=== PATIENT | male | born 1950 | race Caucasian/White ===

== ENCOUNTER 2024-10-10 19:08 | Inpatient (IN) | payer MEDICARE, SELFPAY ==
[2024-10-10] VITALS (7 sets, daily range): BP systolic 134–157; BP diastolic 83–95; PULSE 58–74; RESP 13–21; TEMP 36.5–37.1; O2SAT 95–96; BMI 27.7; BMI 27.8
--- NOTE | 2024-10-10 19:36 | EKG12_ITS ---
Test Reason : CP Blood Pressure : */* mmHG Vent. Rate : 72 BPM Atrial Rate : 72 BPM P-R Int : 172 ms QRS Dur : 98 ms QT Int : 400 ms P-R-T Axes : 26 -9 -19 degrees QTcB Int : 438 ms Normal sinus rhythm Inferior infarct , age undetermined Anterolateral infarct , age undetermined Abnormal ECG Confirmed by KYMBERLY DAVENPORT, MASSIEL ([id number]), purchase request editor SIMEON KIRKLAND ([id number]) on 10/13/2024 6:42:55 AM Referred By: Andres Weiss Confirmed By: MASSIEL TRAYLOR MD
--- NOTE | 2024-10-10 19:42 | EDS_ITS ---
HPI History of Present Illness Chief Complaint: Chest Pain Narrative Narrative: Patient is a 74-year-old male with no known significant past medical history no daily medications who presents to the emergency department the chief complaint of chest pain. Patient states that for the last week now he has had chest pain with exertion and shortness of breath. He states that this evening he went on a walk and was very winded it is abnormal for him. He denies any recent travel history denies any history of blood clots. patient's notes that last week for a couple days he was very fatigued and this was very abnormal for him as well. Patient states that he had a stress test many years ago and cannot recall when this was. [facility] Medical History (Updated 10/10/24 @ 22:[address] Andres Weiss DO) CKD (chronic kidney disease), stage II Ruptured patellar tendon Medical History no medical history Home Medications ?Medication ?Instructions ?Recorded ?Last Taken ?Type NK 10/10/24 Unknown History Allergy/AdvReac Type Severity Reaction Status Date / Time No Known Allergies Allergy Verified 10/10/24 19:09 Social History Smoking Status: Never smoker ROS ROS ED ROS Narrative Constitutional: Denies fevers, chills Cardiovascular: Complaint chest pain as noted above denies palpitations Respiratory: Complains of shortness of breath as noted above denies coughing wheezing Abdomen: Denies abdominal pain nausea vomit diarrhea Neurological: Denies numbness, weakness, tingling Musculoskeletal: Denies back pain Skin: Has any rashes or lesions EXAM Physical Exam Narrative Exam Narrative: General: Patient was lying in bed rest comfortably did not appear to be acute distress Head: Atraumatic, normocephalic Eyes: PERRL bilaterally, EOMI by, no conjunctival injection noted Neck: Soft, supple, trachea midline Cardiovascular: Regular rate and rhythm no murmurs gallops rubs noted Respiratory: Clear to auscultation bilaterally no rales rhonchi or wheezes noted Abdomen: Soft, nondistended, nontender to palpatio Extremities: +5/5 strength noted in the bilateral upper and lower extremities, radial pulses +2/4 in the bilateral extremities, no pedal edema on exam Neurological: Patient is following commands knew that he was at [facility] 2024 Skin: Warm, dry, intact no rashes or lesions noted Const Vital Signs: 10/10/24 19:09 10/10/24 19:14 10/10/24 19:54 Temperature 98.7 F Temperature Source Oral Pulse Rate 74 Respiratory Rate 19 H Respiratory Effort Normal Blood Pressure 139/88 H Blood Pressure Mean 105 Pulse Ox 95 Oxygen Delivery Method Room Air Room Air 10/10/24 20:08 10/10/24 21:00 10/10/24 22:00 Temperature Temperature Source Pulse Rate 68 67 62 Respiratory Rate 20 H 21 H 16 Respiratory Effort Blood Pressure 156/93 H 139/92 H 134/83 H Blood Pressure Mean 114 107 100 Pulse Ox 95 96 95 Oxygen Delivery Method Room Air Room Air MDM MDM MDM Narrative Medical decision making narrative: Patient is a 74-year-old male who presented to the emergency department the chief complaint of chest pain. On the differential diagnosis includes but not limited to ACS, stable angina, unstable angina, CHF, PE although I have low suspicion for this based on revised Kay score, pericardial effusion. Once workup is obtained reviewed he will be reevaluated. Kay Score (Revised) for Pulmonary Embolism from [email or web address] on 10/10/2024 All calculations should be rechecked by clinician prior to use RESULT SUMMARY: 1 points Low risk group: 7-9% incidence of PE from several studies. INPUTS: Age >65 ?> 1 = Yes Previous DVT or PE ?> 0 = No Surgery (under general anesthesia) or lower limb fracture in past month ?> 0 = No Active malignant condition ?> 0 = No Unilateral lower limb pain ?> 0 = No Hemoptysis ?> 0 = No Heart rate ?> 0 = < 75 Pain on lower limb palpation and unilateral edema ?> 0 = No Patient CBC reviewed showed no evidence leukocytosis white blood count normal 7.5, he was 14.9, platelet count of 184. Patient sodium was 142, potassium normal 3.6, creatinine was normal at 1.01. Patient's troponin was 19 with a delta troponin of 28. Patient's proBNP normal at 296. Patient's EKG reviewed showed sinus rhythm with a rate of 72 beats per minutes there are Q waves noted in lead II, III and aVF. Patient chest x-ray reviewed showed no acute cardiopulmonary processes this reviewed by myself and by radiology. Discussed case with on-call system administrator Dr. Doherty who agrees and believes the patient needs admitted as well. Will discuss case with hospitalist for admission. Patient already was given 325 mg of aspirin. Discussed case with hospitalist Dr. Truong who accept the patient for admission. She states that we will hold off on heparin for now and she will continue to monitor the cardiac enzymes and if they continue to rise we will decide about anticoagulation with heparin at that point time. Updated the patient and at bedside they are agreeable this plan all question concerns answered Lab Data Labs: Laboratory Results - last 24 hr 10/10/24 10/10/24 19:30 21:35 WBC 7.5 RBC 5.09 Hgb 14.9 Hct 42.7 MCV 83.9 MCH 29.3 MCHC 34.9 RDW Std Deviation 40.6 RDW Coeff of Anila 13.2 Plt Count 184 MPV 10.6 Immature Gran % (Auto) 0.400 Neut % (Auto) 62.4 Lymph % (Auto) 22.7 Rolette % (Auto) 10.6 H Eos % (Auto) 3.5 Baso % (Auto) 0.4 Absolute Neuts (auto) 4.7 Absolute Lymphs (auto) 1.71 Nucleated RBC % 0 Sodium 142 Potassium 3.6 Chloride 108 Carbon Dioxide 21.3 Anion Gap 12 BUN 25 H Creatinine 1.01 Est GFR (MDRD) Non-Af 79 BUN/Creatinine Ratio 24.3 H Glucose 109 H Calcium 9.2 Troponin T High Sens 19 Troponin T Hi Sens 2 Hr 28 H NT pro BNP II 296 Radiography Diagnostic Testing: Clinical Impression(s) from Imaging Studies Chest X-Ray 10/10/24 20:00 IMPRESSION: NEGATIVE CHEST Reading Location: [facility] Discharge Plan Triage Chief Complaint: Chest Pain ED Provider: Andres Weiss Dx/Rx/DC Orders Clinical Impression: Chest pain, Dyspnea on exertion Prescriptions: No Action NK Primary Care Provider: Yamileth Sutton Referrals: Yamileth Sutton, [employer]PERATOR-[employer] [Primary Care Provider] - Print Language: Portuguese Disposition Disposition: [facility]
[2024-10-10 19:50] LABS: Hematocrit 42.7 % (40-54); Hemoglobin 14.9 g/dL (13.0-16.5); Immature Granulocytes Count 0.030 X10^3/uL (0.0-0.0); Mean Corp Hgb Conc 34.9 g/dL (32-36); Mean Corpuscular Volume 83.9 fL (80-94); Mean Platelet Vol. 10.6 fl (6.2-12.0); NRBC Flagged by Analyzer 0 % (0-5); Platelet Count 184 K/mm3 (150-450); RBC Distribution Width CV 13.2 % (11.6-14.6); RBC Distribution Width SD 40.6 fl (35.1-43.9); Red Blood Count 5.09 M/mm3 (4.6-6.2); White Blood Count 7.5 K/mm3 (4.4-11.0)
--- NOTE | 2024-10-10 20:00 | RAD_ITS ---
PROCEDURE: CHEST PA AND LATERAL 10/10/2024 REASON FOR EXAM: CHEST PAIN TECHNIQUE: CHEST PA AND LATERAL COMPARISON: None. FINDINGS: Hardware: None. Heart: The heart size is normal. Mediastinum: The mediastinal contour is unremarkable. Lungs: No focal consolidation, pleural effusion or pneumothorax. Bones: Degenerative changes are identified within the thoracic spine. RAD/Chest PA and Lateral IMPRESSION: NEGATIVE CHEST Reading Location: [id number]
[2024-10-10 20:28] LABS: Anion Gap 12 (5-15); BUN 25 mg/dL (4-19); BUN/Creat Ratio 24.3 RATIO (10-20); Calcium,Total 9.2 mg/dL (7.6-11.0); Carbon Dioxide 21.3 mmol/L (21.0-32.0); Chloride 108 mmol/L (98-108); Glucose 109 mg/dL (70-99); Potassium 3.6 mmol/L (3.3-5.1)
--- OUTSIDE RECORDS SUMMARY | 2024-10-10 20:28 | XMS RPT_ITS | CCD ---
Author Organization [facility] Care Team Providers Care Set Up And Charger Name Role Phone Unavailable Primary Care Provider Unavailabl e Bria CONCRETE PILE DRIVER OPERATOR.Anupam JSOE Primary Care Provider Bria CONCRETE PILE DRIVER OPERATOR.Anupam JOSE Primary Care Provider ANUPAM SUTTON Primary Care Unavailable ANUPAM SUTTON Attending Unavailable KNRANDAL, ANUPAM Primary Care Unavailable KNANUPAM TEE Referring Unavailable KNANUPAM TEE Primary Care Unavailable KNANUPAM TEE Attending Unavailable KNANUPAM TEE Primary Care Unavailable KNANUPAM TEE Referring Unavailable KNANUPAM TEE Primary Care Unavailable KNOBLE, ANUPAM Primary Care Unavailable KNRANDAL, ANUPAM Referring Unavailable ANUPAM SUTTON Primary Care Unavailable KNANUPAM TEE Attending Unavailable BRIA, ANUPAM Primary Care Unavailable KNANUPAM TEE Referring Unavailable Medications Current Medications Medication Drug Class(es) Dates Sig (Normalized) Sig (Original) amoxicillin 875 mg / clavulanate 125 mg oral tablet (1 source) Penicillin-class Antibacterial Start: 07-10-2023 End: 07-17-2023 take 1 tablet by mouth twice daily amoxicillin-clavul anate potassium (AUGMENTIN) 875-125 mg per tablet Take 1 tablet by mouth two times a day for 7 days. Patient should start on July 10, 2023. 14 tablet 0 07/10/2023 07/17/2023 Active Comment on above: Take 1 tablet by raffy th two times a day for 7 days. Patient should start on July 10, 2023. predniSONE 10 mg oral tablet (1 source) Start: 10-10-2022 End: 10-19-2022 predniSONE (DELTASONE) 10 mg tablet Take 4 tabs daily for 3 days, then 2 tabs daily for 3 days, then 1 tab daily for 3 days with food. 21 tablet 0 10/10/2022 10/19/2022 Active Comment on above: Take 4 tabs daily fo r 3 days, then 2 tabs daily for 3 days, then 1 tab daily for 3 days with food. tamsulosin hydrochloride 0.4 mg oral capsule (3 sources) alpha-Adrenergic Soco Start: 09-22-2024 take 1 capsule by mouth once daily tamsulosin (FLOMAX) 0.4 mg Indications: 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 Take 1 capsule by mouth once daily. 90 capsule 1 09/22/2024 Active triamcinolone acetonide 1 mg/ml topical cream (1 source) Corticosteroid Start: 10-10-2022 End: 10-17-2022 triamcinolone acetonide (KENALOG) 0.1 % cream Apply 1 application to affected area three times daily for 7 days. Apply sparingly to area for rash/itching. 80 g 0 10/10/2022 10/17/2022 Active Comment on above: Apply 1 application to affected area three times daily for 7 days. Apply sparingly to area for rash/itching. vit C/olive leaf ext/beta-gluc (IMMUNE ESSENTIALS ORAL) (20 sources) take 1 capsule by mouth once daily vit C/olive leaf ext/beta-gluc (IMMUNE ESSENTIALS ORAL) Take 1 capsule by mouth once daily. Active take 1 capsule by mouth once florentin ly vit C/olive leaf ext/beta-gluc (IMMUNE ESSENTIALS ORAL) Take 1 capsule by mouth once daily. 0 Active Comment on above: Take 1 capsule by [facility] once daily. Completed/Discontinued Medications Medication Drug Class(es) Dates Sig (Normalized) Sig (Original) [id number] 200 actuat albuterol 0.09 mg/actuat metered dose inhaler (5 sources) beta2-Adrenergic Agonist Start: 09-09-2023 End: 10-24-2023 take 2 puff(s) by inhalation every four hours as needed for wheezing albuterol HFA (PROVENTIL HFA, VENTOLIN HFA) 90 mcg/actuation inhaler Inhale 2 Puffs as instructed every 4 hours as needed for wheezing/shortness of breath. 1 Each 09/09/2023 10/24/2023 Discontinued benzonatate 100 mg oral capsule (9 sources) Non-narcotic Antitussive Start: 07-07-2023 End: 10-24-2023 take 1 capsule by mouth every eight hours as needed benzonatate (TESSALON PERLES) 100 mg capsule Take 1 capsule by mouth three times a day as needed for cough. 21 capsule 07/07/2023 10/24/2023 Discontinued Comment on above: Take 1 capsule by mo ut three times a day as needed for cough. doxycycline hyclate 100 mg oral tablet (4 sources) Tetracycline-class Drug Start: 09-09-2023 End: 09-16-2023 take 1 tablet by mouth twice daily doxycycline (VIBRA-TABS) 100 mg tablet Take 1 tablet by mouth two times a day for 7 days. 14 tablet 09/09/2023 09/16/2023 [place] 500 mg cap (13 sources) End: 10-24-2023 take 1 capsule by mouth once daily [place] 500 mg cap Take 1 capsule by mouth once daily. 10/24/2023 Discontinued End: 10-24-2023 take 1 capsule by mouth once daily [place] 500 mg cap Take 1 capsule by mouth once daily. 0 10/24/2023 Discontinued take 1 capsule by mo ut once daily [place] 500 mg cap Take 1 capsule by mouth once daily. 0 Active Comment on above: Take 1 capsule by mo ut once daily. gwfpelm-qlef-xlywg -oreg-capryl 100 mg-150 mg- 50 mg-150 mg cap (13 sources) End: 10-24-2023 take 2 capsules by mouth once daily qbfbowy-pgpu-zunme-ore g-capryl 100 mg-150 mg- 50 mg-150 mg cap Take 2 capsules by mouth once daily. 10/24/2023 Discontinued End: 10-24-2023 take 2 capsules by mouth once daily bgmjltv-lojg-lctjt-oreg-capryl 100 mg-15 0 mg- 50 mg-150 mg cap Take 2 capsules by mouth once daily. 0 10/24/2023 Discontinued take 2 capsules by mouth once daily jhaazjz-xsll-wwrak-oreg-capryl 100 mg-15 0 mg- 50 mg-150 mg cap Take 2 capsules by mouth once daily. 0 Active Comment on above: Take 2 capsules by [facility] once daily. Problems Active Problems Problem Classification Problem Date Documented Da te Episodic/Chronic Allergic reactions (1 source) Allergic contact dermatitis caused by plant material; Translations: [Allergic contact dermatitis due to plants, except food] Episodic Blindness and vision defects (1 source) Visual impairment; Translations: [Unspecified visual loss] 10-24-2023 Chronic Blindness and vision defects (3 sources) Bilateral hyperopia of eyes; Translations: [Hypermetropia, bilateral] Onset: 09-22-2024 10-24-2023 Episodic Chronic obstructive pulmonary disease and bronchiectasis (2 sources) Bronchitis; Translations: [Bronchitis, not specified as acute or chronic] 09-09-2023 Episodic Disorders of teeth and jaw (4 sources) Jaw pain; Translations: [Jaw pain] Onset: 09-22-2024 09-22-2024 Episodic Genitourinary symptoms and ill-defined conditions (1 source) Feeling of incomplete bladder emptying; Translations: [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] Onset: 09-22-2024 Episodic Hyperplasia of prostate (2 sources) Benign prostatic hypertrophy with outflow obstruction; Translations: [Benign prostatic hyperplasia with lower urinary tract symptoms] Onset: 09-22-2024 09-22-2024 Chronic Nutritional deficiencies (3 sources) Vitamin D deficiency; Translations: [Vitamin D deficiency, unspecified] Onset: 10-24-2023 10-24-2023 Chronic Other connective tissue disease (3 sources) Pain in left thumb; Translations: [Pain in left finger(s)] 09-22-2024 Episodic Other connective tissue disease (1 source) Pain in left finger(s); Translations: [Pain of left thumb] Onset: 09-22-2024 Episodic Other ear and sense organ disorders (1 source) Tinnitus; Translations: [Tinnitus, unspecified ear] 02-01-2023 Episodic Other ear and sense organ disorders (1 source) Bilateral tinnitus; Translations: [Tinnitus, bilateral] 09-22-2024 Episodic Other ear and sense organ disorders (1 source) Tinnitus, bilateral; Translations: [Tinnitus of both ears] Onset: 09-22-2024 Episodic Other lower respiratory disease (3 sources) Cough; Translations: [Acute cough] 07-07-2023 Episodic Other upper respiratory disease (1 source) Hoarse; Translations: [Dysphonia] 09-11-2023 Episodic Other upper respiratory infections (4 sources) Acute upper respiratory infection; Translations: [Acute upper respiratory infection, unspecified] 07-07-2023 Episodic Residual codes; unclassified (1 source) Generalized aches and pains; Translations: [Pain, unspecified] 09-07-2023 Episodic Past or Other Problems Problem Classification Problem Date Documented Da te Episodic/Chronic Immunizations and screening for infectious disease (16 sources) Patient encounter status; Translations: [Encounter for immunization] Onset: 11-07-2023 10-22-2022 Episodic Other screening for suspected conditions (not mental disorders or infectious disease) (5 sources) Encounter for screening for malignant neoplasm of colon; Translations: [Encounter for screening for diabetes mellitus] Onset: 10-24-2023 Episodic Results Test Name Value Interpretation Reference Range Facility CNOVon 09-22-2024 CNOV Office Visit ([facility] ) JIMBO JEFFERSON ([id number]) 1950 M Date Time Provider Department 09/22/24 8:20 AM ANUPAM SUTTON During your visit today, we recorded the following information about you: Pulse Blood pressure Weight 67/minute 130/76 85 kg Anupam Sutton APRN.CNP 09/22/2024 8:41 AM Signed Jimbo Masterson is a 74 year old male here for a Medicare wellness visit. Medicare Health Risk Assessment General Health Excellent Exercise: Minutes/Day 60 min Exercise: Days/Week 4 days Alcohol: Daily Use 2-4 times a month Alcohol: Drinks/Day 1 or 2 Alcohol: 6 or more drinks Never Feel off balance No Concerns: Teeth/Dentures No Concerns: Sexual function No Troubled by feelings None of the above Frequency: Eating healthy diet More than half the days ADLs requiring help None of the above Safety precautions in home/vehicle Yes Smoke, vape, chews tobacco No Difficulty hearing No Difficulty seeing No Current Providers Specialists: I have reviewed specialist-related care of the patient in the medical record. Current care team: Patient Care Team: Anupam Sutton APRN.CNP as PCP - General (Family Medicine) Medical/Family history review Reviewed and updated problem list, medical/surgical/family/soci al history, medications, and allergies. Opioid use review Opioid Medications (last 90 days) No data to display Anxiety/Depression screening ANGELA-7 Score: 0 . Recommendation: no further intervention at this time Cognitive screening Cognitive screening reviewed and No further action needed (score 3-5). Functional Observation Was the patient's Timed Up AND Go test unsteady or >= 12 seconds? No Advance Care Planning Patient did not wish or was not able to name a surrogate decision maker or provide an advance care plan Measurements BP 130/76 Pulse 67 Wt 85 kg (187 lb 6.3 oz) Vision Screening: Follows with optometry/ophthalmology Assessment/Plan Medicare annual wellness visit, subsequent (Z00.00) - Counseled on healthy diet and regular exercise - Fall avoidance information provided - Personalized prevention plan provided - Discussed need for and benefit of weight loss. There is no height on file. Chief Complaint Patient presents with: Medicare Wellness Exam HPI Jimbo Masterson is a 74 year old male who presents here today for Above Complaints. Patient presents for annual physical. Patient reports decreased strength of stream of urine. Also reports occasional pain to right jaw and ear when chewing. Pain lasts seconds and is gone. Also has multiple skin abnormalities he would like looked at to back and left thigh. Reports left thumb pain, starts at base of wrist and extends to bottom of thumb. Happens randomly and is not brought on by specific movement. Reports chronic tinnitus is getting worse. Tested years ago and was told nothing they can do. Past medical history, appointments, medications, allergies reviewed. Previous Medical History PAST MEDICAL HISTORY Diagnosis Date Tinnitus Previous Surgical History PAST SURGICAL HISTORY Procedure Laterality Date ARTHROSCOPY KNEE DIAGNOSTIC W/WO SYNOVIAL BX SPX TONSILLECTOMY AND ADENOIDECTOMY Family History FAMILY HISTORY Adopted: Yes Patient Allergies ALLERGIES No Known Allergies Current Medications Current Outpatient Medications on File Prior to Visit Medication Sig vit C/olive leaf ext/beta-gluc (IMMUNE ESSENTIALS ORAL) Take 1 capsule by mouth once daily. No current facility-administered medications on file prior to visit. Social History Social History Tobacco Use Smoking status: Never Smokeless tobacco: Never Vaping Use Vaping status: Never Used Substance Use Topics Drug use: Never Review of Symptoms REVIEW OF SYSTEMS SEE HPI EXAM: BP 130/76 Pulse 67 Wt 85 kg (187 lb 6.3 oz) General Appearance: Well appearing, alert, in no acute distress, well-hydrated, well nourished. Skin: Positives: Mole(s) - abnormal: upper legs. Lungs: Lungs clear to auscultation. No wheezing, rhonchi, rales.. Heart: RRR without murmur, gallop, or rubs. No ectopy. Abdomen: Normal abdominal exam, Abdomen soft, non-tender. Bowel sounds normal. No masses, organomegaly Musculoskeletal: No joint swelling, deformity, or tenderness. Peripheral Pulses: Normal. Neurologic: Gait normal. Reflexes normal and symmetric. Sensation grossly intact.. Health Maintenance List Colorectal Cancer Screening Never done Covid-19 Vaccine( season) due on 12/15/2023 Advance Directive Discussion due on 04/15/2024 Depression Screening due on 10/23/2024 Anxiety Screening due on 10/23/2024 Influenza Vaccine(Season Ended) due on 12/14/2024 Diabetes Screening due on 09/03/2027 Lipid Screening due on 09/02/2029 DTaP,Tdap,Td Vaccine(2 - Td or Tdap) due on 10/22/2032 RSV Vaccine Comp (more content not included)... Normal [facility] XR HAND 3V PA/LAT/OBL LTon 0 09-22-2024 XR HAND 3V PA/LAT/OBL LT * * *Final Report* * * DATE OF EXAM: Sep 22 2024 9:26AM WOX [id number] - XR HAND 3V PA/LAT/OBL LT / PROCEDURE REASON: Pain of left thumb * * * * Physician Interpretation * * * * EXAMINATION / TECHNIQUE: XR HAND 3V PA/LAT/OBL LT HISTORY: pain in thumb joint for awhile, no injury Pain of left thumb COMPARISON: None. RESULT: No acute fracture or dislocation. 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 No osseous erosion. IMPRESSION: Degenerative changes as described. Surface Grinder: PSCB Transcribe Date/Time: Sep 27 2024 6:54P Dictated by : JUSTIN MILLER MD This examination was interpreted and the report reviewed and electronically signed by: JUSTIN MILLER MD on Sep 27 2024 6:54PM EST [id number] Normal [facility] XR MANDIBLE 4V PA/BO/OBL X2on 09-22-2024 XR MANDIBLE 4V PA/BO/OBL X2 * * *Final Report* * * DATE OF EXAM: Sep 22 2024 9:26AM WOX [id number] - XR MANDIBLE 4V PA/BO/OBL X2 / PROCEDURE REASON: Jaw pain * * * * Physician Interpretation * * * * EXAMINATION / TECHNIQUE: XR MANDIBLE 4V PA/BO/OBL X2 HISTORY: jaw pain, right-sided Jaw pain COMPARISON: None. RESULT: See impression IMPRESSION: No focal mandibular abnormality is identified. The temporomandibular joints are normally aligned without significant osteoarthritis. No significant mandibular periapical lucency is identified. Surface Grinder: PSCB Transcribe Date/Time: Sep 27 2024 6:54P Dictated by : JUSTIN MILLER MD This examination was interpreted and the report reviewed and electronically signed by: JUSTIN MILLER MD on Sep 27 2024 6:55PM EST [id number] Normal [facility] 25(OH)D3 SerPl-mCncon 2024 25-hydroxyvitamin D3 [Mass/Vol] 35.5 ng/mL Normal 31.0-80.0 [facility] Comment on above: Order Comment: Adriana carlisle Type: BLOOD SPECIMENOrdering Facility: [facility] Address: [address] [place] [address] Result Comment: Clas sification of 25 OH Vitamin D status: Deficiency/Insufficiency: < or = 30 ng/ml. Sufficiency/Optimal Levels: 31-80 ng/mL Toxicity: > 100 ng/mL. Test performed by chemiluminescent immunoassay. Performed By: #### 1 989-3 ####[facility] LABCLIA [id number] [place] [address] [place] CBC W Auto Differential pane l (Bld)on 09-02-2024 Basophils (Bld) [#/Vol] 0.05 10*3/uL Normal <0.11 [facility] Comment on above: Order Comment: Speci men Type: BLOOD SPECIMENOrdering Facility: [facility] Address: [address] [place] [address] Performed By: #### 5 7021-8 ####[facility] LABCLIA [id number] [facility] [address], [place] [address] [place] Basophils/100 WBC (Bld) 0.7 % Normal [facility] Comment on above: Order Comment: Speci men Type: BLOOD SPECIMENOrdering Facility: [facility] Address: [address] [place] [address] Performed By: #### 5 7021-8 ####[facility] LABCLIA [id number] [address], [place] [address] [place] Differential cell count method Nom (Bld) Auto Normal [facility] Comment on above: Order Comment: Speci men Type: BLOOD SPECIMENOrdering Facility: [facility] Address: [address] [place] [address] Performed By: #### 5 7021-8 ####[facility] LABCLIA [id number] [address], [place] [address] [place] Eosinophils (Bld) [#/Vol] 0.23 10*3/uL Normal <0.46 [facility] Comment on above: Order Comment: Speci men Type: BLOOD SPECIMENOrdering Facility: [facility] Address: [address] [place] [address] Performed By: #### 5 7021-8 ####[facility] LABCLIA [id number] [place] [address] [place] Eosinophils/100 WBC (Bld) 3.3 % Normal [facility] Comment on above: Order Comment: Speci men Type: BLOOD SPECIMENOrdering Facility: [facility] Address: [address] [place] [address] Performed By: #### 5 7021-8 ####[facility] LABCLIA [id number] [address], [place] [address] [place] Erythrocyte distribution width (RBC) [Ratio] 13.4 % Normal 11.5-15.0 [facility] Comment on above: Order Comment: Speci men Type: BLOOD SPECIMENOrdering Facility: [facility] Address: [address] [place] [address] Performed By: #### 5 7021-8 ####[facility] LABCLIA [id number] [place] [address] [place] Hematocrit (Bld) [Volume fraction] 49.3 % Normal 39.0-51.0 [facility] Comment on above: Order Comment: Speci men Type: BLOOD SPECIMENOrdering Facility: [facility] Address: [address] [place] [address] Performed By: #### 5 7021-8 ####[facility] LABIA [id number] [place] [address] [place] Hemoglobin (Bld) [Mass/Vol] 16.3 g/dL Normal 13.0-17.0 [facility] Comment on above: Order Comment: Speci men Type: BLOOD SPECIMENOrdering Facility: [facility] Address: [address] [place] [address] Performed By: #### 5 7021-8 ####[facility] LABIA [id number] [place] [address] [place] Immature granulocytes (Bld) [#/Vol] 0.05 10*3/uL Normal <0.10 [facility] Comment on above: Order Comment: Speci men Type: BLOOD SPECIMENOrdering Facility: [facility] Address: [address] [place] [address] Performed By: #### 5 7021-8 ####[facility] LABIA [id number] [place] [address] [place] Immature granulocytes/100 WBC (Bld) 0.7 % Normal [facility] Comment on above: Order Comment: Speci men Type: BLOOD SPECIMENOrdering Facility: [facility] Address: [address] [place] [address] Performed By: #### 5 7021-8 ####[facility] LABCLIA [id number] [place] [address] [place] Lymphocytes (Bld) [#/Vol] 1.72 10*3/uL Normal 1.00-4.00 [facility] Comment on above: Order Comment: Speci men Type: BLOOD SPECIMENOrdering Facility: [facility] Address: [address] [place] [address] Performed By: #### 5 7021-8 ####[facility] LABIA [id number] [place] [address] [place] Lymphocytes/100 WBC (Bld) 25.0 % Normal [facility] Comment on above: Order Comment: Speci men Type: BLOOD SPECIMENOrdering Facility: [facility] Address: [address] [place] [address] Performed By: #### 5 7021-8 ####[facility] LABIA [id number] [place] [address] [place] MCH (RBC) [Entitic mass] 28.4 pg Normal 26.0-34.0 [facility] Comment on above: Order Comment: Speci men Type: BLOOD SPECIMENOrdering Facility: [facility] Address: [address] [place] [address] Performed By: #### 5 7021-8 ####[facility] LABIA [id number] [place] [address] [place] MCHC (RBC) [Mass/Vol] 33.1 g/dL Normal 30.5-36.0 [facility] Comment on above: Order Comment: Speci men Type: BLOOD SPECIMENOrdering Facility: [facility] Address: [address] [place] [address] Performed By: #### 5 7021-8 ####[facility] LABIA [id number] [place] [address] [place] MCV (RBC) [Entitic vol] 86.0 fL Normal 80.0-100.0 [facility] Comment on above: Order Comment: Speci men Type: BLOOD SPECIMENOrdering Facility: [facility] Address: [address] [place] [address] Performed By: #### 5 7021-8 ####[facility] LABCLIA [id number] [facility] [address], [facility] [place] Monocytes (Bld) [#/Vol] 0.54 10*3/uL Normal <0.87 [facility] Comment on above: Order Comment: Speci men Type: BLOOD SPECIMENOrdering Facility: [facility] Address: [address] [place] [address] Performed By: #### 5 7021-8 ####[facility] LABCLIA [id number] [facility] [address], [place] [address] [place] Monocytes/100 WBC (Bld) 7.8 % Normal [facility] Comment on above: Order Comment: Speci men Type: BLOOD SPECIMENOrdering Facility: [facility] Address: [address] [place] [address] Performed By: #### 5 7021-8 ####[facility] LABCLIA [id number] [address], [place] [address] [place] Neutrophils (Bld) [#/Vol] 4.29 10*3/uL Normal 1.45-7.50 [facility] Comment on above: Order Comment: Speci men Type: BLOOD SPECIMENOrdering Facility: [facility] Address: [address] [place] [address] Performed By: #### 5 7021-8 ####[facility] LABCLIA [id number] [address], [facility] [place] Neutrophils/100 WBC (Bld) 62.5 % Normal [facility] Comment on above: Order Comment: Speci men Type: BLOOD SPECIMENOrdering Facility: [facility] Address: [address] [place] [address] Performed By: #### 5 7021-8 ####[facility] LABCLIA [id number] [address] [place] [address] [place] Nucleated RBC (Bld) [#/Vol] 10*3/uL Normal <0.01 [facility] Comment on above: Order Comment: Speci men Type: BLOOD SPECIMENOrdering Facility: [facility] Address: [address] [place] [address] Performed By: #### 5 7021-8 ####[facility] LABCLIA [id number] [address], [place] [address] [place] Nucleated RBC/100 WBC (Bld) [Ratio] 0.0 /100 WBC Normal [facility] Comment on above: Order Comment: Speci men Type: BLOOD SPECIMENOrdering Facility: [facility] Address: [address] [place] [address] Performed By: #### 5 7021-8 ####[facility] LABIA [id number] [address], [place] [address] [place] Platelet mean volume (Bld) [Entitic vol] 11.1 fL Normal 9.0-12.7 [facility] Comment on above: Order Comment: Speci men Type: BLOOD SPECIMENOrdering Facility: [facility] Address: [address] [place] [address] Performed By: #### 5 7021-8 ####[facility] LABCLIA [id number] [address], [facility] [place] Platelets (Bld) [#/Vol] 199 10*3/uL Normal 150-400 [facility] Comment on above: Order Comment: Speci men Type: BLOOD SPECIMENOrdering Facility: [facility] Address: [address] [place] [address] Performed By: #### 5 7021-8 ####[facility] [facility] [id number] [address] [place] [address] [place] RBC (Bld) [#/Vol] 5.73 10*6/uL Normal 4.20-6.00 [facility] Comment on above: Order Comment: Speci men Type: BLOOD SPECIMENOrdering Facility: [facility] Address: [address] [place] [address] Performed By: #### 5 7021-8 ####[facility] LABCLIA [id number] [place] [address] [place] WBC (Bld) [#/Vol] 6.88 10*3/uL Normal 3.70-11.00 [facility] Comment on above: Order Comment: Speci men Type: BLOOD SPECIMENOrdering Facility: [facility] Address: [address] [place] [address] Performed By: #### 5 7021-8 ####[facility]CLIA [id number] [place] [address] [place] Comprehensive metabolic 2000 panelon 09-02-2024 Albumin [Mass/Vol] 4.5 g/dL Normal 3.9-4.9 [facility] Comment on above: Order Comment: Speci men Type: BLOOD SPECIMENOrdering Facility: [facility] Address: [address] [place] [address] Performed By: #### 2 4323-8, LIPNF ####[facility]CLIA [id number] [place] [address] [place] ALP [Catalytic activity/Vol] 59 U/L Normal 38-113 [facility] Comment on above: Order Comment: Speci men Type: BLOOD SPECIMENOrdering Facility: [facility] Address: [address] [place] [address] Performed By: #### 2 4323-8, LIPNF ####[facility]CLIA [id number] [address] [address] [place] ALT [Catalytic activity/Vol] 24 U/L Normal 10-54 [facility] Comment on above: Order Comment: Speci men Type: BLOOD SPECIMENOrdering Facility: [facility] Address: [address] [place], [place] [address] Performed By: #### 2 4323-8, LIPNF ####[facility]CLIA [id number] [address] [address] [place] Anion gap [Moles/Vol] 15 mmol/L Normal 8-15 [facility] Comment on above: Order Comment: Speci men Type: BLOOD SPECIMENOrdering Facility: [facility] Address: [address] [place], [place] [id number] Performed By: #### 2 4323-8, LIPNF ####[facility]CLIA [id number] [address], [place] [address] [place] AST [Catalytic activity/Vol] 21 U/L Normal 14-40 [facility] Comment on above: Order Comment: Speci men Type: BLOOD SPECIMENOrdering Facility: [facility] Address: [address] [place], [place] [address] Performed By: #### 2 4323-8, LIPNF ####[facility]CLIA [id number] [place] [address] [place] Bilirubin [Mass/Vol] 1.3 mg/dL Normal 0.2-1.3 [facility] Comment on above: Order Comment: Speci men Type: BLOOD SPECIMENOrdering Facility: [facility] Address: [address] [place], [place] [address] Performed By: #### 2 4323-8, LIPNF ####[facility]CLIA [id number] [place] [address] [place] Calcium [Mass/Vol] 9.3 mg/dL Normal 8.5-10.2 [facility] Comment on above: Order Comment: Speci men Type: BLOOD SPECIMENOrdering Facility: [facility] Address: [address] [place], [place] [id number] Performed By: #### 2 4323-8, LIPNF ####[facility]CLIA [id number] [facility] [address] [address] [place] Chloride [Moles/Vol] 104 mmol/L Normal 98-107 [facility] Comment on above: Order Comment: Speci men Type: BLOOD SPECIMENOrdering Facility: [facility] Address: [address] [place] [address] Performed By: #### 2 4323-8, LIPNF ####[facility]CLIA [id number] [place] [address] [place] CO2 [Moles/Vol] 23 mmol/L Normal 22-30 [facility] Comment on above: Order Comment: Speci men Type: BLOOD SPECIMENOrdering Facility: [facility] Address: [address] [place] [address] Performed By: #### 2 4323-8, LIPNF ####[facility]CLIA [id number] [place] [address] [place] Creatinine [Mass/Vol] 0.87 mg/dL Normal 0.73-1.22 [facility] Comment on above: Order Comment: Speci men Type: BLOOD SPECIMENOrdering Facility: [facility] Address: [address] [place] [address] Performed By: #### 2 4323-8, LIPNF ####[facility] LABIA [id number] [place] [address] [place] Creatinine and Glomerular filtration rate.predicted panel (S/P/Bld) 91 mL/min/1.73m??? Normal >=60 [facility] Comment on above: Order Comment: Speci men Type: BLOOD SPECIMENOrdering Facility: [facility] Address: [address] [place] [address] Result Comment: Sita mated Glomerular Filtration Rate (eGFR) is calculated using the 2020 CKD-EPI creatinine equation. This equation utilizes serum creatinine, sex, and age as parameters. The creatinine assay has traceable calibration to isotope dilution-mass spectrometry. Refer to KDIGO guidelines for clinical interpretation. In patients with unstable renal function, e.g. those with acute kidney injury, the eGFR may not accurately reflect actual GFR. Performed By: #### 2 4323-8, LIPNF ####[facility]CLIA [id number] [address] [address] [place] Glucose [Mass/Vol] 84 mg/dL Normal 74-99 [facility] Comment on above: Order Comment: Speci men Type: BLOOD SPECIMENOrdering Facility: [facility] Address: [address] [place], [place] [address] Result Comment: The [place] Diabetes Association (ADA) provides guidance for cutoff values for fasting glucose and random glucose. The ADA defines fasting as no caloric intake for at least 8 hours. Fasting plasma glucose results between 100 to 125 mg/dL indicate increased risk for diabetes (prediabetes). Fasting plasma glucose results greater than or equal to 126 mg/dL meet the criteria for diagnosis of diabetes. In the absence of unequivocal hyperglycemia, results should be confirmed by repeat testing. In a patient with classic symptoms of hyperglycemia or hyperglycemic crisis, random plasma glucose results greater than or equal to 200 mg/dL meet the criteria for diagnosis of diabetes. Reference: Standards of Medical Care in Diabetes 2016, [place] Diabetes Association. Diabetes Care. 2016.39(Suppl 1). Performed By: #### 2 4323-8, LIPNF ####[facility]CLIA [id number] [facility] [address] [address] [place] Potassium [Moles/Vol] 3.9 mmol/L Normal 3.7-5.1 [facility] Comment on above: Order Comment: Speci men Type: BLOOD SPECIMENOrdering Facility: [facility] Address: [address] [place] [id number] Performed By: #### 2 4323-8, LIPNF ####[facility]CLIA [id number] [facility] [id number] [address] [place] Protein [Mass/Vol] 7.0 g/dL Normal 6.3-8.0 [facility] Comment on above: Order Comment: Speci men Type: BLOOD SPECIMENOrdering Facility: [facility] Address: [address] [place] [address] Performed By: #### 2 4323-8, LIPNF ####[facility]CLIA [id number] [place] [id number] [place] Sodium [Moles/Vol] 142 mmol/L Normal 136-144 [facility] Comment on above: Order Comment: Speci men Type: BLOOD SPECIMENOrdering Facility: [facility] Address: [address] [place] [address] Performed By: #### 2 4323-8, LIPNF ####[facility]CLIA [id number] [place] [address] [place] Urea nitrogen [Mass/Vol] 15 mg/dL Normal 9-24 [facility] Comment on above: Order Comment: Speci men Type: BLOOD SPECIMENOrdering Facility: [facility] Address: [address] [place] [address] Performed By: #### 2 4323-8, LIPNF ####[facility]CLIA [id number] [place] [address] [place] HbA1c (Bld)on 09-02-2024 Average glucose Estimated from glycated hemoglobin (Bld) [Mass/Vol] 94 mg/dL Normal [facility] Comment on above: Order Comment: Speci men Type: BLOOD SPECIMENOrdering Facility: [facility] Address: [address] [place] [address] Result Comment: eAG: (Estimated average glucose) is a calculated value from HgbA1c and is sales representative uniforms of the average blood glucose level in the last 2-3 month period. Performed By: #### 5 5454-3 ####[facility]CLIA [id number] [place] [id number] [place] HbA1c (Bld) [Mass fraction] 4.9 % Normal 4.3-5.6 [facility] Comment on above: Order Comment: Speci men Type: BLOOD SPECIMENOrdering Facility: [facility] Address: [address] [place] [address] Result Comment: Amer [place] Diabetes Association guidelines indicate that patients with HgbA1c in the range 5.7-6.4% are at increased risk for development of diabetes, and intervention by lifestyle modification may be beneficial. HgbA1c greater or equal to 6.5% is considered diagnostic of diabetes. Performed By: #### 5 5454-3 ####[facility] LABCLIA [id number] [place] [address] [place] LIPID PANEL, NONFASTINGon Cholesterol [Mass/Vol] 222 mg/dL High <200 [facility] Comment on above: Order Comment: Adriana men Type: BLOOD SPECIMENOrdering Facility: [facility] Address: [address] [place] [address] Result Comment: <200 mg/dL, Desirable 200-239 mg/dL, Borderline high >239 mg/dL, High Performed By: #### 2 4323-8, LIPNF ####[facility]CLIA [id number] [address], [facility]95 [place] HDL CHOLESTEROL, NF 61 mg/dL Normal >39 [facility] Comment on above: Order Comment: Adriana men Type: BLOOD SPECIMENOrdering Facility: [facility] Address: [address] [place] [address] Result Comment: 40-5 9 mg/dL, Acceptable >59 mg/dL, High: Negative risk factor for coronary heart disease <40 mg/dL, Low: Positive risk factor for coronary heart disease Performed By: #### 2 4323-8, LIPNF ####[facility]CLIA [id number] [address], [facility]95 [place] LDL CHOLESTEROL CALCULATED, NF 141 mg/dL High <100 [facility] Comment on above: Order Comment: Alondrai maylin Type: BLOOD SPECIMENOrdering Facility: [facility] Address: [address] [place] [address] Result Comment: <100 mg/dL, Optimal 100-129 mg/dL, Near optimal/above optimal 130-159 mg/dL, Borderline high 160-189 mg/dL, High >189 mg/dL, Very high Secondary prevention optimal LDL Cholesterol levels are recommended to be <70 mg/dL LDL cholesterol is calculated using the Lee-NIH equation. Performed By: #### 2 4323-8, LIPNF ####[facility]CLIA [id number] [address] LDL/HDL RATIO, NF 2.31 mg/dL Normal <2.54 [facility] Comment on above: Order Comment: Alondrai men Type: BLOOD SPECIMENOrdering Facility: [facility] Address: [address] [place] [address] Result Comment: Sarah rowley: 1. National Cholesterol Education Program ATP III Guideline At-A-Glance Quick Desk Reference: National Heart, Lung, and Blood [place]. National Institutes of Health. 2001: NIH Publication No. 01-3305. 2. An International Atherosclerosis Society position paper: global recommendations for the management of dyslipidemia: executive summary, Atherosclerosis. 2014: 232(2):410-413. Performed By: #### 2 4323-8, LIPNF ####[facility] LABIA [id number] [address] NON HDL CHOL, NF 161 mg/dL High <130 [facility] Comment on above: Order Comment: Adriana carlisle Type: BLOOD SPECIMENOrdering Facility: [facility] Address: [address] [place] [address] Result Comment: <130 mg/dL, Optimal 130-159 mg/dL, Near optimal/above optimal 160-189 mg/dL, Borderline high 190-219 mg/dL, High >219 mg/dL, Very high Secondary prevention optimal non HDL Cholesterol levels are recommended to be <100 mg/dL Performed By: #### 2 4323-8, LIPNF ####[facility] LABCLIA [id number] [address] OF [facility] T CHOL/HDL RATIO NF 3.64 mg/dL Normal <5.10 [facility] Comment on above: Order Comment: Speci men Type: BLOOD SPECIMENOrdering Facility: [facility] Address: [address] [place] [address] Performed By: #### 2 4323-8, LIPNF ####[facility] LABCLIA [id number] [address] [place] [address] [place] TRIGLYCERIDES, NF 114 mg/dL Normal <150 [facility] Comment on above: Order Comment: Speci men Type: BLOOD SPECIMENOrdering Facility: [facility] Address: [address] [place] [address] Result Comment: <150 mg/dL, Normal 150-199 mg/dL, Borderline high 200-499 mg/dL, High >499 mg/dL, Very high Performed By: #### 2 4323-8, LIPNF ####[facility] LABCLIA [id number] [place] [address] [place] VLDL CHOLESTEROL, NF 21 mg/dL Normal <30 [facility] Comment on above: Order Comment: Speci men Type: BLOOD SPECIMENOrdering Facility: [facility] Address: [address] [place] [address] Performed By: #### 2 4323-8, LIPNF ####[facility] LABCLIA [id number] [place] [id number] [place] PSA/PROSTATE SPECIFIC ANTIGE N SCREENINGon 09-02-2024 Prostate specific Ag [Mass/Vol] 0.63 ng/mL Normal <2.60 [facility] Comment on above: Order Comment: Speci men Type: BLOOD SPECIMENOrdering Facility: [facility] Address: [address] [place] [address] Result Comment: Tota l PSA test methodology used is the Electrochemiluminescence Immunoassay by [employer]. Total PSA values by differing methodologies cannot be interchanged. Performed By: #### P SAS1 ####[facility] LABCLIA [id number] [place] [id number] [place] CNPNon 05-19-2025 CNPN Telephone (FAMPWS) JIMBO JEFFERSON ([id number]) 1950 M Date Time Provider Department 08/31/24 ANUPAM SUTTON [facility] During your visit today, we recorded the following information about you: Margie Huntley LPN 08/31/2024 3:00 PM Signed Pt has an annual appt in September. Pt is requesting lab orders. Pt would like a PSA included in lab orders. Call pt when labs have been ordered. DELANEY Delaney Danielle, APRN.[facility] 08/31/2024 3:04 PM Signed Please let patient know his labs have been ordered and can be completed at his convenience. Mary Alice Valadez MA 08/31/2024 3:21 PM Signed Pt notified and verbalized understanding Mary Alice Valadez MA Allergies As of Date: 08/31/2024 (No Known Allergies) Date Reviewed: 02/26/2024 Reviewed by: Krupa Lee MA - Fully Assessed Reason for Visit: Lab Orders [1688] Primary Visit Diagnosis:Vitamin D deficiency [E55.9] Other Visit Diagnoses:Encounter for lipid screening for cardiovascular disease [Z13.220, Z13.6] Screening for diabetes mellitus [Z13.1] Screening PSA (prostate specific antigen) [Z12.5] Wellness examination [Z00.00] Order(s):COMPLETE BLOOD COUNT AND DIFFERENTIAL [SQCBCDIF] Order #: [id number] FUTURE COMPREHENSIVE METABOLIC PANEL [SQCMP] Order #: [id number] FUTURE HEMOGLOBIN A1C [XNVEP4M] Order #: [id number] FUTURE LIPID PANEL, NONFASTING [SQLIPNF] Order #: [id number] FUTURE PSA/PROSTATE SPECIFIC ANTIGEN SCREENING [SQPSAS1] Order #: [id number] FUTURE VITAMIN D 25 HYDROXY [SQVITD] Order #: [id number] FUTURE Prescriptions as of 08/31/2024 - vit C/olive leaf ext/beta-gluc (IMMUNE ESSENTIALS ORAL) Take 1 capsule by mouth once daily. Problem List As Of Date: 08/31/2024 (None) Encounter Status:Closed by MARY ALICE VALADEZ CMA on 08/31/24 [facility]20[facility] AUDREY JIMBO Masterson ([id number]) 1950 M Date Time Provider Department 05/29/24 ANUPAM SUTTON [facility] During your visit today, we recorded the following information about you: Mariah Richards, RN 05/29/2024 12:01 PM Signed Pt called in and said he would like to have the provider give him a call back. I told him the providers are busy seeing Pts all day and she may not have time to call him back, so if her could give me some information to give to the provider she may be able to get a message back. Pt states, it's of a personal nature and if it wasn't important I wouldn't be calling.. I tried to get Pt to give me any information and he would not, he said if provider doesn't call her back then she doesn't call him. nAupam Sutton APRN.[employer] CONTR[employer] CLERK 05/29/2024 12:46 PM Signed Called and spoke with patient. Questioning wait time to cardiology for his . See wifes chart. Allergies As of Date: 05/29/2024 (No Known Allergies) Date Reviewed: 02/26/2024 Reviewed by: Krupa Lee MA - Fully Assessed Reason for Visit: Call Back from Provider [Other] Prescriptions as of 05/29/2024 - vit C/olive leaf ext/beta-gluc (IMMUNE ESSENTIALS ORAL) Take 1 capsule by mouth once daily. Problem List As Of Date: 05/29/2024 (None) Encounter Status:Closed by ANUPAM SUTTON on 05/29/24 Normal [facility] CNOVon 02-26-2024 CNOV Office Visit (UCWSTR ) JIMBO JEFFERSON ([id number]) 1950 M Date Time Provider Department 02/26/24 9:15 AM FLACO BARKER [facility] During your visit today, we recorded the following information about you: Temperature Pulse Respiration Blood pressure 97.4 degrees 82/minute 16/minute 126/80 Weight 85.5 kg Flaco Barker MD 02/26/2024 9:39 AM Addendum Patient presents with: Cough: headache and chills x 3 days HPI: Feeling sick for 3 days. Positive symptoms: Cough, Chills, Headache, mild Nasal Congestion/Rhinorrhea, Chills, Body Aches, Malaise, Fatigue, Negative symptoms: Shortness of breath, Chest tightness, Chest pain, fever OTC: Cough Medicine, Tylenol. Has not used tessalon but has some left over from a prior visit. Home COVID test negative. MEDICATIONS: Current Outpatient Medications Medication Sig vit C/olive leaf ext/beta-gluc (IMMUNE ESSENTIALS ORAL) Take 1 capsule by mouth once daily. No current facility-administered medications for this visit. ALLERGIES: ALLERGIES No Known Allergies VITALS: BP 126/80 Pulse 82 Temp 36.3 ?C (97.4 ?F) Resp 16 Wt 85.5 kg (188 lb 7.9 oz) SpO2 96% PHYSICAL EXAM: GEN: mildly ill appearing HEENT: PERRL, EOMI, conjunctiva mildly injected Ears: canals clear. TMs without erythema, bulge, or effusion Sinuses: non-tender frontal sinus, non-tender maxillary sinuses Throat: moist mucous membranes, mild erythema, no exudate Neck: supple, no thyromegaly, no lymphadenopathy HEART: regular rate and rhythm, no murmurs LUNGS: clear to auscultation, no wheezes or crackles, no increased WOB ASSESSMENT/PLAN: 1. URI with cough and congestion - ICD9: 465.9, ICD10: J06.9 - suspect viral URI - Discussed supportive care treatment with rest, cold medicine, and analgesia. Follow up with worsening cough, worsening shortness of breath, increasing chest pain, or late onset fever. Flaco Barker MD Allergies As of Date: 02/26/2024 (No Known Allergies) Date Reviewed: 02/26/2024 Reviewed by: Krupa Lee MA - Fully Assessed Reason for Visit: Cough [28] Cmt: headache and chills x 3 days Primary Visit Diagnosis:URI with cough and congestion [J06.9] Prescriptions as of 02/26/2024 - vit C/olive leaf ext/beta-gluc (IMMUNE ESSENTIALS ORAL) Take 1 capsule by mouth once daily. Problem List As Of Date: 02/26/2024 (None) Level of Service: OFFICE/OUTPATIENT ESTABLISHED LOW [facility] 20 MIN [88170] Encounter Status:Closed by FLACO BARKER on 02/26/24 [facility] 11-08-2023 VALERIE Telephone (VLADIMIR) JIMBO JEFFERSON ([id number]) 1950 M Date Time Provider Department 11/08/23 ANUPAM SUTTON During your visit today, we recorded the following information about you: Anupam Sutton APRN.[facility] 11/08/2023 8:35 AM Signed Please let patient know his hep c screening is negative. Liza Mon MA 11/08/2023 8:51 AM Signed Left message for patient to contact office. ISHMAEL Laureano Kathryn, MA 11/11/2023 10:41 AM Signed Pt notified. Renee Askew MA Allergies As of Date: 11/08/2023 (No Known Allergies) Date Reviewed: 11/07/2023 Reviewed by: Mary Alice Valadez MA - Fully Assessed Reason for Visit: Results [95] Prescriptions as of 11/11/2023 - vit C/olive leaf ext/beta-gluc (IMMUNE ESSENTIALS ORAL) Take 1 capsule by mouth once daily. Problem List As Of Date: 11/08/2023 (None) Encounter Status:Closed by RENEE ASKEW on 11/11/23 [facility] CNOVon 11-07-2023 CNOV Office Visit (VLADIMIR ) JIMBO JEFFERSON ([id number]) 1950 M Date Time Provider Department 11/07/23 11:20 AM ANUPAM SUTTON During your visit today, we recorded the following information about you: Pulse Respiration Blood pressure Weight 71/minute 16/minute 118/79 84.8 kg Anupam Sutton APRN.HEAD CONTROL CLERK 11/07/2023 11:23 AM Signed Chief Complaint Patient presents with: Follow Up HPI Jimbo Masterson is a 73 year old male who presents here today for Above Complaints.. Patient presents to discuss health maintenance items. Past medical history, appointments, medications, allergies reviewed. Previous Medical History PAST MEDICAL HISTORY Diagnosis Date Tinnitus Previous Surgical History PAST SURGICAL HISTORY Procedure Laterality Date ARTHROSCOPY KNEE DIAGNOSTIC W/WO SYNOVIAL BX SPX TONSILLECTOMY AND ADENOIDECTOMY Family History FAMILY HISTORY Adopted: Yes Patient Allergies ALLERGIES No Known Allergies Current Medications Current Outpatient Medications on File Prior to Visit Medication Sig vit C/olive leaf ext/beta-gluc (IMMUNE ESSENTIALS ORAL) Take 1 capsule by mouth once daily. No current facility-administered medications on file prior to visit. Social History Social History Tobacco Use Smoking status: Never Smokeless tobacco: Never Vaping Use Vaping Use: Never used Substance Use Topics Drug use: Never Review of Symptoms REVIEW OF SYSTEMS SEE HPI EXAM: BP 118/79 Pulse 71 Resp 16 Wt 84.8 kg (187 lb) General Appearance: Well appearing, alert, in no acute distress, well-hydrated, well nourished.. Health Maintenance List Hepatitis C Screening Never done Colorectal Cancer Screening Never done RSV Vaccine(1 - 1-dose 60+ series) Never done Covid-19 Vaccine(3 - season) due on 10/23/2024 Influenza Vaccine(1) due on 12/15/2023 Depression Screening due on 10/23/2024 Anxiety Screening due on 10/23/2024 Diabetes Screening due on 10/23/2026 Lipid Screening due on 10/23/2028 DTaP,Tdap,Td Vaccine(2 - Td or Tdap) due on 10/22/2032 Advance Directive Discussion Completed Pneumococcal Vaccine: 65+ Completed Shingrix Vaccine Discontinued ASSESSMENT/PLAN: 1. Screening for colon cancer - ICD9: V76.51, ICD10: Z12.11 (primary diagnosis) -Patient to sign release of records for Dr. Ez Hernandez in [place], [place]. 2. Special screening examination for viral disease - ICD9: V73.99, ICD10: Z11.59 - HEPATITIS C ANTIBODY IA WITH CONFIRMATION 3. Encounter for immunization - ICD9: V03.89, ICD10: Z23 -RSV recommended, will obtain at Clint Sutton APRN.HEAD CONTROL CLERK Allergies As of Date: 11/07/2023 (No Known Allergies) Date Reviewed: 11/07/2023 Reviewed by: Mary Alice Valadez MA - Fully Assessed Reason for Visit: Follow Up [171] Primary Visit Diagnosis:Screening for colon cancer [Z12.11] Other Visit Diagnoses:Special screening examination for viral disease [Z11.59] Encounter for immunization [Z23] Order(s):HEPATITIS C ANTIBODY IA WITH CONFIRMATION [[id number]] Order #: [id number] FUTURE Prescriptions as of 11/07/2023 - vit C/olive leaf ext/beta-gluc (IMMUNE ESSENTIALS ORAL) Take 1 capsule by mouth once daily. Problem List As Of Date: 11/07/2023 (None) Disposition: Return if symptoms worsen or fail to improve. Follow-up and Disposition History for Encounter Date Provider Department Center 11/07/2023 [id number], ANUPAM FAMPWS [facility], [facility] Encounter Status:Closed by ANUPAM SUTTON on 11/07/23 Normal [facility] HCV Ab Ser Qlon 11-07-2023 HCV Ab Ql (S) Negative Normal Negative [facility] Comment on above: Order Comment: Speci men Type: BLOOD SPECIMENOrdering Facility: [facility] Address: [address] [place] [address] Result Comment: The result suggests no evidence of active infection with Hepatitis C virus. Should recent infection be suspected, repeat testing may be considered 4-6 weeks after this draw. Performed By: #### 1 6128-1 ####[facility] LABCLIA [id number] [place] [address] [place] 25(OH)D3 [facility] 25-hydroxyvitamin D3 [Mass/Vol] 41.5 ng/mL Normal 31.0-80.0 [facility] Comment on above: Order Comment: Speci men Type: BLOOD SPECIMENOrdering Facility: [facility] Address: [address] [place] [address] Performed By: #### 1 989-3 ####[facility] LABCLIA [id number] [place] [address] [place] CBC W Auto Differential pane l (Bld)on 10-24-2023 Basophils (Bld) [#/Vol] 0.04 10*3/uL Normal <0.11 [facility] Comment on above: Order Comment: Speci men Type: BLOOD SPECIMENOrdering Facility: [facility] Address: [address] [place] [address] Performed By: #### 5 7021-8 ####[facility] LABCLIA [id number] [place] [address] [place] Basophils/100 WBC (Bld) 0.6 % Normal [facility] Comment on above: Order Comment: Speci men Type: BLOOD SPECIMENOrdering Facility: [facility] Address: [address] [place] [address] Performed By: #### 5 7021-8 ####[facility] LABCLIA [id number] [place] [address] [place] Differential cell count method Nom (Bld) Auto Normal [facility] Comment on above: Order Comment: Speci men Type: BLOOD SPECIMENOrdering Facility: [facility] Address: [address] [place] [address] Performed By: #### 5 7021-8 ####[facility] LABCLIA [id number] [place] [address] [place] Eosinophils (Bld) [#/Vol] 0.35 10*3/uL Normal <0.46 [facility] Comment on above: Order Comment: Speci men Type: BLOOD SPECIMENOrdering Facility: [facility] Address: [address] [place] [address] Performed By: #### 5 7021-8 ####[facility] LABCLIA [id number] [place] [address] [place] Eosinophils/100 WBC (Bld) 5.3 % Normal [facility] Comment on above: Order Comment: Speci men Type: BLOOD SPECIMENOrdering Facility: [facility] Address: [address] [place] [address] Performed By: #### 5 7021-8 ####[facility] LABCLIA [id number] [place] [address] [place] Erythrocyte distribution width (RBC) [Ratio] 13.6 % Normal 11.5-15.0 [facility] Comment on above: Order Comment: Speci men Type: BLOOD SPECIMENOrdering Facility: [facility] Address: [address] [place] [address] Performed By: #### 5 7021-8 ####[facility] LABCLIA [id number] [place] [address] [place] Hematocrit (Bld) [Volume fraction] 46.6 % Normal 39.0-51.0 [facility] Comment on above: Order Comment: Speci men Type: BLOOD SPECIMENOrdering Facility: [facility] Address: [address] [place] [address] Performed By: #### 5 7021-8 ####[facility] LABIA [id number] [place] [address] [place] Hemoglobin (Bld) [Mass/Vol] 15.8 g/dL Normal 13.0-17.0 [facility] Comment on above: Order Comment: Speci men Type: BLOOD SPECIMENOrdering Facility: [facility] Address: [address] [place] [address] Performed By: #### 5 7021-8 ####[facility] LABIA [id number] [place] [address] [place] Immature granulocytes (Bld) [#/Vol] 0.04 10*3/uL Normal <0.10 [facility] Comment on above: Order Comment: Speci men Type: BLOOD SPECIMENOrdering Facility: [facility] Address: [address] [place] [address] Performed By: #### 5 7021-8 ####[facility] LABIA [id number] [place] [address] [place] Immature granulocytes/100 WBC (Bld) 0.6 % Normal [facility] Comment on above: Order Comment: Speci men Type: BLOOD SPECIMENOrdering Facility: [facility] Address: [address] [place] [address] Performed By: #### 5 7021-8 ####[facility] LABCLIA [id number] [place] [address] [place] Lymphocytes (Bld) [#/Vol] 1.83 10*3/uL Normal 1.00-4.00 [facility] Comment on above: Order Comment: Speci men Type: BLOOD SPECIMENOrdering Facility: [facility] Address: [address] [place] [address] Performed By: #### 5 7021-8 ####[facility] LABIA [id number] [place] [address] [place] Lymphocytes/100 WBC (Bld) 27.9 % Normal [facility] Comment on above: Order Comment: Speci men Type: BLOOD SPECIMENOrdering Facility: [facility] Address: [address] [place] [address] Performed By: #### 5 7021-8 ####[facility] LABIA [id number] [place] [address] [place] MCH (RBC) [Entitic mass] 29.1 pg Normal 26.0-34.0 [facility] Comment on above: Order Comment: Speci men Type: BLOOD SPECIMENOrdering Facility: [facility] Address: [address] [place] [address] Performed By: #### 5 7021-8 ####[facility] LABIA [id number] [place] [address] [place] MCHC (RBC) [Mass/Vol] 33.9 g/dL Normal 30.5-36.0 [facility] Comment on above: Order Comment: Speci men Type: BLOOD SPECIMENOrdering Facility: [facility] Address: [address] [place] [address] Performed By: #### 5 7021-8 ####[facility] LABIA [id number] [place] [address] [place] MCV (RBC) [Entitic vol] 85.8 fL Normal 80.0-100.0 [facility] Comment on above: Order Comment: Speci men Type: BLOOD SPECIMENOrdering Facility: [facility] Address: [address] [place] [address] Performed By: #### 5 7021-8 ####[facility] LABCLIA [id number] [place] [address] [place] Monocytes (Bld) [#/Vol] 0.56 10*3/uL Normal <0.87 [facility] Comment on above: Order Comment: Speci men Type: BLOOD SPECIMENOrdering Facility: [facility] Address: [address] [place] [address] Performed By: #### 5 7021-8 ####[facility] LABCLIA [id number] [place] [address] [place] Monocytes/100 WBC (Bld) 8.5 % Normal [facility] Comment on above: Order Comment: Speci men Type: BLOOD SPECIMENOrdering Facility: [facility] Address: [address] [place] [address] Performed By: #### 5 7021-8 ####[facility] LABCLIA [id number] [place] [address] [place] Neutrophils (Bld) [#/Vol] 3.74 10*3/uL Normal 1.45-7.50 [facility] Comment on above: Order Comment: Speci men Type: BLOOD SPECIMENOrdering Facility: [facility] Address: [address] [place] [address] Performed By: #### 5 7021-8 ####[facility] LABCLIA [id number] [place] [address] [place] Neutrophils/100 WBC (Bld) 57.1 % Normal [facility] Comment on above: Order Comment: Speci men Type: BLOOD SPECIMENOrdering Facility: [facility] Address: [address] [place] [address] Performed By: #### 5 7021-8 ####[facility] LABCLIA [id number] [place] [address] [place] Nucleated RBC (Bld) [#/Vol] 10*3/uL Normal <0.01 [facility] Comment on above: Order Comment: Speci men Type: BLOOD SPECIMENOrdering Facility: [facility] Address: [address] [place] [address] Performed By: #### 5 7021-8 ####[facility] LABCLIA [id number] [place] [address] [place] Nucleated RBC/100 WBC (Bld) [Ratio] 0.0 /100 WBC Normal [facility] Comment on above: Order Comment: Speci men Type: BLOOD SPECIMENOrdering Facility: [facility] Address: [address] [place] [address] Performed By: #### 5 7021-8 ####[facility] LABCLIA [id number] [place] [address] [place] Platelet mean volume (Bld) [Entitic vol] 11.3 fL Normal 9.0-12.7 [facility] Comment on above: Order Comment: Speci men Type: BLOOD SPECIMENOrdering Facility: [facility] Address: [address] [place] [address] Performed By: #### 5 7021-8 ####[facility] LABIA [id number] [place] [address] [place] Platelets (Bld) [#/Vol] 194 10*3/uL Normal 150-400 [facility] Comment on above: Order Comment: Speci men Type: BLOOD SPECIMENOrdering Facility: [facility] Address: [address] [place] [address] Performed By: #### 5 7021-8 ####[facility] LABIA [id number] [place] [address] [place] RBC (Bld) [#/Vol] 5.43 10*6/uL Normal 4.20-6.00 [facility] Comment on above: Order Comment: Speci men Type: BLOOD SPECIMENOrdering Facility: [facility] Address: [address] [place] [address] Performed By: #### 5 7021-8 ####[facility] LABCLIA [id number] [place] [id number] [place] WBC (Bld) [#/Vol] 6.56 10*3/uL Normal 3.70-11.00 [facility] Comment on above: Order Comment: Speci men Type: BLOOD SPECIMENOrdering Facility: [facility] Address: [address] [place] [id number] Performed By: #### 5 7021-8 ####[facility] LABCLIA [id number] [place] [id number] [place] CNOVon 10-24-2023 CNOV Office Visit (REJIWS ) JIMBO JEFFERSON ([id number]) 1950 M Date Time Provider Department 10/24/23 8:20 AM ANUPAM SUTTON During your visit today, we recorded the following information about you: Pulse Respiration Blood pressure Weight 60/minute 16/minute 145/88 85.7 kg Anupam Sutton APRN.[facility] 10/24/2023 9:50 AM Signed Chief Complaint Patient presents with: Medicare Wellness Exam HPI Jimbo Masterson is a 73 year old male who presents here today for Above Complaints.. Patient presents for annual exam. Patient reports he has fluid in his right ear and gets a lot of build up. Past medical history, appointments, medications, allergies reviewed. Previous Medical History PAST MEDICAL HISTORY Diagnosis Date Tinnitus Previous Surgical History PAST SURGICAL HISTORY Procedure Laterality Date ARTHROSCOPY KNEE DIAGNOSTIC W/WO SYNOVIAL BX SPX TONSILLECTOMY AND ADENOIDECTOMY Family History FAMILY HISTORY Adopted: Yes Patient Allergies ALLERGIES No Known Allergies Current Medications Current Outpatient Medications on File Prior to Visit Medication Sig albuterol HFA (PROVENTIL HFA, VENTOLIN HFA) 90 mcg/actuation inhaler Inhale 2 Puffs as instructed every 4 hours as needed for wheezing/shortness of breath. benzonatate (TESSALON PERLES) 100 mg capsule Take 1 capsule by mouth three times a day as needed for cough. Saw [place] 500 mg cap Take 1 capsule by mouth once daily. (Patient not taking: Reported on 09/07/2023) edtonmm-isol-qwqfd-oreg-capr yl 100 mg-150 mg- 50 mg-150 mg cap Take 2 capsules by mouth once daily. (Patient not taking: Reported on 07/07/2023) vit C/olive leaf ext/beta-gluc (IMMUNE ESSENTIALS ORAL) Take 1 capsule by mouth once daily. No current facility-administered medications on file prior to visit. Social History Social History Tobacco Use Smoking status: Never Smokeless tobacco: Never Vaping Use Vaping Use: Never used Substance Use Topics Drug use: Never Review of Symptoms REVIEW OF SYSTEMS SEE HPI EXAM: BP 145/88 Pulse 60 Resp 16 Wt 85.7 kg (189 lb) General Appearance: Well appearing, alert, in no acute distress, well-hydrated, well nourished.. Skin: Skin color, texture, turgor normal, no suspicious rashes or lesions. Ears: Positive findings: right ear seborrheic dermatitis. Lungs: Lungs clear to auscultation. No wheezing, rhonchi, rales.. Heart: RRR without murmur, gallop, or rubs. No ectopy. Abdomen: Normal abdominal exam, Abdomen soft, non-tender. Bowel sounds normal. No masses, organomegaly. Extremities: No deformities, edema, skin discoloration, clubbing or cyanosis. Good capillary refill. . Peripheral Pulses: Normal. Neurologic: Gait normal. Reflexes normal and symmetric. Sensation grossly intact.. Health Maintenance List Hepatitis C Screening Never done Colorectal Cancer Screening Never done RSV Vaccine(1 - 1-dose 60+ series) Never done Covid-19 Vaccine( - 2022- season) Never done Advance Directive Discussion Never done Behavioral Health Screening Never done Influenza Vaccine(1) due on 12/15/2023 Diabetes Screening due on 10/22/2025 Lipid Screening due on 10/23/2027 DTaP,Tdap,Td Vaccine(2 - Td or Tdap) due on 10/22/2032 Pneumococcal Vaccine: 65+ Completed Shingrix Vaccine Discontinued ASSESSMENT/PLAN: 1. Wellness examination - ICD9: V70.0, ICD10: Z00.00 (primary diagnosis) - Counseled on healthy diet and regular exercise - Risks/benefits of prostate cancer screening discussed. screening PSA ordered - COMPLETE BLOOD COUNT AND DIFFERENTIAL - COMPREHENSIVE METABOLIC PANEL 2. Encounter for lipid screening for cardiovascular disease - ICD9: V77.91, V81.2, ICD10: Z13.220, Z13.6 - LIPID PANEL, NONFASTING 3. Screening for diabetes mellitus - ICD9: V77.1, ICD10: Z13.1 - HEMOGLOBIN A1C 4. Screening PSA (prostate specific antigen) - ICD9: V76.44, ICD10: Z12.5 - Risks/benefits of prostate cancer screening discussed. screening PSA ordered - PSA/PROSTATE SPECIFIC ANTIGEN SCREENING 5. Vitamin D deficiency - ICD9: 268.9, ICD10: E55.9 - VITAMIN D 25 HYDROXY Anupam Sutton APRN.[employer] Jimbo Masterson is a 73 year old male here for a Medicare wellness visit. Medicare Health Risk Assessment General Health Very good Exercise: Minutes/Day 20 min Exercise: Days/Week 4 days Alcohol: Daily Use 2-3 times a week Alcohol: Drinks/Day 1 or 2 Alcohol: 6 or more drinks Never Feel off balance No Concerns: Teeth/Dentures No Concerns: Sexual function No Troubled by feelings None of the above Frequency: Eating healthy diet Nearly every day ADLs requiring help None of the above Safety precautions in home/vehicle Yes Smoke, vape, chews tobacco No Difficulty hearing No Difficulty seeing Yes Current Providers Specialists: I have reviewed specialist-related care of the patient in the medica (more content not included)... Normal [facility] Aubrey 10-24-2023 REBECAN Telephone (FAMPWS) EUGENEJIMBO RAMIRES ([id number]) 1950 M Date Time Provider Department 10/24/23 ANUPAM SUTTON During your visit today, we recorded the following information about you: Anupam Sutton APRN.CNP 10/24/2023 7:15 PM Signed Please let patient know their labs are stable. Mariah Richards RN 10/25/2023 8:22 AM Signed Called and left a detailed voicemail notifying patient of providers message. Clinic phone number was left in case patient had any questions. Mariah Richards RN Allergies As of Date: 10/24/2023 (No Known Allergies) Date Reviewed: 10/24/2023 Reviewed by: Mary Alice Valadez MA - Fully Assessed Reason for Visit: Results [95] Prescriptions as of 10/25/2023 - vit C/olive leaf ext/beta-gluc (IMMUNE ESSENTIALS ORAL) Take 1 capsule by mouth once daily. Problem List As Of Date: 10/24/2023 (None) Encounter Status:Closed by MARIAH RICHARDS on 10/25/23 Normal [facility] Comprehensive metabolic 2000 panelon 10-24-2023 Albumin [Mass/Vol] 4.4 g/dL Normal 3.9-4.9 [facility] Comment on above: Order Comment: Speci men Type: BLOOD SPECIMENOrdering Facility: [facility] Address: [address] [place] [address] Performed By: #### 2 4323-8, LIPNF ####[facility] LABCLIA [id number] [place] [address] [place] ALP [Catalytic activity/Vol] 60 U/L Normal 38-113 [facility] Comment on above: Order Comment: Speci men Type: BLOOD SPECIMENOrdering Facility: [facility] Address: [address] [place] [address] Performed By: #### 2 4323-8, LIPNF ####[facility] LABCLIA [id number] [place] [address] [place] ALT [Catalytic activity/Vol] 21 U/L Normal 10-54 [facility] Comment on above: Order Comment: Speci men Type: BLOOD SPECIMENOrdering Facility: [facility] Address: [address] [id number] Performed By: #### 2 4323-8, LIPNF ####[facility] LABCLIA [id number] [place] [id number] [place] Anion gap [Moles/Vol] 11 mmol/L Normal 8-15 [facility] Comment on above: Order Comment: Speci men Type: BLOOD SPECIMENOrdering Facility: [facility] Address: [address] [place] [address] Performed By: #### 2 4323-8, LIPNF ####[facility] LABCLIA [id number] [place] [address] [place] AST [Catalytic activity/Vol] 22 U/L Normal 14-40 [facility] Comment on above: Order Comment: Speci men Type: BLOOD SPECIMENOrdering Facility: [facility] Address: [address] [place] [address] Performed By: #### 2 4323-8, LIPNF ####[facility] LABCLIA [id number] [place] [address] [place] Bilirubin [Mass/Vol] 1.0 mg/dL Normal 0.2-1.3 [facility] Comment on above: Order Comment: Speci men Type: BLOOD SPECIMENOrdering Facility: [facility] Address: [address] [place] [id number] Performed By: #### 2 4323-8, LIPNF ####[facility] LABCLIA [id number] [place] [address] [place] Calcium [Mass/Vol] 10.1 mg/dL Normal 8.5-10.2 [facility] Comment on above: Order Comment: Speci men Type: BLOOD SPECIMENOrdering Facility: [facility] Address: [address] [place], [place] [address] Performed By: #### 2 4323-8, LIPNF ####[facility] LABCLIA [id number] [place] [address] [place] Chloride [Moles/Vol] 105 mmol/L Normal 98-107 [facility] Comment on above: Order Comment: Speci men Type: BLOOD SPECIMENOrdering Facility: [facility] Address: [address] [place] [address] Performed By: #### 2 4323-8, LIPNF ####[facility] LABCLIA [id number] [place] [address] [place] CO2 [Moles/Vol] 24 mmol/L Normal 22-30 [facility] Comment on above: Order Comment: Speci men Type: BLOOD SPECIMENOrdering Facility: [facility] Address: [address] [place] [address] Performed By: #### 2 4323-8, LIPNF ####[facility] LABCLIA [id number] [place] [address] [place] Creatinine [Mass/Vol] 0.96 mg/dL Normal 0.73-1.22 [facility] Comment on above: Order Comment: Speci men Type: BLOOD SPECIMENOrdering Facility: [facility] Address: [address] [place] [address] Performed By: #### 2 4323-8, LIPNF ####[facility] LABCLIA [id number] [place] [address] [place] Creatinine and Glomerular filtration rate.predicted panel (S/P/Bld) 84 mL/min/1.73m??? Normal >=60 [facility] Comment on above: Order Comment: Speci men Type: BLOOD SPECIMENOrdering Facility: [facility] Address: [address] [place] [address] Result Comment: Sita mated Glomerular Filtration Rate (eGFR) is calculated using the 2020 CKD-EPI creatinine equation. This equation utilizes serum creatinine, sex, and age as parameters. The creatinine assay has traceable calibration to isotope dilution-mass spectrometry. Refer to KDIGO guidelines for clinical interpretation. In patients with unstable renal function, e.g. those with acute kidney injury, the eGFR may not accurately reflect actual GFR. Performed By: #### 2 4323-8, LIPNF ####[facility] LABCLIA [id number] [address] [address] [place] Glucose [Mass/Vol] 91 mg/dL Normal 74-99 [facility] Comment on above: Order Comment: Speci men Type: BLOOD SPECIMENOrdering Facility: [facility] Address: [address] [place] [address] Result Comment: The [place] Diabetes Association (ADA) provides guidance for cutoff values for fasting glucose and random glucose. The ADA defines fasting as no caloric intake for at least 8 hours. Fasting plasma glucose results between 100 to 125 mg/dL indicate increased risk for diabetes (prediabetes). Fasting plasma glucose results greater than or equal to 126 mg/dL meet the criteria for diagnosis of diabetes. In the absence of unequivocal hyperglycemia, results should be confirmed by repeat testing. In a patient with classic symptoms of hyperglycemia or hyperglycemic crisis, random plasma glucose results greater than or equal to 200 mg/dL meet the criteria for diagnosis of diabetes. Reference: Standards of Medical Care in Diabetes 2016, [place] [employer] Association. Diabetes Care. 2016.39(Suppl 1). Performed By: #### 2 4323-8, LIPNF ####[facility] LABCLIA [id number] [address] [address] [place] Potassium [Moles/Vol] 4.5 mmol/L Normal 3.7-5.1 [facility] Comment on above: Order Comment: Speci men Type: BLOOD SPECIMENOrdering Facility: [facility] Address: [address] [place] [address] Performed By: #### 2 4323-8, LIPNF ####[facility] LABCLIA [id number] [address] [address] [place] Protein [Mass/Vol] 7.0 g/dL Normal 6.3-8.0 [facility] Comment on above: Order Comment: Speci men Type: BLOOD SPECIMENOrdering Facility: [facility] Address: [address] [place] [address] Performed By: #### 2 4323-8, LIPNF ####[facility] LABCLIA [id number] [place] [address] [place] Sodium [Moles/Vol] 140 mmol/L Normal 136-144 [facility] Comment on above: Order Comment: Speci men Type: BLOOD SPECIMENOrdering Facility: [facility] Address: [address] [place] [address] Performed By: #### 2 4323-8, LIPNF ####[facility] LABCLIA [id number] [place] [address] [place] Urea nitrogen [Mass/Vol] 20 mg/dL Normal 9-24 [facility] Comment on above: Order Comment: Speci men Type: BLOOD SPECIMENOrdering Facility: [facility] Address: [address] [place] [address] Performed By: #### 2 4323-8, LIPNF ####[facility] LABCLIA [id number] [place] [address] [place] HbA1c (Bld)on 10-24-2023 Average glucose Estimated from glycated hemoglobin (Bld) [Mass/Vol] 100 mg/dL Normal [facility] Comment on above: Order Comment: Speci men Type: BLOOD SPECIMENOrdering Facility: [facility] Address: [address] [place] [address] Result Comment: eAG: (Estimated average glucose) is a calculated value from HgbA1c and is sales representative uniforms of the average blood glucose level in the last 2-3 month period. Performed By: #### 5 5454-3 ####[facility] LABCLIA [id number] [place] [address] [place] HbA1c (Bld) [Mass fraction] 5.1 % Normal 4.3-5.6 [facility] Comment on above: Order Comment: Speci men Type: BLOOD SPECIMENOrdering Facility: [facility] Address: [address] [place] [address] Result Comment: Amer [place] Diabetes Association guidelines indicate that patients with HgbA1c in the range 5.7-6.4% are at increased risk for development of diabetes, and intervention by lifestyle modification may be beneficial. HgbA1c greater or equal to 6.5% is considered diagnostic of diabetes. Performed By: #### 5 5454-3 ####[facility] LABCLIA [id number] [place] [address] [place] LIPID PANEL, NONFASTINGon Cholesterol [Mass/Vol] 216 mg/dL High <200 [facility] Comment on above: Order Comment: Adriana carlisle Type: BLOOD SPECIMENOrdering Facility: [facility] Address: [address] [place] [address] Result Comment: <200 mg/dL, Desirable 200-239 mg/dL, Borderline high >239 mg/dL, High Performed By: #### 2 4323-8, LIPNF ####[facility] LABCLIA [id number] [place] [address] [place] HDL CHOLESTEROL, NF 66 mg/dL Normal >39 [facility] Comment on above: Order Comment: Adriana carlisle Type: BLOOD SPECIMENOrdering Facility: [facility] Address: [address] [place] [address] Result Comment: 40-5 9 mg/dL, Acceptable >59 mg/dL, High: Negative risk factor for coronary heart disease <40 mg/dL, Low: Positive risk factor for coronary heart disease Performed By: #### 2 4323-8, LIPNF ####[facility] LABCLIA [id number] [place] [address] [place] LDL CHOLESTEROL, NF 138 mg/dL High <100 [facility] Comment on above: Order Comment: Adriana men Type: BLOOD SPECIMENOrdering Facility: [facility] Address: [address] [place] [address] Result Comment: <100 mg/dL, Optimal 100-129 mg/dL, Near optimal/above optimal 130-159 mg/dL, Borderline high 160-189 mg/dL, High >189 mg/dL, Very high Secondary prevention optimal LDL Cholesterol levels are recommended to be < 70 mg/dL Performed By: #### 2 4323-8, LIPNF ####[facility] LABCLIA [id number] [place] [address] [place] LDL/HDL RATIO, NF 2.09 mg/dL Normal <2.54 [facility] Comment on above: Order Comment: Speci men Type: BLOOD SPECIMENOrdering Facility: [facility] Address: [address] [place] [address] Result Comment: Sarah rowley: 1. National Cholesterol Education Program ATP III Guideline At-A-Glance Quick Desk Reference: National Heart, Lung, and Blood [place]. National Institutes of Health. 2001: NIH Publication No. 01-3305. 2. An International Atherosclerosis Society position paper: global recommendations for the management of dyslipidemia: executive summary, Atherosclerosis. 2014: 232(2):410-413. Performed By: #### 2 4323-8, LIPNF ####[facility] LABCLIA [id number] [address] [place] NON HDL CHOL, NF 150 mg/dL High <130 [facility] Comment on above: Order Comment: Alondrai men Type: BLOOD SPECIMENOrdering Facility: [facility] Address: [address] [place] [address] Result Comment: <130 mg/dL, Optimal 130-159 mg/dL, Near optimal/above optimal 160-189 mg/dL, Borderline high 190-219 mg/dL, High >219 mg/dL, Very high Secondary prevention optimal non HDL Cholesterol levels are recommended to be <100 mg/dL Performed By: #### 2 4323-8, LIPNF ####[facility] LABCLIA [id number] [address] [place] T CHOL/HDL RATIO NF 3.27 mg/dL Normal <5.10 [facility] Comment on above: Order Comment: Speci men Type: BLOOD SPECIMENOrdering Facility: [facility] Address: [address] [place] [address] Performed By: #### 2 4323-8, LIPNF ####[facility] LABCLIA [id number] [place] [address] [place] TRIGLYCERIDES, NF 59 mg/dL Normal <150 [facility] Comment on above: Order Comment: Speci men Type: BLOOD SPECIMENOrdering Facility: [facility] Address: [address] [place] [address] Result Comment: <150 mg/dL, Normal 150-199 mg/dL, Borderline high 200-499 mg/dL, High >499 mg/dL, Very high Performed By: #### 2 4323-8, LIPNF ####[facility] LABCLIA [id number] [place] [address] [place] VLDL CHOLESTEROL, NF 12 mg/dL Normal <30 [facility] Comment on above: Order Comment: Speci men Type: BLOOD SPECIMENOrdering Facility: [facility] Address: [address] [place] [address] Performed By: #### 2 4323-8, LIPNF ####[facility] LABCLIA [id number] [place] [address] [place] PSA/PROSTATE SPECIFIC ANTIGE N SCREENINGon 10-24-2023 Prostate specific Ag [Mass/Vol] 0.76 ng/mL Normal <2.60 [facility] Comment on above: Order Comment: Speci men Type: BLOOD SPECIMENOrdering Facility: [facility] Address: [address] [place] [address] Result Comment: Tota l PSA test methodology used is the Electrochemiluminescence Immunoassay by [employer]. Total PSA values by differing methodologies cannot be interchanged. Performed By: #### P SAS1 ####[facility] LABCLIA [id number] [place] [address] [place] XR Chest PA and Lateralon 05 -28-2024 IMPRESSION: No acute radiographic abnormality. Surface Grinder: ELBERT Transcribe Date/Time: Sep 10 2023 10:44A Dictated by : ROHIT ATKINSON MD This examination was interpreted and the report reviewed and electronically signed by: ROHIT ATKINSON MD on Sep 10 2023 10:45AM [facility] DIVISION OF RADIOLOGY * * *Final Report* * * DATE OF EXAM: Sep 10 2023 10:40AM WOX 5291 - XR CHEST 2V FRONTAL/LAT / PROCEDURE REASON: Bronchitis * * * * Physician Interpretation * * * * EXAMINATION: CHEST RADIOGRAPH (2 VIEW FRONTAL & LATERAL) CLINICAL HISTORY: Bronchitis MQ: XC2_6 EXAM DATE/TIME: 09/10/2023 10:40 AM COMPARISON: Chest x-ray on 07/08/2023 RESULT: Lines, tubes, and devices: None. Lungs and pleura: No consolidation. No lung mass. No pleural effusion. No pneumothorax. Cardiomediastinal silhouette: Normal cardiomediastinal silhouette. Bones and soft tissues: The spine shows degenerative changes. DIVISION OF RADIOLOGY Provider, [facility] - 09/10/2023 * * *Final Report* * * DATE OF EXAM: Sep 10 2023 10:40AM WOX 5291 - XR CHEST 2V FRONTAL/LAT / PROCEDURE REASON: Bronchitis * * * * Physician Interpretation * * * * EXAMINATION: CHEST RADIOGRAPH (2 VIEW FRONTAL & LATERAL) CLINICAL HISTORY: Bronchitis MQ: XC2_6 EXAM DATE/TIME: 09/10/2023 10:40 AM COMPARISON: Chest x-ray on 07/08/2023 RESULT: Lines, tubes, and devices: None. Lungs and pleura: No consolidation. No lung mass. No pleural effusion. No pneumothorax. Cardiomediastinal silhouette: Normal cardiomediastinal silhouette. Bones and soft tissues: The spine shows degenerative changes. IMPRESSION IMPRESSION: No acute radiographic abnormality. Surface Grinder: ELBERT Transcribe Date/Time: Sep 10 2023 10:44A Dictated by : ROHIT ATKINSON MD This examination was interpreted and the report reviewed and electronically signed by: ROHIT ATKINSON MD on Sep 10 2023 10:45AM [facility] Radiology Study observation (narrative) [facility] XR Chest PA and LateralOrder ed By: [facility] Provider on 09-10-2023 [facility] XR Chest PA and Lateralon IMPRESSION: No acute radiographic abnormality. Surface Grinder: ELBERT Transcribe Date/Time: Jul 08 2023 8:26A Dictated by : TAB THORNTON MD This examination was interpreted and the report reviewed and electronically signed by: TAB THORNTON MD on Jul 08 2023 8:26AM [facility] DIVISION OF RADIOLOGY * * *Final Report* * * DATE OF EXAM: Jul 08 2023 8:23AM WOX 5291 - XR CHEST 2V FRONTAL/LAT / PROCEDURE REASON: multiple diagnoses * * * * Physician Interpretation * * * * EXAMINATION: CHEST RADIOGRAPH (2 VIEW FRONTAL & LATERAL) CLINICAL HISTORY: Acute cough URI, acute MQ: XC2_6 EXAM DATE/TIME: 07/08/2023 8:23 AM COMPARISON: No relevant prior studies available. RESULT: Lines, tubes, and devices: None. Lungs and pleura: No consolidation. No lung mass. No pleural effusion. No pneumothorax. Cardiomediastinal silhouette: Normal cardiomediastinal silhouette. Bones and soft tissues: Degenerative changes are present within the thoracic spine. DIVISION OF RADIOLOGY Provider, [facility]08/[facility]23 * * *Final Report* * * DATE OF EXAM: Jul 08 2023 8:23AM WOX 5291 - XR CHEST 2V FRONTAL/LAT / PROCEDURE REASON: multiple diagnoses * * * * Physician Interpretation * * * * EXAMINATION: CHEST RADIOGRAPH (2 VIEW FRONTAL & LATERAL) CLINICAL HISTORY: Acute cough URI, acute MQ: XC2_6 EXAM DATE/TIME: 07/08/2023 8:23 AM COMPARISON: No relevant prior studies available. RESULT: Lines, tubes, and devices: None. Lungs and pleura: No consolidation. No lung mass. No pleural effusion. No pneumothorax. Cardiomediastinal silhouette: Normal cardiomediastinal silhouette. Bones and soft tissues: Degenerative changes are present within the thoracic spine. IMPRESSION IMPRESSION: No acute radiographic abnormality. Surface Grinder: ELBERT Transcribe Date/Time: Jul 08 2023 8:26A Dictated by : TAB THORNTON MD This examination was interpreted and the report reviewed and electronically signed by: TAB THORNTON MD on Jul 08 2023 8:26AM EST [facility] Radiology Study observation (narrative) [facility] XR Chest PA and LateralOrder ed By: [facility] Provider on 07-08-2023 [facility] INFLUENZA A&B MOLECULAR (POC )on 07-07-2023 Flu A (POCT) Negative Negative [facility] Flu B (POCT) Negative Negative [facility] Procedural Control Valid [facility] CBC W Auto Differential pane l (Bld)on 10-22-2022 Basophils (Bld) [#/Vol] 0.06 10*3/uL <0.11 k/uL [facility] Basophils/100 WBC (Bld) 0.8 % [facility] Differential cell count method Nom (Bld) Auto [facility] Eosinophils (Bld) [#/Vol] 0.43 10*3/uL <0.46 k/uL [facility] Eosinophils/100 WBC (Bld) 5.7 % [facility] Erythrocyte distribution width (RBC) [Ratio] 13.6 % 11.5 - 15.0 % [facility] Hematocrit (Bld) [Volume fraction] 47.2 % 39.0 - 51.0 % [facility] Hemoglobin (Bld) [Mass/Vol] 15.8 g/dL 13.0 - 17.0 g/dL [facility] Immature granulocytes (Bld) [#/Vol] 0.06 10*3/uL <0.10 k/uL [facility] Immature granulocytes/100 WBC (Bld) 0.8 % [facility] Lymphocytes (Bld) [#/Vol] 1.86 10*3/uL 1.00 - 4.00 k/uL [facility] Lymphocytes/100 WBC (Bld) 24.8 % [facility] MCH (RBC) [Entitic mass] 28.9 pg 26.0 - 34.0 pg [facility] MCHC (RBC) [Mass/Vol] 33.5 g/dL 30.5 - 36.0 g/dL [facility] MCV (RBC) [Entitic vol] 86.4 fL 80.0 - 100.0 fL [facility] Monocytes (Bld) [#/Vol] 0.71 10*3/uL <0.87 k/uL [facility] Monocytes/100 WBC (Bld) 9.5 % [facility] Neutrophils (Bld) [#/Vol] 4.39 10*3/uL 1.45 - 7.50 k/uL [facility] Neutrophils/100 WBC (Bld) 58.4 % [facility] Nucleated RBC (Bld) [#/Vol] <0.01 k/uL [facility] Nucleated RBC/100 WBC (Bld) [Ratio] 0.0 /100 WBC [facility] Platelet mean volume (Bld) [Entitic vol] 11.5 fL 9.0 - 12.7 fL [facility] Platelets (Bld) [#/Vol] 192 10*3/uL 150 - 400 k/uL [facility] RBC (Bld) [#/Vol] 5.46 10*6/uL 4.20 - 6.0 0 m/uL [facility] WBC (Bld) [#/Vol] 7.51 10*3/uL 3.70 - 11. 00 k/uL [facility] Vital Signs Date Time Vital Sign Value Performing Clinician Jorge vaughan 09-22-2024 08:07-0400 Body weight 85 kg Anupam Sutton APRN.HEAD CONTROL CLERK Work Phone: [facility] 09-22-2024 08:07-0400 Diastolic blood pressure 76 mm[Hg] Anupam Sutton APRN.HEAD CONTROL CLERK Work Phone: [facility] 09-22-2024 08:07-0400 Heart rate 67 /min Anupam Sutton APRN.HEAD CONTROL CLERK Work Phone: [facility] 09-22-2024 08:07-0400 Systolic blood pressure 130 mm[Hg] Anupam Sutton APRN.HEAD CONTROL CLERK Work Phone: [facility] 02-26-2024 09:17-0500 Body temperature 97.39 [degF] Flaco Barker MD Work Phone: [facility] 02-26-2024 09:17-0500 Body weight 85.5 kg Flaco Barker MD Work Phone: [facility] 02-26-2024 09:17-0500 Diastolic blood pressure 80 mm[Hg] Flaco Barker MD Work Phone: [facility] 02-26-2024 09:17-0500 Heart rate 82 /min Flaco Barker MD Work Phone: [facility] 02-26-2024 09:17-0500 Respiratory rate 16 /min Flaco Barker MD Work Phone: [facility] 02-26-2024 09:17-0500 SaO2% (BldA) [Mass fraction] 96 % Flaco Barker MD Work Phone: [facility] 02-26-2024 09:17-0500 Systolic blood pressure 126 mm[Hg] Flaco Barker MD Work Phone: [facility] 11-07-2023 11:10-0400 Body weight 84.82 kg Anupam Sutton CONCRETE PILE DRIVER OPERATOR.HEAD CONTROL CLERK Work Phone: [facility] 11-07-2023 11:10-0400 Diastolic blood pressure 79 mm[Hg] Anupam Sutton CONCRETE PILE DRIVER OPERATOR.HEAD CONTROL CLERK Work Phone: [facility] 11-07-2023 11:10-0400 Heart rate 71 /min Anupam Sutton CONCRETE PILE DRIVER OPERATOR.HEAD CONTROL CLERK Work Phone: [facility] 11-07-2023 11:10-0400 Respiratory rate 16 /min Anupam Sutton CONCRETE PILE DRIVER OPERATOR.HEAD CONTROL CLERK Work Phone: [facility] 11-07-2023 11:10-0400 Systolic blood pressure 118 mm[Hg] Anupam Sutton CONCRETE PILE DRIVER OPERATOR.HEAD CONTROL CLERK Work Phone: [facility] 10-24-2023 08:07-0400 Body weight 85.73 kg Anupam Sutton CONCRETE PILE DRIVER OPERATOR.HEAD CONTROL CLERK Work Phone: [facility] 10-24-2023 08:07-0400 Diastolic blood pressure 88 mm[Hg] Anupam Sutton CONCRETE PILE DRIVER OPERATOR.HEAD CONTROL CLERK Work Phone: [facility] 10-24-2023 08:07-0400 Heart rate 60 /min Anupam Sutton CONCRETE PILE DRIVER OPERATOR.HEAD CONTROL CLERK Work Phone: [facility] 10-24-2023 08:07-0400 Respiratory rate 16 /min Anupam Sutton APRN.HEAD CONTROL CLERK Work Phone: [facility] 10-24-2023 08:07-0400 Systolic blood pressure 145 mm[Hg] Anupam Sutton APRN.HEAD CONTROL CLERK Work Phone: [facility] 09-11-2023 11:16-0400 Body temperature 97.59 [degF] Krislyn Aberegg PA Work Phone: [facility] 09-11-2023 11:16-0400 Body weight 83.3 kg Krislyn Aberegg PA Work Phone: [facility] 09-11-2023 11:16-0400 Diastolic blood pressure 80 mm[Hg] Krislyn Aberegg PA Work Phone: [facility] 09-11-2023 11:16-0400 Heart rate 74 /min Krislyn Aberegg PA Work Phone: [facility] 09-11-2023 11:16-0400 Respiratory rate 16 /min Krislyn Aberegg PA Work Phone: [facility] 09-11-2023 11:16-0400 SaO2% (BldA) [Mass fraction] 96 % Krislyn Aberegg PA Work Phone: [facility] 09-11-2023 11:16-0400 Systolic blood pressure 122 mm[Hg] Krislyn Aberegg PA Work Phone: [facility] 09-09-2023 08:48-0400 Body temperature 98.91 [degF] Bhakti Athy PA-C Work Phone: [facility] 09-09-2023 08:48-0400 Body weight 84.9 kg Bhakti Athy PA-C Work Phone: [facility] 09-09-2023 08:48-0400 Diastolic blood pressure 68 mm[Hg] Bhakti Athy PA-C Work Phone: [facility] 09-09-2023 08:48-0400 Heart rate 86 /min Bhakti Athy PA-C Work Phone: [facility] 09-09-2023 08:48-0400 Respiratory rate 16 /min Bhaktiamairani Ruffiny PA-C Work Phone: [facility] 09-09-2023 08:48-0400 SaO2% (BldA) [Mass fraction] 96 % Bhakti Athy PA-C Work Phone: [facility] 09-09-2023 08:48-0400 Systolic blood pressure 124 mm[Hg] Bhakti Ruffiny PA-C Work Phone: [facility] 09-07-2023 08:08-0400 Body temperature 96.6 [degF] Denise Praisler-Wood CONCRETE PILE DRIVER OPERATOR.HEAD CONTROL CLERK Work Phone: [facility] 09-07-2023 08:08-0400 Body weight 85.4 kg Denise Praisler-Wood CONCRETE PILE DRIVER OPERATOR.HEAD CONTROL CLERK Work Phone: [facility] 09-07-2023 08:08-0400 Diastolic blood pressure 84 mm[Hg] Denise Praisler-Wood CONCRETE PILE DRIVER OPERATOR.HEAD CONTROL CLERK Work Phone: [facility] 09-07-2023 08:08-0400 Heart rate 75 /min Denise Praisler-Wood CONCRETE PILE DRIVER OPERATOR.HEAD CONTROL CLERK Work Phone: [facility] 09-07-2023 08:08-0400 Respiratory rate 21 /min Denise Praisler-Wood CONCRETE PILE DRIVER OPERATOR.HEAD CONTROL CLERK Work Phone: [facility] 09-07-2023 08:08-0400 SaO2% (BldA) [Mass fraction] 96 % Denise Praisler-Wood CONCRETE PILE DRIVER OPERATOR.HEAD CONTROL CLERK Work Phone: [facility] 09-07-2023 08:08-0400 Systolic blood pressure 132 mm[Hg] Denise Praisler-Wood CONCRETE PILE DRIVER OPERATOR.HEAD CONTROL CLERK Work Phone: [facility] 07-07-2023 08:32-0400 Body temperature 97.2 [degF] Erin Mathis CONCRETE PILE DRIVER OPERATOR.HEAD CONTROL CLERK Work Phone: [facility] 07-07-2023 08:32-0400 Body weight 88.1 kg Erin Mathis CONCRETE PILE DRIVER OPERATOR.HEAD CONTROL CLERK Work Phone: [facility] 07-07-2023 08:32-0400 Diastolic blood pressure 84 mm[Hg] Erin Mathis CONCRETE PILE DRIVER OPERATOR.HEAD CONTROL CLERK Work Phone: [facility] 07-07-2023 08:32-0400 Heart rate 78 /min Erin Mathis CONCRETE PILE DRIVER OPERATOR.HEAD CONTROL CLERK Work Phone: [facility] 07-07-2023 08:32-0400 Respiratory rate 20 /min Erin Mathis CONCRETE PILE DRIVER OPERATOR.HEAD CONTROL CLERK Work Phone: [facility] 07-07-2023 08:32-0400 SaO2% (BldA) [Mass fraction] 95 % Erin Mathis CONCRETE PILE DRIVER OPERATOR.HEAD CONTROL CLERK Work Phone: [facility] 07-07-2023 08:32-0400 Systolic blood pressure 132 mm[Hg] Erin Mathis CONCRETE PILE DRIVER OPERATOR.HEAD CONTROL CLERK Work Phone: [facility] 02-01-2023 11:24-0400 Body temperature 97.59 [degF] Anupam Bria CONCRETE PILE DRIVER OPERATOR.HEAD CONTROL CLERK Work Phone: [facility] 02-01-2023 11:24-0400 Body weight 83.46 kg Anupam Sutton CONCRETE PILE DRIVER OPERATOR.HEAD CONTROL CLERK Work Phone: [facility] 02-01-2023 11:24-0400 Diastolic blood pressure 72 mm[Hg] Anupam Lizethoble CONCRETE PILE DRIVER OPERATOR.HEAD CONTROL CLERK Work Phone: [facility] 02-01-2023 11:24-0400 Heart rate 70 /min Anupam Lizethoble CONCRETE PILE DRIVER OPERATOR.HEAD CONTROL CLERK Work Phone: [facility] 02-01-2023 11:24-0400 Respiratory rate 18 /min Anupam Lizethoble CONCRETE PILE DRIVER OPERATOR.HEAD CONTROL CLERK Work Phone: [facility] 02-01-2023 11:24-0400 Systolic blood pressure 120 mm[Hg] Anupam Lizethoble CONCRETE PILE DRIVER OPERATOR.HEAD CONTROL CLERK Work Phone: [facility] 10-22-2022 09:09-0400 Body weight 82.1 kg Anupam Sutton CONCRETE PILE DRIVER OPERATOR.HEAD CONTROL CLERK Work Phone: [facility] 10-22-2022 09:09-0400 Diastolic blood pressure 80 mm[Hg] Anupam Sutton CONCRETE PILE DRIVER OPERATOR.HEAD CONTROL CLERK Work Phone: [facility] 10-22-2022 09:09-0400 Heart rate 72 /min Anupam Sutton CONCRETE PILE DRIVER OPERATOR.HEAD CONTROL CLERK Work Phone: [facility] 10-22-2022 09:09-0400 Respiratory rate 14 /min Anupam Sutton CONCRETE PILE DRIVER OPERATOR.HEAD CONTROL CLERK Work Phone: [facility] 10-22-2022 09:09-0400 Systolic blood pressure 122 mm[Hg] Anupam Sutton CONCRETE PILE DRIVER OPERATOR.HEAD CONTROL CLERK Work Phone: [facility] 10-10-2022 14:21-0400 Body temperature 97.39 [degF] Bhakti Athy PA-C Work Phone: [facility] 10-10-2022 14:21-0400 Body weight 82.56 kg Bhakti Athy PA-C Work Phone: [facility] 10-10-2022 14:21-0400 Diastolic blood pressure 72 mm[Hg] Bhakti Athy PA-C Work Phone: [facility] 10-10-2022 14:21-0400 Heart rate 80 /min Bhakti Athy PA-C Work Phone: [facility] 10-10-2022 14:21-0400 Respiratory rate 16 /min Bhakti Athy PA-C Work Phone: [facility] 10-10-2022 14:21-0400 SaO2% (BldA) [Mass fraction] 97 % Bhakti Athy PA-C Work Phone: [facility] 10-10-2022 14:21-0400 Systolic blood pressure 122 mm[Hg] Bhakti Athy PA-C Work Phone: [facility] Encounters Encounter Date Encounter Type Care Provider Facility Start: 09-28-2024 End: 09-29-2024 Follow-up encounter Anupam Sutton APRN.CNP Work Phone: [facility] Start: 09-22-2024 End: 09-22-2024 Subsequent hospital visit by physician [facility] Work Phone: Radiology Comment on above: Pain of left thumb [ M79.645] Start: 09-22-2024 End: 09-22-2024 Patient encounter status Anupam Sutton APRN.HEAD CONTROL CLERK Work Phone: [facility] Start: 09-22-2024 End: 09-22-2024 ambulatory ANUPAM SUTTON Facility:[facility] Start: 09-22-2024 End: 09-22-2024 Patient encounter procedure Anupam Sutton APRN.CNP Work Phone: [facility] Comment on above: Medicare annual well ness visit, subsequent (Primary Dx); Wellness examination; Farsightedness, bilateral; 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; Pain of left thumb; Tinnitus of both ears; Jaw pain Start: 09-02-2024 End: 09-02-2024 ambulatory ANUPAM SUTTON Facility:[facility] Start: 08-31-2024 End: 08-31-2024 Patient encounter status Anupam Sutton APRN.CNP Work Phone: [facility] Start: 08-31-2024 End: 08-31-2024 Telephone encounter Anupam Sutton APRN.CNP Work Phone: [facility] Comment on above: Lab Orders Start: 05-29-2024 End: 05-29-2024 Telephone encounter Anupam Sutton APRN.HEAD CONTROL CLERK Work Phone: [facility] Comment on above: Call Back from [employer] Start: 02-26-2024 End: 02-26-2024 ambulatory ANUPAM SUTTON Facility:[facility] Start: 02-26-2024 End: 02-26-2024 Office outpatient visit 15 minutes Flaco Barker MD Work Phone: [facility] Comment on above: URI with cough and c ongestion (Primary Dx) Start: 11-07-2023 End: 11-07-2023 Patient encounter procedure Anupam Sutton APRN.CNP Work Phone: [facility] Comment on above: Screening for colon cancer (Primary Dx); Special screening examination for viral disease; Encounter for immunization Start: 11-07-2023 End: 11-07-2023 ambulatory ANUPAM SUTTON Facility:[facility] Start: 10-24-2023 Telephone encounter Anupam minaya APRN.HEAD CONTROL CLERK Work Phone: [facility] Comment on above: Results Start: 10-24-2023 Encounter for genera l adult medical examination without abnormal findings ANUPAM SUTTON [facility] Start: 10-24-2023 End: 10-24-2023 ambulatory ANUPAM SUTTON Facility:[facility] Start: 10-24-2023 End: 10-24-2023 Patient encounter procedure Anupam Sutton APRN.CNP Work Phone: [facility] Comment on above: Wellness examination (Primary Dx); Encounter for lipid screening for cardiovascular disease; Screening for diabetes mellitus; Screening PSA (prostate specific antigen); Vitamin D deficiency; Farsightedness, bilateral; Vision decreased Start: 10-24-2023 End: 10-24-2023 Patient encounter status Anupam Sutton APRN.HEAD CONTROL CLERK Work Phone: [facility] Work Phone: Start: 09-11-2023 End: 09-11-2023 Patient encounter procedure Karen ISRAEL Work Phone: [facility] Comment on above: Hoarseness of voice (Primary Dx) Start: 09-10-2023 Telephone encounter Bhakti shepherd PA-C Work Phone: [facility] Comment on above: Results Start: 09-10-2023 End: 09-10-2023 Subsequent hospital visit by physician Margarette [facility] Work Phone: Radiology Comment on above: Bronchitis [J40] Start: 09-09-2023 End: 09-09-2023 Patient encounter procedure Bhakti Guerrero PA-C Work Phone: [facility] Comment on above: Bronchitis (Primary Dx) Start: 09-07-2023 End: 09-07-2023 Patient encounter procedure Denise Evangelista CONCRETE PILE DRIVER OPERATOR.HEAD CONTROL CLERK Work Phone: [facility] Comment on above: Acute cough (Primary Dx); Sore throat; Body aches Start: 07-08-2023 Telephone encounter Erin swanson CONCRETE PILE DRIVER OPERATOR.HEAD CONTROL CLERK Work Phone: [facility] Comment on above: Results Start: 07-08-2023 End: 07-08-2023 Subsequent hospital visit by physician Xr [facility] Work Phone: Radiology Comment on above: Acute cough [R05.1] Start: 07-07-2023 End: 07-07-2023 Patient encounter procedure Erin Mathis CONCRETE PILE DRIVER OPERATOR.HEAD CONTROL CLERK Work Phone: [facility] Comment on above: Acute cough (Primary Dx); URI, acute Start: 02-01-2023 End: 02-01-2023 Patient encounter procedure Anupam Sutton CONCRETE PILE DRIVER OPERATOR.HEAD CONTROL CLERK Work Phone: [facility] Comment on above: Encounter for immuni zation (Primary Dx); Tinnitus, unspecified laterality Start: 01-28-2023 Telephone encounter Anupam minaya APRN.HEAD CONTROL CLERK Work Phone: [address] [place] [address] Comment on above: Patient Question Start: 10-23-2022 Telephone encounter Anupam minaya APRN.HEAD CONTROL CLERK Work Phone: [facility] Comment on above: Results Start: 10-22-2022 End: 10-22-2022 Patient encounter procedure Anupam Sutton CONCRETE PILE DRIVER OPERATOR.HEAD CONTROL CLERK Work Phone: [facility] Comment on above: Encounter for immuni zation (Primary Dx); Wellness examination; Screening for diabetes mellitus; Encounter for lipid screening for cardiovascular disease; Screening PSA (prostate specific antigen) Start: 10-22-2022 End: 10-22-2022 Patient encounter status Anupam Sutton APRN.HEAD CONTROL CLERK Work Phone: [facility] Work Phone: Start: 10-10-2022 End: 10-10-2022 Patient encounter procedure Bhakti Guerrero PA-C Work Phone: [facility] Comment on above: Allergic contact june matitis due to plants, except food (Primary Dx) Procedures Date Procedure Procedure Detail Performing Clinician Start: 09-02-2024 Lipid 1996 panel - S debby or Plasma Anupam Sutton APRN.HEAD CONTROL CLERK Work Phone: Start: 10-24-2023 Adult depression scr eening assessment Anupam Sutton CONCRETE PILE DRIVER OPERATOR.HEAD CONTROL CLERK Work Phone: Start: 10-24-2023 Lipid 1996 panel - S debby or Plasma Anupam Sutton CONCRETE PILE DRIVER OPERATOR.HEAD CONTROL CLERK Work Phone: Start: 09-10-2023 Radiologic exam ches t 2 views Bhakti Guerrero PA-C Work Phone: Start: 07-08-2023 Radiologic exam ches t 2 views Erin Mathis CONCRETE PILE DRIVER OPERATOR.HEAD CONTROL CLERK Work Phone: Start: 07-07-2023 INFLUENZA A&B MOLECU LAR (POC) [facility] Provider Start: 02-01-2023 INFLUENZA VACCINE, P RSV FREE, AGE 65+ YR, HIGH DOSE, QUADRIVALENT (FLUZONE HIGH-DOSE) Anupam Sutton APRN.HEAD CONTROL CLERK Work Phone: Start: 10-22-2022 Lipid 1996 panel - S debby or Plasma Anupam Sutton CONCRETE PILE DRIVER OPERATOR.HEAD CONTROL CLERK Work Phone: Plan of Treatment Date Care Activity Detail Author Start: 10-22-2032 Urine microalbumin profile [facility] Start: 09-02-2029 Lipid panel Lipid Screening [facility] Start: 10-23-2028 Lipid panel Lipid Screening [facility] Start: 10-23-2027 Lipid 1996 panel - Serum or Plasma Lipid Screening [facility] Start: 10-23-2027 Lipid panel Lipid Screening [facility] Start: 10-23-2027 LIPID SCREEN LIPID SCREEN [facility] Start: 09-23-2027 Screening for malign ant neoplasm of colon [facility] Start: 09-03-2027 Diabetes Screening Diabetes Screenin g [facility] Start: 10-23-2026 Diabetes Screening Diabetes Screenin g [facility] Start: 10-22-2025 DIABETES SCREEN DIABETES SCREEN [facility] Start: 10-22-2025 Diabetes Screening Diabetes Screenin g [facility] Start: 09-22-2025 Covid-19 Vaccine ( season) Covid-19 Vaccine () [facility] Comment on above: Postponed from 12/14 (Declined at this time) Start: 12-14-2024 Influenza vaccination Influenz a Vaccine (Season Ended) [facility] Start: 10-23-2024 Anxiety Screening Anxiety Screening [facility] Start: 10-23-2024 Covid-19 Vaccine () Covid-19 Vaccine () [facility] Comment on above: Postponed from 12/14 (Declined at this time) Start: 10-23-2024 Depression Screening Depression Scre ening [facility] Start: 10-14-2024 End: 10-14-2024 Patient encounter procedure 10/14/2024 7:00 AM EDT Office Visit Family [facility] [address] [place] [address] [phone] Luis Alfredo Pinto MD [address] [place] [address] [phone] Spot on left needs removed for biospy - (bria patient) [facility] Comment on above: Spot on left needs r emoved for biospy - (bria patient) Start: 09-22-2024 End: 09-22-2024 Patient encounter procedure 09/22/2024 8:20 AM EDT Office Visit [facility] [address] [place] [address] [phone] Anupam Sutton APRN.[facility] [address] [place], [place] [phone] annual [facility] Comment on above: annual Start: 08-31-2024 End: 11-30-2024 25-hydroxyvitamin D3 [Mass/volume] in Serum or Plasma VITAMIN D 25 HYDROXY Lab Routine Vitamin D deficiency Expected: 08/31/2024, Expires: 11/30/2024 [facility] Comment on above: Expected: 08/31/2024 , Expires: 11/30/2024 Start: 08-31-2024 End: 11-30-2024 CBC W Auto Differential panel - Blood COMPLETE BLOOD COUNT AND DIFFERENTIAL Lab Routine Wellness examination Expected: 08/31/2024, Expires: 11/30/2024 [facility] Work Phone: Comment on above: Expected: 08/31/2024 , Expires: 11/30/2024 Start: 08-31-2024 End: 11-30-2024 Comprehensive metabolic 2000 panel - Serum or Plasma COMPREHENSIVE METABOLIC PANEL Lab Routine Screening for diabetes mellitus Expected: 08/31/2024, Expires: 11/30/2024 [facility] Comment on above: Expected: 08/31/2024 , Expires: 11/30/2024 Start: 08-31-2024 End: 11-30-2024 Hemoglobin A1c in Blood HEMOGLOBIN A1C Lab Routine Screening for diabetes mellitus Expected: 08/31/2024, Expires: 11/30/2024 [facility] Comment on above: Expected: 08/31/2024 , Expires: 11/30/2024 Start: 08-31-2024 End: 11-30-2024 LIPID PANEL, NONFASTING LIPID PANEL, NONFASTING Lab Routine Encounter for lipid screening for cardiovascular disease Expected: 08/31/2024, Expires: 11/30/2024 [facility] Comment on above: Expected: 08/31/2024 , Expires: 11/30/2024 Start: 08-31-2024 End: 11-30-2024 PSA/PROSTATE SPECIFIC ANTIGEN SCREENING PSA/PROSTATE SPECIFIC ANTIGEN SCREENING Lab Routine Screening PSA (prostate specific antigen) Expected: 08/31/2024, Expires: 11/30/2024 [facility] Comment on above: Expected: 08/31/2024 , Expires: 11/30/2024 Start: 04-15-2024 Advance Directive Discussion Advance Directive Discussion [facility] Start: 12-15-2023 Covid-19 Vaccine () Covid-19 Vaccine () [facility] Start: 12-15-2023 Covid-19 Vaccine ( season) Covid-19 Vaccine () [facility] Start: 12-15-2023 Influenza vaccination Influenza Vacc ine (#1) [facility] Start: 11-07-2023 End: 02-06-2024 Hepatitis C virus Ab [Presence] in Serum [facility] Work Phone: Comment on above: Expected: 11/07/2023 , Expires: 02/06/2024 Start: 10-24-2023 End: 01-23-2024 25-hydroxyvitamin D3 [Mass/volume] in Serum or Plasma [facility] Comment on above: Expected: 10/24/2023 , Expires: 01/23/2024 Start: 10-24-2023 End: 01-23-2024 CBC W Auto Differential panel - Blood [facility] Work Phone: Comment on above: Expected: 10/24/2023 , Expires: 01/23/2024 Start: 10-24-2023 End: 01-23-2024 Comprehensive metabolic 2000 panel - Serum or Plasma [facility] Comment on above: Expected: 10/24/2023 , Expires: 01/23/2024 Start: 10-24-2023 End: 01-23-2024 Hemoglobin A1c in Blood [facility] Comment on above: Expected: 10/24/2023 , Expires: 01/23/2024 Start: 10-24-2023 End: 01-23-2024 LIPID PANEL, NONFASTING [facility] Comment on above: Expected: 10/24/2023 , Expires: 01/23/2024 Start: 10-24-2023 End: 01-23-2024 PSA/PROSTATE SPECIFIC ANTIGEN SCREENING [facility] Comment on above: Expected: 10/24/2023 , Expires: 01/23/2024 Start: 10-24-2023 End: 10-24-2023 Patient encounter procedure 10/24/2023 8:20 AM EDT Office Visit [facility] [address] [place] [address] Anupam Sutton APRN.[facility] [address] [place] [address] annual follow up [facility] Comment on above: annual follow up Start: 10-23-2023 COVID-19 VACCINE (#1) COVID-19 VACCI NE (#1) [facility] Comment on above: Postponed from 12/31 (Declined at this time) Start: 10-21-2023 COLORECTAL CANCER SCREENING COLORECTAL CANCER SCREENING [facility] Comment on above: Postponed from 06/30 (Postponed To Appropriate Date) Start: 10-21-2023 Screening for malign ant neoplasm of colon Colorectal Cancer Screening [facility] Comment on above: Postponed from 06/30 (Postponed To Appropriate Date) Start: 07-07-2023 End: 07-21-2023 COVID & INFLUENZA A/B & RSV NAAT, ROUTINE COVID & INFLUENZA A/B & RSV NAAT, ROUTINE Microbiology Routine Acute cough URI, acute Expected: 07/07/2023, Expires: 07/21/2023 [facility] Work Phone: Comment on above: Expected: 07/07/2023 , Expires: 07/21/2023 Start: 07-07-2023 End: 10-06-2023 INFLUENZA A&B MOLECULAR (POC) INFLUENZA A&B MOLECULAR (POC) Microbiology Routine Acute cough URI, acute Expected: 07/07/2023, Expires: 10/06/2023 [facility] Work Phone: Comment on above: Expected: 07/07/2023 , Expires: 10/06/2023 Start: 04-15-2023 Advance Directive Discussion Advance Directive Discussion [facility] Start: 04-15-2023 Behavioral Health Screening Behavioral Health Screening [facility] Start: 04-15-2023 Depression Assessment Depression Ass essment [facility] Start: 12-14-2022 Covid-19 Vaccine () Covid-19 Vaccine () [facility] Start: 12-14-2022 Influenza vaccination C [facility] Start: 10-22-2022 End: 12-22-2022 Comprehensive metabolic 2000 panel - Serum or Plasma [facility] Work Phone: Comment on above: Expected: 10/22/2022 , Expires: 12/22/2022 Start: 10-22-2022 End: 12-22-2022 Hemoglobin A1c in Blood [facility] Work Phone: Comment on above: Expected: 10/22/2022 , Expires: 12/22/2022 Start: 10-22-2022 End: 12-22-2022 LIPID PANEL, NONFASTING [facility] Work Phone: Comment on above: Expected: 10/22/2022 , Expires: 12/22/2022 Start: 10-22-2022 End: 12-22-2022 PSA/PROSTSPECAG SCRN [facility] Work Phone: Comment on above: Expected: 10/22/2022 , Expires: 12/22/2022 Start: 04-15-2022 ADVANCE DIRECTIVE DISCUSSION ADVANCE DIRECTIVE DISCUSSION [facility] Start: 04-15-2022 DEPRESSION ASSESSMENT DEPRESSION ASS ESSMENT [facility] Start: 06-30-2016 PNEUMOCOCCAL: 65+ (1 - PCV) PNEUMOCOCCAL: 65+ (1 - PCV) [facility] Start: 2011 RSV Vaccine (1 - 1-d ose 60+ series) RSV Vaccine (1 - 1-dose 60+ series) [facility] Start: 06-30-2001 SHINGRIX VACCINE (1 of 2) SHINGRIX VACCINE (1 of 2) [facility] Start: 06-30-1996 COLOGUARD (FIT-DNA) COLOGUARD (FIT-D NA) [facility] Start: 06-30-1996 Colonoscopy COLONOSCOPY [facility] Start: 06-30-1996 COLORECTAL CANCER SCREENING COLORECTAL CANCER SCREENING [facility] Start: 06-30-[address] COLONOGRAPHY [facility] Start: 06-30-1996 DIABETES SCREEN DIABETES SCREEN [facility] Start: 06-30-1996 FECAL OCCULT BLOOD FECAL OCCULT BLOO D [facility] Start: 06-30-1996 Screening for malign ant neoplasm of colon [facility] Start: 06-30-1996 SIGMOIDOSCOPY SIGMOIDOSCOPY [facility] Start: 06-30-1986 LIPID SCREEN LIPID SCREEN [facility] Start: 06-30-1970 Urine microalbumin profile DTAP,TDAP,TD (1 - Tdap) [facility] Start: 06-30-1969 HEPATITIS C SCREENING HEPATITIS C [facility] Start: 06-30-1969 Hepatitis C screening Hepatitis C [facility] Start: 01-01-1951 COVID-19 VACCINE (#1) COVID-19 VACCI NE (#1) [facility] End: 08-05-2024 XR Chest PA and Lateral XR CHEST 2V FRONTAL/LAT Radiology STAT Acute cough URI, acute 1 Occurrences starting 07/07/2023 until 08/05/2024 [facility] Work Phone: Comment on above: 1 Occurrences starti ng 07/07/2023 until 08/05/2024 End: 10-08-2024 XR Chest PA and Lateral XR CHEST 2V FRONTAL/LAT Radiology STAT Bronchitis 1 Occurrences starting 09/09/2023 until 10/08/2024 [facility] Work Phone: Comment on above: 1 Occurrences starti ng 09/09/2023 until 10/08/2024 End: 10-22-2025 XR Hand - left PA and Lateral and Oblique XR HAND GENERAL 3V PA/LAT/OBL LEFT Radiology Routine Pain of left thumb 1 Occurrences starting 09/22/2024 until 10/22/2025 [facility] Work Phone: Comment on above: 1 Occurrences starti ng 09/22/2024 until 10/22/2025 XR Hand - left PA an d Lateral and Oblique XR HAND GENERAL 3V PA/LAT/OBL LEFT Radiology Routine Pain of left thumb 09/22/2024 9:26 AM EDT [facility] End: 10-22-2025 XR Mandible 4 Views XR MANDIBLE 4V PA/BO/BOTH OBL Radiology STAT Jaw pain 1 Occurrences starting 09/22/2024 until 10/22/2025 [facility] Comment on above: 1 Occurrences starti ng 09/22/2024 until 10/22/2025 XR Mandible 4 Views XR MANDIBLE 4V PA/BO/BOTH OBL Radiology STAT Jaw pain 09/22/2024 9:26 AM EDT [facility] Immunizations Immunization Date Immunization Notes Care Provider Fa bunny 02-01-2023 influenza (HD-IIV4) vaccine, age 65+ yr, high dose, quadrivalent, PF (FLUZONE HIGH-DOSE) Anupam Sutton APRN.HEAD CONTROL CLERK Work Phone: [facility] 02-01-2023 influenza virus vaccine, unspecified formulation Anupam Sutton APRN.HEAD CONTROL CLERK Work Phone: [facility] 10-22-2022 pneumococcal (PCV20) vaccine, 20 valent (PREVNAR 20) Anupam Sutton APRN.HEAD CONTROL CLERK Work Phone: [facility] 10-22-2022 tetanus toxoid, redu raven diphtheria toxoid, and acellular pertussis vaccine, adsorbed Anupam Sutton APRN.HEAD CONTROL CLERK Work Phone: [facility] 10-22-2022 pneumococcal Conjuga te, unspecified formulation Anupam Sutton APRN.HEAD CONTROL CLERK Work Phone: [facility] Work Phone: 06-13-2020 COVID-19 original vaccine, full dose, monovalent (MODERNA) Anupam Sutton APRN.HEAD CONTROL CLERK Work Phone: [facility] 05-16-2020 COVID-19 original vaccine, full dose, monovalent (MODERNA) Anupam Sutton APRN.HEAD CONTROL CLERK Work Phone: [facility] Payers Date Payer Category Payer Medicare (Managed Care) [employer] [facility] [id number] 2022 Unknown [id number] 2022 Medicare [id number] Social History Date Type Detail Facility Tobacco smoking stat us NHIS Tobacco smoking consumption unknown [facility] Start: 1950 Sex Assigned At Male [facility] Start: 10-22-2022 Tobacco smoking status NHIS Never smoked tobacco [facility] Work Phone: Start: 10-22-2022 Tobacco use and exposure Smokeless tobacco non-user [facility] Work Phone: Start: 10-22-2022 End: 02-26-2024 Alcohol intake Not Asked [facility] Start: 10-15-2022 End: 10-23-2023 History of Social function [facility] Start: 10-15-2022 End: 10-23-2023 Social connection and isolation panel [facility] Do you belong to any clubs or organizations such as roman catholic groups, unions, fraternal or athletic groups, or school groups? Yes [facility] Are you now , , , , never or living with a partner? [facility] How often to you hav e a drink containing alcohol? 2-4 times a month [facility] How many standard dr inks containing alcohol do you have on a typical day? 1 or 2 [facility] How often do you hav e 6 or more drinks on 1 occasion? Never [facility] How hard is it for y ou to pay for the very basics like food, housing, medical care, and heating Not hard at all [facility] Do you feel stress - tense, restless, nervous, or anxious, or unable to sleep at night because your mind is troubled all the time - these days [OSQ] Not at all [facility] (I/We) worried wheth er (my/our) food would run out before (I/we) got money to buy more. Never true [facility] In the past 12 month s, was there a time when you were not able to pay the mortgage or rent on time? No [facility] Start: 10-22-2022 Alcohol Comment occasionally [facility] How often to you hav e a drink containing alcohol? 2-3 time sa week [facility] Clinical Notes 10-10-2022 to 09-29-2024 Telephone Encounter - Mariah Richards RN - 09/29/2024 10:22 AM EDTTelephone Encounter - Mariah Richards RN - 09/29/2024 10:22 AM EDKarly Branch RT(R) - 09/22/2024 9:00 AM EDT Note Date & Type Note Facility 09-29-2024 Telephone encounter Note Pt called and is notified of providers message and instructions. Pt voices understanding. Mariah Richards RN [facility] 09-29-2024 Miscellaneous Notes Pt called and is notified of providers message and instructions. Pt voices understanding. Mariah Richards RN Left message for patient to return call to office Mary Alice Valadez MA Would recommend seeing dentist to evaluate for container filler, may help decrease TMJ symptoms. Pt notified and verbalized understanding. Pt states he is still having jaw pain and would like to know if there is anything else you can do/ recommend for this? Mary Alice Valadez MA Please let patient know his mandible xray is normal. 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 Patient may take tylenol and ibuprofen as needed for pain/swelling. documented in this encounter [facility] 09-29-2024 Telephone encounter Note Left message for patient to return call to office Mary Alice Valadez MA [facility] 09-28-2024 Telephone encounter Note Would recommend seeing dentist to evaluate for container filler, may help decrease TMJ symptoms. [facility] 09-28-2024 Telephone encounter Note Pt notified and verbalized understanding. Pt states he is still having jaw pain and would like to know if there is anything else you can do/ recommend for this? Mary Alice Valadez MA [facility] 09-28-2024 Telephone encounter Note Please let patient know his mandible xray is normal. 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 Patient may take tylenol and ibuprofen as needed for pain/swelling. [facility] 09-22-2024 History of Presen t illness Narrative Radiology Service Progress Note PATIENT NAME: Jimbo Masterson DATE OF SERVICE: September 22, 2024 TIME: 8:56 AM PATIENT IDENTITY VERIFICATION COMPLETED USING TWO (2) IDENTIFIERS: Name and Date of confirmed by patient verbally. FALL SCREENING: Has the patient had 2 falls in the last year or 1 fall with injury or currently using an Ambulatory Assistive Device (Walker, Cane, Wheelchair, Crutches, etc.)? No PATIENT GENDER DATA: Assigned male at PATIENT RELEVANT IMPLANT DATA REVIEWED: Yes PATIENT PRESENTS WITH AN IMPLANTABLE OR ATTACHED CRANE RIGGER: No RADIOLOGY DEPARTMENT: General X-ray: Exam(s) Completed: Upper Extremity X-Ray(s): Hand, left Mandible PERIPHERAL IV DATA: Not applicable SIGNED BY: RT Yadi(R) September 22, 2024 8:56 AM documented in this encounter [facility] 09-22-2024 Note HNO ID: [id number] Author: KARLY SALAZAR RT(R) Service: ? Author Type: Technologist Type: Progress Notes Filed: 09/22/2024 09:22 Note Text: Radiology Service Progress Note PATIENT NAME: Jimbo Masterson DATE OF SERVICE: September 22, 2024 TIME: 8:56 AM PATIENT IDENTITY VERIFICATION COMPLETED USING TWO (2) IDENTIFIERS: Name and Date of confirmed by patient verbally. FALL SCREENING: Has the patient had 2 falls in the last year or 1 fall with injury or currently using an Ambulatory Assistive Device (Walker, Cane, Wheelchair, Crutches, etc.)? No PATIENT GENDER DATA: Assigned male at PATIENT RELEVANT IMPLANT DATA REVIEWED: Yes PATIENT PRESENTS WITH AN IMPLANTABLE OR ATTACHED CRANE RIGGER: No RADIOLOGY DEPARTMENT: General X-ray: Exam(s) Completed: Upper Extremity X-Ray(s): Hand, left Mandible PERIPHERAL IV DATA: Not applicable SIGNED BY: RT Yadi(Chris) September 22, 2024 8:56 AM [facility] 09-22-2024 Note HNO ID: [id number] Author: ANUPAM SUTTON APRN.CNP Service: ? Author Type: Nurse Practitioner Type: Progress Notes Filed: 09/22/2024 08:41 Note Text: Jimbo Masterson is a 74 year old male here for a Medicare wellness visit. Medicare Health Risk Assessment General Health Excellent Exercise: Minutes/Day 60 min Exercise: Days/Week 4 days Alcohol: Daily Use 2-4 times a month Alcohol: Drinks/Day 1 or 2 Alcohol: 6 or more drinks Never Feel off balance No Concerns: Teeth/Dentures No Concerns: Sexual function No Troubled by feelings None of the above Frequency: Eating healthy diet More than half the days ADLs requiring help None of the above Safety precautions in home/vehicle Yes Smoke, vape, chews tobacco No Difficulty hearing No Difficulty seeing No Current Providers Specialists: I have reviewed specialist-related care of the patient in the medical record. Current care team: Patient Care Team: Anupam Sutton APRN.HEAD CONTROL CLERK as PCP - General (Family Medicine) Medical/Family history review Reviewed and updated problem list, medical/surgical/family/social history, medications, and allergies. Opioid use review Opioid Medications (last 90 days) No data to display Anxiety/Depression screening ANGELA-7 Score: 0 . Recommendation: no further intervention at this time Cognitive screening Cognitive screening reviewed and No further action needed (score 3-5). Functional Observation Was the patient's Timed Up AND Go test unsteady or >= 12 seconds? No Advance Care Planning Patient did not wish or was not able to name a surrogate decision maker or provide an advance care plan Measurements BP 130/76 Pulse 67 Wt 85 kg (187 lb 6.3 oz) Vision Screening: Follows with optometry/ophthalmology Assessment/Plan Medicare annual wellness visit, subsequent (Z00.00) - Counseled on healthy diet and regular exercise - Fall avoidance information provided - Personalized prevention plan provided - Discussed need for and benefit of weight loss. There is no height on file. Chief Complaint Patient presents with: Medicare Wellness Exam HPI Jimbo Masterson is a 74 year old male who presents here today for Above Complaints. Patient presents for annual physical. Patient reports decreased strength of stream of urine. Also reports occasional pain to right jaw and ear when chewing. Pain lasts seconds and is gone. Also has multiple skin abnormalities he would like looked at to back and left thigh. Reports left thumb pain, starts at base of wrist and extends to bottom of thumb. Happens randomly and is not brought on by specific movement. Reports chronic tinnitus is getting worse. Tested years ago and was told nothing they can do. Past medical history, appointments, medications, allergies reviewed. Previous Medical History PAST MEDICAL HISTORY Diagnosis Date Tinnitus Previous Surgical History PAST SURGICAL HISTORY Procedure Laterality Date ARTHROSCOPY KNEE DIAGNOSTIC W/WO SYNOVIAL BX SPX TONSILLECTOMY AND ADENOIDECTOMY Family History FAMILY HISTORY Adopted: Yes Patient Allergies ALLERGIES No Known Allergies Current Medications Current Outpatient Medications on File Prior to Visit Medication Sig vit C/olive leaf ext/beta-gluc (IMMUNE ESSENTIALS ORAL) Take 1 capsule by mouth once daily. No current facility-administered medications on file prior to visit. Social History Social History Tobacco Use Smoking status: Never Smokeless tobacco: Never Vaping Use Vaping status: Never Used Substance Use Topics Drug use: Never Review of Symptoms REVIEW OF SYSTEMS SEE HPI EXAM: BP 130/76 Pulse 67 Wt 85 kg (187 lb 6.3 oz) General Appearance: Well appearing, alert, in no acute distress, well-hydrated, well nourished. Skin: Positives: Mole(s) - abnormal: upper legs. Lungs: Lungs clear to auscultation. No wheezing, rhonchi, rales.. Heart: RRR without murmur, gallop, or rubs. No ectopy. Abdomen: Normal abdominal exam, Abdomen soft, non-tender. Bowel sounds normal. No masses, organomegaly Musculoskeletal: No joint swelling, deformity, or tenderness. Peripheral Pulses: Normal. Neurologic: Gait normal. Reflexes normal and symmetric. Sensation grossly intact.. Health Maintenance List Colorectal Cancer Screening Never done Covid-19 Vaccine( season) due on 12/15/2023 Advance Directive Discussion due on 04/15/2024 Depression Screening due on 10/23/2024 Anxiety Screening due on 10/23/2024 Influenza Vaccine(Season Ended) due on 12/14/2024 Diabetes Screening due on 09/03/2027 Lipid Screening due on 09/02/2029 DTaP,Tdap,Td Vaccine(2 - Td or Tdap) due on 10/22/2032 RSV Vaccine Completed Hepatitis C Screening Completed Pneumococcal Vaccine: 50+ Completed Shingrix Vaccine Discontinued Data reviewed Latest Ref Rng 09/02/2024 WBC 3.70 - 11.00 k/uL 6.88 RBC 4.20 - 6.00 m/uL 5.73 Hemoglobin 13.0 - 17.0 g/dL 16 (more content not included)... [facility] 09-22-2024 History of Presen t illness Narrative Jimbo Masterson is a 74 year old male here for a Medicare wellness visit. Medicare Health Risk Assessment General Health Excellent Exercise: Minutes/Day 60 min Exercise: Days/Week 4 days Alcohol: Daily Use 2-4 times a month Alcohol: Drinks/Day 1 or 2 Alcohol: 6 or more drinks Never Feel off balance No Concerns: Teeth/Dentures No Concerns: Sexual function No Troubled by feelings None of the above Frequency: Eating healthy diet More than half the days ADLs requiring help None of the above Safety precautions in home/vehicle Yes Smoke, vape, chews tobacco No Difficulty hearing No Difficulty seeing No Current Providers Specialists: I have reviewed specialist-related care of the patient in the medical record. Current care team: Patient Care Team: Anupam Sutton APRN.HEAD CONTROL CLERK as PCP - General (Family Medicine) Medical/Family history review Reviewed and updated problem list, medical/surgical/family/social history, medications, and allergies. Opioid use review Opioid Medications (last 90 days) No data to display Anxiety/Depression screening ANGELA-7 Score: 0 . Recommendation: no further intervention at this time Cognitive screening Cognitive screening reviewed and No further action needed (score 3-5). Functional Observation Was the patient's Timed Up & Go test unsteady or >= 12 seconds? No Advance Care Planning Patient did not wish or was not able to name a surrogate decision maker or provide an advance care plan Measurements BP 130/76 Pulse 67 Wt 85 kg (187 lb 6.3 oz) Vision Screening: Follows with optometry/ophthalmology Assessment/Plan Medicare annual wellness visit, subsequent (Z00.00) - Counseled on healthy diet and regular exercise - Fall avoidance information provided - Personalized prevention plan provided - Discussed need for and benefit of weight loss. There is no height on file. Chief Complaint Patient presents with: Medicare Wellness Exam HPI Jimbo Masterson is a 74 year old male who presents here today for Above Complaints. Patient presents for annual physical. Patient reports decreased strength of stream of urine. Also reports occasional pain to right jaw and ear when chewing. Pain lasts seconds and is gone. Also has multiple skin abnormalities he would like looked at to back and left thigh. Reports left thumb pain, starts at base of wrist and extends to bottom of thumb. Happens randomly and is not brought on by specific movement. Reports chronic tinnitus is getting worse. Tested years ago and was told nothing they can do. Past medical history, appointments, medications, allergies reviewed. Previous Medical History PAST MEDICAL HISTORY Diagnosis Date Tinnitus Previous Surgical History PAST SURGICAL HISTORY Procedure Laterality Date ARTHROSCOPY KNEE DIAGNOSTIC W/WO SYNOVIAL BX SPX TONSILLECTOMY & ADENOIDECTOMY <AGE 13 Family History FAMILY HISTORY Adopted: Yes Patient Allergies ALLERGIES No Known Allergies Current Medications Current Outpatient Medications on File Prior to Visit Medication Sig vit C/olive leaf ext/beta-gluc (IMMUNE ESSENTIALS ORAL) Take 1 capsule by mouth once daily. No current facility-administered medications on file prior to visit. Social History Social History Tobacco Use Smoking status: Never Smokeless tobacco: Never Vaping Use Vaping status: Never Used Substance Use Topics Drug use: Never Review of Symptoms REVIEW OF SYSTEMS SEE HPI EXAM: BP 130/76 Pulse 67 Wt 85 kg (187 lb 6.3 oz) General Appearance: Well appearing, alert, in no acute distress, well-hydrated, well nourished. Skin: Positives: Mole(s) - abnormal: upper legs. Lungs: Lungs clear to auscultation. No wheezing, rhonchi, rales.. Heart: RRR without murmur, gallop, or rubs. No ectopy. Abdomen: Normal abdominal exam, Abdomen soft, non-tender. Bowel sounds normal. No masses, organomegaly Musculoskeletal: No joint swelling, deformity, or tenderness. Peripheral Pulses: Normal. Neurologic: Gait normal. Reflexes normal and symmetric. Sensation grossly intact.. Health Maintenance List Colorectal Cancer Screening Never done Covid-19 Vaccine( season) due on 12/15/2023 Advance Directive Discussion due on 04/15/2024 Depression Screening due on 10/23/2024 Anxiety Screening due on 10/23/2024 Influenza Vaccine(Season Ended) due on 12/14/2024 Diabetes Screening due on 09/03/2027 Lipid Screening due on 09/02/2029 DTaP,Tdap,Td Vaccine(2 - Td or Tdap) due on 10/22/2032 RSV Vaccine Completed Hepatitis C Screening Completed Pneumococcal Vaccine: 50+ Completed Shingrix Vaccine Discontinued Data reviewed Latest Ref Rng 09/02/2024 WBC 3.70 - 11.00 k/uL 6.88 RBC 4.20 - 6.00 m/uL 5.73 Hemoglobin 13.0 - 17.0 g/dL 16.3 Hematocrit 39.0 - 51.0 % 49.3 MCV 80.0 - 100.0 fL 86.0 MCH 26.0 - 34.0 pg 28.4 MCHC 30.5 - 36.0 g/dL 33.1 RDW-CV 11.5 - 15.0 % 13.4 Platelet Count 150 - 400 k/uL 199 MPV 9.0 - 12.7 fL 11.1 Neut% % 62.5 Abs Neut (ANC) 1.45 - 7.50 k/uL 4.29 Lymph% % 25.0 Abs Lymph 1.00 - 4.00 k/uL 1.72 Shannon% % 7.8 Abs Shannon <0.87 k/uL 0.54 Eosin% % 3.3 Abs Eosin <0.46 k/uL 0.23 Baso% % 0.7 Abs Baso <0.11 k/uL 0.05 Immature Gran % % 0.7 IMMATURE GRANS (ABS) <0.10 k/uL 0.05 NRBC /100 WBC 0.0 Absolute nRBC <0.01 k/uL <0.01 DTYPE Auto Protein, Total 6.3 - 8.0 g/dL 7.0 Albumin 3.9 - 4.9 g/dL 4.5 Calcium 8.5 - 10.2 mg/dL 9.3 Bilirubin, Total 0.2 - 1.3 mg/dL 1.3 Alkaline Phosphatase 38 - 113 U/L 59 AST 14 - 40 U/L 21 ALT 10 - 54 U/L 24 Glucose 74 - 99 mg/dL 84 BUN 9 - 24 mg/dL 15 Creatinine 0.73 - 1.22 mg/dL 0.87 Sodium 136 - 144 mmol/L 142 Potassium 3.7 - 5.1 mmol/L 3.9 Chloride 98 - 107 mmol/L 104 CO2 22 - 30 mmol/L 23 Anion Gap 8 - 15 mmol/L 15 eGFR >=60 mL/min/1.73m 91 Total Cholesterol, Nonfasting <200 mg/dL 222 (H) Triglycerides, Nonfasting <150 mg/dL 114 HDL Cholesterol, Nonfasting >39 mg/dL 61 LDL Cholesterol Calculated, Nonfasting <100 mg/dL 141 (H) Non HDL Cholesterol, Nonfasting <130 mg/dL 161 (H) VLDL Cholesterol, Nonfasting <30 mg/dL 21 Total Chol/HDL Ratio, Nonfasting <5.10 mg/dL 3.64 LDL/HDL Ratio, Nonfasting <2.54 mg/dL 2.31 Hemoglobin A1C 4.3 - 5.6 % 4.9 Estimated Average Glucose mg/dL 94 PSA Screening <2.60 ng/mL 0.63 Vitamin D 25 Hydroxy 31.0 - 80.0 ng/mL 35.5 ASSESSMENT/PLAN: 1. Medicare annual wellness visit, subsequent - ICD9: V70.0, ICD10: Z00.00 (primary diagnosis) - Counseled on healthy diet and regular exercise - Follow up for annual exam in one year 2. Wellness examination - ICD9: V70.0, ICD10: Z00.00 - Counseled on healthy diet and regular exercise - Follow up for annual exam in one year 3. 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 - ICD9: 600.01, 788.21, ICD10: N40.1, R39.14 - TAMSULOSIN 0.4 MG CAPSULE 5. Pain of left thumb - ICD9: 729.5, ICD10: M79.645 - XR HAND GENERAL 3V PA/LAT/OBL LEFT 6. Tinnitus of both ears - ICD9: 388.30, ICD10: H93.13 -Has had multiple evaluations with no cause identified. Does not want another eval at this time. 7. Jaw pain - ICD9: 784.92, ICD10: R68.84 - XR MANDIBLE Anupam Sutton APRN.HEAD CONTROL CLERK documented in this encounter [facility] 09-22-2024 Instructions Anupam Sutton APRN.HEAD CONTROL CLERK - 09/22/2024 8:12 AM EDT -Complete xrays of jaw and left thumb - Start tamsulosin Screening schedule The following prevention plan is recommended: Colorectal Cancer Screening Never done Covid-19 Vaccine( season) due on 12/15/2023 Advance Directive Discussion due on 04/15/2024 WHAT YOU CAN DO TO PREVENT FALLS Many falls can be prevented. By making some changes, you can lower your chances of falling. Four things YOU can do to prevent falls for you* and your caregiver 1. Begin a regular exercise program Exercise is one of the most important ways to lower your chances of falling. It makes you stronger and helps you feel better. Exercises that improve balance and coordination (like [place]) are the most helpful. Lack of exercise leads to weakness and increases your chances of falling. Ask your doctor or health care provider about the best type of exercise program for you. 2. Have your health care provider review your medicines Have your doctor or pharmacist review all the medicines you take, even [id number] medicines. As you get older, the way medicines work in your body can change. Some medicines, or combinations of medicines, can make you sleepy or dizzy and can cause you to fall. 3. Have your vision checked Have your eyes checked by an eye doctor at least once a year. You may be wearing the wrong glasses or have a condition like glaucoma or cataracts that limits your vision. Poor vision can increase your chances of falling. 4. Make your home safer About half of all falls happen at home. To make your home safer: Remove things you can trip over (like papers, books, clothes, and shoes) from stairs and places where you walk. Remove small throw rugs or use double-sided tape to keep the rugs from slipping. Keep items you use often in cabinets you can reach easily without using a step stool. Have grab bars put in next to your toilet and in the tub or shower. Use non-slip mats in the bathtub and on shower floors. Improve the lighting in your home. As you get older, you need brighter lights to see well. Hang light-weight curtains or shades to reduce glare. Have handrails and lights put in on all staircases. Wear shoes both inside and outside the house. Avoid going barefoot or wearing slippers. For more information, contact: Centers for Disease Control and Prevention www.cdc.gov/injury * This information may not apply if you have certain medical conditions. documented in this encounter [facility] 08-31-2024 Telephone encounter Note Pt notified and verbalized understanding Mary Alice Valadez MA [facility] 08-31-2024 Miscellaneous Notes Pt notified and verbalized understanding Mary Alice Valadez MA Please let patient know his labs have been ordered and can be completed at his convenience. Pt has an annual appt in September. Pt is requesting lab orders. Pt would like a PSA included in lab orders. Call pt when labs have been ordered. Margie Huntley LPN documented in this encounter [facility] 08-31-2024 Telephone encounter Note Please let patient know his labs have been ordered and can be completed at his convenience. [facility] 08-31-2024 Telephone encounter Note Pt has an annual appt in September. Pt is requesting lab orders. Pt would like a PSA included in lab orders. Call pt when labs have been ordered. Margie Huntley LPN [facility] 05-29-2024 Telephone encounter Note Called and spoke with patient. Questioning wait time to cardiology for his . See wifes chart. [facility] 05-29-2024 Miscellaneous Notes Called and spoke with patient. Questioning wait time to cardiology for his . See wifes chart. Pt called in and said he would like to have the provider give him a call back. I told him the providers are busy seeing Pts all day and she may not have time to call him back, so if her could give me some information to give to the provider she may be able to get a message back. Pt states, it's of a personal nature and if it wasn't important I wouldn't be calling.. I tried to get Pt to give me any information and he would not, he said if provider doesn't call her back then she doesn't call him. documented in this encounter [facility] 05-29-2024 Telephone encounter Note Pt called in and said he would like to have the provider give him a call back. I told him the providers are busy seeing Pts all day and she may not have time to call him back, so if her could give me some information to give to the provider she may be able to get a message back. Pt states, it's of a personal nature and if it wasn't important I wouldn't be calling.. I tried to get Pt to give me any information and he would not, he said if provider doesn't call her back then she doesn't call him. [facility] 02-26-2024 Note HNO ID: [id number] Author: FLACO BARKER MD Service: ? Author Type: Physician Type: Progress Notes Filed: 02/26/2024 09:39 Note Text: Patient presents with: Cough: headache and chills x 3 days HPI: Feeling sick for 3 days. Positive symptoms: Cough, Chills, Headache, mild Nasal Congestion/Rhinorrhea, Chills, Body Aches, Malaise, Fatigue, Negative symptoms: Shortness of breath, Chest tightness, Chest pain, fever OTC: Cough Medicine, Tylenol. Has not used tessalon but has some left over from a prior visit. Home COVID test negative. MEDICATIONS: Current Outpatient Medications Medication Sig vit C/olive leaf ext/beta-gluc (IMMUNE ESSENTIALS ORAL) Take 1 capsule by mouth once daily. No current facility-administered medications for this visit. ALLERGIES: ALLERGIES No Known Allergies VITALS: BP 126/80 Pulse 82 Temp 36.3 ?C (97.4 ?F) Resp 16 Wt 85.5 kg (188 lb 7.9 oz) SpO2 96% PHYSICAL EXAM: GEN: mildly ill appearing HEENT: PERRL, EOMI, conjunctiva mildly injected Ears: canals clear. TMs without erythema, bulge, or effusion Sinuses: non-tender frontal sinus, non-tender maxillary sinuses Throat: moist mucous membranes, mild erythema, no exudate Neck: supple, no thyromegaly, no lymphadenopathy HEART: regular rate and rhythm, no murmurs LUNGS: clear to auscultation, no wheezes or crackles, no increased WOB ASSESSMENT/PLAN: 1. URI with cough and congestion - ICD9: 465.9, ICD10: J06.9 - suspect viral URI - Discussed supportive care treatment with rest, cold medicine, and analgesia. Follow up with worsening cough, worsening shortness of breath, increasing chest pain, or late onset fever. Flaco Barker MD [facility] 02-26-2024 History of Presen t illness Narrative Patient presents with: Cough: headache and chills x 3 days HPI: Feeling sick for 3 days. Positive symptoms: Cough, Chills, Headache, mild Nasal Congestion/Rhinorrhea, Chills, Body Aches, Malaise, Fatigue, Negative symptoms: Shortness of breath, Chest tightness, Chest pain, fever OTC: Cough Medicine, Tylenol. Has not used tessalon but has some left over from a prior visit. Home COVID test negative. MEDICATIONS: Current Outpatient Medications Medication Sig vit C/olive leaf ext/beta-gluc (IMMUNE ESSENTIALS ORAL) Take 1 capsule by mouth once daily. No current facility-administered medications for this visit. ALLERGIES: ALLERGIES No Known Allergies VITALS: BP 126/80 Pulse 82 Temp 36.3 C (97.4 F) Resp 16 Wt 85.5 kg (188 lb 7.9 oz) SpO2 96% PHYSICAL EXAM: GEN: mildly ill appearing HEENT: PERRL, EOMI, conjunctiva mildly injected Ears: canals clear. TMs without erythema, bulge, or effusion Sinuses: non-tender frontal sinus, non-tender maxillary sinuses Throat: moist mucous membranes, mild erythema, no exudate Neck: supple, no thyromegaly, no lymphadenopathy HEART: regular rate and rhythm, no murmurs LUNGS: clear to auscultation, no wheezes or crackles, no increased WOB ASSESSMENT/PLAN: 1. URI with cough and congestion - ICD9: 465.9, ICD10: J06.9 - suspect viral URI - Discussed supportive care treatment with rest, cold medicine, and analgesia. Follow up with worsening cough, worsening shortness of breath, increasing chest pain, or late onset fever. Flaco Barker MD documented in this encounter [facility] 11-07-2023 Note HNO ID: [id number] Author: ANUPAM SUTTON APRN.HEAD CONTROL CLERK Service: ? Author Type: Nurse Practitioner Type: Progress Notes Filed: 11/07/2023 11:23 Note Text: Chief Complaint Patient presents with: Follow Up HPI Jimbo Masterson is a 73 year old male who presents here today for Above Complaints.. Patient presents to discuss health maintenance items. Past medical history, appointments, medications, allergies reviewed. Previous Medical History PAST MEDICAL HISTORY Diagnosis Date Tinnitus Previous Surgical History PAST SURGICAL HISTORY Procedure Laterality Date ARTHROSCOPY KNEE DIAGNOSTIC W/WO SYNOVIAL BX SPX TONSILLECTOMY AND ADENOIDECTOMY Family History FAMILY HISTORY Adopted: Yes Patient Allergies ALLERGIES No Known Allergies Current Medications Current Outpatient Medications on File Prior to Visit Medication Sig vit C/olive leaf ext/beta-gluc (IMMUNE ESSENTIALS ORAL) Take 1 capsule by mouth once daily. No current facility-administered medications on file prior to visit. Social History Social History Tobacco Use Smoking status: Never Smokeless tobacco: Never Vaping Use Vaping Use: Never used Substance Use Topics Drug use: Never Review of Symptoms REVIEW OF SYSTEMS SEE HPI EXAM: BP 118/79 Pulse 71 Resp 16 Wt 84.8 kg (187 lb) General Appearance: Well appearing, alert, in no acute distress, well-hydrated, well nourished.. Health Maintenance List Hepatitis C Screening Never done Colorectal Cancer Screening Never done RSV Vaccine(1 - 1-dose 60+ series) Never done Covid-19 Vaccine( - season) due on 10/23/2024 Influenza Vaccine(1) due on 12/15/2023 Depression Screening due on 10/23/2024 Anxiety Screening due on 10/23/2024 Diabetes Screening due on 10/23/2026 Lipid Screening due on 10/23/2028 DTaP,Tdap,Td Vaccine(2 - Td or Tdap) due on 10/22/2032 Advance Directive Discussion Completed Pneumococcal Vaccine: 65+ Completed Shingrix Vaccine Discontinued ASSESSMENT/PLAN: 1. Screening for colon cancer - ICD9: V76.51, ICD10: Z12.11 (primary diagnosis) -Patient to sign release of records for Dr. Ez Hernandez in [place], [place]. 2. Special screening examination for viral disease - ICD9: V73.99, ICD10: Z11.59 - HEPATITIS C ANTIBODY IA WITH CONFIRMATION 3. Encounter for immunization - ICD9: V03.89, ICD10: Z23 -RSV recommended, will obtain at Clint Sutton APRN.[facility] 11-07-2023 History of Presen t illness Narrative Chief Complaint Patient presents with: Follow Up HPI Jimbo Masterson is a 73 year old male who presents here today for Above Complaints.. Patient presents to discuss health maintenance items. Past medical history, appointments, medications, allergies reviewed. Previous Medical History PAST MEDICAL HISTORY Diagnosis Date Tinnitus Previous Surgical History PAST SURGICAL HISTORY Procedure Laterality Date ARTHROSCOPY KNEE DIAGNOSTIC W/WO SYNOVIAL BX SPX TONSILLECTOMY & ADENOIDECTOMY <AGE 12 Family History FAMILY HISTORY Adopted: Yes Patient Allergies ALLERGIES No Known Allergies Current Medications Current Outpatient Medications on File Prior to Visit Medication Sig vit C/olive leaf ext/beta-gluc (IMMUNE ESSENTIALS ORAL) Take 1 capsule by mouth once daily. No current facility-administered medications on file prior to visit. Social History Social History Tobacco Use Smoking status: Never Smokeless tobacco: Never Vaping Use Vaping Use: Never used Substance Use Topics Drug use: Never Review of Symptoms REVIEW OF SYSTEMS SEE HPI EXAM: BP 118/79 Pulse 71 Resp 16 Wt 84.8 kg (187 lb) General Appearance: Well appearing, alert, in no acute distress, well-hydrated, well nourished.. Health Maintenance List Hepatitis C Screening Never done Colorectal Cancer Screening Never done RSV Vaccine(1 - 1-dose 60+ series) Never done Covid-19 Vaccine(3 - season) due on 10/23/2024 Influenza Vaccine(1) due on 12/15/2023 Depression Screening due on 10/23/2024 Anxiety Screening due on 10/23/2024 Diabetes Screening due on 10/23/2026 Lipid Screening due on 10/23/2028 DTaP,Tdap,Td Vaccine(2 - Td or Tdap) due on 10/22/2032 Advance Directive Discussion Completed Pneumococcal Vaccine: 65+ Completed Shingrix Vaccine Discontinued ASSESSMENT/PLAN: 1. Screening for colon cancer - ICD9: V76.51, ICD10: Z12.11 (primary diagnosis) -Patient to sign release of records for Dr. Ez Hernandez in [place], [place]. 2. Special screening examination for viral disease - ICD9: V73.99, ICD10: Z11.59 - HEPATITIS C ANTIBODY IA WITH CONFIRMATION 3. Encounter for immunization - ICD9: V03.89, ICD10: Z23 -RSV recommended, will obtain at [facility] Anupam Sutton APRN.HEAD CONTROL CLERK documented in this encounter [facility] 10-25-2023 Telephone encounter Note Called and left a detailed voicemail notifying patient of providers message. Clinic phone number was left in case patient had any questions. Mariah Richards RN [facility] 10-25-2023 Miscellaneous Notes Called and left a detailed voicemail notifying patient of providers message. Clinic phone number was left in case patient had any questions. Mariah Richards RN Please let patient know their labs are stable. documented in this encounter [facility] 10-24-2023 Telephone encounter Note Please let patient know their labs are stable. [facility] 10-24-2023 Instructions Anupam Sutton APRN.REBECA - 10/24/2023 8:48 AM EDT Screening schedule The following prevention plan is recommended: Hepatitis C Screening Never done Colorectal Cancer Screening Never done RSV Vaccine(1 - 1-dose 60+ series) Never done Advance Directive Discussion Never done Behavioral Health Screening Never done WHAT YOU CAN DO TO PREVENT FALLS Many falls can be prevented. By making some changes, you can lower your chances of falling. Four things YOU can do to prevent falls for you* and your caregiver 1. Begin a regular exercise program Exercise is one of the most important ways to lower your chances of falling. It makes you stronger and helps you feel better. Exercises that improve balance and coordination (like [place]) are the most helpful. Lack of exercise leads to weakness and increases your chances of falling. Ask your doctor or health care provider about the best type of exercise program for you. 2. Have your health care provider review your medicines Have your doctor or pharmacist review all the medicines you take, even dyky-ive-hvklcfx medicines. As you get older, the way medicines work in your body can change. Some medicines, or combinations of medicines, can make you sleepy or dizzy and can cause you to fall. 3. Have your vision checked Have your eyes checked by an eye doctor at least once a year. You may be wearing the wrong glasses or have a condition like glaucoma or cataracts that limits your vision. Poor vision can increase your chances of falling. 4. Make your home safer About half of all falls happen at home. To make your home safer: Remove things you can trip over (like papers, books, clothes, and shoes) from stairs and places where you walk. Remove small throw rugs or use double-sided tape to keep the rugs from slipping. Keep items you use often in cabinets you can reach easily without using a step stool. Have grab bars put in next to your toilet and in the tub or shower. Use non-slip mats in the bathtub and on shower floors. Improve the lighting in your home. As you get older, you need brighter lights to see well. Hang light-weight curtains or shades to reduce glare. Have handrails and lights put in on all staircases. Wear shoes both inside and outside the house. Avoid going barefoot or wearing slippers. For more information, contact: Centers for Disease Control and Prevention www.cdc.gov/injury * This information may not apply if you have certain medical conditions. documented in this encounter [facility] 10-24-2023 Note HNO ID: [id number] Author: ANUPAM SUTTON APRN.REBECA Service: ? Author Type: Nurse Practitioner Type: Progress Notes Filed: 10/24/2023 09:50 Note Text: Chief Complaint Patient presents with: Medicare Wellness Exam HPI Jimbo Masterson is a 73 year old male who presents here today for Above Complaints.. Patient presents for annual exam. Patient reports he has fluid in his right ear and gets a lot of build up. Past medical history, appointments, medications, allergies reviewed. Previous Medical History PAST MEDICAL HISTORY Diagnosis Date Tinnitus Previous Surgical History PAST SURGICAL HISTORY Procedure Laterality Date ARTHROSCOPY KNEE DIAGNOSTIC W/WO SYNOVIAL BX SPX TONSILLECTOMY AND ADENOIDECTOMY Family History FAMILY HISTORY Adopted: Yes Patient Allergies ALLERGIES No Known Allergies Current Medications Current Outpatient Medications on File Prior to Visit Medication Sig albuterol HFA (PROVENTIL HFA, VENTOLIN HFA) 90 mcg/actuation inhaler Inhale 2 Puffs as instructed every 4 hours as needed for wheezing/shortness of breath. benzonatate (TESSALON PERLES) 100 mg capsule Take 1 capsule by mouth three times a day as needed for cough. Saw [place] 500 mg cap Take 1 capsule by mouth once daily. (Patient not taking: Reported on 09/07/2023) aphiakg-qzwz-hkbor-oreg-capryl 100 mg-150 mg- 50 mg-150 mg cap Take 2 capsules by mouth once daily. (Patient not taking: Reported on 07/07/2023) vit C/olive leaf ext/beta-gluc (IMMUNE ESSENTIALS ORAL) Take 1 capsule by mouth once daily. No current facility-administered medications on file prior to visit. Social History Social History Tobacco Use Smoking status: Never Smokeless tobacco: Never Vaping Use Vaping Use: Never used Substance Use Topics Drug use: Never Review of Symptoms REVIEW OF SYSTEMS SEE HPI EXAM: BP 145/88 Pulse 60 Resp 16 Wt 85.7 kg (189 lb) General Appearance: Well appearing, alert, in no acute distress, well-hydrated, well nourished.. Skin: Skin color, texture, turgor normal, no suspicious rashes or lesions. Ears: Positive findings: right ear seborrheic dermatitis. Lungs: Lungs clear to auscultation. No wheezing, rhonchi, rales.. Heart: RRR without murmur, gallop, or rubs. No ectopy. Abdomen: Normal abdominal exam, Abdomen soft, non-tender. Bowel sounds normal. No masses, organomegaly. Extremities: No deformities, edema, skin discoloration, clubbing or cyanosis. Good capillary refill. . Peripheral Pulses: Normal. Neurologic: Gait normal. Reflexes normal and symmetric. Sensation grossly intact.. Health Maintenance List Hepatitis C Screening Never done Colorectal Cancer Screening Never done RSV Vaccine(1 - 1-dose 60+ series) Never done Covid-19 Vaccine(2022- season) Never done Advance Directive Discussion Never done Behavioral Health Screening Never done Influenza Vaccine(1) due on 12/15/2023 Diabetes Screening due on 10/22/2025 Lipid Screening due on 10/23/2027 DTaP,Tdap,Td Vaccine(2 - Td or Tdap) due on 10/22/2032 Pneumococcal Vaccine: 65+ Completed Shingrix Vaccine Discontinued ASSESSMENT/PLAN: 1. Wellness examination - ICD9: V70.0, ICD10: Z00.00 (primary diagnosis) - Counseled on healthy diet and regular exercise - Risks/benefits of prostate cancer screening discussed. screening PSA ordered - COMPLETE BLOOD COUNT AND DIFFERENTIAL - COMPREHENSIVE METABOLIC PANEL 2. Encounter for lipid screening for cardiovascular disease - ICD9: V77.91, V81.2, ICD10: Z13.220, Z13.6 - LIPID PANEL, NONFASTING 3. Screening for diabetes mellitus - ICD9: V77.1, ICD10: Z13.1 - HEMOGLOBIN A1C 4. Screening PSA (prostate specific antigen) - ICD9: V76.44, ICD10: Z12.5 - Risks/benefits of prostate cancer screening discussed. screening PSA ordered - PSA/PROSTATE SPECIFIC ANTIGEN SCREENING 5. Vitamin D deficiency - ICD9: 268.9, ICD10: E55.9 - VITAMIN D 25 HYDROXY Anupam Sutton APRN.REBECA Jimbo Masterson is a 73 year old male here for a Medicare wellness visit. Medicare Health Risk Assessment General Health Very good Exercise: Minutes/Day 20 min Exercise: Days/Week 4 days Alcohol: Daily Use 2-3 times a week Alcohol: Drinks/Day 1 or 2 Alcohol: 6 or more drinks Never Feel off balance No Concerns: Teeth/Dentures No Concerns: Sexual function No Troubled by feelings None of the above Frequency: Eating healthy diet Nearly every day ADLs requiring help None of the above Safety precautions in home/vehicle Yes Smoke, vape, chews tobacco No Difficulty hearing No Difficulty seeing Yes Current Providers Specialists: I have reviewed specialist-related care of the patient in the medical record. Current care team: Patient Care Team: Anupam Sutton APRN.HEAD CONTROL CLERK as PCP - General (Family Medicine) Medical/Family history review Reviewed and updated problem list, medical/surgical/family/social history, medications, and allergies. Opioid use (more content not included)... [facility] 10-24-2023 History of Presen t illness Narrative Images from the original note were not included. Chief Complaint Patient presents with: Medicare Wellness Exam HPI Jimbo Masterson is a 73 year old male who presents here today for Above Complaints.. Patient presents for annual exam. Patient reports he has fluid in his right ear and gets a lot of build up. Past medical history, appointments, medications, allergies reviewed. Previous Medical History PAST MEDICAL HISTORY Diagnosis Date Tinnitus Previous Surgical History PAST SURGICAL HISTORY Procedure Laterality Date ARTHROSCOPY KNEE DIAGNOSTIC W/WO SYNOVIAL BX SPX TONSILLECTOMY & ADENOIDECTOMY <AGE 12 Family History FAMILY HISTORY Adopted: Yes Patient Allergies ALLERGIES No Known Allergies Current Medications Current Outpatient Medications on File Prior to Visit Medication Sig albuterol HFA (PROVENTIL HFA, VENTOLIN HFA) 90 mcg/actuation inhaler Inhale 2 Puffs as instructed every 4 hours as needed for wheezing/shortness of breath. benzonatate (TESSALON PERLES) 100 mg capsule Take 1 capsule by mouth three times a day as needed for cough. [place] 500 mg cap Take 1 capsule by mouth once daily. (Patient not taking: Reported on 09/07/2023) dzwkeug-yjry-dygnp-oreg-capryl 100 mg-150 mg- 50 mg-150 mg cap Take 2 capsules by mouth once daily. (Patient not taking: Reported on 07/07/2023) vit C/olive leaf ext/beta-gluc (IMMUNE ESSENTIALS ORAL) Take 1 capsule by mouth once daily. No current facility-administered medications on file prior to visit. Social History Social History Tobacco Use Smoking status: Never Smokeless tobacco: Never Vaping Use Vaping Use: Never used Substance Use Topics Drug use: Never Review of Symptoms REVIEW OF SYSTEMS SEE HPI EXAM: BP 145/88 Pulse 60 Resp 16 Wt 85.7 kg (189 lb) General Appearance: Well appearing, alert, in no acute distress, well-hydrated, well nourished.. Skin: Skin color, texture, turgor normal, no suspicious rashes or lesions. Ears: Positive findings: right ear seborrheic dermatitis. Lungs: Lungs clear to auscultation. No wheezing, rhonchi, rales.. Heart: RRR without murmur, gallop, or rubs. No ectopy. Abdomen: Normal abdominal exam, Abdomen soft, non-tender. Bowel sounds normal. No masses, organomegaly. Extremities: No deformities, edema, skin discoloration, clubbing or cyanosis. Good capillary refill. . Peripheral Pulses: Normal. Neurologic: Gait normal. Reflexes normal and symmetric. Sensation grossly intact.. Health Maintenance List Hepatitis C Screening Never done Colorectal Cancer Screening Never done RSV Vaccine(1 - 1-dose 60+ series) Never done Covid-19 Vaccine(2022- season) Never done Advance Directive Discussion Never done Behavioral Health Screening Never done Influenza Vaccine(1) due on 12/15/2023 Diabetes Screening due on 10/22/2025 Lipid Screening due on 10/23/2027 DTaP,Tdap,Td Vaccine(2 - Td or Tdap) due on 10/22/2032 Pneumococcal Vaccine: 65+ Completed Shingrix Vaccine Discontinued ASSESSMENT/PLAN: 1. Wellness examination - ICD9: V70.0, ICD10: Z00.00 (primary diagnosis) - Counseled on healthy diet and regular exercise - Risks/benefits of prostate cancer screening discussed. screening PSA ordered - COMPLETE BLOOD COUNT AND DIFFERENTIAL - COMPREHENSIVE METABOLIC PANEL 2. Encounter for lipid screening for cardiovascular disease - ICD9: V77.91, V81.2, ICD10: Z13.220, Z13.6 - LIPID PANEL, NONFASTING 3. Screening for diabetes mellitus - ICD9: V77.1, ICD10: Z13.1 - HEMOGLOBIN A1C 4. Screening PSA (prostate specific antigen) - ICD9: V76.44, ICD10: Z12.5 - Risks/benefits of prostate cancer screening discussed. screening PSA ordered - PSA/PROSTATE SPECIFIC ANTIGEN SCREENING 5. Vitamin D deficiency - ICD9: 268.9, ICD10: E55.9 - VITAMIN D 25 HYDROXY Anupam Sutton APRN.HEAD CONTROL CLERK Jimbo Masterson is a 73 year old male here for a Medicare wellness visit. Medicare Health Risk Assessment General Health Very good Exercise: Minutes/Day 20 min Exercise: Days/Week 4 days Alcohol: Daily Use 2-3 times a week Alcohol: Drinks/Day 1 or 2 Alcohol: 6 or more drinks Never Feel off balance No Concerns: Teeth/Dentures No Concerns: Sexual function No Troubled by feelings None of the above Frequency: Eating healthy diet Nearly every day ADLs requiring help None of the above Safety precautions in home/vehicle Yes Smoke, vape, chews tobacco No Difficulty hearing No Difficulty seeing Yes Current Providers Specialists: I have reviewed specialist-related care of the patient in the medical record. Current care team: Patient Care Team: Anupam Sutton APRN.HEAD CONTROL CLERK as PCP - General (Family Medicine) Medical/Family history review Reviewed and updated problem list, medical/surgical/family/social history, medications, and allergies. Opioid use review Opioid Medications (last 90 days) No data to display Anxiety/Depression screening PHQ-2 Score: 0 (Lower risk for depression) ANGELA-2 Score: 0 (Lower risk for anxiety) Recommendation: no further intervention at this time Cognitive screening Mini Cog Score: 5 Cognitive screening reviewed and No further action needed (score 3-5). Functional Observation Was the patient's Timed Up & Go test unsteady or ? 12 seconds? No Advance Care Planning Surrogate decision maker documented and/or advance directives scanned in chart Measurements BP 145/88 Pulse 60 Resp 16 Wt 189 lb (85.7kg) Vision Screening: Follows with optometry/ophthalmology Assessment/Plan Medicare annual wellness visit, subsequent (Z00.00) - Counseled on healthy diet and regular exercise - Fall avoidance information provided - Personalized prevention plan provided - Discussed need for and benefit of weight loss. There is no height on file. documented in this encounter [facility] 09-11-2023 History of Presen t illness Narrative This note was created using [employer]. Subjective Jimbo Masterson is a 73 year old male. HPI 73-year-old male presents for hoarse voice. This is patient's third visit for URI symptoms. He was seen here 09/06 and diagnosed with acute cough. He was seen on 09/08, diagnosed with bronchitis. He had a chest x-ray at that time which was negative. Patient was given doxycycline and an albuterol inhaler. He states he is feeling better. He states that yesterday he drank sour milk and immediately spit it out and coughed. He states that he has had a hoarse voice for the past several days, but it got worse after coughing/vomiting yesterday. He denies sore throat. States his cough is improved. No chest pain or shortness of breath. 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 He denies any abdominal pain, chest pain, shortness of breath. No hematemesis or hemoptysis. No other complaint. PAST MEDICAL HISTORY Diagnosis Date Tinnitus PAST SURGICAL HISTORY Procedure Laterality Date ARTHROSCOPY KNEE DIAGNOSTIC W/WO SYNOVIAL BX SPX TONSILLECTOMY & ADENOIDECTOMY <AGE 12 ALLERGIES Patient has no known allergies. MEDICATIONS doxycycline (VIBRA-TABS) 100 mg tablet Take 1 tablet by mouth two times a day for 7 days. albuterol HFA (PROVENTIL HFA, VENTOLIN HFA) 90 mcg/actuation inhaler Inhale 2 Puffs as instructed every 4 hours as needed for wheezing/shortness of breath. benzonatate (TESSALON PERLES) 100 mg capsule Take 1 capsule by mouth three times a day as needed for cough. vit C/olive leaf ext/beta-gluc (IMMUNE ESSENTIALS ORAL) Take 1 capsule by mouth once daily. Saw [place] 500 mg cap Take 1 capsule by mouth once daily. (Patient not taking: Reported on 09/07/2023) kuomkfd-aciw-ttciv-oreg-capryl 100 mg-150 mg- 50 mg-150 mg cap Take 2 capsules by mouth once daily. (Patient not taking: Reported on 07/07/2023) FAMILY HISTORY Adopted: Yes Social History Tobacco Use Smoking status: Never Smokeless tobacco: Never Vaping Use Vaping Use: Never used Substance Use Topics Drug use: Never Review of Systems Constitutional: Negative for chills and fever. HENT: Positive for voice change. Negative for congestion and sore throat. Respiratory: Positive for cough. Negative for shortness of breath. Gastrointestinal: Negative for diarrhea and vomiting. Objective BP 122/80 Pulse 74 Temp 36.4 C (97.6 F) (Tympanic) Resp 16 Wt 83.3 kg (183 lb 10.3 oz) SpO2 96% Physical Exam Vitals and nursing note reviewed. Constitutional: General: He is not in acute distress. Appearance: Normal appearance. He is not toxic-appearing. HENT: Right Ear: Tympanic membrane and ear canal normal. Left Ear: Tympanic membrane and ear canal normal. Nose: Nose normal. Mouth/Throat: Mouth: Mucous membranes are moist. Pharynx: Uvula midline. Posterior oropharyngeal erythema (Mild) present. Comments: + Hoarse voice, but able to speak. No hot potato voice. Throat clear. Uvula midline. No trismus. No tongue or floor mouth swelling. Eyes: Conjunctiva/sclera: Conjunctivae normal. Cardiovascular: Rate and Rhythm: Normal rate and regular rhythm. Pulmonary: Effort: Pulmonary effort is normal. Breath sounds: Normal breath sounds. No wheezing, rhonchi or rales. Skin: General: Skin is warm and dry. Neurological: Mental Status: He is alert. Assessment and Plan ASSESSMENT/PLAN: 1. Hoarseness of voice - ICD9: 784.42, ICD10: R49.0 -Suspect this is due to coughing/bronchitis and also recent coughing/vomiting episode. -No hemoptysis or hematemesis. -Had CXR 2 days ago which was normal. Had strep test several days ago which was negative. -Already on doxycycline, inhaler, Tessalon Perles for cough. -Recommend resting the voice, honey, throat lozenges, warm liquids. -Follow-up with PCP if no improvement. Diagnosis and treatment plan were discussed and questions were answered to the patient's satisfaction. Pt acknowledged understanding of concepts and follow up plan. Specific signs and symptoms that would indicate the need for higher level of care were discussed in detail warranting prompt ER evaluation. LINDY Castellanos documented in this encounter [facility] 09-10-2023 Telephone encounter Note Left detailed message on a secured voicemail. Krupa Lee MA [facility] 09-10-2023 Miscellaneous Notes Left detailed message on a secured voicemail. Krupa Lee MA Let patient know his chest xray shows no pneumonia. Continue plan of care with medications prescribed yesterday. documented in this encounter [facility] 09-10-2023 Telephone encounter Note Let patient know his chest xray shows no pneumonia. Continue plan of care with medications prescribed yesterday. [facility] 09-10-2023 History of Presen t illness Narrative Radiology Service Progress Note PATIENT NAME: Jimbo Masterson DATE OF SERVICE: September 10, 2023 TIME: 10:36 AM PATIENT IDENTITY VERIFICATION COMPLETED USING TWO (2) IDENTIFIERS: Name and Date of confirmed by patient verbally. FALL SCREENING: Has the patient had 2 falls in the last year or 1 fall with injury or currently using an Ambulatory Assistive Device (Walker, Cane, Wheelchair, Crutches, etc.)? No PATIENT GENDER DATA: Male PATIENT RELEVANT IMPLANT DATA REVIEWED: Not Applicable PATIENT PRESENTS WITH AN IMPLANTABLE OR ATTACHED CRANE RIGGER: No RADIOLOGY DEPARTMENT: General X-ray: Exam(s) Completed: Chest X-Ray PERIPHERAL IV DATA: Not applicable SIGNED BY: RT Keith(R) September 10, 2023 10:36 AM documented in this encounter [facility] 09-09-2023 History of Presen t illness Narrative This note was created using [employer]. Subjective Jimbo Masterson is a 73 year old male. HPI Presents with a chief complaint of worsening cough. He has had a cough for the past 4 to 5 days. He was seen 2 days ago and given Tessalon, told he likely had a viral illness. He states the past 2 days he has had bodyaches and cough has worsened. Denies chest pain or shortness of breath. No history of asthma. He did smoke for 20 years ago but quit 30 years ago. Denies history of COPD. Cough is nonproductive. Has had some nasal congestion. No diarrhea or vomiting. No COVID test done. Review of Systems Constitutional: Positive for fatigue. Negative for fever. HENT: Positive for congestion. Negative for ear pain. Respiratory: Positive for cough. Negative for shortness of breath and wheezing. Cardiovascular: Negative. Gastrointestinal: Negative. Genitourinary: Negative. Musculoskeletal: Positive for myalgias. All other systems reviewed and are negative. PAST MEDICAL HISTORY Diagnosis Date Tinnitus Current Outpatient Medications Medication Sig Dispense Refill benzonatate (TESSALON PERLES) 100 mg capsule Take 1 capsule by mouth three times a day as needed for cough. 21 capsule 0 vit C/olive leaf ext/beta-gluc (IMMUNE ESSENTIALS ORAL) Take 1 capsule by mouth once daily. doxycycline (VIBRA-TABS) 100 mg tablet Take 1 tablet by mouth two times a day for 7 days. 14 tablet 0 albuterol HFA (PROVENTIL HFA, VENTOLIN HFA) 90 mcg/actuation inhaler Inhale 2 Puffs as instructed every 4 hours as needed for wheezing/shortness of breath. 1 Each 0 Saw [place] 500 mg cap Take 1 capsule by mouth once daily. (Patient not taking: Reported on 09/07/2023) iqwymcc-ptbi-voguo-oreg-capryl 100 mg-150 mg- 50 mg-150 mg cap Take 2 capsules by mouth once daily. (Patient not taking: Reported on 07/07/2023) No current facility-administered medications for this visit. PAST SURGICAL HISTORY Procedure Laterality Date ARTHROSCOPY KNEE DIAGNOSTIC W/WO SYNOVIAL BX SPX TONSILLECTOMY & ADENOIDECTOMY <AGE 13 FAMILY HISTORY Adopted: Yes Social History Tobacco Use Smoking status: Never Smokeless tobacco: Never Vaping Use Vaping Use: Never used Substance Use Topics Drug use: Never Objective BP 124/68 Pulse 86 Temp 37.2 C (98.9 F) Resp 16 Wt 84.9 kg (187 lb 2.7 oz) SpO2 96% Physical Exam Vitals reviewed. Constitutional: Appearance: Normal appearance. HENT: Head: Normocephalic and atraumatic. Right Ear: Tympanic membrane, ear canal and external ear normal. Left Ear: Tympanic membrane, ear canal and external ear normal. Nose: Congestion present. Mouth/Throat: Mouth: Mucous membranes are moist. Pharynx: Oropharynx is clear. Cardiovascular: Rate and Rhythm: Normal rate and regular rhythm. Heart sounds: Normal heart sounds. Pulmonary: Effort: Pulmonary effort is normal. No respiratory distress. Breath sounds: Rhonchi present. No wheezing or rales. Musculoskeletal: Cervical back: Neck supple. Lymphadenopathy: Cervical: No cervical adenopathy. Skin: General: Skin is warm and dry. Neurological: General: No focal deficit present. Mental Status: He is alert. Assessment and Plan ASSESSMENT/PLAN: 1. Bronchitis - ICD9: 490, ICD10: J40 Patient does have some rhonchi on auscultation of his lungs. He is oxygenating well. In no distress. X-ray not available due to the holiday. I will cover him with doxycycline and given albuterol inhaler prescription. He will return tomorrow for x-ray. If there is a pneumonia would add Augmentin. Discussed red flags for ER care. Patient agreeable with plan. - XR CHEST 2V FRONTAL/LAT Bhakti Guerrero PA-C documented in this encounter [facility] 09-07-2023 Instructions Denise Evangelista APRN.REBECA - 09/07/2023 8:23 AM EDT ASSESSMENT/PLAN: 1. Acute cough - ICD9: 786.2, ICD10: R05.1 (primary diagnosis) - offered COVID, flu, RSV testing, patient declined. - continue taking mucinex. 2. Sore throat - ICD9: 462, ICD10: J02.9 - offered strep testing, patient declined. 3. Body aches - ICD9: 780.96, ICD10: R52 -See #1. - continue taking advil. - Follow-up with your PCP in 3-5 days if symptoms have not improved or sooner if symptoms worsen - Discussed red flags and need for immediate medical evaluation if any occur. - Discussed supportive care treatment with fluids, rest and analgesia. - Discussed expected course of illness Denise Evangelista APRN.HEAD CONTROL CLERK Treatment for Viral Upper Respiratory Tract Infections Your body will kill off the virus by itself. Additionally, you can prime your body's immune system. This may help you get better more quickly. Drink lots of fluids Make sure you are eating well Get plenty of rest We do not have any medications that kill off these viruses. Antibiotics are used to treat bacterial infections; however, they are not active against viral infections. There are some things that might help you feel better, though. Vaporizers, humidifiers, hot showers, and hot fluids help open respiratory and sinus passages [place] Nasal [place] may offer relief of nasal and head congestion Cirilo's Vapor Rub may relieve congestion Tylenol and Advil help control fevers and headaches Salt water gargles help relieve sore throats Chloraceptic spray or throat lozenges may also help relieve sore throat symptoms Occasionally, viral infections turn into something more serious. You should see your doctor or return to the Urgent Care if: You have fevers for longer than five days You have fevers above 102 degrees You are still sick after 10 days You have shortness of breath or wheezing After several days you are getting worse rather than better documented in this encounter [facility] 09-07-2023 History of Presen t illness Narrative Subjective Cough Associated symptoms include sore throat and myalgias. Pertinent negatives include no chills, no ear pain and no shortness of breath. Jimbo Masterson is a 73 year old male who presents with a cough for the past 2 days. He has had some body aches and a slight sore throat. He has not had a fever. He took Mucinex which helped, Advil which helped, and a throat lozenge which helped. He states his wanted him to get checked out prior to a family get together they are having tomorrow. Review of Systems Constitutional: Negative for chills and fever. HENT: Positive for sore throat. Negative for congestion and ear pain. Respiratory: Positive for cough. Negative for shortness of breath. Cardiovascular: Negative. Gastrointestinal: Negative for abdominal pain, diarrhea, nausea and vomiting. Musculoskeletal: Positive for myalgias. BP 132/84 Pulse 75 Temp (!) 35.9 C (96.6 F) Resp 21 Wt 85.4 kg (188 lb 4.4 oz) SpO2 96% PAST MEDICAL HISTORY Diagnosis Date Tinnitus PAST SURGICAL HISTORY Procedure Laterality Date ARTHROSCOPY KNEE DIAGNOSTIC W/WO SYNOVIAL BX SPX TONSILLECTOMY & ADENOIDECTOMY <AGE 13 ALLERGIES Patient has no known allergies. MEDICATIONS vit C/olive leaf ext/beta-gluc (IMMUNE ESSENTIALS ORAL) Take 1 capsule by mouth once daily. benzonatate (TESSALON PERLES) 100 mg capsule Take 1 capsule by mouth three times a day as needed for cough. (Patient not taking: Reported on 09/07/2023) Saw [place] 500 mg cap Take 1 capsule by mouth once daily. (Patient not taking: Reported on 09/07/2023) nftmzxl-kgok-dlxsd-oreg-capryl 100 mg-150 mg- 50 mg-150 mg cap Take 2 capsules by mouth once daily. (Patient not taking: Reported on 07/07/2023) FAMILY HISTORY Adopted: Yes Social History Tobacco Use Smoking status: Never Smokeless tobacco: Never Vaping Use Vaping Use: Never used Substance Use Topics Drug use: Never Objective Physical Exam Vitals and nursing note reviewed. Constitutional: General: He is not in acute distress. Appearance: Normal appearance. He is not ill-appearing. HENT: Right Ear: Tympanic membrane, ear canal and external ear normal. Left Ear: Tympanic membrane, ear canal and external ear normal. Nose: Nose normal. Mouth/Throat: Pharynx: Uvula midline. No oropharyngeal exudate or posterior oropharyngeal erythema. Cardiovascular: Rate and Rhythm: Normal rate and regular rhythm. Heart sounds: Normal heart sounds. Pulmonary: Effort: Pulmonary effort is normal. No respiratory distress. Breath sounds: Normal breath sounds. No wheezing or rales. Musculoskeletal: Cervical back: Neck supple. Lymphadenopathy: Cervical: No cervical adenopathy. Skin: General: Skin is warm and dry. Findings: No erythema or rash. Neurological: Mental Status: He is alert. ASSESSMENT/PLAN: 1. Acute cough - ICD9: 786.2, ICD10: R05.1 (primary diagnosis) - offered COVID, flu, RSV testing, patient declined. - continue taking mucinex. 2. Sore throat - ICD9: 462, ICD10: J02.9 - offered strep testing, patient declined. 3. Body aches - ICD9: 780.96, ICD10: R52 -See #1. - continue taking advil. - Follow-up with your PCP in 3-5 days if symptoms have not improved or sooner if symptoms worsen - Discussed red flags and need for immediate medical evaluation if any occur. - Discussed supportive care treatment with fluids, rest and analgesia. - Discussed expected course of illness Denise Evangelista APRN.HEAD CONTROL CLERK documented in this encounter [facility] 07-08-2023 Miscellaneous Notes CXR negative No pneumonia or masses. Reach out and patient endorses that he feels 50 percent better. Nasal congestion and sinus pressure remain. Will provide safety net ATB, post dated if sx persist past 10 days. Does not need to fill if sx improve. Amicable to plan. documented in this encounter [facility] 07-08-2023 History of Presen t illness Narrative Radiology Service Progress Note PATIENT NAME: Jimbo Masterson DATE OF SERVICE: July 08, 2023 TIME: 8:19 AM PATIENT IDENTITY VERIFICATION COMPLETED USING TWO (2) IDENTIFIERS: Name and Date of confirmed by patient verbally. FALL SCREENING: Has the patient had 2 falls in the last year or 1 fall with injury or currently using an Ambulatory Assistive Device (Walker, Cane, Wheelchair, Crutches, etc.)? No PATIENT GENDER DATA: Male PATIENT RELEVANT IMPLANT DATA REVIEWED: Not Applicable PATIENT PRESENTS WITH AN IMPLANTABLE OR ATTACHED CRANE RIGGER: No RADIOLOGY DEPARTMENT: General X-ray: Exam(s) Completed: Chest X-Ray PERIPHERAL IV DATA: Not applicable SIGNED BY: RT Blas(R) July 08, 2023 8:19 AM documented in this encounter [facility] 07-07-2023 Instructions Erin Mathis APRN.HEAD CONTROL CLERK - 07/07/2023 9:03 AM EDT RESPIRATORY INFECTION GENERAL INFORMATION: An upper respiratory tract infection, or cold, is a viral infection of the airway passages. It can be caused by any one of almost 200 different viruses. Common symptoms include a runny or stuffy nose, sneezing, watery eyes, sore throat, cough, and slight fever. Colds are contagious, especially during the first 3 or 4 days and cannot be cured by antibiotics. They are spread by coughs, sneezes, and direct contact, especially [id number]. A respiratory tract infection usually clears up in a few days, but some people may be sick for a week or two. INSTRUCTIONS: 1. Be careful not to blow your nose too hard because this may cause a nosebleed. 2. Use a cool-mist humidifier (vaporizer) to increase air moisture. This will make it easier for you to breathe. Do not use hot steam. 3. Rest as much as possible and get plenty of sleep. 4. Wash your hands often, especially after you blow your nose. Cover your mouth and nose with a tissue when you sneeze or cough. 5. Drink plenty of clear fluids (8 glasses a day) such as water, fruit juice, tea, clear soups, and carbonated beverages. CONTACT YOUR DOCTOR IF : 1. Your fever lasts more than 3 days. 2. You have a sore throat that gets worse or you see white or yellow spots in your throat. 3. Your cough gets worse or lasts more than 10 days. 4. You develop a rash anywhere on your skin. 5. You have an earache or a headache. 6. You have thick greenish or yellowish discharge from your nose. RETURN IMMEDIATELY IF: 1. You cough up thick yellow, green, alan, or bloody sputum. 2. You have difficulty breathing, pain in your chest, or your skin or nails look alan or blue. 3. You have shaking chills or a temperature over 102 F (39 C). documented in this encounter [facility] 07-07-2023 History of Presen t illness Narrative This note was created using [employer]. Subjective Jimbo Masterson is a 73 year old male. 73 year old male with no PMH presents today with acute onset URI symptoms for 4 days. Pertinent positives include dry cough, rhinorrhea with white nasal drainage, headache, sore throat, sneezing and body aches. Pertinent negatives include fever, chills, nausea, vomiting, diarrhea, decreased appetite, sinus pain, eye irritation, eye drainage, ear pain, chest pain, shortness of breath, chest tightness, wheezing, and rash. The history is provided by the patient. Cough This is a new problem. The current episode started more than 2 days ago. The problem occurs constantly. The problem has not changed since onset.The cough is Non-productive. There has been no fever. Associated symptoms include headaches, rhinorrhea, sore throat and myalgias. Pertinent negatives include no chest pain, no chills, no ear congestion, no ear pain, no shortness of breath, no wheezing and no eye redness. Treatments tried: tessalon pearls and ibuprofen. The treatment provided moderate relief. Smoker: former smoker- quit 40 years ago. His past medical history does not include pneumonia, COPD or asthma. PAST MEDICAL HISTORY Diagnosis Date Tinnitus PAST SURGICAL HISTORY Procedure Laterality Date ARTHROSCOPY KNEE DIAGNOSTIC W/WO SYNOVIAL BX SPX TONSILLECTOMY & ADENOIDECTOMY <AGE 13 ALLERGIES Patient has no known allergies. MEDICATIONS vit C/olive leaf ext/beta-gluc (IMMUNE ESSENTIALS ORAL) Take 1 capsule by mouth once daily. benzonatate (TESSALON PERLES) 100 mg capsule Take 1 capsule by mouth three times a day as needed for cough. Saw [place] 500 mg cap Take 1 capsule by mouth once daily. (Patient not taking: Reported on 02/01/2023) gdluned-rami-qwafk-oreg-capryl 100 mg-150 mg- 50 mg-150 mg cap Take 2 capsules by mouth once daily. (Patient not taking: Reported on 07/07/2023) FAMILY HISTORY Adopted: Yes Social History Tobacco Use Smoking status: Never Smokeless tobacco: Never Vaping Use Vaping Use: Never used Substance Use Topics Drug use: Never Review of Systems Constitutional: Negative for activity change, appetite change, chills and fever. HENT: Positive for congestion, rhinorrhea, sneezing and sore throat. Negative for dental problem, ear discharge, ear pain, sinus pressure and sinus pain. Eyes: Negative for pain, discharge, redness and itching. Respiratory: Positive for cough. Negative for chest tightness, shortness of breath and wheezing. Cardiovascular: Negative for chest pain. Gastrointestinal: Negative for diarrhea, nausea and vomiting. Musculoskeletal: Positive for myalgias. Skin: Negative for color change and rash. Neurological: Positive for headaches. Negative for dizziness and light-headedness. Objective BP 132/84 Pulse 78 Temp 36.2 C (97.2 F) Resp 20 Wt 88.1 kg (194 lb 3.6 oz) SpO2 95% Physical Exam Vitals reviewed. Constitutional: General: He is awake. He is not in acute distress. Appearance: Normal appearance. He is well-developed and normal weight. He is not ill-appearing, toxic-appearing or diaphoretic. HENT: Head: Normocephalic and atraumatic. Right Ear: Hearing, tympanic membrane, ear canal and external ear normal. No decreased hearing noted. No laceration, drainage, swelling or tenderness. No middle ear effusion. There is no impacted cerumen. No foreign body. No mastoid tenderness. No PE tube. No hemotympanum. Tympanic membrane is not injected, scarred, perforated, erythematous, retracted or bulging. Tympanic membrane has normal mobility. Left Ear: Hearing, tympanic membrane, ear canal and external ear normal. No decreased hearing noted. No laceration, drainage, swelling or tenderness. No middle ear effusion. There is no impacted cerumen. No foreign body. No mastoid tenderness. No PE tube. No hemotympanum. Tympanic membrane is not injected, scarred, perforated, erythematous, retracted or bulging. Tympanic membrane has normal mobility. Nose: Congestion and rhinorrhea present. No nasal deformity, septal deviation, signs of injury, laceration, nasal tenderness or mucosal edema. Rhinorrhea is clear. Right Nostril: No foreign body, epistaxis, septal hematoma or occlusion. Left Nostril: No foreign body, epistaxis, septal hematoma or occlusion. Right Turbinates: Swollen. Not enlarged or pale. Left Turbinates: Swollen. Not enlarged or pale. Right Sinus: No maxillary sinus tenderness or frontal sinus tenderness. Left Sinus: No maxillary sinus tenderness or frontal sinus tenderness. Mouth/Throat: Lips: [place]. No lesions. Mouth: Mucous membranes are moist. No injury, lacerations, oral lesions or angioedema. Tongue: No lesions. Palate: No mass and lesions. Pharynx: Oropharynx is clear. Uvula midline. Posterior oropharyngeal erythema present. No pharyngeal swelling, oropharyngeal exudate or uvula swelling. Tonsils: No tonsillar exudate or tonsillar abscesses. 1+ on the right. 1+ on the left. Eyes: General: Lids are normal. No allergic shiner, visual field deficit or scleral icterus. Right eye: No foreign body, discharge or hordeolum. Left eye: No foreign body, discharge or hordeolum. Conjunctiva/sclera: Conjunctivae normal. Right eye: Right conjunctiva is not injected. No chemosis, exudate or hemorrhage. Left eye: Left conjunctiva is not injected. No chemosis, exudate or hemorrhage. Cardiovascular: Rate and Rhythm: Normal rate and regular rhythm. Heart sounds: Normal heart sounds, S1 normal and S2 normal. Heart sounds not distant. No murmur heard. No friction rub. No gallop. No S3 or S4 sounds. Pulmonary: Effort: Pulmonary effort is normal. No tachypnea, bradypnea, accessory muscle usage, prolonged expiration, respiratory distress or retractions. Breath sounds: Normal breath sounds. No stridor or decreased air movement. No decreased breath sounds, wheezing, rhonchi or rales. Chest: Chest wall: No tenderness. Musculoskeletal: General: No swelling, tenderness, deformity or signs of injury. Normal range of motion. Cervical back: Normal range of motion and neck supple. No edema, erythema, signs of trauma, rigidity, torticollis, tenderness or crepitus. No pain with movement, spinous process tenderness or muscular tenderness. Normal range of motion. Right lower leg: No edema. Left lower leg: No edema. Lymphadenopathy: Head: Right side of head: No submental, submandibular, preauricular, posterior auricular or occipital adenopathy. Left side of head: No submental, submandibular, preauricular, posterior auricular or occipital adenopathy. Cervical: No cervical adenopathy. Right cervical: No superficial, deep or posterior cervical adenopathy. Left cervical: No superficial, deep or posterior cervical adenopathy. Skin: General: Skin is warm and dry. Capillary Refill: Capillary refill takes less than 2 seconds. Coloration: Skin is not jaundiced or pale. Findings: No bruising, erythema, lesion or rash. Neurological: General: No focal deficit present. Mental Status: He is alert and oriented to person, place, and time. GCS: GCS eye subscore is 4. GCS verbal subscore is 5. GCS motor subscore is 6. Cranial Nerves: No dysarthria or facial asymmetry. Motor: No weakness or tremor. Coordination: Coordination normal. Gait: Gait normal. Psychiatric: Mood and Affect: Mood normal. Behavior: Behavior normal. Behavior is cooperative. Thought Content: Thought content normal. Judgment: Judgment normal. Assessment and Plan ASSESSMENT/PLAN: 1. Acute cough - ICD9: 786.2, ICD10: R05.1 (primary diagnosis) - Acute onset URI symptoms for 4 days including dry cough, rhinorrhea, and body aches. - LCTA, TM WDL bilat, tonsils 1+ no exudate, pharynx erythematous, vitals stable - Suspect viral URI, rule-out pneumonia - XR CHEST 2V FRONTAL/LAT-not available at time of exam. Will return on 07/08/23 - INFLUENZA A&B MOLECULAR (POC)- negative - COVID & INFLUENZA A/B & RSV NAAT, ROUTINE-pending 2. URI, acute - ICD9: 465.9, ICD10: J06.9 - Acute onset URI symptoms for 4 days. - LCTA. TM WDL bilat, tonsils 1+ no exudate, pharynx erythematous, vitals stable - Discussed viral etiology and rationale for treatment. - Symptomatic treatment with prn analgesia - Supportive care with fluids and rest RX Tessalon Perles - The patient may also use OTC cough and cold meds as needed. - XR CHEST 2V FRONTAL/LAT - INFLUENZA A&B MOLECULAR (POC)- negative - COVID & INFLUENZA A/B & RSV NAAT, ROUTINE Sandrita Argueta TEACHING PROVIDER (Physician/PA/CONCRETE PILE DRIVER OPERATOR) NOTE OF PERSONAL INVOLVEMENT IN CARE: I have personally seen and examined the patient and performed the medical decision-making components. I have reviewed the Advanced Practice Registered Nurse (CONCRETE PILE DRIVER OPERATOR) Student's documentation and verified the findings in the note as written. Any additions or changes are noted in bold/italics. Signature: Erin Mathis Date: 07/07/2023 Time: 9:35 AM documented in this encounter [facility] 02-01-2023 History of Presen t illness Narrative Chief Complaint Patient presents with: Ear Problem: Ringing in ears ART Masterson is a 72 year old male who presents here today for Above Complaints.. Patient presents for ringing in his ears. Patient has been diagnosed with tinnitus years ago but it is getting more aggravating. Past medical history, appointments, medications, allergies reviewed. Previous Medical History PAST MEDICAL HISTORY Diagnosis Date Tinnitus Previous Surgical History PAST SURGICAL HISTORY Procedure Laterality Date ARTHROSCOPY KNEE DIAGNOSTIC W/WO SYNOVIAL BX SPX TONSILLECTOMY & ADENOIDECTOMY <AGE 12 Family History FAMILY HISTORY Adopted: Yes Patient Allergies ALLERGIES No Known Allergies Current Medications Current Outpatient Medications on File Prior to Visit Medication Sig gxumtgc-cmzp-cwqwz-oreg-capryl 100 mg-150 mg- 50 mg-150 mg cap Take 2 capsules by mouth once daily. vit C/olive leaf ext/beta-gluc (IMMUNE ESSENTIALS ORAL) Take 1 capsule by mouth once daily. Saw [place] 500 mg cap Take 1 capsule by mouth once daily. (Patient not taking: Reported on 02/01/2023) No current facility-administered medications on file prior to visit. Social History Social History Tobacco Use Smoking status: Never Smokeless tobacco: Never Vaping Use Vaping Use: Never used Substance Use Topics Drug use: Never Review of Symptoms REVIEW OF SYSTEMS SEE HPI EXAM: BP 120/72 (BP Site: Right Arm, BP Position: Sitting, BP Cuff Size: Large Adult) Pulse 70 Temp 36.4 C (97.6 F) Resp 18 Wt 83.5 kg (184 lb) General Appearance: Well appearing, alert, in no acute distress, well-hydrated, well nourished.. Health Maintenance List Hepatitis C Screening Never done RSV Vaccine(1 - 1-dose 60+ series) Never done Advance Directive Discussion Never done Influenza Vaccine(1) Never done Colorectal Cancer Screening due on 10/21/2023 Covid-19 Vaccine(1) due on 10/23/2023 Diabetes Screening due on 10/22/2025 Lipid Screening due on 10/23/2027 DTaP,Tdap,Td Vaccine(2 - Td or Tdap) due on 10/22/2032 Depression Assessment Completed Pneumococcal Vaccine: 65+ Completed Shingrix Vaccine Discontinued ASSESSMENT/PLAN: 1. Encounter for immunization - ICD9: V03.89, ICD10: Z23 (primary diagnosis) - INFLUENZA VACCINE, PRSV FREE, AGE 65+ YR, HIGH DOSE, QUADRIVALENT (FLUZONE HIGH-DOSE) 2. Tinnitus, unspecified laterality - ICD9: 388.30, ICD10: H93.19 - CONSULT TO ENT Anupam Sutton APRN.CNP documented in this encounter [facility] 01-28-2023 Miscellaneous Notes Scheduled patient for an appointment to discuss ringing in ears and flu shot Mary Alice Valadez Cma Patient is asking if he should get a flu shot, Patient is also asking about the ringing of the ears an issue he has had for 20 yrs and what could he do for this. Please advise the patient. documented in this encounter [facility] 10-25-2022 Miscellaneous Notes Pt returns call gave information provided. He voices understanding. Left message for patient to return call to office Mary Alice Valadez Cma Please let patient know his cholesterol is mildly elevated but his labs are otherwise normal. documented in this encounter [facility] 10-22-2022 Instructions Anupam Sutton APRN.REBECA - 10/22/2022 9:48 AM EDT Continue current supplementation Complete labs Follow up in 1 year documented in this encounter [facility] 10-22-2022 History of Presen t illness Narrative Chief Complaint Patient presents with: [facility] HPI Jimbo Masterson is a 72 year old male who presents here today for Above Complaints.. Patient presents to [facility]. Patient reports he does not currently have any medical problems and is not on any medications. Patient recently moved from [place]. Past medical history, appointments, medications, allergies reviewed. Previous Medical History No past medical history on file. Previous Surgical History PAST SURGICAL HISTORY Procedure Laterality Date ARTHROSCOPY KNEE DIAGNOSTIC W/WO SYNOVIAL BX SPX TONSILLECTOMY & ADENOIDECTOMY <AGE 12 Family History FAMILY HISTORY Adopted: Yes Patient Allergies ALLERGIES No Known Allergies Current Medications No current outpatient medications on file prior to visit. No current facility-administered medications on file prior to visit. Social History Review of Symptoms REVIEW OF SYSTEMS GENERAL: No weight loss, malaise or fevers HEENT: Negative for frequent or significant headaches, Eyes Positive for recent change in vision , Ears Positive for tinnitus chronic NECK: Negative for lumps, goiter, pain and significant neck swelling RESPIRATORY: Negative for cough, hemoptysis, wheezing, COPD, dyspnea or shortness of breath CARDIOVASCULAR: Negative for chest pain, leg swelling, hypertension, CHF or palpitations GI: No nausea, vomiting, or diarrhea : No history of dysuria, frequency or incontinence MUSCULOSKELETAL: Negative for joint pain or swelling, back pain or muscle pain SKIN: Positive for flaking in right ear PSYCH: Negative for sleep disturbance, mood disorder and recent psychosocial stressors HEMATOLOGY/LYMPHOLOGY: Positive for bruises easily ENDOCRINE: Negative for cold or heat intolerance, polyuria, polydipsia and goiter NEURO: No history of headaches, syncope, paralysis, seizures or tremors EXAM: BP 122/80 Pulse 72 Resp 14 Wt 82.1 kg (181 lb) General Appearance: Well appearing, alert, in no acute distress, well-hydrated, well nourished.. Skin: Skin color, texture, turgor normal, no suspicious rashes or lesions. Neck: Supple, no adenopathy; thyroid symmetric, normal size, no bruits. Lungs: Lungs clear to auscultation. No wheezing, rhonchi, rales.. Heart: RRR without murmur, gallop, or rubs. No ectopy. Abdomen: Normal abdominal exam, Abdomen soft, non-tender. Bowel sounds normal. No masses, organomegaly Extremities: No deformities, edema, skin discoloration, clubbing or cyanosis. Good capillary refill. . Peripheral Pulses: Normal. Neurologic: Gait normal. Reflexes normal and symmetric. Sensation grossly intact.. Health Maintenance List COVID-19 VACCINE(1) Never done HEPATITIS C SCREENING Never done DTAP,TDAP,TD(1 - Tdap) Never done LIPID SCREEN Never done DIABETES SCREEN Never done COLORECTAL CANCER SCREENING Never done SHINGRIX VACCINE(1 of 2) Never done PNEUMOCOCCAL: 65+(1 - PCV) Never done ADVANCE DIRECTIVE DISCUSSION Never done DEPRESSION ASSESSMENT Never done INFLUENZA(1) due on 12/14/2022 ASSESSMENT/PLAN: 1. Encounter for immunization - ICD9: V03.89, ICD10: Z23 (primary diagnosis) - PNEUMOCOCCAL VACCINE (PREVNAR 20) - TDAP VACCINE, AGE 7+ YR (ADACEL, BOOSTRIX) 2. Wellness examination - ICD9: V70.0, ICD10: Z00.00 - Counseled on healthy diet and regular exercise - Risks/benefits of prostate cancer screening discussed. screening PSA ordered - Counseled on limiting alcohol intake to 2 drinks per day - Depression screening tool completed and reviewed with patient. Based on score and interview, patient is not at risk for depression and recommended no further intervention at this time. - Patient was counseled [id number] by myself (the billing provider) for the following immunizations and vaccine components, including side effects: Pneumococcal and TdaP. Patient consents for immunization and understands risks and benefits. A VIS sheet on each immunization was given to the patient. - Follow up for annual exam in one year - CBC + DIFF - COMP METABOLIC PANEL 3. Screening for diabetes mellitus - ICD9: V77.1, ICD10: Z13.1 - HGB A1C 4. Encounter for lipid screening for cardiovascular disease - ICD9: V77.91, V81.2, ICD10: Z13.220, Z13.6 - LIPID PANEL, NONFASTING 5. Screening PSA (prostate specific antigen) - ICD9: V76.44, ICD10: Z12.5 - Counseled on healthy diet and regular exercise - Discussed need for and benefit of weight loss. There is no height on file. - Risks/benefits of prostate cancer screening discussed. screening PSA ordered - Counseled on limiting alcohol intake to 2 drinks per day - Depression screening tool completed and reviewed with patient. Based on score and interview, patient is not at risk for depression and recommended no further intervention at this time. - Follow up for annual exam in one year - PSA/PROSTSPECAG SCRN Anupam Sutton APRN.HEAD CONTROL CLERK documented in this encounter [facility] 10-10-2022 History of Presen t illness Narrative This note was created using [employer]. Masha Masterson is a 72 year old male. HPI Patient presents with a rash on his bilateral arms and legs over the past 4 days. He was cleaning out some brush around his new house and thinks he may have gotten into some poison karyn. It is very itchy. He has tried an [id number] spray for itch without relief. No fevers or chills. No URI symptoms. No new soaps or detergents or medications. Review of Systems Constitutional: Negative. HENT: Negative. Respiratory: Negative. Cardiovascular: Negative. Gastrointestinal: Negative. Skin: Positive for rash. All other systems reviewed and are negative. No past medical history on file. Current Outpatient Medications Medication Sig Dispense Refill predniSONE (DELTASONE) 10 mg tablet Take 4 tabs daily for 3 days, then 2 tabs daily for 3 days, then 1 tab daily for 3 days with food. 21 tablet 0 triamcinolone acetonide (KENALOG) 0.1 % cream Apply 1 application to affected area three times daily for 7 days. Apply sparingly to area for rash/itching. 80 g 0 No current facility-administered medications for this visit. No past surgical history on file. No family history on file. Objective BP 122/72 Pulse 80 Temp 36.3 C (97.4 F) Resp 16 Wt 82.6 kg (182 lb) SpO2 97% Physical Exam Vitals reviewed. Constitutional: Appearance: Normal appearance. HENT: Head: Normocephalic and atraumatic. Skin: General: Skin is warm and dry. Findings: Rash present. Comments: Patient has erythematous vesicular rash in patches on his bilateral legs and forearms. No signs of secondary cellulitis. No petechia or purpura. Neurological: General: No focal deficit present. Mental Status: He is alert. Assessment and Plan ASSESSMENT/PLAN: 1. Allergic contact dermatitis due to plants, except food - ICD9: 692.6, ICD10: L23.7 - Oral Steriod tx -Prednisone taper - Topical steriod tx with Rx for steriod cream/ointment- see orders - Anti itch therapy of Oral Benydryl recommended prn - discussed skin care of rash - follow up if symptoms persist or worsen. Bhakti Guerrero PA-C documented in this encounter [facility] Evaluation note Diagnosis Allergic contact dermatitis due to plants, except food- Primary Contact dermatitis and other eczema due to plants (except food) [facility] Encounter for immunization- Primary Need for other specified prophylactic vaccination against single bacterial disease Wellness examination Screening for diabetes mellitus Encounter for lipid screening for cardiovascular disease Screening for lipoid disorders Screening PSA (prostate specific antigen) Special screening for malignant neoplasm of prostate [facility] Diagnosis Encounter for immunization- Primary Need for other specified prophylactic vaccination against single bacterial disease Tinnitus, unspecified laterality [facility]* Diagnosis Acute cough- Primary URI, acute Acute upper respiratory infections of unspecified site [facility]* Diagnosis Acute cough- Primary Sore throat Acute pharyngitis Body aches Generalized pain [facility] Diagnosis Bronchitis- Primary Bronchitis, not specified as acute or chronic [facility]* Diagnosis Hoarseness of voice- Primary Dysphonia [facility]* Diagnosis Wellness examination- Primary Encounter for lipid screening for cardiovascular disease Screening for lipoid disorders Screening for diabetes mellitus Screening PSA (prostate specific antigen) Special screening for malignant neoplasm of prostate Vitamin D deficiency Unspecified vitamin D deficiency Farsightedness, bilateral Vision decreased Unspecified visual loss [facility]* Diagnosis Screening for colon cancer- Primary Special screening for malignant neoplasms, colon Special screening examination for viral disease Special screening examination for unspecified viral disease Encounter for immunization Need for other specified prophylactic vaccination against single bacterial disease [facility]* Diagnosis Bronchitis Bronchitis, not specified as acute or chronic [facility] Diagnosis Acute cough URI, acute Acute upper respiratory infections of unspecified site [facility]* Diagnosis URI with cough and congestion- Primary [facility] Diagnosis Vitamin D deficiency- Primary Unspecified vitamin D deficiency Encounter for lipid screening for cardiovascular disease Screening for lipoid disorders Screening for diabetes mellitus Screening PSA (prostate specific antigen) Special screening for malignant neoplasm of prostate Wellness examination [facility]* Diagnosis Medicare annual wellness visit, subsequent- Primary Routine general medical examination at a health care facility Wellness examination Farsightedness, bilateral 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 Pain of left thumb Pain in limb Tinnitus of both ears Unspecified tinnitus Jaw pain documented in this encounter [facility] note* Diagnosis Pain of left thumb Pain in limb Jaw pain [facility] Diagnostic Procedure Only (Urgent) - Closed Specialty Diagnoses / Procedures Referred By Contac t Referred To Contact XR IMAGING Diagnoses Jaw pain Procedures XR MANDIBLE 4V PA/BO/BOTH OBL RADIOLOG EXAM MANDIBLE COMPL MINIMUM 4 VIEWS Anupam Sutton APRN.HEAD CONTROL CLERK [address] [place] [address] Phone: tel: fax: [place] [phone] Referral ID Status Reason Start Date Expiration Date V isits Requested Visits Authorized [id number] Closed Auto-Generate d Referral 09/22/2024 10/22/2025 1 1 [facility] Reason for Referral Specialty Diagnoses / Procedures Referred By Contac t Referred To Contact Ent - Otolaryngology Diagnoses Tinnitus, unspecified laterality Procedures CONSULT TO ENT Anupam Sutton APRN.HEAD CONTROL CLERK [address] [place] [address] Flaco Lee [address] [place] [address] Referral ID Status Reason Start Date Expiration Date Visits Requested Visits Authorized [id number] Ref Not Required PCP Requested Referral 3 02/01/2024 1 1 Specialty Diagnoses / Procedures Referred By Nelda t Referred To Contact Ophthalmology Diagnoses Vision decreased Procedures CONSULT TO OPHTHALMOLOGY OFFICE/OUTPATIENT NEW HIGH MDM 60 MINUTES Anupam Sutton APRN.HEAD CONTROL CLERK [address] [place] [address] Referral ID Status Reason Start Date Expiration Date Visits Requested Visits Authorized [id number] Authorized PCP Requested Referral 10/24/2023 10/23/2024 1 1 Health Concerns Infection Onset Date Last Indicated Resolved Time COVID-19 Rule-Out 07/07/2023 07/07/2023 Summary Purpose Family History No Family History Records Found Advance Directives No Advanced Directives Records Found Additional Source Comments Source Comments (unrecognize d section and content) In the event this informatio n is protected by the Federal Confidentiality of Alcohol and Drug Abuse Patient Records regulations: The Federal rules restrict any use of the information to criminally investigate or prosecute any alcohol or drug abuse patient.[facility] the event this information is protected by the Federal Confidentiality of Alcohol and Drug Abuse Patient Records regulations: The Federal rules restrict any use of the information to criminally investigate or prosecute any alcohol or drug abuse patient.[facility] the event this information is protected by the Federal Confidentiality of Alcohol and Drug Abuse Patient Records regulations: The Federal rules restrict any use of the information to criminally investigate or prosecute any alcohol or drug abuse patient.[facility] the event this information is protected by the Federal Confidentiality of Alcohol and Drug Abuse Patient Records regulations: The Federal rules restrict any use of the information to criminally investigate or prosecute any alcohol or drug abuse patient.[facility] the event this information is protected by the Federal Confidentiality of Alcohol and Drug Abuse Patient Records regulations: The Federal rules restrict any use of the information to criminally investigate or prosecute any alcohol or drug abuse patient.[facility] the event this information is protected by the Federal Confidentiality of Alcohol and Drug Abuse Patient Records regulations: The Federal rules restrict any use of the information to criminally investigate or prosecute any alcohol or drug abuse patient.[facility] the event this information is protected by the Federal Confidentiality of Alcohol and Drug Abuse Patient Records regulations: The Federal rules restrict any use of the information to criminally investigate or prosecute any alcohol or drug abuse patient.[facility] the event this information is protected by the Federal Confidentiality of Alcohol and Drug Abuse Patient Records regulations: The Federal rules restrict any use of the information to criminally investigate or prosecute any alcohol or drug abuse patient.[facility] the event this information is protected by the Federal Confidentiality of Alcohol and Drug Abuse Patient Records regulations: The Federal rules restrict any use of the information to criminally investigate or prosecute any alcohol or drug abuse patient.[facility] the event this information is protected by the Federal Confidentiality of Alcohol and Drug Abuse Patient Records regulations: The Federal rules restrict any use of the information to criminally investigate or prosecute any alcohol or drug abuse patient.[facility] the event this information is protected by the Federal Confidentiality of Alcohol and Drug Abuse Patient Records regulations: The Federal rules restrict any use of the information to criminally investigate or prosecute any alcohol or drug abuse patient.[facility] the event this information is protected by the Federal Confidentiality of Alcohol and Drug Abuse Patient Records regulations: The Federal rules restrict any use of the information to criminally investigate or prosecute any alcohol or drug abuse patient.[facility] the event this information is protected by the Federal Confidentiality of Alcohol and Drug Abuse Patient Records regulations: The Federal rules restrict any use of the information to criminally investigate or prosecute any alcohol or drug abuse patient.[facility] the event this information is protected by the Federal Confidentiality of Alcohol and Drug Abuse Patient Records regulations: The Federal rules restrict any use of the information to criminally investigate or prosecute any alcohol or drug abuse patient.[facility] the event this information is protected by the Federal Confidentiality of Alcohol and Drug Abuse Patient Records regulations: The Federal rules restrict any use of the information to criminally investigate or prosecute any alcohol or drug abuse patient.[facility] the event this information is protected by the Federal Confidentiality of Alcohol and Drug Abuse Patient Records regulations: The Federal rules restrict any use of the information to criminally investigate or prosecute any alcohol or drug abuse patient.[facility] the event this information is protected by the Federal Confidentiality of Alcohol and Drug Abuse Patient Records regulations: The Federal rules restrict any use of the information to criminally investigate or prosecute any alcohol or drug abuse patient.[facility] the event this information is protected by the Federal Confidentiality of Alcohol and Drug Abuse Patient Records regulations: The Federal rules restrict any use of the information to criminally investigate or prosecute any alcohol or drug abuse patient.[facility] the event this information is protected by the Federal Confidentiality of Alcohol and Drug Abuse Patient Records regulations: The Federal rules restrict any use of the information to criminally investigate or prosecute any alcohol or drug abuse patient.[facility] the event this information is protected by the Federal Confidentiality of Alcohol and Drug Abuse Patient Records regulations: The Federal rules restrict any use of the information to criminally investigate or prosecute any alcohol or drug abuse patient.[facility] the event this information is protected by the Federal Confidentiality of Alcohol and Drug Abuse Patient Records regulations: The Federal rules restrict any use of the information to criminally investigate or prosecute any alcohol or drug abuse patient.[facility] the event this information is protected by the Federal Confidentiality of Alcohol and Drug Abuse Patient Records regulations: The Federal rules restrict any use of the information to criminally investigate or prosecute any alcohol or drug abuse patient.[facility] Reason for Visit (unrecogniz ed section and content) Reason Comments Rash itching, all over x 4-5 days Reason Comments Establish Care Reason Comments Results Reason Comments Patient Question Reason Comments Ear Problem Ringing in ears Reason Comments Sinus Problem Cough, runny nose, H A, sore throat, body aches x 3 days Reason Comments Cough Body aches x 2 days Reason Comments Cough bodyaches x Saturday, seen in [facility] Reason Comments loss of voice X 5 days Reason Comments Medicare Wellness Exam Reason Comments Follow Up Reason Comments Cough headache and chills x 3 days Reason Comments Call Back from Provider Reason Comments Lab Orders Reason Comments Medicare Wellness Exam Care Teams (unrecognized sec tion and content) Set Up And Charger Relationship Specialty Start Date End Date Anupam Sutton APRN.HEAD CONTROL CLERK [address] [place], [place] [id number] PCP - General Family Medicine 10/22/22 Set Up And Charger Relationship Specialty Start Date End Date Anupam Sutton APRN.HEAD CONTROL CLERK [address] [place] [id number] PCP - General Family Medicine 10/22/22 Set Up And Charger Relationship Specialty Start Date End Date Anupam Sutton APRN.HEAD CONTROL CLERK [address] [place] [id number] PCP - General Family Medicine 10/22/22 Set Up And Charger Relationship Specialty Start Date End Date Anupam Sutton APRN.HEAD CONTROL CLERK [address] [place] [id number] PCP - General Family Medicine 10/22/22 Set Up And Charger Relationship Specialty Start Date End Date Anupam Sutton CONCRETE PILE DRIVER OPERATOR.HEAD CONTROL CLERK [address] [place] [id number] PCP - General Family Medicine 10/22/22 Set Up And Charger Relationship Specialty Start Date End Date Anupam Sutton APRN.HEAD CONTROL CLERK [address] [place] [id number] PCP - General Family Medicine 10/22/22 Set Up And Charger Relationship Specialty Start Date End Date Anupam Sutton CONCRETE PILE DRIVER OPERATOR.HEAD CONTROL CLERK [address] [place] [phone] PCP - General Family Medicine 10/22/22 Set Up And Charger Relationship Specialty Start Date End Date Anupam Sutton APRN.HEAD CONTROL CLERK [address] [place] [id number] PCP - General Family Medicine 10/22/22 Set Up And Charger Relationship Specialty Start Date End Date Anupam Sutton, CONCRETE PILE DRIVER OPERATOR.HEAD CONTROL CLERK [address] [place] [phone] PCP - General Family Medicine 10/22/22 Set Up And Charger Relationship Specialty Start Date End Date Anupam Sutton, CONCRETE PILE DRIVER OPERATOR.HEAD CONTROL CLERK [address] [place] [address] [phone] PCP - General Family Medicine 10/22/22 Set Up And Charger Relationship Specialty Start Date End Date Anupam Sutton CONCRETE PILE DRIVER OPERATOR.HEAD CONTROL CLERK [address] [place] [address] [phone] PCP - General [facility] Medicine 10/22/22 Set Up And Charger Relationship Specialty Start Date End Date Anupam Sutton APRN.HEAD CONTROL CLERK [address] [place] [phone] PCP - [facility] Medicine 10/22/22 Set Up And Charger Relationship Specialty Start Date End Date Anupam Sutton CONCRETE PILE DRIVER OPERATOR.HEAD CONTROL CLERK [address] [place] [id number] PCP - General [facility] Medicine 10/22/22 Set Up And Charger Relationship Specialty Start Date End Date Anupam Sutton, CONCRETE PILE DRIVER OPERATOR.HEAD CONTROL CLERK [address] [place] [address] [id number] PCP - General Family Medicine 10/22/22 (unrecognized sect ion and content) No Status Records Found INFORMATION SOURCE (unrecogn ized section and content) DATE CREATED AUTHOR 09/29/2024 [facility] FOR RECORDS PERTAINING TO PATIENTS WHO ARE OR HAVE BEEN ENROLLED IN A CHEMICAL DEPENDENCY/SUBSTANCEABUSE PROGRAM, SOME INFORMATION MAY BE OMITTED. This clinical summary was aggregated from multiple sources. Caution should be exercised in using it in the provision of clinical care. This summary normalizes information from multiple sources, and as a consequence, information in this document may materially change the coding, format and clinical context of patient data. In addition, data may be omitted in some cases. CLINICAL DECISIONS SHOULD BE BASED ON THE PRIMARY CLINICAL RECORDS. [employer] [facility]. provides no warranty or guarantee of the accuracy or completeness of information in this document.
[2024-10-10 20:43] LABS: Pro- Brain NATRIURETIC PEPTIDE 296 pg/mL (<=900); Troponin T High Sensitivity 19 ng/L (<=22)
[2024-10-10 22:22] LABS: Troponin T High Sens 2 HR 28 ng/L (<=22)
--- NOTE | 2024-10-10 22:40 | HP.PCM.HOS_ITS ---
HPI - General General Date of Admission: 10/10/24 Date of Service: 10/10/24 Chief Complaint: Chest pain HPI Narrative The patient is a 74 y/o M w/ PMHx: Former tobacco cigar usage, Possible CKD stage II per GFR trending but no comparison labs who presents to the [facility] ED on 10/10/24 with history of chest discomfort ongoing for the last week primarily with exertion with associated dyspnea noted and he normally had been previously active without issue but recently can even walk without becoming winded with increased fatigue and malaise especially for the last couple days per spouse with remote stress testing that at that time had been likely normal but he cannot recall the timeline prompting eventual ED evaluation to be cautious. He noted the chest discomfort in the sternal region and described it primarily as a burning sensation rating it 7 out of 10 in severity. Patient is denied any history of concurrent diaphoresis, nausea or emesis. He does report that his symptoms were only with exertion. Workup in the ED included T98.7, heart 74, BP 139/88, respiratory rate 19, 95% on room air with most recent repeat vitals heart rate 62, BP 1 3483, respiratory rate 16, 95% on room air, CBC with WC 7.5, he 114.9, platelet 184 without marked shift, BMP with BUN/Cryan 25/1.01, GFR 79, glucose 109, troponin initial 19 with repeat delta 28, NT proBNP 296, chest x- ray with no acute cardiopulmonary findings, EKG sinus rhythm with a rate of 72 beats per minutes there are Q waves noted in lead II, III and aVF. In the ED patient ministered full-strength aspirin therapy. [facility] Medical History Former tobacco use CKD (chronic kidney disease), stage II Ruptured patellar tendon Medical History no medical history Home Medications ?Medication ?Instructions ?Recorded ?Last Taken ?Type NK 10/10/24 Unknown History Allergy/AdvReac Type Severity Reaction Status Date / Time No Known Allergies Allergy Verified 10/10/24 19:09 adopted (Patient does not know his biological maternal/maternal family history.) Surgical History No history of previous surgery Social History (Updated 10/10/24 @ 23:[address] Joelle Truong MD) household members: spouse Smoking Status: Former smoker how long ago did patient quit smoking: Quit approximately 34 years prior, smoked cigars 19 y/o until quit. alcohol intake: current alcohol intake frequency: holidays/special occasions only substance use type: does not use ROS ROS Narrative Admission Review of Systems: CONSTITUTIONAL: No weight loss, fever, chills, + weakness or fatigue. HEENT: Eyes: No visual loss, blurred vision, double vision or yellow sclerae. Ears, Nose, Throat: No hearing loss, sneezing, congestion, runny nose or sore throat. SKIN: No rash or itching, lesions, wounds. CARDIOVASCULAR: + Chest pain/burning sensation. No palpitations, edema, orthopnea, syncopal events. RESPIRATORY: + Dyspnea with exertion. No cough or sputum, wheezing, hemoptysis. GASTROINTESTINAL: No anorexia, nausea, vomiting or diarrhea, abdominal pain, melena, BRBPR. GENITOURINARY: No dysuria, frequency, urgency or retention. NEUROLOGICAL: No headache, dizziness, syncope, paralysis, ataxia, numbness or tingling in the extremities, focal weakness, change in bowel or bladder control, seizure. MUSCULOSKELETAL: + muscle, back pain, joint pain or stiffness. HEMATOLOGIC: No anemia, bleeding or bruising. LYMPHATICS: No enlarged nodes. No history of splenectomy. PSYCHIATRIC: No history of depression or anxiety. ENDOCRINOLOGIC: No reports of sweating, cold or heat intolerance. No polyuria or polydipsia. ALLERGIES: No history of asthma, hives, eczema or rhinitis. Vital Signs Vital Signs Vital Signs: 10/10/24 19:09 10/10/24 19:14 10/10/24 19:54 Temperature 98.7 F Temperature Source Oral Pulse Rate 74 Respiratory Rate 19 H Respiratory Effort Normal Blood Pressure 139/88 H Blood Pressure Mean 105 Pulse Ox 95 Oxygen Delivery Method Room Air Room Air 10/10/24 20:08 10/10/24 21:00 10/10/24 22:00 Temperature Temperature Source Pulse Rate 68 67 62 Respiratory Rate 20 H 21 H 16 Respiratory Effort Blood Pressure 156/93 H 139/92 H 134/83 H Blood Pressure Mean 114 107 100 Pulse Ox 95 96 95 Oxygen Delivery Method Room Air Room Air Physical Exam Narrative Physical Examination: General: Awake, alert, oriented x 3 and cooperative, seated upright in the ED bed, denies any chest discomfort or dyspnea sensation at this time but is at rest. Skin: Normal color, normal turgor, no icterus, no cyanosis. HEENT: AT/NC, EOMI, PERRLA, MMM, no carotid bruits or JVD noted. Lungs: CTA bilaterally, moderate effort, mild decrease BL bases, no rales, ronchi or wheezing. Heart: Regular rate and rhythm; no gallop, rub audible. Abdomen: Soft, NTTP, ND, mildly hyperactive BS, no appreciated HSM. Extremities: No cyanosis, clubbing, or edema. Neurological: Patient awake, alert, oriented as noted cognitive function intact; pupils equally reactive to light and accommodation, cranial nerves grossly normal, moving all 4 extremities, no focal deficits, strength mildly globally decreased secondary to acute presentation complaints. Psychiatric: Affect appears fatigued otherwise normal, no acute evidence of depressive or anxiety feelings. Results Lab / Micro Data 10/10/24 19:30 10/10/24 19:30 Labs: Laboratory Results - last 24 hr 10/10/24 19:30: WBC 7.5, RBC 5.09, Hgb 14.9, Hct 42.7, MCV 83.9, MCH 29.3, MCHC 34.9, RDW Std Deviation 40.6, RDW Coeff of Anila 13.2, Plt Count 184, MPV 10.6, Immature Gran % (Auto) 0.400, Neut % (Auto) 62.4, Lymph % (Auto) 22.7, [place] % (Auto) 10.6 H, Eos % (Auto) 3.5, Baso % (Auto) 0.4, Absolute Neuts (auto) 4.7, Absolute Lymphs (auto) 1.71, Nucleated RBC % 0, Sodium 142, Potassium 3.6, Chloride 108, Carbon Dioxide 21.3, Anion Gap 12, BUN 25 H, Creatinine 1.01, Est GFR (MDRD) Non-Af 79, BUN/Creatinine Ratio 24.3 H, Glucose 109 H, Calcium 9.2, Troponin T High Sens 19, NT pro BNP II 296 10/10/24 21:35: Troponin T Hi Sens 2 Hr 28 H Imaging Radiology Impression Chest X-Ray 10/10/24 20:00 IMPRESSION: NEGATIVE CHEST Reading Location: [facility] Assessment & Plan Assessment/Plan (1) Chest pain: PLAN: Plan The patient is a 74 y/o M w/ PMHx: Former tobacco cigar usage, Possible CKD stage II per GFR trending but no comparison labs who presents to the [facility] ED on 10/10/24 with history of chest discomfort ongoing for the last week primarily with exertion with associated dyspnea noted and he normally had been previously active without issue but recently can even walk without becoming winded with increased fatigue and malaise especially for the last couple days per spouse with remote stress testing that at that time had been likely normal but he cannot recall the timeline. #1. Chest Pain, exertional dyspnea concerning for possible anginal equivalent with indeterminate cardiac enzyme of unclear significance: EKG in ED with sinus rhythm with no acute evidence of ischemia, CXR w/ no acute cardiopulmonary findings, initial trop 19 with repeat delta mildly elevated at 28. Will admit to PCU, place on a monitored bed to assure no acute myocardial infarction with serial cardiac enzymes and EKGs. If repeat continue serial cardiac enzymes and EKGs remain unremarkable with plan to pursue a.m. cardiac stress testing on Saturday. If worsening symptoms, changes in EKG or notable rise in enzymes then would opt to consult cardiology instead for consideration cardiac catheterization. FLP in AM. Magnesium level requested. ASA, NG. #2. Elevated BP without hypertensive diagnosis: Patient in the ED with elevated BP above goal, possibly related with acute presentation #1, will continue to closely monitor and add oral regimen if clinically appropriate, as needed IV hydralazine in the interim. #3. Possible Chronic Kidney Disease Stage II per GFR trending: Admission BUN/Cr 25/1.01, GFR 79, baseline renal function unknown thus unknown if stage II, repeat BMP in AM to further elucidate chronicity. #4. Former tobacco cigar usage: Encourage continued tobacco cessation. #5. DVT prophylaxis: Lovenox. Charges/Coding Visit Charges Inpatient E&M: 16109 Init Hosp L2
[2024-10-10 23:05] LABS: Magnesium 1.9 mg/dL (1.5-2.2)
--- OUTSIDE RECORDS SUMMARY | 2024-10-10 23:08 | XMS RPT_ITS | CCD ---
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 tamsulosin hydrochloride 0.4 mg oral capsule (4 sources) alpha-Adrenergic [place] Start: 09-22-2024 take 1 [...] Comment on above: Take 1 capsule by [facility] once daily. Completed/Discontinued Medications Medication Drug Class(es) Dates Sig (Normalized) Sig (Original) [id number] 200 actuat albuterol 0.09 mg/actuat metered dose [...] 7 days. 14 tablet 09/09/2023 09/16/2023 [place] 500 mg cap (13 sources) End: 10-24-2023 take 1 capsule by mouth once daily [place] 500 mg cap Take 1 capsule by mouth once daily. 10/24/2023 Discontinued End: 10-24-2023 take 1 capsule by mouth once daily [place] 500 mg cap Take 1 capsule by mouth once daily. 0 10/24/2023 Discontinued take 1 capsule by mo ut once daily [place] 500 mg cap Take 1 capsule by mouth once daily. 0 Active Comment on above: Take 1 capsule by mo ut once daily. scfjvss-wlfj-rcpib -oreg-capryl 100 mg-150 mg- 50 mg-150 mg cap (13 sources) End: 10-24-2023 take 2 capsules by mouth once daily rcshqwk-yfbx-pzvry-ore g-capryl 100 mg-150 mg- 50 mg-150 mg cap Take 2 capsules by mouth once daily. 10/24/2023 Discontinued End: 10-24-2023 take 2 capsules by mouth once daily ymctevj-hghf-tnndw-oreg-capryl 100 mg-15 0 mg- 50 mg-150 mg cap Take 2 capsules by mouth once daily. 0 10/24/2023 Discontinued take 2 capsules by mouth once daily hscatwa-ziru-jprxm-oreg-capryl 100 mg-15 0 mg- 50 mg-150 mg cap Take 2 capsules by mouth once daily. 0 Active Comment on above: Take 2 capsules by [facility] once daily. Problems Active Problems Problem Classification [...] CNOV Office Visit (FAMCHALINO ) JIMBO JEFFERSON ([id number]) 1950 M Date Time Provider Department 09/22/24 [...] Vaccine Comp (more content not included)... Normal [facility] XR HAND 3V PA/LAT/OBL LTon 0 09-22-2024 [...] osseous erosion. IMPRESSION: Degenerative changes as described. Measurement And Sensing Technician: PSCB Transcribe Date/Time: Sep 27 2024 6:54P Dictated by : JUSTIN MILLER MD This examination was interpreted and the report reviewed and electronically signed by: JUSTIN MILLER MD on Sep 27 2024 6:54PM EST [id number] Normal [facility] XR MANDIBLE 4V PA/BO/OBL X2on 09-22-2024 XR [...] No significant mandibular periapical lucency is identified. Measurement And Sensing Technician: PSCB Transcribe Date/Time: Sep 27 2024 6:54P Dictated by : JUSTIN MILLER MD This examination was interpreted and the report reviewed and electronically signed by: JUSTIN MILLER MD on Sep 27 2024 6:55PM EST [id number] Normal [facility] 25(OH)D3 SerPl-mCncon 2024 25-hydroxyvitamin D3 [Mass/Vol] 35.5 ng/mL Normal 31.0-80.0 [facility] Comment on above: Order Comment: Adriana carlisle Type: BLOOD SPECIMENOrdering Facility: [facility] Address: [address] [place] [address] Result Comment: Clas sification of 25 [place] Vitamin D status: Deficiency/Insufficiency: < or = 30 ng/ml. Sufficiency/Optimal Levels: 31-80 ng/mL Toxicity: > 100 ng/mL. Test performed by chemiluminescent immunoassay. Performed By: #### 1 989-3 ####[facility] LABCLIA [id number] [place] [address] [place] CBC W Auto Differential pane l (Bld)on 09-02-2024 Basophils (Bld) [#/Vol] 0.05 10*3/uL Normal <0.11 [facility] Comment on above: Order Comment: Speci men Type: BLOOD SPECIMENOrdering Facility: [facility] Address: [address] [place] [address] Performed By: #### 5 7021-8 ####[facility] LABCLIA [id number] [facility] [address], [place] [address] [place] Basophils/100 WBC (Bld) 0.7 % Normal [facility] Comment on above: Order Comment: Speci men Type: BLOOD SPECIMENOrdering Facility: [facility] Address: [address] [place] [address] Performed By: #### 5 7021-8 ####[facility] LABCLIA [id number] [address], [place] [address] [place] Differential cell count method Nom (Bld) Auto Normal [facility] Comment on above: Order Comment: Speci men Type: BLOOD SPECIMENOrdering Facility: [facility] Address: [address] [place] [address] Performed By: #### 5 7021-8 ####[facility] LABCLIA [id number] [address], [place] [address] [place] Eosinophils (Bld) [#/Vol] 0.23 10*3/uL Normal <0.46 [facility] Comment on above: Order Comment: Speci men Type: BLOOD SPECIMENOrdering Facility: [facility] Address: [address] [place] [address] Performed By: #### 5 7021-8 ####[facility] LABCLIA [id number] [place] [address] [place] Eosinophils/100 WBC (Bld) 3.3 % Normal [facility] Comment on above: Order Comment: Speci men Type: BLOOD SPECIMENOrdering Facility: [facility] Address: [address] [place] [address] Performed By: #### 5 7021-8 ####[facility] LABCLIA [id number] [address], [place] [address] [place] Erythrocyte distribution width (RBC) [Ratio] 13.4 % Normal 11.5-15.0 [facility] Comment on above: Order Comment: Speci men Type: BLOOD SPECIMENOrdering Facility: [facility] Address: [address] [place] [address] Performed By: #### 5 7021-8 ####[facility] LABCLIA [id number] [place] [address] [place] Hematocrit (Bld) [Volume fraction] 49.3 % Normal 39.0-51.0 [facility] Comment on above: Order Comment: Speci men Type: BLOOD SPECIMENOrdering Facility: [facility] Address: [address] [place] [address] Performed By: #### 5 7021-8 ####[facility] LABIA [id number] [place] [address] [place] Hemoglobin (Bld) [Mass/Vol] 16.3 g/dL Normal 13.0-17.0 [facility] Comment on above: Order Comment: Speci men Type: BLOOD SPECIMENOrdering Facility: [facility] Address: [address] [place] [address] Performed By: #### 5 7021-8 ####[facility] LABIA [id number] [place] [address] [place] Immature granulocytes (Bld) [#/Vol] 0.05 10*3/uL Normal <0.10 [facility] Comment on above: Order Comment: Speci men Type: BLOOD SPECIMENOrdering Facility: [facility] Address: [address] [place] [address] Performed By: #### 5 7021-8 ####[facility] LABIA [id number] [place] [address] [place] Immature granulocytes/100 WBC (Bld) 0.7 % Normal [facility] Comment on above: Order Comment: Speci men Type: BLOOD SPECIMENOrdering Facility: [facility] Address: [address] [place] [address] Performed By: #### 5 7021-8 ####[facility] LABCLIA [id number] [place] [address] [place] Lymphocytes (Bld) [#/Vol] 1.72 10*3/uL Normal 1.00-4.00 [facility] Comment on above: Order Comment: Speci men Type: BLOOD SPECIMENOrdering Facility: [facility] Address: [address] [place] [address] Performed By: #### 5 7021-8 ####[facility] LABIA [id number] [place] [address] [place] Lymphocytes/100 WBC (Bld) 25.0 % Normal [facility] Comment on above: Order Comment: Speci men Type: BLOOD SPECIMENOrdering Facility: [facility] Address: [address] [place] [address] Performed By: #### 5 7021-8 ####[facility] LABIA [id number] [place] [address] [place] MCH (RBC) [Entitic mass] 28.4 pg Normal 26.0-34.0 [facility] Comment on above: Order Comment: Speci men Type: BLOOD SPECIMENOrdering Facility: [facility] Address: [address] [place] [address] Performed By: #### 5 7021-8 ####[facility] LABIA [id number] [place] [address] [place] MCHC (RBC) [Mass/Vol] 33.1 g/dL Normal 30.5-36.0 [facility] Comment on above: Order Comment: Speci men Type: BLOOD SPECIMENOrdering Facility: [facility] Address: [address] [place] [address] Performed By: #### 5 7021-8 ####[facility] LABIA [id number] [place] [address] [place] MCV (RBC) [Entitic vol] 86.0 fL Normal 80.0-100.0 [facility] Comment on above: Order Comment: Speci men Type: BLOOD SPECIMENOrdering Facility: [facility] Address: [address] [place] [address] Performed By: #### 5 7021-8 ####[facility] LABCLIA [id number] [facility] [address], [facility] [place] Monocytes (Bld) [#/Vol] 0.54 10*3/uL Normal <0.87 [facility] Comment on above: Order Comment: Speci men Type: BLOOD SPECIMENOrdering Facility: [facility] Address: [address] [place] [address] Performed By: #### 5 7021-8 ####[facility] LABCLIA [id number] [facility] [address], [place] [address] [place] Monocytes/100 WBC (Bld) 7.8 % Normal [facility] Comment on above: Order Comment: Speci men Type: BLOOD SPECIMENOrdering Facility: [facility] Address: [address] [place] [address] Performed By: #### 5 7021-8 ####[facility] LABCLIA [id number] [address], [place] [address] [place] Neutrophils (Bld) [#/Vol] 4.29 10*3/uL Normal 1.45-7.50 [facility] Comment on above: Order Comment: Speci men Type: BLOOD SPECIMENOrdering Facility: [facility] Address: [address] [place] [address] Performed By: #### 5 7021-8 ####[facility] LABCLIA [id number] [address], [facility]95 [place] Neutrophils/100 WBC (Bld) 62.5 % Normal [facility] Comment on above: Order Comment: Speci men Type: BLOOD SPECIMENOrdering Facility: [facility] Address: [address] [place] [address] Performed By: #### 5 7021-8 ####[facility] LABCLIA [id number] [address] [place] [address] [place] Nucleated RBC (Bld) [#/Vol] 10*3/uL Normal <0.01 [facility] Comment on above: Order Comment: Speci men Type: BLOOD SPECIMENOrdering Facility: [facility] Address: [address] [place] [address] Performed By: #### 5 7021-8 ####[facility] LABCLIA [id number] [address], [place] [address] [place] Nucleated RBC/100 WBC (Bld) [Ratio] 0.0 /100 WBC Normal [facility] Comment on above: Order Comment: Speci men Type: BLOOD SPECIMENOrdering Facility: [facility] Address: [address] [place] [address] Performed By: #### 5 7021-8 ####[facility] LABIA [id number] [address], [place] [address] [place] Platelet mean volume (Bld) [Entitic vol] 11.1 fL Normal 9.0-12.7 [facility] Comment on above: Order Comment: Speci men Type: BLOOD SPECIMENOrdering Facility: [facility] Address: [address] [place] [address] Performed By: #### 5 7021-8 ####[facility] LABCLIA [id number] [address], [facility]95 [place] Platelets (Bld) [#/Vol] 199 10*3/uL Normal 150-400 [facility] Comment on above: Order Comment: Speci men Type: BLOOD SPECIMENOrdering Facility: [facility] Address: [address] [place] [address] Performed By: #### 5 7021-8 ####[facility] LABCLIA [id number] [address] [place] [address] [place] RBC (Bld) [#/Vol] 5.73 10*6/uL Normal 4.20-6.00 [facility] Comment on above: Order Comment: Speci men Type: BLOOD SPECIMENOrdering Facility: [facility] Address: [address] [place] [address] Performed By: #### 5 7021-8 ####[facility] LABCLIA [id number] [place] [address] [place] WBC (Bld) [#/Vol] 6.88 10*3/uL Normal 3.70-11.00 [facility] Comment on above: Order Comment: Speci men Type: BLOOD SPECIMENOrdering Facility: [facility] Address: [address] [place] [address] Performed By: #### 5 7021-8 ####[facility] LABCLIA [id number] [place] [address] [place] Comprehensive metabolic 2000 panelon 09-02-2024 Albumin [Mass/Vol] 4.5 g/dL Normal 3.9-4.9 [facility] Comment on above: Order Comment: Speci men Type: BLOOD SPECIMENOrdering Facility: [facility] Address: [address] [place] [address] Performed By: #### 2 4323-8, LIPNF ####[facility] LABCLIA [id number] [place] [address] [place] ALP [Catalytic activity/Vol] 59 U/L Normal 38-113 [facility] Comment on above: Order Comment: Speci men Type: BLOOD SPECIMENOrdering Facility: [facility] Address: [address] [place] [address] Performed By: #### 2 4323-8, LIPNF ####[facility] LABCLIA [id number] [address] [address] [place] ALT [Catalytic activity/Vol] 24 U/L Normal 10-54 [facility] Comment on above: Order Comment: Speci men Type: BLOOD SPECIMENOrdering Facility: [facility] Address: [address] [place], [place] [address] Performed By: #### 2 4323-8, LIPNF ####[facility] LABCLIA [id number] [address] [address] [place] Anion gap [Moles/Vol] 15 mmol/L Normal 8-15 [facility] Comment on above: Order Comment: Speci men Type: BLOOD SPECIMENOrdering Facility: [facility] Address: [address] [place], [place] [address] Performed By: #### 2 4323-8, LIPNF ####[facility] LABCLIA [id number] [address], [place] [address] [place] AST [Catalytic activity/Vol] 21 U/L Normal 14-40 [facility] Comment on above: Order Comment: Speci men Type: BLOOD SPECIMENOrdering Facility: [facility] Address: [address] [place], [place] [address] Performed By: #### 2 4323-8, LIPNF ####[facility] LABCLIA [id number] [place] [id number] [place] Bilirubin [Mass/Vol] 1.3 mg/dL Normal 0.2-1.3 [facility] Comment on above: Order Comment: Speci men Type: BLOOD SPECIMENOrdering Facility: [facility] Address: [address] [place], [place] [address] Performed By: #### 2 4323-8, LIPNF ####[facility] LABCLIA [id number] [place] [address] [place] Calcium [Mass/Vol] 9.3 mg/dL Normal 8.5-10.2 [facility] Comment on above: Order Comment: Speci men Type: BLOOD SPECIMENOrdering Facility: [facility] Address: [address] [place], [place] [address] Performed By: #### 2 4323-8, LIPNF ####[facility] LABCLIA [id number] [facility] [address] [address] [place] Chloride [Moles/Vol] 104 mmol/L Normal 98-107 [facility] Comment on above: Order Comment: Speci men Type: BLOOD SPECIMENOrdering Facility: [facility] Address: [address] [place] [address] Performed By: #### 2 4323-8, LIPNF ####[facility] LABCLIA [id number] [place] [address] [place] CO2 [Moles/Vol] 23 mmol/L Normal 22-30 [facility] Comment on above: Order Comment: Speci men Type: BLOOD SPECIMENOrdering Facility: [facility] Address: [address] [place] [address] Performed By: #### 2 4323-8, LIPNF ####[facility] LABCLIA [id number] [place] [address] [place] Creatinine [Mass/Vol] 0.87 mg/dL Normal 0.73-1.22 [facility] Comment on above: Order Comment: Speci men Type: BLOOD SPECIMENOrdering Facility: [facility] Address: [address] [place] [address] Performed By: #### 2 4323-8, LIPNF ####[facility] LABIA [id number] [place] [address] [place] Creatinine and Glomerular filtration rate.predicted panel (S/P/Bld) 91 mL/min/1.73m??? Normal >=60 [facility] Comment on above: Order Comment: Speci men Type: BLOOD SPECIMENOrdering Facility: [facility] Address: [address] [place] [address] Result Comment: Sita mated Glomerular Filtration Rate [...] GFR. Performed By: #### 2 4323-8, LIPNF ####[facility] LABCLIA [id number] [address] [address] [place] Glucose [Mass/Vol] 84 mg/dL Normal 74-99 [facility] Comment on above: Order Comment: Speci men Type: BLOOD SPECIMENOrdering Facility: [facility] Address: [address] [place], [place] [address] Result Comment: The [place] Diabetes Association (ADA) provides guidance for cutoff [...] Standards of Medical Care in Diabetes 2016, [place] [employer] Association. Diabetes Care. 2016.39(Suppl 1). Performed By: #### 2 4323-8, LIPNF ####[facility] LABCLIA [id number] [facility] [address] [address] [place] Potassium [Moles/Vol] 3.9 mmol/L Normal 3.7-5.1 [facility] Comment on above: Order Comment: Speci men Type: BLOOD SPECIMENOrdering Facility: [facility] Address: [address] [place] [id number] Performed By: #### 2 4323-8, LIPNF ####[facility] LABCLIA [id number] [facility] [id number] [address] [place] Protein [Mass/Vol] 7.0 g/dL Normal 6.3-8.0 [facility] Comment on above: Order Comment: Speci men Type: BLOOD SPECIMENOrdering Facility: [facility] Address: [address] [place] [address] Performed By: #### 2 4323-8, LIPNF ####[facility] LABCLIA [id number] [place] [address] [place] Sodium [Moles/Vol] 142 mmol/L Normal 136-144 [facility] Comment on above: Order Comment: Speci men Type: BLOOD SPECIMENOrdering Facility: [facility] Address: [address] [place] [address] Performed By: #### 2 4323-8, LIPNF ####[facility] LABCLIA [id number] [place] [address] [place] Urea nitrogen [Mass/Vol] 15 mg/dL Normal 9-24 [facility] Comment on above: Order Comment: Speci men Type: BLOOD SPECIMENOrdering Facility: [facility] Address: [address] [place] [address] Performed By: #### 2 4323-8, LIPNF ####[facility] LABCLIA [id number] [place] [address] [place] HbA1c (Bld)on 09-02-2024 Average glucose Estimated from glycated hemoglobin (Bld) [Mass/Vol] 94 mg/dL Normal [facility] Comment on above: Order Comment: Speci men Type: BLOOD SPECIMENOrdering Facility: [facility] Address: [address] [place] [address] Result Comment: eAG: (Estimated average glucose) is a calculated value from HgbA1c and is customer solutions representative of the average blood glucose level in the last 2-3 month period. Performed By: #### 5 5454-3 ####[facility] LABCLIA [id number] [place] [address] [place] HbA1c (Bld) [Mass fraction] 4.9 % Normal 4.3-5.6 [facility] Comment on above: Order Comment: Speci men Type: BLOOD SPECIMENOrdering Facility: [facility] Address: [address] [place] [address] Result Comment: [place] Diabetes Association guidelines indicate that patients with HgbA1c in the range 5.7-6.4% are at increased risk for development of diabetes, and intervention by lifestyle modification may be beneficial. HgbA1c greater or equal to 6.5% is considered diagnostic of diabetes. Performed By: #### 5 5454-3 ####[facility] LABCLIA [id number] [place] [address] [place] LIPID PANEL, NONFASTINGon Cholesterol [Mass/Vol] 222 mg/dL High <200 [facility] Comment on above: Order Comment: Adriana men Type: BLOOD SPECIMENOrdering Facility: [facility] Address: [address] [place] [address] Result Comment: <200 mg/dL, Desirable 200-239 mg/dL, Borderline high >239 mg/dL, High Performed By: #### 2 4323-8, LIPNF ####[facility] LABCLIA [id number] [address], [facility]95 [place] HDL CHOLESTEROL, NF 61 mg/dL Normal >39 [facility] Comment on above: Order Comment: Adriana men Type: BLOOD SPECIMENOrdering Facility: [facility] Address: [address] [place] [address] Result Comment: 40-5 9 mg/dL, Acceptable >59 mg/dL, High: Negative risk factor for coronary heart disease <40 mg/dL, Low: Positive risk factor for coronary heart disease Performed By: #### 2 4323-8, LIPNF ####[facility] LABCLIA [id number] [address], [facility]95 [place] LDL CHOLESTEROL CALCULATED, NF 141 mg/dL High <100 [facility] Comment on above: Order Comment: Alondrai maylin Type: BLOOD SPECIMENOrdering Facility: [facility] Address: [address] [place] [address] Result Comment: <100 mg/dL, Optimal 100-129 mg/dL, Near optimal/above optimal 130-159 mg/dL, Borderline high 160-189 mg/dL, High >189 mg/dL, Very high Secondary prevention optimal LDL Cholesterol levels are recommended to be <70 mg/dL LDL cholesterol is calculated using the Lee-NIH equation. Performed By: #### 2 4323-8, LIPNF ####[facility] LABCLIA [id number] [address] LDL/HDL RATIO, NF 2.31 mg/dL Normal <2.54 [facility] Comment on above: Order Comment: Alondrai men Type: BLOOD SPECIMENOrdering Facility: [facility] Address: [address] [place] [address] Result Comment: Sarah rowley: 1. National Cholesterol Education Program ATP III Guideline At-A-Glance Quick Desk Reference: National Heart, Lung, and Blood Kiel. National Institutes of Health. 2001: NIH Publication No. 01-3305. 2. An International Atherosclerosis Society position paper: global recommendations for the management of dyslipidemia: executive summary, Atherosclerosis. 2014: 232(2):410-413. Performed By: #### 2 4323-8, LIPNF ####[facility] LABIA [id number] [address] NON HDL CHOL, NF 161 mg/dL High <130 [facility] Comment on above: Order Comment: Adriana carlisle Type: BLOOD SPECIMENOrdering Facility: [facility] Address: [address] [place] [address] Result Comment: <130 mg/dL, Optimal 130-159 mg/dL, Near optimal/above optimal 160-189 mg/dL, Borderline high 190-219 mg/dL, High >219 mg/dL, Very high Secondary prevention optimal non HDL Cholesterol levels are recommended to be <100 mg/dL Performed By: #### 2 4323-8, LIPNF ####[facility] [facility] [id number] [address] [facility] T CHOL/HDL RATIO NF 3.64 mg/dL Normal <5.10 [facility] Comment on above: Order Comment: Speci men Type: BLOOD SPECIMENOrdering Facility: [facility] Address: [address] [place] [address] Performed By: #### 2 4323-8, LIPNF ####[facility] [id number] [address] [place] [address] [place] TRIGLYCERIDES, NF 114 mg/dL Normal <150 [facility] Comment on above: Order Comment: Speci men Type: BLOOD SPECIMENOrdering Facility: [facility] Address: [address] [place] [address] Result Comment: <150 mg/dL, Normal 150-199 mg/dL, Borderline high 200-499 mg/dL, High >499 mg/dL, Very high Performed By: #### 2 4323-8, LIPNF ####[facility] [id number] [place] [address] [place] VLDL CHOLESTEROL, NF 21 mg/dL Normal <30 [facility] Comment on above: Order Comment: Speci men Type: BLOOD SPECIMENOrdering Facility: [facility] Address: [address] [place] [address] Performed By: #### 2 4323-8, LIPNF ####[facility] [id number] [place] [id number] [place] PSA/PROSTATE SPECIFIC ANTIGE N SCREENINGon 09-02-2024 Prostate specific Ag [Mass/Vol] 0.63 ng/mL Normal <2.60 [facility] Comment on above: Order Comment: Speci men Type: BLOOD SPECIMENOrdering Facility: [facility] Address: [address] [place] [address] Result Comment: Tota l PSA test methodology used is the Electrochemiluminescence Immunoassay by [employer]. Total PSA values by differing methodologies cannot be interchanged. Performed By: #### P SAS1 ####[facility] [id number] [place] [address] [place] CNPNon 05-19-2025 CNPN Telephone (FAMPWS) JIMBO JEFFERSON ([id number]) 1950 M Date Time Provider Department 08/31/24 ANUPAM SUTTON [facility] During your visit today, we recorded the following information about you: Margie Huntley LPN 08/31/2024 3:00 PM Signed Pt has an annual appt in September. Pt is requesting lab orders. Pt would like a PSA included in lab orders. Call pt when labs have been ordered. DELANEY Delaney Danielle, APRN.[facility] 08/31/2024 3:04 PM Signed Please let patient [...] BLOOD COUNT AND DIFFERENTIAL [SQCBCDIF] Order #: [id number] FUTURE COMPREHENSIVE METABOLIC PANEL [SQCMP] Order #: [id number] FUTURE HEMOGLOBIN A1C [VCYHS8S] Order #: [id number] FUTURE LIPID PANEL, NONFASTING [SQLIPNF] Order #: [id number] FUTURE PSA/PROSTATE SPECIFIC ANTIGEN SCREENING [SQPSAS1] Order #: [id number] FUTURE VITAMIN D 25 HYDROXY [SQVITD] Order #: [id number] FUTURE Prescriptions as of 08/31/2024 - vit C/olive leaf ext/beta-gluc (IMMUNE ESSENTIALS ORAL) Take 1 capsule by mouth once daily. Problem List As Of Date: 08/31/2024 (None) Encounter Status:Closed by MARY ALICE VALADEZ CMA on 08/31/24 [facility]2024 [facility] AUDREY JIMBO Masterson ([id number]) 1950 M Date Time Provider Department 05/29/24 NAUPAM SUTTON [facility] During your visit today, we recorded [...] her back then she doesn't call him. Anupam Sutton APRN.MANAGER MAINTENANCE 05/29/2024 12:46 PM Signed Called and spoke [...] Status:Closed by ANUPAM SUTTON on 05/29/24 Normal [facility] CNOVon 02-26-2024 CNOV Office Visit (UCWSTR ) JIMBO JEFFERSON ([id number]) 1950 M Date Time Provider Department 02/26/24 9:15 AM FLACO BARKER [facility] During your visit today, we recorded the [...] (None) Level of Service: OFFICE/OUTPATIENT ESTABLISHED LOW [facility] 20 MIN [50898] Encounter Status:Closed by FLACO BARKER on 02/26/24 [facility] 11-08-2023 VALERIE Telephone (VLADIMIR) JIMBO JEFFERSON ([id number]) 1950 M Date Time Provider Department 11/08/23 ANUPAM SUTTON During your visit today, we recorded the following information about you: Anupam Sutton APRN.[facility] 11/08/2023 8:35 AM Signed Please let patient [...] Encounter Status:Closed by RENEE ASKEW on 11/11/23 [facility] CNOVon 11-07-2023 CNOV Office Visit (VLADIMIR ) JIMBO JEFFERSON ([id number]) 1950 M Date Time Provider Department 11/07/23 11:20 AM ANUPAM SUTTON During your visit today, we recorded the following information about you: Pulse Respiration Blood pressure Weight 71/minute 16/minute 118/79 84.8 kg Anupam Sutton APRN.MANAGER MAINTENANCE 11/07/2023 11:23 AM Signed Chief Complaint Patient [...] of records for Dr. Ez Hernandez in [place], [place]. 2. Special screening examination for viral disease - ICD9: V73.99, ICD10: Z11.59 - HEPATITIS C ANTIBODY IA WITH CONFIRMATION 3. Encounter for immunization - ICD9: V03.89, ICD10: Z23 -RSV recommended, will obtain at Clint Sutton APRN.MANAGER MAINTENANCE Allergies As of Date: 11/07/2023 (No Known Allergies) Date Reviewed: 11/07/2023 Reviewed by: Mary Alice Valadez MA - Fully Assessed Reason for Visit: Follow Up [171] Primary Visit Diagnosis:Screening for colon cancer [Z12.11] Other Visit Diagnoses:Special screening examination for viral disease [Z11.59] Encounter for immunization [Z23] Order(s):HEPATITIS C ANTIBODY IA WITH CONFIRMATION [VNDKMZ8Y] Order #: [id number] FUTURE Prescriptions as of 11/07/2023 - vit C/olive leaf ext/beta-gluc (IMMUNE ESSENTIALS ORAL) Take 1 capsule by mouth once daily. Problem List As Of Date: 11/07/2023 (None) Disposition: Return if symptoms worsen or fail to improve. Follow-up and Disposition History for Encounter Date Provider Department Center 11/07/2023 [id number], ANUPAM FAMPWS [facility] Encounter Status:Closed by ANUPAM SUTTON on 11/07/23 Normal [facility] HCV Ab Ser Qlon 11-07-2023 HCV Ab Ql (S) Negative Normal Negative [facility] Comment on above: Order Comment: Speci men Type: BLOOD SPECIMENOrdering Facility: [facility] Address: [address] [place] [address] Result Comment: The result suggests no evidence of active infection with Hepatitis C virus. Should recent infection be suspected, repeat testing may be considered 4-6 weeks after this draw. Performed By: #### 1 6128-1 ####[facility] [id number] [place] [address] [place] 25([facility]3 [facility] 25-hydroxyvitamin D3 [Mass/Vol] 41.5 ng/mL Normal 31.0-80.0 [facility] Comment on above: Order Comment: Speci men Type: BLOOD SPECIMENOrdering Facility: [facility] Address: [address] [place] [address] Performed By: #### 1 989-3 ####[facility] [id number] [place] [address] [place] CBC W Auto Differential pane l (Bld)on 10-24-2023 Basophils (Bld) [#/Vol] 0.04 10*3/uL Normal <0.11 [facility] Comment on above: Order Comment: Speci men Type: BLOOD SPECIMENOrdering Facility: [facility] Address: [address] [place] [address] Performed By: #### 5 7021-8 ####[facility] [id number] [place] [address] [place] Basophils/100 WBC (Bld) 0.6 % Normal [facility] Comment on above: Order Comment: Speci men Type: BLOOD SPECIMENOrdering Facility: [facility] Address: [address] [place] [address] Performed By: #### 5 7021-8 ####[facility] [id number] [place] [address] [place] Differential cell count method Nom (Bld) Auto Normal [facility] Comment on above: Order Comment: Speci men Type: BLOOD SPECIMENOrdering Facility: [facility] Address: [address] [place] [address] Performed By: #### 5 7021-8 ####[facility] [id number] [place] [address] [place] Eosinophils (Bld) [#/Vol] 0.35 10*3/uL Normal <0.46 [facility] Comment on above: Order Comment: Speci men Type: BLOOD SPECIMENOrdering Facility: [facility] Address: [address] [place] [address] Performed By: #### 5 7021-8 ####[facility] [id number] [place] [address] [place] Eosinophils/100 WBC (Bld) 5.3 % Normal [facility] Comment on above: Order Comment: Speci men Type: BLOOD SPECIMENOrdering Facility: [facility] Address: [address] [place] [address] Performed By: #### 5 7021-8 ####[facility] [id number] [place] [address] [place] Erythrocyte distribution width (RBC) [Ratio] 13.6 % Normal 11.5-15.0 [facility] Comment on above: Order Comment: Speci men Type: BLOOD SPECIMENOrdering Facility: [facility] Address: [address] [place] [address] Performed By: #### 5 7021-8 ####[facility] [id number] [place] [address] [place] Hematocrit (Bld) [Volume fraction] 46.6 % Normal 39.0-51.0 [facility] Comment on above: Order Comment: Speci men Type: BLOOD SPECIMENOrdering Facility: [facility] Address: [address] [place] [address] Performed By: #### 5 7021-8 ####[facility] [id number] [place] [address] [place] Hemoglobin (Bld) [Mass/Vol] 15.8 g/dL Normal 13.0-17.0 [facility] Comment on above: Order Comment: Speci men Type: BLOOD SPECIMENOrdering Facility: [facility] Address: [address] [place] [address] Performed By: #### 5 7021-8 ####[facility]IA [id number] [place] [address] [place] Immature granulocytes (Bld) [#/Vol] 0.04 10*3/uL Normal <0.10 [facility] Comment on above: Order Comment: Speci men Type: BLOOD SPECIMENOrdering Facility: [facility] Address: [address] [place] [address] Performed By: #### 5 7021-8 ####[facility]IA [id number] [place] [address] [place] Immature granulocytes/100 WBC (Bld) 0.6 % Normal [facility] Comment on above: Order Comment: Speci men Type: BLOOD SPECIMENOrdering Facility: [facility] Address: [address] [place] [address] Performed By: #### 5 7021-8 ####[facility] [id number] [place] [address] [place] Lymphocytes (Bld) [#/Vol] 1.83 10*3/uL Normal 1.00-4.00 [facility] Comment on above: Order Comment: Speci men Type: BLOOD SPECIMENOrdering Facility: [facility] Address: [address] [place] [address] Performed By: #### 5 7021-8 ####[facility]IA [id number] [place] [address] [place] Lymphocytes/100 WBC (Bld) 27.9 % Normal [facility] Comment on above: Order Comment: Speci men Type: BLOOD SPECIMENOrdering Facility: [facility] Address: [address] [place] [address] Performed By: #### 5 7021-8 ####[facility]IA [id number] [place] [address] [place] MCH (RBC) [Entitic mass] 29.1 pg Normal 26.0-34.0 [facility] Comment on above: Order Comment: Speci men Type: BLOOD SPECIMENOrdering Facility: [facility] Address: [address] [place] [address] Performed By: #### 5 7021-8 ####[facility]IA [id number] [place] [address] [place] MCHC (RBC) [Mass/Vol] 33.9 g/dL Normal 30.5-36.0 [facility] Comment on above: Order Comment: Speci men Type: BLOOD SPECIMENOrdering Facility: [facility] Address: [address] [place] [address] Performed By: #### 5 7021-8 ####[facility] [id number] [place] [address] [place] MCV (RBC) [Entitic vol] 85.8 fL Normal 80.0-100.0 [facility] Comment on above: Order Comment: Speci men Type: BLOOD SPECIMENOrdering Facility: [facility] Address: [address] [place] [address] Performed By: #### 5 7021-8 ####[facility] [id number] [place] [address] [place] Monocytes (Bld) [#/Vol] 0.56 10*3/uL Normal <0.87 [facility] Comment on above: Order Comment: Speci men Type: BLOOD SPECIMENOrdering Facility: [facility] Address: [address] [place] [address] Performed By: #### 5 7021-8 ####[facility] [id number] [place] [address] [place] Monocytes/100 WBC (Bld) 8.5 % Normal [facility] Comment on above: Order Comment: Speci men Type: BLOOD SPECIMENOrdering Facility: [facility] Address: [address] [place] [address] Performed By: #### 5 7021-8 ####[facility] [id number] [place] [address] [place] Neutrophils (Bld) [#/Vol] 3.74 10*3/uL Normal 1.45-7.50 [facility] Comment on above: Order Comment: Speci men Type: BLOOD SPECIMENOrdering Facility: [facility] Address: [address] [place] [address] Performed By: #### 5 7021-8 ####[facility] [id number] [place] [address] [place] Neutrophils/100 WBC (Bld) 57.1 % Normal [facility] Comment on above: Order Comment: Speci men Type: BLOOD SPECIMENOrdering Facility: [facility] Address: [address] [place] [address] Performed By: #### 5 7021-8 ####[facility] [id number] [place] [address] [place] Nucleated RBC (Bld) [#/Vol] 10*3/uL Normal <0.01 [facility] Comment on above: Order Comment: Speci men Type: BLOOD SPECIMENOrdering Facility: [facility] Address: [address] [place] [address] Performed By: #### 5 7021-8 ####[facility] [id number] [place] [address] [place] Nucleated RBC/100 WBC (Bld) [Ratio] 0.0 /100 WBC Normal [facility] Comment on above: Order Comment: Speci men Type: BLOOD SPECIMENOrdering Facility: [facility] Address: [address] [place] [address] Performed By: #### 5 7021-8 ####[facility] [id number] [place] [address] [place] Platelet mean volume (Bld) [Entitic vol] 11.3 fL Normal 9.0-12.7 [facility] Comment on above: Order Comment: Speci men Type: BLOOD SPECIMENOrdering Facility: [facility] Address: [address] [place] [address] Performed By: #### 5 7021-8 ####[facility]IA [id number] [place] [address] [place] Platelets (Bld) [#/Vol] 194 10*3/uL Normal 150-400 [facility] Comment on above: Order Comment: Speci men Type: BLOOD SPECIMENOrdering Facility: [facility] Address: [address] [place] [address] Performed By: #### 5 7021-8 ####[facility]IA [id number] [place] [address] [place] RBC (Bld) [#/Vol] 5.43 10*6/uL Normal 4.20-6.00 [facility] Comment on above: Order Comment: Speci men Type: BLOOD SPECIMENOrdering Facility: [facility] Address: [address] [place] [address] Performed By: #### 5 7021-8 ####[facility]IA [id number] [place] [id number] [place] WBC (Bld) [#/Vol] 6.56 10*3/uL Normal 3.70-11.00 [facility] Comment on above: Order Comment: Speci men Type: BLOOD SPECIMENOrdering Facility: [facility] Address: [address] [place] [id number] Performed By: #### 5 7021-8 ####[facility]IA [id number] [place] [id number] [place] CNOVon 10-24-2023 CNOV Office Visit (REJIWS ) JIMBO JEFFERSON ([id number]) 1950 M Date Time Provider Department 10/24/23 8:20 AM ANUPAM SUTTON During your visit today, we recorded the following information about you: Pulse Respiration Blood pressure Weight 60/minute 16/minute 145/88 85.7 kg Anupam Sutton APRN.[facility] 10/24/2023 9:50 AM Signed Chief Complaint Patient [...] a day as needed for cough. Saw [place] 500 mg cap Take 1 capsule by mouth once daily. (Patient not taking: Reported on 09/07/2023) nusgotr-xmjj-lwaid-oreg-capr yl 100 mg-150 mg- 50 mg-150 mg [...] - VITAMIN D 25 HYDROXY Anupam Sutton APRN.MANAGER MAINTENANCE Jimbo Masterson is a 73 year old [...] the medica (more content not included)... Normal [facility] Aubrey 10-24-2023 REBECAN Telephone (FAMPWS) EUGENEJIMBO RAMIRES ([id number]) 1950 M Date Time Provider Department 10/24/23 [...] Status:Closed by MARIAH RICHARDS on 10/25/23 Normal [facility] Comprehensive metabolic 2000 panelon 10-24-2023 Albumin [Mass/Vol] 4.4 g/dL Normal 3.9-4.9 [facility] Comment on above: Order Comment: Speci men Type: BLOOD SPECIMENOrdering Facility: [facility] Address: [address] [place] [address] Performed By: #### 2 4323-8, LIPNF ####[facility]CLIA [id number] [place] [address] [place] ALP [Catalytic activity/Vol] 60 U/L Normal 38-113 [facility] Comment on above: Order Comment: Speci men Type: BLOOD SPECIMENOrdering Facility: [facility] Address: [address] [place] [address] Performed By: #### 2 4323-8, LIPNF ####[facility]IA [id number] [place] [address] [place] ALT [Catalytic activity/Vol] 21 U/L Normal 10-54 [facility] Comment on above: Order Comment: Speci men Type: BLOOD SPECIMENOrdering Facility: [facility] Address: [address] [place] [id number] Performed By: #### 2 4323-8, LIPNF ####[facility]CLIA [id number] [place] [id number] [place] Anion gap [Moles/Vol] 11 mmol/L Normal 8-15 [facility] Comment on above: Order Comment: Speci men Type: BLOOD SPECIMENOrdering Facility: [facility] Address: [address] [place] [address] Performed By: #### 2 4323-8, LIPNF ####[facility]CLIA [id number] [place] [address] [place] AST [Catalytic activity/Vol] 22 U/L Normal 14-40 [facility] Comment on above: Order Comment: Speci men Type: BLOOD SPECIMENOrdering Facility: [facility] Address: [address] [place] [address] Performed By: #### 2 4323-8, LIPNF ####[facility]CLIA [id number] [place] [address] [place] Bilirubin [Mass/Vol] 1.0 mg/dL Normal 0.2-1.3 [facility] Comment on above: Order Comment: Speci men Type: BLOOD SPECIMENOrdering Facility: [facility] Address: [address] [place] [id number] Performed By: #### 2 4323-8, LIPNF ####[facility]CLIA [id number] [place] [address] [place] Calcium [Mass/Vol] 10.1 mg/dL Normal 8.5-10.2 [facility] Comment on above: Order Comment: Speci men Type: BLOOD SPECIMENOrdering Facility: [facility] Address: [address] [place], [place] [id number] Performed By: #### 2 4323-8, LIPNF ####[facility]CLIA [id number] [place] [address] [place] Chloride [Moles/Vol] 105 mmol/L Normal 98-107 [facility] Comment on above: Order Comment: Speci men Type: BLOOD SPECIMENOrdering Facility: [facility] Address: [address] [place] [address] Performed By: #### 2 4323-8, LIPNF ####[facility]CLIA [id number] [place] [address] [place] CO2 [Moles/Vol] 24 mmol/L Normal 22-30 [facility] Comment on above: Order Comment: Speci men Type: BLOOD SPECIMENOrdering Facility: [facility] Address: [address] [place] [address] Performed By: #### 2 4323-8, LIPNF ####[facility]CLIA [id number] [place] [address] [place] Creatinine [Mass/Vol] 0.96 mg/dL Normal 0.73-1.22 [facility] Comment on above: Order Comment: Speci men Type: BLOOD SPECIMENOrdering Facility: [facility] Address: [address] [place] [address] Performed By: #### 2 4323-8, LIPNF ####[facility]CLIA [id number] [place] [address] [place] Creatinine and Glomerular filtration rate.predicted panel (S/P/Bld) 84 mL/min/1.73m??? Normal >=60 [facility] Comment on above: Order Comment: Speci men Type: BLOOD SPECIMENOrdering Facility: [facility] Address: [address] [place] [address] Result Comment: Sita mated Glomerular Filtration Rate [...] GFR. Performed By: #### 2 4323-8, LIPNF ####[facility]CLIA [id number] [address] [address] [place] Glucose [Mass/Vol] 91 mg/dL Normal 74-99 [facility] Comment on above: Order Comment: Speci men Type: BLOOD SPECIMENOrdering Facility: [facility] Address: [address] [place] [address] Result Comment: The [place] [employer] (ADA) provides guidance for cutoff [...] Standards of Medical Care in Diabetes 2016, [place] [employer]. Diabetes Care. 2016.39(Suppl 1). Performed By: #### 2 4323-8, LIPNF ####[facility] LABCLIA [id number] [address] [address] [place] Potassium [Moles/Vol] 4.5 mmol/L Normal 3.7-5.1 [facility] Comment on above: Order Comment: Speci men Type: BLOOD SPECIMENOrdering Facility: [facility] Address: [address] [place] [address] Performed By: #### 2 4323-8, LIPNF ####[facility]CLIA [id number] [address] [address] [place] Protein [Mass/Vol] 7.0 g/dL Normal 6.3-8.0 [facility] Comment on above: Order Comment: Speci men Type: BLOOD SPECIMENOrdering Facility: [facility] Address: [address] [place] [address] Performed By: #### 2 4323-8, LIPNF ####[facility]CLIA [id number] [place] [address] [place] Sodium [Moles/Vol] 140 mmol/L Normal 136-144 [facility] Comment on above: Order Comment: Speci men Type: BLOOD SPECIMENOrdering Facility: [facility] Address: [address] [place] [address] Performed By: #### 2 4323-8, LIPNF ####[facility]CLIA [id number] [place] [address] [place] Urea nitrogen [Mass/Vol] 20 mg/dL Normal 9-24 [facility] Comment on above: Order Comment: Speci men Type: BLOOD SPECIMENOrdering Facility: [facility] Address: [address] [place] [address] Performed By: #### 2 4323-8, LIPNF ####[facility]CLIA [id number] [place] [address] [place] HbA1c (Bld)on 10-24-2023 Average glucose Estimated from glycated hemoglobin (Bld) [Mass/Vol] 100 mg/dL Normal [facility] Comment on above: Order Comment: Speci men Type: BLOOD SPECIMENOrdering Facility: [facility] Address: [address] [place] [address] Result Comment: eAG: (Estimated average glucose) is a calculated value from HgbA1c and is customer solutions representative of the average blood glucose level in the last 2-3 month period. Performed By: #### 5 5454-3 ####[facility]CLIA [id number] [place] [address] [place] HbA1c (Bld) [Mass fraction] 5.1 % Normal 4.3-5.6 [facility] Comment on above: Order Comment: Speci men Type: BLOOD SPECIMENOrdering Facility: [facility] Address: [address] [place] [address] Result Comment: Amer ican Diabetes Association guidelines indicate that patients with HgbA1c in the range 5.7-6.4% are at increased risk for development of diabetes, and intervention by lifestyle modification may be beneficial. HgbA1c greater or equal to 6.5% is considered diagnostic of diabetes. Performed By: #### 5 5454-3 ####[facility] LABCLIA [id number] [place] [address] [place] LIPID PANEL, NONFASTINGon Cholesterol [Mass/Vol] 216 mg/dL High <200 [facility] Comment on above: Order Comment: Adriana carlisle Type: BLOOD SPECIMENOrdering Facility: [facility] Address: [address] [place] [address] Result Comment: <200 mg/dL, Desirable 200-239 mg/dL, Borderline high >239 mg/dL, High Performed By: #### 2 4323-8, LIPNF ####[facility] LABCLIA [id number] [place] [address] [place] HDL CHOLESTEROL, NF 66 mg/dL Normal >39 [facility] Comment on above: Order Comment: Adriana carlisle Type: BLOOD SPECIMENOrdering Facility: [facility] Address: [address] [place] [address] Result Comment: 40-5 9 mg/dL, Acceptable >59 mg/dL, High: Negative risk factor for coronary heart disease <40 mg/dL, Low: Positive risk factor for coronary heart disease Performed By: #### 2 4323-8, LIPNF ####[facility] LABCLIA [id number] [place] [address] [place] LDL CHOLESTEROL, NF 138 mg/dL High <100 [facility] Comment on above: Order Comment: Adriana men Type: BLOOD SPECIMENOrdering Facility: [facility] Address: [address] [place] [address] Result Comment: <100 mg/dL, Optimal 100-129 mg/dL, Near optimal/above optimal 130-159 mg/dL, Borderline high 160-189 mg/dL, High >189 mg/dL, Very high Secondary prevention optimal LDL Cholesterol levels are recommended to be < 70 mg/dL Performed By: #### 2 4323-8, LIPNF ####[facility] LABCLIA [id number] [place] [address] [place] LDL/HDL RATIO, NF 2.09 mg/dL Normal <2.54 [facility] Comment on above: Order Comment: Speci men Type: BLOOD SPECIMENOrdering Facility: [facility] Address: [address] [place] [address] Result Comment: Sarah rowley: 1. National Cholesterol Education Program ATP III Guideline At-A-Glance Quick Desk Reference: National Heart, Lung, and Blood Kiel. National Institutes of Health. 2001: NIH Publication No. 01-3305. 2. An International Atherosclerosis Society position paper: global recommendations for the management of dyslipidemia: executive summary, Atherosclerosis. 2014: 232(2):410-413. Performed By: #### 2 4323-8, LIPNF ####[facility] LABCLIA [id number] [address] [place] NON HDL CHOL, NF 150 mg/dL High <130 [facility] Comment on above: Order Comment: Alondrai men Type: BLOOD SPECIMENOrdering Facility: [facility] Address: [address] [place] [address] Result Comment: <130 mg/dL, Optimal 130-159 mg/dL, Near optimal/above optimal 160-189 mg/dL, Borderline high 190-219 mg/dL, High >219 mg/dL, Very high Secondary prevention optimal non HDL Cholesterol levels are recommended to be <100 mg/dL Performed By: #### 2 4323-8, LIPNF ####[facility] LABCLIA [id number] [address] [place] T CHOL/HDL RATIO NF 3.27 mg/dL Normal <5.10 [facility] Comment on above: Order Comment: Speci men Type: BLOOD SPECIMENOrdering Facility: [facility] Address: [address] [place] [address] Performed By: #### 2 4323-8, LIPNF ####[facility] LABCLIA [id number] [place] [address] [place] TRIGLYCERIDES, NF 59 mg/dL Normal <150 [facility] Comment on above: Order Comment: Speci men Type: BLOOD SPECIMENOrdering Facility: [facility] Address: [address] [place] [address] Result Comment: <150 mg/dL, Normal 150-199 mg/dL, Borderline high 200-499 mg/dL, High >499 mg/dL, Very high Performed By: #### 2 4323-8, LIPNF ####[facility] LABCLIA [id number] [place] [address] [place] VLDL CHOLESTEROL, NF 12 mg/dL Normal <30 [facility] Comment on above: Order Comment: Speci men Type: BLOOD SPECIMENOrdering Facility: [facility] Address: [address] [place] [address] Performed By: #### 2 4323-8, LIPNF ####[facility] LABCLIA [id number] [place] [address] [place] PSA/PROSTATE SPECIFIC ANTIGE N SCREENINGon 10-24-2023 Prostate specific Ag [Mass/Vol] 0.76 ng/mL Normal <2.60 [facility] Comment on above: Order Comment: Speci men Type: BLOOD SPECIMENOrdering Facility: [facility] Address: [address] [place] [address] Result Comment: Tota l PSA test methodology used is the Electrochemiluminescence Immunoassay by [employer]. Total PSA values by differing methodologies cannot be interchanged. Performed By: #### P SAS1 ####[facility] LABCLIA [id number] [place] [address] [place] XR Chest PA and Lateralon 05 -28-2024 IMPRESSION: No acute radiographic abnormality. Measurement And Sensing Technician: ELBERT Transcribe Date/Time: Sep 10 2023 10:44A Dictated by : ROHIT ATKINSON MD This examination was interpreted and the report reviewed and electronically signed by: ROHIT ATKINSON MD on Sep 10 2023 10:45AM [facility] DIVISION OF RADIOLOGY * * [...] shows degenerative changes. DIVISION OF RADIOLOGY Provider, [facility] - 09/10/2023 * * *Final Report* [...] changes. IMPRESSION IMPRESSION: No acute radiographic abnormality. Measurement And Sensing Technician: ELBERT Transcribe Date/Time: Sep 10 2023 10:44A Dictated by : ROHIT ATKINSON MD This examination was interpreted and the report reviewed and electronically signed by: ROHIT ATKINSON MD on Sep 10 2023 10:45AM [facility] Radiology Study observation (narrative) [facility] XR Chest PA and LateralOrder ed By: Ccf Provider on 09-10-2023 [facility] XR Chest PA and Lateralon IMPRESSION: No acute radiographic abnormality. Measurement And Sensing Technician: ELBERT Transcribe Date/Time: Jul 08 2023 8:26A Dictated by : TAB THORNTON MD This examination was interpreted and the report reviewed and electronically signed by: TAB THORNTON MD on Jul 08 2023 8:26AM [facility] DIVISION OF RADIOLOGY * * [...] the thoracic spine. DIVISION OF RADIOLOGY [facility] * * *Final Report* * [...] spine. IMPRESSION IMPRESSION: No acute radiographic abnormality. Measurement And Sensing Technician: ELBERT Transcribe Date/Time: Jul 08 2023 8:26A Dictated by : TAB THORNTON MD This examination was interpreted and the report reviewed and electronically signed by: TAB THORNTON MD on Jul 08 2023 8:26AM EST [facility] Radiology Study observation (narrative) [facility] XR Chest PA and LateralOrder ed By: Ccf Provider on 07-08-2023 [facility] INFLUENZA A&B MOLECULAR (POC )on 07-07-2023 Flu A (POCT) Negative Negative [facility] Flu B (POCT) Negative Negative [facility] Procedural Control Valid [facility] CBC W Auto Differential pane l (Bld)on 10-22-2022 Basophils (Bld) [#/Vol] 0.06 10*3/uL <0.11 k/uL [facility] Basophils/100 WBC (Bld) 0.8 % [facility] Differential cell count method Nom (Bld) Auto [facility] Eosinophils (Bld) [#/Vol] 0.43 10*3/uL <0.46 k/uL [facility] Eosinophils/100 WBC (Bld) 5.7 % [facility] Erythrocyte distribution width (RBC) [Ratio] 13.6 % 11.5 - 15.0 % [facility] Hematocrit (Bld) [Volume fraction] 47.2 % 39.0 - 51.0 % [facility] Hemoglobin (Bld) [Mass/Vol] 15.8 g/dL 13.0 - 17.0 g/dL [facility] Immature granulocytes (Bld) [#/Vol] 0.06 10*3/uL <0.10 k/uL [facility] Immature granulocytes/100 WBC (Bld) 0.8 % [facility] Lymphocytes (Bld) [#/Vol] 1.86 10*3/uL 1.00 - 4.00 k/uL [facility] Lymphocytes/100 WBC (Bld) 24.8 % [facility] MCH (RBC) [Entitic mass] 28.9 pg 26.0 - 34.0 pg [facility] MCHC (RBC) [Mass/Vol] 33.5 g/dL 30.5 - 36.0 g/dL [facility] MCV (RBC) [Entitic vol] 86.4 fL 80.0 - 100.0 fL [facility] Monocytes (Bld) [#/Vol] 0.71 10*3/uL <0.87 k/uL [facility] Monocytes/100 WBC (Bld) 9.5 % [facility] Neutrophils (Bld) [#/Vol] 4.39 10*3/uL 1.45 - 7.50 k/uL [facility] Neutrophils/100 WBC (Bld) 58.4 % [facility] Nucleated RBC (Bld) [#/Vol] <0.01 k/uL [facility] Nucleated RBC/100 WBC (Bld) [Ratio] 0.0 /100 WBC [facility] Platelet mean volume (Bld) [Entitic vol] 11.5 fL 9.0 - 12.7 fL [facility] Platelets (Bld) [#/Vol] 192 10*3/uL 150 - 400 k/uL [facility] RBC (Bld) [#/Vol] 5.46 10*6/uL 4.20 - 6.0 0 m/uL [facility] WBC (Bld) [#/Vol] 7.51 10*3/uL 3.70 - 11. 00 k/uL [facility] Vital Signs Date Time Vital Sign Value Performing Clinician Jorge vaughan 09-22-2024 08:07-0400 Body weight 85 kg Anupam Sutton APRN.MANAGER MAINTENANCE Work Phone: [facility] 09-22-2024 08:07-0400 Diastolic blood pressure 76 mm[Hg] Anupam Sutton APRN.MANAGER MAINTENANCE Work Phone: [facility] 09-22-2024 08:07-0400 Heart rate 67 /min Anupam Sutton APRN.MANAGER MAINTENANCE Work Phone: [facility] 09-22-2024 08:07-0400 Systolic blood pressure 130 mm[Hg] Anupam Sutton APRN.MANAGER MAINTENANCE Work Phone: [facility] 02-26-2024 09:17-0500 Body temperature 97.39 [degF] Flaco Barker MD Work Phone: [facility] 02-26-2024 09:17-0500 Body weight 85.5 kg Flaco Barker MD Work Phone: [facility] 02-26-2024 09:17-0500 Diastolic blood pressure 80 mm[Hg] Flaco Barker MD Work Phone: [facility] 02-26-2024 09:17-0500 Heart rate 82 /min Flaco Barker MD Work Phone: [facility] 02-26-2024 09:17-0500 Respiratory rate 16 /min Flaco Barker MD Work Phone: [facility] 02-26-2024 09:17-0500 SaO2% (BldA) [Mass fraction] 96 % Flaco Barker MD Work Phone: [facility] 02-26-2024 09:17-0500 Systolic blood pressure 126 mm[Hg] Flaco Barker MD Work Phone: [facility] 11-07-2023 11:10-0400 Body weight 84.82 kg Anupam Sutton QUANTITATIVE MANAGER.MANAGER MAINTENANCE Work Phone: [facility] 11-07-2023 11:10-0400 Diastolic blood pressure 79 mm[Hg] Anupam Sutton QUANTITATIVE MANAGER.MANAGER MAINTENANCE Work Phone: [facility] 11-07-2023 11:10-0400 Heart rate 71 /min Anupam Sutton QUANTITATIVE MANAGER.MANAGER MAINTENANCE Work Phone: [facility] 11-07-2023 11:10-0400 Respiratory rate 16 /min Anupam Sutton QUANTITATIVE MANAGER.MANAGER MAINTENANCE Work Phone: [facility] 11-07-2023 11:10-0400 Systolic blood pressure 118 mm[Hg] Anupam Sutton QUANTITATIVE MANAGER.MANAGER MAINTENANCE Work Phone: [facility] 10-24-2023 08:07-0400 Body weight 85.73 kg Anupam Sutton QUANTITATIVE MANAGER.MANAGER MAINTENANCE Work Phone: [facility] 10-24-2023 08:07-0400 Diastolic blood pressure 88 mm[Hg] Anupam Sutton QUANTITATIVE MANAGER.MANAGER MAINTENANCE Work Phone: [facility] 10-24-2023 08:07-0400 Heart rate 60 /min Anupam Sutton QUANTITATIVE MANAGER.MANAGER MAINTENANCE Work Phone: [facility] 10-24-2023 08:07-0400 Respiratory rate 16 /min Anupam Sutton APRN.MANAGER MAINTENANCE Work Phone: [facility] 10-24-2023 08:07-0400 Systolic blood pressure 145 mm[Hg] Anupam Sutton APRN.MANAGER MAINTENANCE Work Phone: [facility] 09-11-2023 11:16-0400 Body temperature 97.59 [degF] Krislyn Aberegg PA Work Phone: [facility] 09-11-2023 11:16-0400 Body weight 83.3 kg Krislyn Aberegg PA Work Phone: [facility] 09-11-2023 11:16-0400 Diastolic blood pressure 80 mm[Hg] Krislyn Aberegg PA Work Phone: [facility] 09-11-2023 11:16-0400 Heart rate 74 /min Krislyn Aberegg PA Work Phone: [facility] 09-11-2023 11:16-0400 Respiratory rate 16 /min Krislyn Aberegg PA Work Phone: [facility] 09-11-2023 11:16-0400 SaO2% (BldA) [Mass fraction] 96 % Krislyn Aberegg PA Work Phone: [facility] 09-11-2023 11:16-0400 Systolic blood pressure 122 mm[Hg] Krislyn Aberegg PA Work Phone: [facility] 09-09-2023 08:48-0400 Body temperature 98.91 [degF] Bhakti Athy PA-C Work Phone: [facility] 09-09-2023 08:48-0400 Body weight 84.9 kg Bhakti Athy PA-C Work Phone: [facility] 09-09-2023 08:48-0400 Diastolic blood pressure 68 mm[Hg] Bhakti Athy PA-C Work Phone: [facility] 09-09-2023 08:48-0400 Heart rate 86 /min Bhakti Athy PA-C Work Phone: [facility] 09-09-2023 08:48-0400 Respiratory rate 16 /min Bhaktiamairani Ruffiny PA-C Work Phone: [facility] 09-09-2023 08:48-0400 SaO2% (BldA) [Mass fraction] 96 % Bhakti Athy PA-C Work Phone: [facility] 09-09-2023 08:48-0400 Systolic blood pressure 124 mm[Hg] Bhakti Ruffiny PA-C Work Phone: [facility] 09-07-2023 08:08-0400 Body temperature 96.6 [degF] Denise Praisler-Wood QUANTITATIVE MANAGER.MANAGER MAINTENANCE Work Phone: [facility] 09-07-2023 08:08-0400 Body weight 85.4 kg Denise Praisler-Wood QUANTITATIVE MANAGER.MANAGER MAINTENANCE Work Phone: [facility] 09-07-2023 08:08-0400 Diastolic blood pressure 84 mm[Hg] Denise Praisler-Wood QUANTITATIVE MANAGER.MANAGER MAINTENANCE Work Phone: [facility] 09-07-2023 08:08-0400 Heart rate 75 /min Denise Praisler-Wood QUANTITATIVE MANAGER.MANAGER MAINTENANCE Work Phone: [facility] 09-07-2023 08:08-0400 Respiratory rate 21 /min Denise Praisler-Wood QUANTITATIVE MANAGER.MANAGER MAINTENANCE Work Phone: [facility] 09-07-2023 08:08-0400 SaO2% (BldA) [Mass fraction] 96 % Denise Praisler-Wood QUANTITATIVE MANAGER.MANAGER MAINTENANCE Work Phone: [facility] 09-07-2023 08:08-0400 Systolic blood pressure 132 mm[Hg] Denise Praisler-Wood QUANTITATIVE MANAGER.MANAGER MAINTENANCE Work Phone: [facility] 07-07-2023 08:32-0400 Body temperature 97.2 [degF] Erin Mathis QUANTITATIVE MANAGER.MANAGER MAINTENANCE Work Phone: [facility] 07-07-2023 08:32-0400 Body weight 88.1 kg Erin Mathis QUANTITATIVE MANAGER.MANAGER MAINTENANCE Work Phone: [facility] 07-07-2023 08:32-0400 Diastolic blood pressure 84 mm[Hg] Erin Mathis QUANTITATIVE MANAGER.MANAGER MAINTENANCE Work Phone: [facility] 07-07-2023 08:32-0400 Heart rate 78 /min Erin Mathis QUANTITATIVE MANAGER.MANAGER MAINTENANCE Work Phone: [facility] 07-07-2023 08:32-0400 Respiratory rate 20 /min Erin Mathis QUANTITATIVE MANAGER.MANAGER MAINTENANCE Work Phone: [facility] 07-07-2023 08:32-0400 SaO2% (BldA) [Mass fraction] 95 % Erin Mathis QUANTITATIVE MANAGER.MANAGER MAINTENANCE Work Phone: [facility] 07-07-2023 08:32-0400 Systolic blood pressure 132 mm[Hg] Erin Mathis QUANTITATIVE MANAGER.MANAGER MAINTENANCE Work Phone: [facility] 02-01-2023 11:24-0400 Body temperature 97.59 [degF] Anupam Bria QUANTITATIVE MANAGER.MANAGER MAINTENANCE Work Phone: [facility] 02-01-2023 11:24-0400 Body weight 83.46 kg Anupam Sutton QUANTITATIVE MANAGER.MANAGER MAINTENANCE Work Phone: [facility] 02-01-2023 11:24-0400 Diastolic blood pressure 72 mm[Hg] Anupam Lizethoble QUANTITATIVE MANAGER.MANAGER MAINTENANCE Work Phone: [facility] 02-01-2023 11:24-0400 Heart rate 70 /min Anupam Lziethoble QUANTITATIVE MANAGER.MANAGER MAINTENANCE Work Phone: [facility] 02-01-2023 11:24-0400 Respiratory rate 18 /min Anupam Lizethoble QUANTITATIVE MANAGER.MANAGER MAINTENANCE Work Phone: [facility] 02-01-2023 11:24-0400 Systolic blood pressure 120 mm[Hg] Anupam Lizethoble QUANTITATIVE MANAGER.MANAGER MAINTENANCE Work Phone: [facility] 10-22-2022 09:09-0400 Body weight 82.1 kg Anupam Sutton QUANTITATIVE MANAGER.MANAGER MAINTENANCE Work Phone: [facility] 10-22-2022 09:09-0400 Diastolic blood pressure 80 mm[Hg] Anupam Sutton QUANTITATIVE MANAGER.MANAGER MAINTENANCE Work Phone: [facility] 10-22-2022 09:09-0400 Heart rate 72 /min Anupam Sutton QUANTITATIVE MANAGER.MANAGER MAINTENANCE Work Phone: [facility] 10-22-2022 09:09-0400 Respiratory rate 14 /min Anupam Sutton QUANTITATIVE MANAGER.MANAGER MAINTENANCE Work Phone: [facility] 10-22-2022 09:09-0400 Systolic blood pressure 122 mm[Hg] Anupam Sutton QUANTITATIVE MANAGER.MANAGER MAINTENANCE Work Phone: [facility] 10-10-2022 14:21-0400 Body temperature 97.39 [degF] Bhakti Athy PA-C Work Phone: [facility] 10-10-2022 14:21-0400 Body weight 82.56 kg Bhakti Athy PA-C Work Phone: [facility] 10-10-2022 14:21-0400 Diastolic blood pressure 72 mm[Hg] Bhakti Athy PA-C Work Phone: [facility] 10-10-2022 14:21-0400 Heart rate 80 /min Bhakti Athy PA-C Work Phone: [facility] 10-10-2022 14:21-0400 Respiratory rate 16 /min Bhakti Athy PA-C Work Phone: [facility] 10-10-2022 14:21-0400 SaO2% (BldA) [Mass fraction] 97 % Bhakti Athy PA-C Work Phone: [facility] 10-10-2022 14:21-0400 Systolic blood pressure 122 mm[Hg] Bhakti Athy PA-C Work Phone: [facility] Encounters Encounter Date Encounter Type Care Provider Facility Start: 10-10-2024 End: 10-10-2024 ambulatory Maria M Bucio RN NURSE PROGRESSIVE DIE MAKER Comment on above: Chest Pain; Shortnes s of Breath Start: 09-28-2024 End: 09-29-2024 Follow-up encounter Anupam Sutton APRN.CNP Work Phone: [facility] Start: 09-22-2024 End: 09-22-2024 Subsequent hospital visit by physician Xr [facility] Work Phone: Radiology Comment on above: Pain of left thumb [ M79.645] Start: 09-22-2024 End: 09-22-2024 Patient encounter status Anupam Sutton APRN.CNP Work Phone: [facility] Start: 09-22-2024 End: 09-22-2024 ambulatory ANUPAM SUTTON Facility:[facility] Start: 09-22-2024 End: 09-22-2024 Patient encounter procedure Anupam Sutton APRN.CNP Work Phone: [facility] Comment on above: Medicare annual well ness visit, subsequent (Primary Dx); Wellness examination; Farsightedness, bilateral; 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; Pain of left thumb; Tinnitus of both ears; Jaw pain Start: 09-02-2024 End: 09-02-2024 ambulatory ANUPAM SUTTON Facility:[facility] Start: 08-31-2024 End: 08-31-2024 Patient encounter status Anupam Sutton APRN.CNP Work Phone: [facility] Start: 08-31-2024 End: 08-31-2024 Telephone encounter Anupam Sutton APRN.CNP Work Phone: [facility] Comment on above: Lab Orders Start: 05-29-2024 End: 05-29-2024 Telephone encounter Anupma Sutton APRN.CNP Work Phone: [facility] Comment on above: Call Back from Jose A watkins Start: 02-26-2024 End: 02-26-2024 ambulatory ANUPAM SUTTON Facility:[facility] Start: 02-26-2024 End: 02-26-2024 Office outpatient visit 15 minutes Flaco Barker MD Work Phone: [facility] Comment on above: URI with cough and c ongestion (Primary Dx) Start: 11-07-2023 End: 11-07-2023 Patient encounter procedure Anupam Sutton APRN.MANAGER MAINTENANCE Work Phone: [facility] Comment on above: Screening for colon cancer (Primary Dx); Special screening examination for viral disease; Encounter for immunization Start: 11-07-2023 End: 11-07-2023 ambulatory ANUPAM SUTTON Facility:[facility] Start: 10-24-2023 Telephone encounter Anupam minaya APRN.CNP Work Phone: [facility] Comment on above: Results Start: 10-24-2023 Encounter for genera l adult medical examination without abnormal findings ANUPAM SUTTON [facility] Start: 10-24-2023 End: 10-24-2023 ambulatory ANUPAM SUTTON Facility:[facility] Start: 10-24-2023 End: 10-24-2023 Patient encounter procedure Anupam Sutton APRN.MANAGER MAINTENANCE Work Phone: [facility] [place] Comment on above: Wellness examination (Primary Dx); Encounter for lipid screening for cardiovascular disease; Screening for diabetes mellitus; Screening PSA (prostate specific antigen); Vitamin D deficiency; Farsightedness, bilateral; Vision decreased Start: 10-24-2023 End: 10-24-2023 Patient encounter status Anupam Sutton APRN.MANAGER MAINTENANCE Work Phone: [facility] Work Phone: Start: 09-11-2023 End: 09-11-2023 Patient encounter procedure Karen ISRAEL Work Phone: [facility] Comment on above: Hoarseness of voice (Primary Dx) Start: 09-10-2023 Telephone encounter Bhakti shepherd PA-C Work Phone: [facility] Comment on above: Results Start: 09-10-2023 End: 09-10-2023 Subsequent hospital visit by physician Margarette [facility] Work Phone: Radiology Comment on above: Bronchitis [J40] Start: 09-09-2023 End: 09-09-2023 Patient encounter procedure Bhakti Guerrero PA-C Work Phone: [facility] Comment on above: Bronchitis (Primary Dx) Start: 09-07-2023 End: 09-07-2023 Patient encounter procedure Denise Evangelista QUANTITATIVE MANAGER.MANAGER MAINTENANCE Work Phone: [facility] Comment on above: Acute cough (Primary Dx); Sore throat; Body aches Start: 07-08-2023 Telephone encounter Erin swanson QUANTITATIVE MANAGER.MANAGER MAINTENANCE Work Phone: [facility] Comment on above: Results Start: 07-08-2023 End: 07-08-2023 Subsequent hospital visit by physician Xr [facility] Work Phone: Radiology Comment on above: Acute cough [R05.1] Start: 07-07-2023 End: 07-07-2023 Patient encounter procedure Erin Mathis QUANTITATIVE MANAGER.MANAGER MAINTENANCE Work Phone: [facility] Comment on above: Acute cough (Primary Dx); URI, acute Start: 02-01-2023 End: 02-01-2023 Patient encounter procedure Anupam Sutton QUANTITATIVE MANAGER.MANAGER MAINTENANCE Work Phone: [facility] Comment on above: Encounter for immuni zation (Primary Dx); Tinnitus, unspecified laterality Start: 01-28-2023 Telephone encounter Anupam minaya APRN.MANAGER MAINTENANCE Work Phone: [address] [place] [address] Comment on above: Patient Question Start: 10-23-2022 Telephone encounter Anupam minaya QUANTITATIVE MANAGER.MANAGER MAINTENANCE Work Phone: [facility] Comment on above: Results Start: 10-22-2022 End: 10-22-2022 Patient encounter procedure Anupam Sutton QUANTITATIVE MANAGER.MANAGER MAINTENANCE Work Phone: [facility] [place] Comment on above: Encounter for immuni zation (Primary Dx); Wellness examination; Screening for diabetes mellitus; Encounter for lipid screening for cardiovascular disease; Screening PSA (prostate specific antigen) Start: 10-22-2022 End: 10-22-2022 Patient encounter status Anupam Sutton APRN.REBECA Work Phone: [facility] Work Phone: Start: 10-10-2022 End: 10-10-2022 Patient encounter procedure Bhakti Guerrero PA-C Work Phone: [facility] Comment on above: Allergic contact june matitis due to plants, except food (Primary Dx) Procedures Date Procedure Procedure Detail Performing Clinician Start: 09-02-2024 Lipid 1996 panel - S debby or Plasma Anupam Sutton APRN.REBECA Work Phone: Start: 10-24-2023 Adult depression scr eening assessment Anupam Sutton APRN.REBECA Work Phone: Start: 10-24-2023 Lipid 1996 panel - S debby or Plasma Anupam Sutton APRN.REBECA Work Phone: Start: 09-10-2023 Radiologic exam ches t 2 views Bhakti Guerrero PA-C Work Phone: Start: 07-08-2023 Radiologic exam ches t 2 views Erin Mathis APRN.MANAGER MAINTENANCE Work Phone: Start: 07-07-2023 INFLUENZA A&B MOLECU LAR (POC) [facility] Provider Start: 02-01-2023 INFLUENZA VACCINE, P RSV FREE, AGE 65+ YR, HIGH DOSE, QUADRIVALENT (FLUZONE HIGH-DOSE) Anupam Sutton APRN.MANAGER MAINTENANCE Work Phone: Start: 10-22-2022 Lipid 1996 panel - S debby or Plasma Anupam Sutton APRN.MANAGER MAINTENANCE Work Phone: Plan of Treatment Date Care Activity Detail Author Start: 10-22-2032 Urine microalbumin profile [facility] Start: 09-02-2029 Lipid panel Lipid Screening [facility] Start: 10-23-2028 Lipid panel Lipid Screening [facility] Start: 10-23-2027 Lipid 1996 panel - Serum or Plasma Lipid Screening [facility] Start: 10-23-2027 Lipid panel Lipid Screening [facility] Start: 10-23-2027 LIPID SCREEN LIPID SCREEN [facility] Start: 09-23-2027 Screening for malign ant neoplasm of colon [facility] Start: 09-03-2027 Diabetes Screening Diabetes Screenin g [facility] Start: 10-23-2026 Diabetes Screening Diabetes Screenin g [facility] Start: 10-22-2025 DIABETES SCREEN DIABETES SCREEN [facility] Start: 10-22-2025 Diabetes Screening Diabetes Screenin g [facility] Start: 09-22-2025 Covid-19 Vaccine ( season) Covid-19 Vaccine ( season) [facility] Comment on above: Postponed from 12/14 (Declined at this time) Start: 12-14-2024 Influenza vaccination Influenz a Vaccine (Season Ended) [facility] Start: 10-23-2024 Anxiety Screening Anxiety Screening [facility] Start: 10-23-2024 Covid-19 Vaccine ( season) Covid-19 Vaccine () [facility] Comment on above: Postponed from 12/14 (Declined at this time) Start: 10-23-2024 Depression Screening Depression Scre ening [facility] Start: 10-14-2024 End: 10-14-2024 Patient encounter procedure 10/14/2024 7:00 AM EDT Office Visit [facility] [address] [place] [address] [id number] Luis Alfredo Pinto MD [address] [place] [address] [phone] Spot on left needs removed for biospy - (knoble patient) [facility] [place] Comment on above: Spot on left needs r emoved for biospy - (knoble patient) Start: 09-22-2024 End: 09-22-2024 Patient encounter procedure 09/22/2024 8:20 AM EDT Office Visit [facility] [address] [place] [address] [phone] Anupam Sutton APRN.[facility] [address] [place], [place] [phone] annual [facility] [place] Comment on above: annual Start: 08-31-2024 End: 11-30-2024 25-hydroxyvitamin D3 [Mass/volume] in Serum or Plasma VITAMIN D 25 HYDROXY Lab Routine Vitamin D deficiency Expected: 08/31/2024, Expires: 11/30/2024 [facility] Comment on above: Expected: 08/31/2024 , Expires: 11/30/2024 Start: 08-31-2024 End: 11-30-2024 CBC W Auto Differential panel - Blood COMPLETE BLOOD COUNT AND DIFFERENTIAL Lab Routine Wellness examination Expected: 08/31/2024, Expires: 11/30/2024 [facility] Work Phone: Comment on above: Expected: 08/31/2024 , Expires: 11/30/2024 Start: 08-31-2024 End: 11-30-2024 Comprehensive metabolic 2000 panel - Serum or Plasma COMPREHENSIVE METABOLIC PANEL Lab Routine Screening for diabetes mellitus Expected: 08/31/2024, Expires: 11/30/2024 [facility] Comment on above: Expected: 08/31/2024 , Expires: 11/30/2024 Start: 08-31-2024 End: 11-30-2024 Hemoglobin A1c in Blood HEMOGLOBIN A1C Lab Routine Screening for diabetes mellitus Expected: 08/31/2024, Expires: 11/30/2024 [facility] Comment on above: Expected: 08/31/2024 , Expires: 11/30/2024 Start: 08-31-2024 End: 11-30-2024 LIPID PANEL, NONFASTING LIPID PANEL, NONFASTING Lab Routine Encounter for lipid screening for cardiovascular disease Expected: 08/31/2024, Expires: 11/30/2024 [facility] Comment on above: Expected: 08/31/2024 , Expires: 11/30/2024 Start: 08-31-2024 End: 11-30-2024 PSA/PROSTATE SPECIFIC ANTIGEN SCREENING PSA/PROSTATE SPECIFIC ANTIGEN SCREENING Lab Routine Screening PSA (prostate specific antigen) Expected: 08/31/2024, Expires: 11/30/2024 [facility] Comment on above: Expected: 08/31/2024 , Expires: 11/30/2024 Start: 04-15-2024 Advance Directive Discussion Advance Directive Discussion [facility] Start: 12-15-2023 Covid-19 Vaccine ( season) Covid-19 Vaccine () [facility] Start: 12-15-2023 Covid-19 Vaccine () Covid-19 Vaccine () [facility] Start: 12-15-2023 Influenza vaccination Influenza Vacc ine (#1) [facility] Start: 11-07-2023 End: 02-06-2024 Hepatitis C virus Ab [Presence] in Serum [facility] Work Phone: Comment on above: Expected: 11/07/2023 , Expires: 02/06/2024 Start: 10-24-2023 End: 01-23-2024 25-hydroxyvitamin D3 [Mass/volume] in Serum or Plasma [facility] Comment on above: Expected: 10/24/2023 , Expires: 01/23/2024 Start: 10-24-2023 End: 01-23-2024 CBC W Auto Differential panel - Blood [facility] Work Phone: Comment on above: Expected: 10/24/2023 , Expires: 01/23/2024 Start: 10-24-2023 End: 01-23-2024 Comprehensive metabolic 2000 panel - Serum or Plasma [facility] Comment on above: Expected: 10/24/2023 , Expires: 01/23/2024 Start: 10-24-2023 End: 01-23-2024 Hemoglobin A1c in Blood [facility] Comment on above: Expected: 10/24/2023 , Expires: 01/23/2024 Start: 10-24-2023 End: 01-23-2024 LIPID PANEL, NONFASTING [facility] Comment on above: Expected: 10/24/2023 , Expires: 01/23/2024 Start: 10-24-2023 End: 01-23-2024 PSA/PROSTATE SPECIFIC ANTIGEN SCREENING [facility] Comment on above: Expected: 10/24/2023 , Expires: 01/23/2024 Start: 10-24-2023 End: 10-24-2023 Patient encounter procedure 10/24/2023 8:20 AM EDT Office Visit [facility] [address] [place] [address] Anupam Sutton APRN.MANAGER MAINTENANCE [address] [place] [address] annual follow up [facility] [place] Comment on above: annual follow up Start: 10-23-2023 COVID-19 VACCINE (#1) COVID-19 VACCI NE (#1) [facility] Comment on above: Postponed from 12/31 (Declined at this time) Start: 10-21-2023 COLORECTAL CANCER SCREENING COLORECTAL CANCER SCREENING [facility] Comment on above: Postponed from 06/30 (Postponed To Appropriate Date) Start: 10-21-2023 Screening for malign ant neoplasm of colon Colorectal Cancer Screening [facility] Comment on above: Postponed from 06/30 (Postponed To Appropriate Date) Start: 07-07-2023 End: 07-21-2023 COVID & INFLUENZA A/B & RSV NAAT, ROUTINE COVID & INFLUENZA A/B & RSV NAAT, ROUTINE Microbiology Routine Acute cough URI, acute Expected: 07/07/2023, Expires: 07/21/2023 [facility] Work Phone: Comment on above: Expected: 07/07/2023 , Expires: 07/21/2023 Start: 07-07-2023 End: 10-06-2023 INFLUENZA A&B MOLECULAR (POC) INFLUENZA A&B MOLECULAR (POC) Microbiology Routine Acute cough URI, acute Expected: 07/07/2023, Expires: 10/06/2023 [facility] Work Phone: Comment on above: Expected: 07/07/2023 , Expires: 10/06/2023 Start: 04-15-2023 Advance Directive Discussion Advance Directive Discussion [facility] Start: 04-15-2023 Behavioral Health Screening Behavioral Health Screening [facility] Start: 04-15-2023 Depression Assessment Depression Ass essment [facility] Start: 12-14-2022 Covid-19 Vaccine ( season) Covid-19 Vaccine () [facility] Start: 12-14-2022 Influenza vaccination C [facility] Start: 10-22-2022 End: 12-22-2022 Comprehensive metabolic 2000 panel - Serum or Plasma [facility] Work Phone: Comment on above: Expected: 10/22/2022 , Expires: 12/22/2022 Start: 10-22-2022 End: 12-22-2022 Hemoglobin A1c in Blood [facility] Work Phone: Comment on above: Expected: 10/22/2022 , Expires: 12/22/2022 Start: 10-22-2022 End: 12-22-2022 LIPID PANEL, NONFASTING [facility] Work Phone: Comment on above: Expected: 10/22/2022 , Expires: 12/22/2022 Start: 10-22-2022 End: 12-22-2022 PSA/PROSTSPECAG SCRN [facility] Work Phone: Comment on above: Expected: 10/22/2022 , Expires: 12/22/2022 Start: 04-15-2022 ADVANCE DIRECTIVE DISCUSSION ADVANCE DIRECTIVE DISCUSSION [facility] Start: 04-15-2022 DEPRESSION ASSESSMENT DEPRESSION ASS ESSMENT [facility] Start: 06-30-2016 PNEUMOCOCCAL: 65+ (1 - PCV) PNEUMOCOCCAL: 65+ (1 - PCV) [facility] Start: 2011 RSV Vaccine (1 - 1-d ose 60+ series) RSV Vaccine (1 - 1-dose 60+ series) [facility] Start: 06-30-2001 SHINGRIX VACCINE (1 of 2) SHINGRIX VACCINE (1 of 2) [facility] Start: 06-30-1996 COLOGUARD (FIT-DNA) COLOGUARD (FIT-D NA) [facility] Start: 06-30-1996 Colonoscopy COLONOSCOPY [facility] Start: 06-30-1996 COLORECTAL CANCER SCREENING COLORECTAL CANCER SCREENING [facility] Start: 06-30-[address] COLONOGRAPHY [facility] Start: 06-30-1996 DIABETES SCREEN DIABETES SCREEN [facility] Start: 06-30-1996 FECAL OCCULT BLOOD FECAL OCCULT BLOO D [facility] Start: 06-30-1996 Screening for malign ant neoplasm of colon [facility] Start: 06-30-1996 SIGMOIDOSCOPY SIGMOIDOSCOPY [facility] Start: 06-30-1986 LIPID SCREEN LIPID SCREEN [facility] Start: 06-30-1970 Urine microalbumin profile DTAP,TDAP,TD (1 - Tdap) [facility] Start: 06-30-1969 HEPATITIS C SCREENING HEPATITIS C [facility] Start: 06-30-1969 Hepatitis C screening Hepatitis C [facility] Start: 01-01-1952 COVID-19 VACCINE (#1) COVID-19 VACCI NE (#1) [facility] End: 08-05-2024 XR Chest PA and Lateral XR CHEST 2V FRONTAL/LAT Radiology STAT Acute cough URI, acute 1 Occurrences starting 07/07/2023 until 08/05/2024 [facility] Work Phone: Comment on above: 1 Occurrences starti ng 07/07/2023 until 08/05/2024 End: 10-08-2024 XR Chest PA and Lateral XR CHEST 2V FRONTAL/LAT Radiology STAT Bronchitis 1 Occurrences starting 09/09/2023 until 10/08/2024 [facility] Work Phone: Comment on above: 1 Occurrences starti ng 09/09/2023 until 10/08/2024 End: 10-22-2025 XR Hand - left PA and Lateral and Oblique XR HAND GENERAL 3V PA/LAT/OBL LEFT Radiology Routine Pain of left thumb 1 Occurrences starting 09/22/2024 until 10/22/2025 [facility] Work Phone: Comment on above: 1 Occurrences starti ng 09/22/2024 until 10/22/2025 XR Hand - left PA an d Lateral and Oblique XR HAND GENERAL 3V PA/LAT/OBL LEFT Radiology Routine Pain of left thumb 09/22/2024 9:26 AM EDT [facility] End: 10-22-2025 XR Mandible 4 Views XR MANDIBLE 4V PA/BO/BOTH OBL Radiology STAT Jaw pain 1 Occurrences starting 09/22/2024 until 10/22/2025 [facility] Comment on above: 1 Occurrences starti ng 09/22/2024 until 10/22/2025 XR Mandible 4 Views XR MANDIBLE 4V PA/BO/BOTH OBL Radiology STAT Jaw pain 09/22/2024 9:26 AM EDT [facility] Immunizations Immunization Date Immunization Notes Care Provider Gaetano fitch 02-01-2023 influenza (HD-IIV4) vaccine, age 65+ yr, high dose, quadrivalent, PF (FLUZONE HIGH-DOSE) Anupam Sutton APRN.MANAGER MAINTENANCE Work Phone: [facility] 02-01-2023 influenza virus vaccine, unspecified formulation Anupam Sutton APRN.MANAGER MAINTENANCE Work Phone: [facility] 10-22-2022 pneumococcal (PCV20) vaccine, 20 valent (PREVNAR 20) Anupam Sutton APRN.MANAGER MAINTENANCE Work Phone: [facility] 10-22-2022 tetanus toxoid, redu raven diphtheria toxoid, and acellular pertussis vaccine, adsorbed Anupam Sutton APRN.MANAGER MAINTENANCE Work Phone: [facility] 10-22-2022 pneumococcal Conjuga te, unspecified formulation Anupam Sutton QUANTITATIVE MANAGER.MANAGER MAINTENANCE Work Phone: [facility] Work Phone: 06-13-2020 COVID-19 original vaccine, full dose, monovalent (MODERNA) Anupam Sutton APRN.MANAGER MAINTENANCE Work Phone: [facility] 05-16-2020 COVID-19 original vaccine, full dose, monovalent (MODERNA) Anupam Sutton QUANTITATIVE MANAGER.MANAGER MAINTENANCE Work Phone: [facility] Payers Date Payer Category Payer Medicare (Managed Care) [employer] O [id number] 2022 Unknown [id number] 2022 Medicare [id number] Social History Date Type Detail Facility [facility] smoking consumption unknown [facility] Start: 1950 Sex Assigned At Male [facility] Start: 10-22-2022 Tobacco smoking status NHIS Never smoked tobacco [facility] Work Phone: Start: 10-22-2022 Tobacco use and exposure Smokeless tobacco non-user [facility] Work Phone: Start: 10-22-2022 End: 02-26-2024 Alcohol intake Not Asked [facility] Start: 10-15-2022 End: 10-23-2023 History of Social function [facility] Start: 10-15-2022 End: 10-23-2023 Social connection and isolation panel [facility] Do you belong to any clubs or organizations such as nondenominational groups, unions, fraternal or athletic groups, or school groups? Yes [facility] Are you now , , , , never or living with a partner? [facility] How often to you hav e a drink containing alcohol? 2-4 times a month [facility] How many standard dr inks containing alcohol do you have on a typical day? 1 or 2 [facility] How often do you hav e 6 or more drinks on 1 occasion? Never [facility] How hard is it for y ou to pay for the very basics like food, housing, medical care, and heating Not hard at all [facility] Do you feel stress - tense, restless, nervous, or anxious, or unable to sleep at night because your mind is troubled all the time - these days [OSQ] Not at all [facility] (I/We) worried carlo er (my/our) food would run out before (I/we) got money to buy more. Never true [facility] In the past 12 month s, was there a time when you were not able to pay the mortgage or rent on time? No [facility] Start: 10-22-2022 Alcohol Comment occasionally [facility] How often to you hav e a drink containing alcohol? 2-3 time sa week [facility] Clinical Notes 10-10-2022 to 10-10-2024 Telephone Encounter - Maria M Bucio RN - 10/10/2024 6:14 PM EDTTelephone Encounter - Maria M Bucio RN - 10/10/2024 6:14 PM EDTGshaynaKarly, RT(R) - 09/22/2024 9:00 AM EDT Note Date & Type Note Facility 10-10-2024 Telephone encounter Note Reason for Call: chest pain and shortness of breath. Per patient cannot breath when exerting himself as well as has pain and burning in his chest. Per they attempted a walk and he was gasping for breath. Patient does get better with rest. This has been happening for a week. Outcome: Call 911 now. Reason for Disposition [1] Chest pain lasts > 5 minutes AND [2] age > 44 Protocols used: Chest [id number] [facility] 10-10-2024 Miscellaneous Notes Reason for Call: chest pain and shortness of breath. Per patient cannot breath when exerting himself as well as has pain and burning in his chest. Per they attempted a walk and he was gasping for breath. Patient does get better with rest. This has been happening for a week. Outcome: Call 911 now. Reason for Disposition [1] Chest pain lasts > 5 minutes AND [2] age > 44 Protocols used: Chest [id number] documented in this encounter [facility] 09-29-2024 Telephone encounter Note Pt called and is notified of providers message and instructions. Pt voices understanding. Mariah Richards RN [facility] 09-29-2024 Miscellaneous Notes Pt called and is notified of providers message and instructions. Pt voices understanding. Mariah Richards RN Left message for patient to return call to office Mary Alice Valadez MA Would recommend seeing dentist to evaluate for modular home crew member, may help decrease TMJ symptoms. Pt notified [...] needed for pain/swelling. documented in this encounter [facility] 09-29-2024 Telephone encounter Note Left message for patient to return call to office Mary Alice Valadez MA [facility] 09-28-2024 Telephone encounter Note Would recommend seeing dentist to evaluate for modular home crew member, may help decrease TMJ symptoms. [facility] 09-28-2024 Telephone encounter Note Pt notified and verbalized understanding. Pt states he is still having jaw pain and would like to know if there is anything else you can do/ recommend for this? Mary Alice Valadez MA [facility] 09-28-2024 Telephone encounter Note Please let patient know his mandible xray is normal. 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 Patient may take tylenol and ibuprofen as needed for pain/swelling. [facility] 09-22-2024 History of Presen t [...] PATIENT PRESENTS WITH AN IMPLANTABLE OR ATTACHED NEWS PRODUCER: No RADIOLOGY DEPARTMENT: General X-ray: Exam(s) Completed: Upper Extremity X-Ray(s): Hand, left Mandible PERIPHERAL IV DATA: Not applicable SIGNED BY: RT Yadi(Chris) September 22, 2024 8:56 AM documented in this encounter [facility] 09-22-2024 Note HNO ID: [id number] Author: KARLY SALAZAR RT(Chris) Service: ? Author Type: Technologist Type: Progress [...] PATIENT PRESENTS WITH AN IMPLANTABLE OR ATTACHED NEWS PRODUCER: No RADIOLOGY DEPARTMENT: General X-ray: Exam(s) Completed: Upper Extremity X-Ray(s): Hand, left Mandible PERIPHERAL IV DATA: Not applicable SIGNED BY: RT Yadi(R) September 22, 2024 8:56 AM [facility] 09-22-2024 Note HNO ID: [id number] Author: ANUPAM SUTTON APRN.CNP Service: ? Author [...] care team: Patient Care Team: Anupam Sutton APRN.MANAGER MAINTENANCE as PCP - General (Family Medicine) Medical/Family [...] 17.0 g/dL 16 (more content not included)... [facility] 09-22-2024 History of Presen t illness [...] care team: Patient Care Team: Anupam Sutton APRN.MANAGER MAINTENANCE as PCP - General (Family Medicine) Medical/Family [...] Abs Lymph 1.00 - 4.00 k/uL 1.72 Stevens% % 7.8 Abs Stevens <0.87 k/uL 0.54 Eosin% % 3.3 Abs [...] ICD10: R68.84 - XR MANDIBLE Anupam Sutton APRN.CNP documented in this encounter [facility] 09-22-2024 Instructions Anupam Sutton APRN.CNP - 09/22/2024 8:12 AM EDT -Complete xrays of jaw and left thumb - Start tamsulosin Screening schedule The following prevention plan is recommended: Colorectal Cancer Screening Never done Covid-19 Vaccine() due on 12/15/2023 Advance Directive Discussion due [...] review all the medicines you take, even qihv-vfr-bmcdept medicines. As you get older, the way [...] certain medical conditions. documented in this encounter [facility] 08-31-2024 Telephone encounter Note Pt notified and verbalized understanding Mary Alice Valadez MA [facility] 08-31-2024 Miscellaneous Notes Pt notified [...] Margie Huntley LPN documented in this encounter [facility] 08-31-2024 Telephone encounter Note Please let patient know his labs have been ordered and can be completed at his convenience. [facility] 08-31-2024 Telephone encounter Note Pt has an annual appt in September. Pt is requesting lab orders. Pt would like a PSA included in lab orders. Call pt when labs have been ordered. Margie Huntley LPN [facility] 05-29-2024 Telephone encounter Note Called and spoke with patient. Questioning wait time to cardiology for his . See wifes chart. [facility] 05-29-2024 Miscellaneous Notes Called and [...] doesn't call him. documented in this encounter [facility] 05-29-2024 Telephone encounter Note Pt [...] her back then she doesn't call him. [facility] 02-26-2024 Note HNO ID: [id number] Author: FLACO BARKER MD Service: ? Author [...] or late onset fever. Flaco Barker MD [facility] 02-26-2024 History of Presen t illness Narrative [...] Flaco Barker MD documented in this encounter [facility] 11-07-2023 Note HNO ID: [id number] Author: ANUPAM SUTTON APRN.MANAGER MAINTENANCE Service: ? Author Type: Nurse Practitioner Type: [...] 1-dose 60+ series) Never done Covid-19 Vaccine( season) due on 10/23/2024 Influenza Vaccine(1) due [...] of records for Dr. Ez Hernandez in [place], [place]. 2. Special screening examination for viral disease - ICD9: V73.99, ICD10: Z11.59 - HEPATITIS C ANTIBODY IA WITH CONFIRMATION 3. Encounter for immunization - ICD9: V03.89, ICD10: Z23 -RSV recommended, will obtain at Clint Sutton APRN.REBECA [facility] 11-07-2023 History of Presen t illness Narrative [...] of records for Dr. Ez Hernandez in [place], [place]. 2. Special screening examination for viral disease - ICD9: V73.99, ICD10: Z11.59 - HEPATITIS C ANTIBODY IA WITH CONFIRMATION 3. Encounter for immunization - ICD9: V03.89, ICD10: Z23 -RSV recommended, will obtain at [facility] Yue Sutton APRN.CNP documented in this encounter [facility] 10-25-2023 Telephone encounter Note Called and left a detailed voicemail notifying patient of providers message. Clinic phone number was left in case patient had any questions. Mariah Richards RN [facility] 10-25-2023 Miscellaneous Notes Called and left a detailed voicemail notifying patient of providers message. Clinic phone number was left in case patient had any questions. Mariah Richards RN Please let patient know their labs are stable. documented in this encounter [facility] 10-24-2023 Telephone encounter Note Please let patient know their labs are stable. [facility] 10-24-2023 Instructions Anupam Sutton APRN.CNP - 10/24/2023 8:48 AM EDT Screening schedule [...] review all the medicines you take, even tfuo-byt-prlawqi medicines. As you get older, the way [...] certain medical conditions. documented in this encounter [facility] 10-24-2023 Note HNO ID: [id number] Author: ANUPAM SUTTON APRN.MANAGER MAINTENANCE Service: ? Author Type: Nurse Practitioner Type: [...] a day as needed for cough. Saw [place] 500 mg cap Take 1 capsule by mouth once daily. (Patient not taking: Reported on 09/07/2023) ocbmerz-drur-jijwi-oreg-capryl 100 mg-150 mg- 50 mg-150 mg cap [...] - 1-dose 60+ series) Never done Covid-19 Vaccine(2022-24 season) Never done Advance Directive Discussion Never [...] VITAMIN D 25 HYDROXY Anupam Sutton APRN.REBECA Masterson is a 73 year old male [...] care team: Patient Care Team: Anupam Sutton APRN.REBECA as PCP - General (Family Medicine) Medical/Family history review Reviewed and updated problem list, medical/surgical/family/social history, medications, and allergies. Opioid use (more content not included)... [facility] 10-24-2023 History of Presen t illness Narrative [...] a day as needed for cough. Saw [place] 500 mg cap Take 1 capsule by mouth once daily. (Patient not taking: Reported on 09/07/2023) jvlmerp-pgvq-zajdq-oreg-capryl 100 mg-150 mg- 50 mg-150 mg cap [...] - 1-dose 60+ series) Never done Covid-19 Vaccine(2022-24 season) Never done Advance Directive Discussion Never [...] E55.9 - VITAMIN D 25 HYDROXY Anupam Sutton, QUANTITATIVE MANAGER.REBECA Masterson is a 73 year old male [...] height on file. documented in this encounter [facility] 09-11-2023 History of Presen t illness Narrative This note was created using KeepIdeasriter. Subjective Jimbo Masterson is a 73 year [...] 1 capsule by mouth once daily. Saw [place] 500 mg cap Take 1 capsule by mouth once daily. (Patient not taking: Reported on 09/07/2023) uuzrcay-vkgn-kgjfc-oreg-capryl 100 mg-150 mg- 50 mg-150 mg cap [...] evaluation. LINDY Castellanos documented in this encounter [facility] 09-10-2023 Telephone encounter Note Left detailed message on a secured voicemail. Krupa Lee MA [facility] 09-10-2023 Miscellaneous Notes Left detailed message on a secured voicemail. Krupa Lee MA Let patient know his chest xray shows no pneumonia. Continue plan of care with medications prescribed yesterday. documented in this encounter [facility] 09-10-2023 Telephone encounter Note Let patient know his chest xray shows no pneumonia. Continue plan of care with medications prescribed yesterday. [facility] 09-10-2023 History of Presen t [...] PATIENT PRESENTS WITH AN IMPLANTABLE OR ATTACHED NEWS PRODUCER: No RADIOLOGY DEPARTMENT: General X-ray: Exam(s) Completed: Chest X-Ray PERIPHERAL IV DATA: Not applicable SIGNED BY: RT Keith(R) September 10, 2023 10:36 AM documented in this encounter [facility] 09-09-2023 History of Presen t illness Narrative This note was created using KeepIdeasriter. Subjective Jimbo Masterson is a 73 year [...] wheezing/shortness of breath. 1 Each 0 Saw [place] 500 mg cap Take 1 capsule by mouth once daily. (Patient not taking: Reported on 09/07/2023) nlnjedy-pzel-hstad-oreg-capryl 100 mg-150 mg- 50 mg-150 mg cap [...] Bhakti Guerrero PA-C documented in this encounter [facility] 09-07-2023 Instructions Denise Evangelista APRN.MANAGER MAINTENANCE - 09/07/2023 8:23 AM EDT ASSESSMENT/PLAN: 1. [...] Discussed expected course of illness Denise Evangelista APRN.MANAGER MAINTENANCE Treatment for Viral Upper Respiratory Tract Infections [...] fluids help open respiratory and sinus passages [place] may offer relief of nasal and head [...] rather than better documented in this encounter [facility] 09-07-2023 History of Presen t [...] (Patient not taking: Reported on 09/07/2023) Saw [place] 500 mg cap Take 1 capsule by mouth once daily. (Patient not taking: Reported on 09/07/2023) ylyvzmv-suxh-hkhxp-oreg-capryl 100 mg-150 mg- 50 mg-150 mg cap [...] Discussed expected course of illness Denise Evangelista APRN.MANAGER MAINTENANCE documented in this encounter [facility] 07-08-2023 Miscellaneous Notes CXR negative No pneumonia or masses. Reach out and patient endorses that he feels 50 percent better. Nasal congestion and sinus pressure remain. Will provide safety net ATB, post dated if sx persist past 10 days. Does not need to fill if sx improve. Amicable to plan. documented in this encounter [facility] 07-08-2023 History of Presen t [...] PATIENT PRESENTS WITH AN IMPLANTABLE OR ATTACHED NEWS PRODUCER: No RADIOLOGY DEPARTMENT: General X-ray: Exam(s) Completed: Chest X-Ray PERIPHERAL IV DATA: Not applicable SIGNED BY: RT Blas(R) July 08, 2023 8:19 AM documented in this encounter [facility] 07-07-2023 Instructions Erin Mathis APRN.MANAGER MAINTENANCE - 07/07/2023 9:03 AM EDT RESPIRATORY INFECTION [...] by coughs, sneezes, and direct contact, especially qfno-gg-tvci. A respiratory tract infection usually clears up [...] F (39 C). documented in this encounter [facility] 07-07-2023 History of Presen t illness Narrative This note was created using Semasio. Masha Masterson is a 73 year old male. [...] a day as needed for cough. Saw [place] 500 mg cap Take 1 capsule by mouth once daily. (Patient not taking: Reported on 02/01/2023) uqimruj-blmu-zdihk-oreg-capryl 100 mg-150 mg- 50 mg-150 mg cap [...] tenderness or frontal sinus tenderness. Mouth/Throat: Lips: [place]. No lesions. Mouth: Mucous membranes are moist. [...] RSV NAAT, ROUTINE Sandrita Argueta TEACHING PROVIDER (Physician/PA/QUANTITATIVE MANAGER) NOTE OF PERSONAL INVOLVEMENT IN CARE: I have personally seen and examined the patient and performed the medical decision-making components. I have reviewed the Advanced Practice Registered Nurse (QUANTITATIVE MANAGER) Student's documentation and verified the findings in the note as written. Any additions or changes are noted in bold/italics. Signature: Erin Mathis Date: 07/07/2023 Time: 9:35 AM documented in this encounter [facility] 02-01-2023 History of Presen t illness Narrative Chief Complaint Patient presents with: Ear Problem: Ringing in ears HPI Jimbo Masterson is a 72 year [...] on File Prior to Visit Medication Sig btnnohg-ptws-mprty-oreg-capryl 100 mg-150 mg- 50 mg-150 mg cap Take 2 capsules by mouth once daily. vit C/olive leaf ext/beta-gluc (IMMUNE ESSENTIALS ORAL) Take 1 capsule by mouth once daily. Saw [place] 500 mg cap Take 1 capsule by [...] H93.19 - CONSULT TO ENT Anupam Sutton APRN.MANAGER MAINTENANCE documented in this encounter [facility] 01-28-2023 Miscellaneous Notes Scheduled patient [...] advise the patient. documented in this encounter [facility] 10-25-2022 Miscellaneous Notes Pt returns call gave information provided. He voices understanding. Left message for patient to return call to office Mary Alice Valadez Cma Please let patient know his cholesterol is mildly elevated but his labs are otherwise normal. documented in this encounter [facility] 10-22-2022 Instructions Anupam Sutton APRN.CNP - 10/22/2022 9:48 AM EDT Continue current supplementation Complete labs Follow up in 1 year documented in this encounter [facility] 10-22-2022 History of Presen t illness Narrative Chief Complaint Patient presents with: [facility] Jimbo Masterson is a 72 year old male who presents here today for Above Complaints.. Patient presents to [facility]. Patient reports he does not currently have any medical problems and is not on any medications. Patient recently moved from [place]. Past medical history, appointments, medications, allergies reviewed. [...] at this time. - Patient was counseled qajz-dz-arvv by myself (the billing provider) for the [...] one year - PSA/PROSTSPECAG SCRN Anupam Sutton APRN.MANAGER MAINTENANCE documented in this encounter [facility] 10-10-2022 History of Presen t illness Narrative This note was created using Semasio. Masha Masterson is a 72 year old male. HPI Patient presents with a rash on his bilateral arms and legs over the past 4 days. He was cleaning out some brush around his new house and thinks he may have gotten into some poison karyn. It is very itchy. He has tried an vlhy-tqs-lbjekdk spray for itch without relief. No fevers [...] Bhakti Guerrero PA-C documented in this encounter [facility] Evaluation note Diagnosis Allergic contact dermatitis due to plants, except food- Primary Contact dermatitis and other eczema due to plants (except food) [facility] Encounter for immunization- Primary Need for other specified prophylactic vaccination against single bacterial disease Wellness examination Screening for diabetes mellitus Encounter for lipid screening for cardiovascular disease Screening for lipoid disorders Screening PSA (prostate specific antigen) Special screening for malignant neoplasm of prostate [facility] Encounter for immunization- Primary Need for other specified prophylactic vaccination against single bacterial disease Tinnitus, unspecified laterality [facility] Diagnosis Acute cough- Primary URI, acute Acute upper respiratory infections of unspecified site [facility] Acute cough- Primary Sore throat Acute pharyngitis Body aches Generalized pain [facility] Diagnosis Bronchitis- Primary Bronchitis, not specified as acute or chronic [facility] [place] [facility] Diagnosis Hoarseness of voice- Primary Dysphonia [facility] [place] [facility] Diagnosis Wellness examination- Primary Encounter for lipid screening for cardiovascular disease Screening for lipoid disorders Screening for diabetes mellitus Screening PSA (prostate specific antigen) Special screening for malignant neoplasm of prostate Vitamin D deficiency Unspecified vitamin D deficiency Farsightedness, bilateral Vision decreased Unspecified visual loss [facility] [place] [facility] Diagnosis Screening for colon cancer- Primary Special screening for malignant neoplasms, colon Special screening examination for viral disease Special screening examination for unspecified viral disease Encounter for immunization Need for other specified prophylactic vaccination against single bacterial disease [facility] [place] [facility] Diagnosis Bronchitis Bronchitis, not specified as acute or chronic [facility] [place] [facility] Diagnosis Acute cough URI, acute Acute upper respiratory infections of unspecified site [facility] [place] [facility] Diagnosis URI with cough and congestion- Primary documented in this encounter [facility]* Diagnosis Vitamin D deficiency- Primary Unspecified vitamin D deficiency Encounter for lipid screening for cardiovascular disease Screening for lipoid disorders Screening for diabetes mellitus Screening PSA (prostate specific antigen) Special screening for malignant neoplasm of prostate Wellness examination [facility] [place] [facility] Diagnosis Medicare annual wellness visit, subsequent- Primary Routine general medical examination at a health care facility Wellness examination Farsightedness, bilateral 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 Pain of left thumb Pain in limb Tinnitus of both ears Unspecified tinnitus Jaw pain [facility] [place] [facility] Diagnosis Pain of left thumb Pain in limb Jaw pain documented in this encounter [facility] for visit Narrative* Diagnostic Procedure Only (Urgent) - Closed Specialty Diagnoses / Procedures Referred By Contac t Referred To Contact XR IMAGING Diagnoses Jaw pain Procedures XR MANDIBLE 4V PA/BO/BOTH OBL RADIOLOG EXAM MANDIBLE COMPL MINIMUM 4 VIEWS Anupam Sutton APRN.MANAGER MAINTENANCE [address] [place] [address] Phone: tel: fax: [place] [phone] Referral ID Status Reason Start Date Expiration Date V isits Requested Visits Authorized [id number] Closed Auto-Generate d Referral 09/22/2024 10/22/2025 1 1 [facility] Reason for Referral Specialty Diagnoses / Procedures Referred By Contac t Referred To Contact Ent - Otolaryngology Diagnoses Tinnitus, unspecified laterality Procedures CONSULT TO ENT Anupam Sutton APRN.MANAGER MAINTENANCE [address] [place] [address] [address] [place] [address] Referral ID Status Reason Start Date Expiration Date Visits Requested Visits Authorized [id number] Ref Not Required PCP Requested Referral 3 02/01/2024 1 1 Specialty Diagnoses / Procedures Referred By Contac t Referred To Contact Ophthalmology Diagnoses Vision decreased Procedures CONSULT TO OPHTHALMOLOGY OFFICE/OUTPATIENT NEW HIGH MDM 60 MINUTES Anupam Sutton APRN.MANAGER MAINTENANCE [address] [place] [address] Referral ID Status Reason Start Date Expiration Date Visits Requested Visits Authorized [id number] Authorized PCP Requested Referral 10/24/2023 10/23/2024 1 [...] or prosecute any alcohol or drug abuse patient.[facility] the event this information is protected by the Federal Confidentiality of Alcohol and Drug Abuse Patient Records regulations: The Federal rules restrict any use of the information to criminally investigate or prosecute any alcohol or drug abuse patient.[facility] the event this information is protected by the Federal Confidentiality of Alcohol and Drug Abuse Patient Records regulations: The Federal rules restrict any use of the information to criminally investigate or prosecute any alcohol or drug abuse patient.[facility] the event this information is protected by the Federal Confidentiality of Alcohol and Drug Abuse Patient Records regulations: The Federal rules restrict any use of the information to criminally investigate or prosecute any alcohol or drug abuse patient.[facility] the event this information is protected by the Federal Confidentiality of Alcohol and Drug Abuse Patient Records regulations: The Federal rules restrict any use of the information to criminally investigate or prosecute any alcohol or drug abuse patient.[facility] the event this information is protected by the Federal Confidentiality of Alcohol and Drug Abuse Patient Records regulations: The Federal rules restrict any use of the information to criminally investigate or prosecute any alcohol or drug abuse patient.[facility] the event this information is protected by the Federal Confidentiality of Alcohol and Drug Abuse Patient Records regulations: The Federal rules restrict any use of the information to criminally investigate or prosecute any alcohol or drug abuse patient.[facility] the event this information is protected by the Federal Confidentiality of Alcohol and Drug Abuse Patient Records regulations: The Federal rules restrict any use of the information to criminally investigate or prosecute any alcohol or drug abuse patient.[facility] the event this information is protected by the Federal Confidentiality of Alcohol and Drug Abuse Patient Records regulations: The Federal rules restrict any use of the information to criminally investigate or prosecute any alcohol or drug abuse patient.[facility] Center[facility] the event this information is protected by the Federal Confidentiality of Alcohol and Drug Abuse Patient Records regulations: The Federal rules restrict any use of the information to criminally investigate or prosecute any alcohol or drug abuse patient.[facility] Center[facility] the event this information is protected by the Federal Confidentiality of Alcohol and Drug Abuse Patient Records regulations: The Federal rules restrict any use of the information to criminally investigate or prosecute any alcohol or drug abuse patient.[facility] Center[facility] the event this information is protected by the Federal Confidentiality of Alcohol and Drug Abuse Patient Records regulations: The Federal rules restrict any use of the information to criminally investigate or prosecute any alcohol or drug abuse patient.[facility] CenterIn the event this information is [...] or prosecute any alcohol or drug abuse patient.[facility] Center[facility] the event this information is protected by the Federal Confidentiality of Alcohol and Drug Abuse Patient Records regulations: The Federal rules restrict any use of the information to criminally investigate or prosecute any alcohol or drug abuse patient.[facility] Center[facility] the event this information is protected by the Federal Confidentiality of Alcohol and Drug Abuse Patient Records regulations: The Federal rules restrict any use of the information to criminally investigate or prosecute any alcohol or drug abuse patient.[facility] Center[facility] the event this information is protected by the Federal Confidentiality of Alcohol and Drug Abuse Patient Records regulations: The Federal rules restrict any use of the information to criminally investigate or prosecute any alcohol or drug abuse patient.[facility] Center[facility] the event this information is protected by the Federal Confidentiality of Alcohol and Drug Abuse Patient Records regulations: The Federal rules restrict any use of the information to criminally investigate or prosecute any alcohol or drug abuse patient.[facility] CenterIn the event this information is protected by the Federal Confidentiality of Alcohol and Drug Abuse Patient Records regulations: The Federal rules restrict any use of the information to criminally investigate or prosecute any alcohol or drug abuse patient.[facility] Center[facility] the event this information is protected by the Federal Confidentiality of Alcohol and Drug Abuse Patient Records regulations: The Federal rules restrict any use of the information to criminally investigate or prosecute any alcohol or drug abuse patient.[facility] CenterIn the event this information is protected by the Federal Confidentiality of Alcohol and Drug Abuse Patient Records regulations: The Federal rules restrict any use of the information to criminally investigate or prosecute any alcohol or drug abuse patient.[facility] CenterIn the event this information is protected by the Federal Confidentiality of Alcohol and Drug Abuse Patient Records regulations: The Federal rules restrict any use of the information to criminally investigate or prosecute any alcohol or drug abuse patient.[facility] CenterIn the event this information is protected by the Federal Confidentiality of Alcohol and Drug Abuse Patient Records regulations: The Federal rules restrict any use of the information to criminally investigate or prosecute any alcohol or drug abuse patient.[facility] Reason for Visit (unrecogniz ed [...] Lab Orders Reason Comments Medicare Wellness Exam Reason Comments Chest Pain Shortness of Breath Care Teams (unrecognized sec tion and content) Rug Cleaner Helper Relationship Specialty Start Date End Date Anupam Sutton APRN.MANAGER MAINTENANCE [address] [place] [address] PCP - General Family Medicine 10/22/22 Rug Cleaner Helper Relationship Specialty Start Date End Date Anupam Sutton APRN.MANAGER MAINTENANCE [address] [place] [phone] PCP - General Family Medicine 10/22/22 Rug Cleaner Helper Relationship Specialty Start Date End Date Anupam Sutton APRN.MANAGER MAINTENANCE [address] [place] [phone] PCP - General Family Medicine 10/22/22 Rug Cleaner Helper Relationship Specialty Start Date End Date Anupam Sutton APRN.MANAGER MAINTENANCE [address] [place] [phone] PCP - General Family Medicine 10/22/22 Rug Cleaner Helper Relationship Specialty Start Date End Date Anupam Sutton APRN.MANAGER MAINTENANCE [address] [place] [phone] PCP - General Family Medicine 10/22/22 Rug Cleaner Helper Relationship Specialty Start Date End Date Anupam Sutton APRN.MANAGER MAINTENANCE [address] [place] [phone] PCP - General Family Medicine 10/22/22 Rug Cleaner Helper Relationship Specialty Start Date End Date Anupam Sutton APRN.MANAGER MAINTENANCE [address] [place] [phone] PCP - General Family Medicine 10/22/22 Rug Cleaner Helper Relationship Specialty Start Date End Date Anupam Sutton APRN.MANAGER MAINTENANCE [address] [place] [phone] PCP - General Family Medicine 10/22/22 Rug Cleaner Helper Relationship Specialty Start Date End Date Anuapm Sutton APRN.MANAGER MAINTENANCE [address] [place] [address] [phone] PCP - General Family Medicine 10/22/22 Rug Cleaner Helper Relationship Specialty Start Date End Date Anupam Sutton APRN.MANAGER MAINTENANCE [address] [place] [address] [phone] PCP - General Family Medicine 10/22/22 Rug Cleaner Helper Relationship Specialty Start Date End Date Anupam Sutton QUANTITATIVE MANAGER.MANAGER MAINTENANCE [address] [place] [phone] PCP - [facility] Medicine 10/22/22 Rug Cleaner Helper Relationship Specialty Start Date End Date Anupam Sutton, QUANTITATIVE MANAGER.MANAGER MAINTENANCE [address] [place] [phone] PCP - [facility] Medicine 10/22/22 Rug Cleaner Helper Relationship Specialty Start Date End Date Anupam Sutton QUANTITATIVE MANAGER.MANAGER MAINTENANCE [address] [place] [phone] [facility]CP [facility] [facility] 10/22/22 Rug Cleaner Helper Relationship Specialty Start Date End Date Anupam Sutton QUANTITATIVE MANAGER.MANAGER MAINTENANCE [address] [place] [id number] PCP - General Family Medicine 10/22/22 (unrecognized sect ion and content) No Status Records Found INFORMATION SOURCE (unrecogn ized section and content) DATE CREATED AUTHOR 09/29/2024 [facility] FOR RECORDS PERTAINING TO PATIENTS WHO ARE [...] BE BASED ON THE PRIMARY CLINICAL RECORDS. [facility]. provides no warranty or guarantee of the accuracy or completeness of information in this document.
--- NOTE | 2024-10-10 23:29 | EKG12_ITS ---
Test Reason : CP Blood Pressure : */* mmHG Vent. Rate : 68 BPM Atrial Rate : 68 BPM P-R Int : 186 ms QRS Dur : 96 ms QT Int : 402 ms P-R-T Axes : 50 37 -15 degrees QTcB Int : 427 ms Normal sinus rhythm Inferior infarct , age undetermined Anterolateral infarct , age undetermined Abnormal ECG When compared with ECG of 11-Oct-2024 00:07, MANUAL COMPARISON REQUIRED DATA IS UNCONFIRMED Confirmed by KYMBERLY DAVENPORT, MASSIEL ([id number]), film editor supervisor FERMÍN ONEILL ([id number]) on 10/14/2024 8:10:42 AM Referred By: Andres Weiss Confirmed By: MASSIEL TRAYLOR MD
[2024-10-11 01:08] LABS: Troponin T High Sens 4 HR 27 ng/L (<=22)
[2024-10-11 05:00] VITALS: BMI 27.9
[2024-10-11 05:13] VITALS: BP 141/81; PULSE 58; RESP 13; TEMP 36.5; O2SAT 97
[2024-10-11 05:46] LABS: Hematocrit 40.7 % (40-54); Hemoglobin 14.1 g/dL (13.0-16.5); Immature Granulocytes Count 0.020 X10^3/uL (0.0-0.0); Mean Corp Hgb Conc 34.6 g/dL (32-36); Mean Corpuscular Volume 83.9 fL (80-94); Mean Platelet Vol. 10.5 fl (6.2-12.0); NRBC Flagged by Analyzer 0 % (0-5); Platelet Count 159 K/mm3 (150-450); RBC Distribution Width CV 13.4 % (11.6-14.6); RBC Distribution Width SD 40.6 fl (35.1-43.9); Red Blood Count 4.85 M/mm3 (4.6-6.2); White Blood Count 6.2 K/mm3 (4.4-11.0)
[2024-10-11 06:10] LABS: AST(SGOT) 21 U/L (<=37); Alanine Aminotransfer ALT/SGPT 25 U/L (<=46); Albumin, Serum 3.8 g/dL (3.4-4.8); Alkaline Phosphatase 50 U/L (40-129); Anion Gap 9 (5-15); BUN 19 mg/dL (4-19); BUN/Creat Ratio 20.2 RATIO (10-20); Calcium,Total 9.0 mg/dL (7.6-11.0); Carbon Dioxide 24.8 mmol/L (21.0-32.0); Chloride 108 mmol/L (98-108); Estimated Creatinine Clearance 75.05 ml/min (50-250); Globulin 2.2 g/dL (2.2-4.2); Glucose 96 mg/dL (70-99); Potassium 3.7 mmol/L (3.3-5.1)
--- NOTE | 2024-10-11 07:44 | PN.HOSP_ITS ---
Reason for Visit Reason for Visit: Diagnoses Chest pain, unspecified (10/10/24) Objective Data Objective Data Vital Signs: Vital Signs Temp Pulse Resp BP Pulse Ox O2 Del Method 97.7 F L 58 L 13 141/81 H 97 Room Air 10/11/24 05:13 10/11/24 05:13 10/11/24 05:13 10/11/24 05:13 10/11/24 05:13 10/11/24 05:13 Oxygen Delivery Method Room Air Weight: 188 lb 7.924 oz Body Mass Index (BMI) 27.9 Intake & Output: Intake and Output for Last 24 Hours 10/09/24 10/10/24 10/11/24 23:59 23:59 23:59 Intake Total 0 / 0 Balance 0 / 0 Lab / Micro Data 10/11/24 05:30 10/11/24 05:30 Labs: Laboratory Results - last 24 hr 10/10/24 19:30: WBC 7.5, RBC 5.09, Hgb 14.9, Hct 42.7, MCV 83.9, MCH 29.3, MCHC 34.9, RDW Std Deviation 40.6, RDW Coeff of Anila 13.2, Plt Count 184, MPV 10.6, Immature Gran % (Auto) 0.400, Neut % (Auto) 62.4, Lymph % (Auto) 22.7, Rains % (Auto) 10.6 H, Eos % (Auto) 3.5, Baso % (Auto) 0.4, Absolute Neuts (auto) 4.7, Absolute Lymphs (auto) 1.71, Nucleated RBC % 0, Sodium 142, Potassium 3.6, Chloride 108, Carbon Dioxide 21.3, Anion Gap 12, BUN 25 H, Creatinine 1.01, Est GFR (MDRD) Non-Af 79, BUN/Creatinine Ratio 24.3 H, Glucose 109 H, Calcium 9.2, Troponin T High Sens 19, NT pro BNP II 296 10/10/24 21:35: Magnesium 1.9, Troponin T Hi Sens 2 Hr 28 H 10/11/24 00:09: Troponin T Hi Sens 4Hr 27 H 10/11/24 05:30: WBC 6.2, RBC 4.85, Hgb 14.1, Hct 40.7, MCV 83.9, MCH 29.1, MCHC 34.6, RDW Std Deviation 40.6, RDW Coeff of Anila 13.4, Plt Count 159, MPV 10.5, Immature Gran % (Auto) 0.300, Neut % (Auto) 55.4, Lymph % (Auto) 29.2, Rains % (Auto) 10.6 H, Eos % (Auto) 4.0, Baso % (Auto) 0.5, Absolute Neuts (auto) 3.5, Absolute Lymphs (auto) 1.82, Nucleated RBC % 0, Sodium 142, Potassium 3.7, Chloride 108, Carbon Dioxide 24.8, Anion Gap 9, BUN 19, Creatinine 0.95, Estim Creat Clear Calc 75.05, Est GFR (MDRD) Non-Af 84, BUN/Creatinine Ratio 20.2 H, Glucose 96, Calcium 9.0, Total Bilirubin 1.11, AST 21, ALT 25, Alkaline Phosphatase 50, Total Protein 6.0, Albumin 3.8, Globulin 2.2, Albumin/Globulin Ratio 1.7 Radiography Diagnostic Testing: Radiology Impression Chest X-Ray 10/10/24 20:00 IMPRESSION: NEGATIVE CHEST Reading Location: [facility] Physical Exam Narrative Seen and examined. Patient complain of exertional burning type of chest pain on precordial region for about 1 week mainly on exertion and relieved with the rest with mild shortness of breath on exertion. Denies any radiation to jaw, neck arm or shoulder. No palpitation diaphoresis or presyncope or syncope. No prior history of UT. Patient is adopted therefore does not know about family history. Patient quit smoking 40 years ago and while smoking a pack per day started at the age of [age]. Therefore 14 pack years of smoking Physical exam General: Alert, Oriented x3, Cooperative HEENT: Atraumatic, PERRLA, EOMI, Normocephalic. Oral: No Gingival or Mucosal Lesions/ Ulcerations Neck: Supple, No JVD, Negative Carotid Bruits Chest wall/Lungs: Air entry diminished in bilateral lung bases. No crepitation/rhonchi Cardiovascular: Regular rate and rhythm, Normal S1,S2, No M/G/R Abdomen: Bowel Sounds Present, Soft, Non Tender, Non-Distended : No dysuria. No renal angle tenderness. No suprapubic tenderness. Extremities: No edema, Capillary Refill Less than 3 Seconds Skin: No rashes, No breakdown Musculoskeletal: No Tenderness to Palpation of Joints or Extremities Neurological: Cranial nerves II-XII grossly intact, DTR 2+/4. No acute focal neurological deficit. Psych/Mental Status: Normal Affect, Appropriate. Assessment & Plan Assessment/Plan (1) Chest pain: PLAN: Plan The patient is a 74 y/o M is being admitted with chest discomfort ongoing for the last week primarily with exertion with associated dyspnea noted and he normally had been previously active without issue but recently can even walk without becoming winded with increased fatigue and malaise especially for the last couple days per spouse with remote stress testing that at that time had been likely normal but he cannot recall the timeline. #1. Unstable angina/non-STEMI on mild exertion: Patient is being admitted in PCU. Twelve-lead EKG done in the ER shows Q waves in the inferior leads therefore evidence of past inferior wall UT. Patient stated he did not had chest pain severe/UT in the past. CXR w/ no acute cardiopulmonary findings, initial trop 19 with repeat delta mildly elevated at 28. DARLINE risk score 3 with age more than 65, anginal episodes and positive troponin. Patient was evaluated by b2b managed service sales exec and recommended cardiac cath on Saturday. Stress test canceled. 2D echo tomorrow a.m. Amlodipine 5 mg daily, baby aspirin, atorvastatin, Isordil 5 mg twice daily. Heart rate is 64 therefore beta-sharonda not indicated. #2. Elevated BP without hypertensive diagnosis probably undiagnosed hypertension: Patient in the ED with elevated BP above goal, possibly related with acute presentation #1, will continue to closely monitor and add oral regimen if clinically appropriate, as needed IV hydralazine in the interim. #3. Possible Chronic Kidney Disease Stage II : Admission BUN/Cr 25/1.01, GFR 79, baseline renal function unknown #4. DVT prophylaxis: Lovenox. Laboratory Results 10/10/24 19:30: WBC 7.5, RBC 5.09, Hgb 14.9, Hct 42.7, MCV 83.9, MCH 29.3, MCHC 34.9, RDW Std Deviation 40.6, RDW Coeff of Anila 13.2, Plt Count 184, MPV 10.6, Immature Gran % (Auto) 0.400, Neut % (Auto) 62.4, Lymph % (Auto) 22.7, Rains % (Auto) 10.6 H, Eos % (Auto) 3.5, Baso % (Auto) 0.4, Absolute Neuts (auto) 4.7, Absolute Lymphs (auto) 1.71, Nucleated RBC % 0, Sodium 142, Potassium 3.6, Chloride 108, Carbon Dioxide 21.3, Anion Gap 12, BUN 25 H, Creatinine 1.01, Est GFR (MDRD) Non-Af 79, BUN/Creatinine Ratio 24.3 H, Glucose 109 H, Calcium 9.2, Troponin T High Sens 19, NT pro BNP II 296 10/10/24 21:35: Magnesium 1.9, Troponin T Hi Sens 2 Hr 28 H 10/11/24 00:09: Troponin T Hi Sens 4Hr 27 H 10/11/24 05:30: WBC 6.2, RBC 4.85, Hgb 14.1, Hct 40.7, MCV 83.9, MCH 29.1, MCHC 34.6, RDW Std Deviation 40.6, RDW Coeff of Anila 13.4, Plt Count 159, MPV 10.5, Immature Gran % (Auto) 0.300, Neut % (Auto) 55.4, Lymph % (Auto) 29.2, Rains % (Auto) 10.6 H, Eos % (Auto) 4.0, Baso % (Auto) 0.5, Absolute Neuts (auto) 3.5, Absolute Lymphs (auto) 1.82, Nucleated RBC % 0, Sodium 142, Potassium 3.7, Chloride 108, Carbon Dioxide 24.8, Anion Gap 9, BUN 19, Creatinine 0.95, Estim Creat Clear Calc 75.05, Est GFR (MDRD) Non-Af 84, BUN/Creatinine Ratio 20.2 H, Glucose 96, Calcium 9.0, Total Bilirubin 1.11, AST 21, ALT 25, Alkaline Phosphatase 50, Total Protein 6.0, Albumin 3.8, Globulin 2.2, Albumin/Globulin Ratio 1.7 Charges/Coding Visit Charges Inpatient E&M: 18619 Subs Hosp L2
--- NOTE | 2024-10-11 08:33 | CON.PCM.CA_ITS ---
Assessment & Plan Assessment/Plan (1) New-onset angina: PLAN: Patient's history suggestive of new onset angina pectoris. Irish class III. Continue aspirin. No beta-blockers for now in view of baseline bradycardia. Start on amlodipine. Nitrates. Check lipid profile. Check echocardiogram. Recommend coronary angiography with possible revascularization. Risks benefits and alternatives explained to the patient. He understands these and wishes to think about it. (2) Hypertension: PLAN: Amlodipine and nitrates. HPI Consult Data Date of Consult: 10/11/24 HPI Narrative Reason for Consultation: Chest pain HPI Narrative: 74-year-old gentleman with no significant past medical history. Presented to the emergency room with complaints of increasing anterior chest burning and dyspnea on exertion for the last 7 to 10 days. According to the patient, even modest activity such as walking precipitates anterior chest burning. He feels short of breath with it. Reports no diaphoresis. No radiation of the chest discomfort to the arm neck or jaw. No nausea or vomiting. Symptoms resolved promptly with rest. No rest symptoms. Per him, the symptoms have gradually worsened with now modest activity precipitating these. Denies any history of CAD. No orthopnea. No PND. No ankle edema. Denies any palpitations. [facility] Medical History (Updated 10/11/24 @ 08:[address] Ada Doherty MD) Former tobacco use CKD (chronic kidney disease), stage II Ruptured patellar tendon Medical History no medical history Home Medications ?Medication ?Instructions ?Recorded ?Last Taken ?Type multivitamin (Daily Multi-Vitamin 1 tab PO DAILY suppl ement 10/10/24 10/10/24 History tablet) tamsulosin 0.4 mg capsule 0.4 mg PO DAILY urination bennett pport 10/10/24 10/09/24 History Allergy/AdvReac Type Severity Reaction Status Date / Time No Known Allergies Allergy Verified 10/10/24 19:09 Family History adopted Surgical History (Updated 10/10/24 @ 23:52 by Phuong Esquivel) Hx of tonsillectomy No history of previous surgery Social History (Updated 10/10/24 @ 23:[address] Joelle Truong MD) household members: spouse Smoking Status: Former smoker how long ago did patient quit smoking: Quit approximately 34 years prior, smoked cigars 19 y/o until quit. alcohol intake: current alcohol intake frequency: holidays/special occasions only substance use type: does not use Physical Exam Narrative Comfortable. No apparent distress. No carotid bruit. Heart sounds 1 and 2 normal. No murmurs or rubs are noted. Chest is clear to auscultation bilaterally. Alert oriented x 3. No ankle edema. Risk Stratification Risk Stratification Applicable: No Objective Data Vital Signs: Vital Signs Temp Pulse Resp BP Pulse Ox O2 Del Method 97.7 F L 58 L 13 141/81 H 97 Room Air 10/11/24 05:13 10/11/24 05:13 10/11/24 05:13 10/11/24 05:13 10/11/24 05:13 10/11/24 05:13 Oxygen Delivery Method Room Air Weight: 188 lb 7.924 oz Body Mass Index (BMI) 27.9 Intake & Output: Intake and Output for Last 24 Hours 10/09/24 10/10/24 10/11/24 23:59 23:59 23:59 Intake Total 0 / 0 Balance 0 / 0 Lab / Micro Data Attestation: I reviewed the patient's lab results. 10/11/24 05:30 10/11/24 05:30 Labs: Laboratory Results - last 24 hr 10/10/24 19:30: WBC 7.5, RBC 5.09, Hgb 14.9, Hct 42.7, MCV 83.9, MCH 29.3, MCHC 34.9, RDW Std Deviation 40.6, RDW Coeff of Anila 13.2, Plt Count 184, MPV 10.6, Immature Gran % (Auto) 0.400, Neut % (Auto) 62.4, Lymph % (Auto) 22.7, [place] % (Auto) 10.6 H, Eos % (Auto) 3.5, Baso % (Auto) 0.4, Absolute Neuts (auto) 4.7, Absolute Lymphs (auto) 1.71, Nucleated RBC % 0, Sodium 142, Potassium 3.6, Chloride 108, Carbon Dioxide 21.3, Anion Gap 12, BUN 25 H, Creatinine 1.01, Est GFR (MDRD) Non-Af 79, BUN/Creatinine Ratio 24.3 H, Glucose 109 H, Calcium 9.2, Troponin T High Sens 19, NT pro BNP II 296 10/10/24 21:35: Magnesium 1.9, Troponin T Hi Sens 2 Hr 28 H 10/11/24 00:09: Troponin T Hi Sens 4Hr 27 H 10/11/24 05:30: WBC 6.2, RBC 4.85, Hgb 14.1, Hct 40.7, MCV 83.9, MCH 29.1, MCHC 34.6, RDW Std Deviation 40.6, RDW Coeff of Anila 13.4, Plt Count 159, MPV 10.5, Immature Gran % (Auto) 0.300, Neut % (Auto) 55.4, Lymph % (Auto) 29.2, [place] % (Auto) 10.6 H, Eos % (Auto) 4.0, Baso % (Auto) 0.5, Absolute Neuts (auto) 3.5, Absolute Lymphs (auto) 1.82, Nucleated RBC % 0, Sodium 142, Potassium 3.7, Chloride 108, Carbon Dioxide 24.8, Anion Gap 9, BUN 19, Creatinine 0.95, Estim Creat Clear Calc 75.05, Est GFR (MDRD) Non-Af 84, BUN/Creatinine Ratio 20.2 H, Glucose 96, Calcium 9.0, Total Bilirubin 1.11, AST 21, ALT 25, Alkaline Phosphatase 50, Total Protein 6.0, Albumin 3.8, Globulin 2.2, Albumin/Globulin Ratio 1.7 Rhythm Strip Rhythm Strip: Sinus Rhythm Cardiology Labs/Tests 10/10/24 19:30: WBC 7.5, RBC 5.09, Hgb 14.9, Hct 42.7, MCV 83.9, MCH 29.3, MCHC 34.9, Plt Count 184, MPV 10.6, Immature Gran % (Auto) 0.400, Neut % (Auto) 62.4, Lymph % (Auto) 22.7, [place] % (Auto) 10.6 H, Eos % (Auto) 3.5, Baso % (Auto) 0.4, Absolute Neuts (auto) 4.7, Nucleated RBC % 0, Sodium 142, Potassium 3.6, Chloride 108, Carbon Dioxide 21.3, Anion Gap 12, BUN 25 H, Creatinine 1.01, Est GFR (MDRD) Non-Af 79, BUN/Creatinine Ratio 24.3 H, Glucose 109 H, Calcium 9.2 10/10/24 21:35: Magnesium 1.9 06/29/25 05:30: WBC 6.2, RBC 4.85, Hgb 14.1, Hct 40.7, MCV 83.9, MCH 29.1, MCHC 34.6, Plt Count 159, MPV 10.5, Immature Gran % (Auto) 0.300, Neut % (Auto) 55.4, Lymph % (Auto) 29.2, [place] % (Auto) 10.6 H, Eos % (Auto) 4.0, Baso % (Auto) 0.5, Absolute Neuts (auto) 3.5, Nucleated RBC % 0, Sodium 142, Potassium 3.7, Chloride 108, Carbon Dioxide 24.8, Anion Gap 9, BUN 19, Creatinine 0.95, Est GFR (MDRD) Non-Af 84, BUN/Creatinine Ratio 20.2 H, Glucose 96, Calcium 9.0, Total Bilirubin 1.11 Rhythm: EKG: Sinus rhythm. Q waves in inferior leads suggestive of old inferior PA ECHO: Stress Test: Cardiac Cath: PCI: CT Surgery: Holter monitor: EPS: PPM: CXR: Chest CT Scan: Radiography Diagnostic Testing: Radiology Impression Chest X-Ray 10/10/24 20:00 IMPRESSION: NEGATIVE CHEST Reading Location: [id number]
[2024-10-11 10:40] VITALS: BP 130/86; PULSE 64; RESP 17; TEMP 36.6; O2SAT 97
[2024-10-11] MEDS: Isosorbide DN 10 MG Tablet 5 MG PO ×2 (10:44→22:23)
[2024-10-11] MEDS: Aspirin E.C. 81 MG Tablet PO (10:44)
[2024-10-11 17:20] VITALS: BP 109/73; PULSE 60; RESP 15; TEMP 36.6; O2SAT 95
[2024-10-11 22:30] VITALS: BP 117/65; PULSE 59; RESP 14; TEMP 36.5; O2SAT 95
[2024-10-11] MEDS: 0.9% Normal Saline (1000mL) 1,000 ML 75 ML IV (23:55)
[2024-10-12] VITALS (14 sets, daily range): BP systolic 97–150; BP diastolic 68–93; PULSE 55–74; RESP 14–16; TEMP 36.6; O2SAT 93–98; BMI 27.8
[2024-10-12] MEDS: Isosorbide DN 10 MG Tablet 5 MG PO ×2 (05:10→21:20)
[2024-10-12] MEDS: Aspirin E.C. 81 MG Tablet PO (05:10)
[2024-10-12 05:23] LABS: Hematocrit 42.0 % (40-54); Hemoglobin 14.3 g/dL (13.0-16.5); Immature Granulocytes Count 0.030 X10^3/uL (0.0-0.0); Mean Corp Hgb Conc 34.0 g/dL (32-36); Mean Corpuscular Volume 85.0 fL (80-94); Mean Platelet Vol. 10.2 fl (6.2-12.0); NRBC Flagged by Analyzer 0 % (0-5); Platelet Count 162 K/mm3 (150-450); RBC Distribution Width CV 13.4 % (11.6-14.6); RBC Distribution Width SD 41.7 fl (35.1-43.9); Red Blood Count 4.94 M/mm3 (4.6-6.2); White Blood Count 7.8 K/mm3 (4.4-11.0)
[2024-10-12 05:56] LABS: AST(SGOT) 20 U/L (<=37); Alanine Aminotransfer ALT/SGPT 21 U/L (<=46); Albumin, Serum 3.8 g/dL (3.4-4.8); Alkaline Phosphatase 53 U/L (40-129); Anion Gap 10 (5-15); BUN 15 mg/dL (4-19); BUN/Creat Ratio 15.6 RATIO (10-20); Calcium,Total 9.1 mg/dL (7.6-11.0); Carbon Dioxide 23.7 mmol/L (21.0-32.0); Chloride 107 mmol/L (98-108); Estimated Creatinine Clearance 73.43 ml/min (50-250); Globulin 2.0 g/dL (2.2-4.2); Glucose 108 mg/dL (70-99); Potassium 4.1 mmol/L (3.3-5.1)
--- NOTE | 2024-10-12 07:00 | ECHOCS_ITS ---
Reason For Study Reason For Study: Chest Pain Procedure This was a 2D Doppler, Color Flow transthoracic echocardiogram. Contrast injection was performed. Exam performed portable in patient room. Left Ventricle Aneurysmal lateral wall. The LV ejection fraction is 45 %. The estimated ejection fraction is 40-45 %. Mid-Lateral : Aneurysmal. Right Ventricle Normal right ventricle. Normal systolic function. Atria Normal left atrium. Mitral Valve The mitral valve is structurally normal. No prolapse or stenosis seen. Mild (1+) mitral valve insufficiency. Tricuspid Valve Normal tricuspid valve. Aortic Valve Trisinus/trileaflet aortic valve. Pulmonic Valve The pulmonic valve is not well visualized. Great Vessels The aortic root is not well visualized. Pericardium/Pleural No pericardial effusion. Medication Diluted definity 2.5ml given slow IV push to enhance endocardial definition. MMode/2D Measurements & Calculations LVIDd: 4.2 cm IVSd: 1.1 cm LVOT diam: 2.0 cm LVIDs: 3.1 cm LVPWd: 1.2 cm RVDd: 3.9 cm FS: 27.8 % LVOT area: 3.1 cm2 asc Aorta Diam: 3.4 cm LAV(MOD-bp): 53.2 ml LVAd ap4: 42.6 cm2 LAV(MOD-bp) Indexed: 26.4 ml/m2 LVLd ap4: 8.7 cm LAV(MOD-sp2): 63.7 ml EDV(MOD-sp4): 189.6 ml LAV(MOD-sp4): 37.4 ml EDV(sp4-el): 176.7 ml LVAs ap4: 28.2 cm2 LVLs ap4: 7.3 cm ESV(MOD-sp4): 111.5 ml ESV(sp4-el): 92.7 ml EF(MOD-sp4): 41.2 % EF(sp4-el): 47.6 % SV(MOD-sp4): 78.1 ml SV(sp4-el): 84.0 ml LA A4 area: 14.1 cm2 SI(MOD-sp4): 38.8 ml/m2 RA A4 area: 9.8 cm2 TAPSE: 1.4 cm Time Measurements MV dec time: 0.28 sec Doppler Measurements & Calculations MV E max lui: 66.8 cm/sec Lat Peak E' Lui: 10.0 cm/sec Med Peak E' Lui: 6.2 cm/sec MV A max lui: 79.4 cm/sec E/E' lat: 6.7 E/E' med: 10.8 MV E/A: 0.84 MV dec slope: 235.8 cm/sec2 Ao V2 max: 109.2 cm/sec LV V1 max: 98.8 cm/sec Ao max P.8 mmHg LV V1 max P.9 mmHg Ao V2 mean: 78.7 cm/sec LV V1 mean P.1 mmHg Ao mean P.8 mmHg LV V1 mean: 67.1 cm/sec Ao V2 VTI: 29.7 cm LV V1 VTI: 24.7 cm AV (velocity ratio): 0.83 ROSALBA(I,D): 2.6 cm2 ROSALBA(V,D): 2.8 cm2 SV(LVOT): 77.1 ml PA V2 max: 62.7 cm/sec TR max lui: 206.9 cm/sec TR max P.1 mmHg ECHO/Echo Complete W/ Contrast Interpretation Summary The estimated ejection fraction is 40-45 %. Mild mitral regurgitation No pericardial effusion No previous echo to compare. Definity/contrast echo used Ordering Physician: Ada Doherty Referring Physician: Andres Weiss Performed By: Jessie Stewart RDCS
[2024-10-12 13:04] LABS: Cholesterol 182 mg/dL (<=200); Low Density Lipoprotein Calc. 107 mg/dL; Triglycerides 152 mg/dL; Very Low Density Lipoprotein 30 mg/dL (5-40); cholesterol:hdl ratio screen 4.05
--- NOTE | 2024-10-12 15:04 | PN.HOSP_ITS ---
Reason for Visit Reason for Visit: Diagnoses Essential (primary) hypertension (10/11/24) Angina pectoris, unspecified (10/11/24) Chest pain, unspecified (10/11/24) Objective Data Objective Data Vital Signs: Vital Signs Temp Pulse Resp BP Pulse Ox O2 Del Method 97.8 F 60 14 114/71 95 Room Air 10/12/24 05:18 10/12/24 12:00 10/12/24 05:18 10/12/24 12:00 10/12/24 12:00 10/12/24 12:00 Oxygen Delivery Method Room Air Weight: 188 lb 0.869 oz Body Mass Index (BMI) 27.8 Intake & Output: Intake and Output for Last 24 Hours 10/10/24 10/11/24 10/12/24 23:59 23:59 23:59 Intake Total 0 / 0 690 / 690 1000 / 1000 Balance 0 / 0 690 / 690 1000 / 1000 Lab / Micro Data 10/12/24 05:13 10/12/24 05:13 Labs: Laboratory Results - last 24 hr 10/12/24 05:13: WBC 7.8, RBC 4.94, Hgb 14.3, Hct 42.0, MCV 85.0, MCH 28.9, MCHC 34.0, RDW Std Deviation 41.7, RDW Coeff of Anila 13.4, Plt Count 162, MPV 10.2, Immature Gran % (Auto) 0.400, Neut % (Auto) 62.4, Lymph % (Auto) 24.0, [place] % (Auto) 9.0, Eos % (Auto) 3.6, Baso % (Auto) 0.6, Absolute Neuts (auto) 4.8, Absolute Lymphs (auto) 1.86, Nucleated RBC % 0, Sodium 140, Potassium 4.1, Chloride 107, Carbon Dioxide 23.7, Anion Gap 10, BUN 15, Creatinine 0.97, Estim Creat Clear Calc 73.43, Est GFR (MDRD) Non-Af 82, BUN/Creatinine Ratio 15.6, G lucose 108 H, Calcium 9.1, Total Bilirubin 0.76, AST 20, ALT 21, Alkaline Phosphatase 53, Total Protein 5.8 L, Albumin 3.8, Globulin 2.0 L, Albumin/Globulin Ratio 1.9, Triglycerides 152, Cholesterol 182, LDL Cholesterol, Calc 107, VLDL Cholesterol 30, HDL Cholesterol 45, Cholesterol/HDL Ratio 4.05, T SH 4.500 H Radiography Diagnostic Testing: Radiology Impression Echocardiogram 10/12/24 07:00 Interpretation Summary The estimated ejection fraction is 40-45 %. Mild mitral regurgitation No pericardial effusion No previous echo to compare. Definity/contrast echo used Ordering Physician: Ada Doherty Referring Physician: Andres Weiss Performed By: Jessie Stewart RDCS Rhythm Strip Rhythm Strip: Sinus Rhythm Physical Exam Narrative Seen and examined. 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 Plan for transfer to [facility]. Physical exam General: Alert, Oriented x3, Cooperative HEENT: Atraumatic, PERRLA, EOMI, Normocephalic. Oral: No Gingival or Mucosal Lesions/ Ulcerations Neck: Supple, No JVD, Negative Carotid Bruits Chest wall/Lungs: Air entry equal in bilateral lung bases. No crepitation/rhonchi Cardiovascular: Regular rate and rhythm, Normal S1,S2, No M/G/R Abdomen: Bowel Sounds Present, Soft, Non Tender, Non-Distended : No dysuria. No renal angle tenderness. No suprapubic tenderness. Extremities: No edema, Capillary Refill Less than 3 Seconds Skin: No rashes, No breakdown Musculoskeletal: No Tenderness to Palpation of Joints or Extremities Neurological: Cranial nerves II-XII grossly intact, DTR 2+/4. No acute focal neurological deficit. Psych/Mental Status: Normal Affect, Appropriate. Assessment & Plan Assessment/Plan (1) Chest pain: PLAN: Plan The patient is a 74 y/o M is being admitted with exertional burning type of chest pain on precordial region for about 1 week mainly on exertion and relieved with the rest with mild shortness of breath on exertion. Denies any radiation to jaw, neck arm or shoulder. No palpitation diaphoresis or presyncope or syncope. No prior history of MT. Patient is adopted therefore does not know about family history. Patient quit smoking 40 years ago and while smoking a pack per day started at the age of [age]. Therefore 14 pack years of smoking He had remote stress testing and probably had been likely normal but he cannot recall the timeline. #1. Unstable angina/non-STEMI on mild exertion: Patient is being admitted in PCU. Twelve-lead EKG done in the ER shows Q waves in the inferior leads therefore evidence of past inferior wall MT. Patient stated he did not had chest pain severe/MT in the past. CXR w/ no acute cardiopulmonary findings, initial trop 19 with repeat delta mildly elevated at 28. DARLINE risk score 3 with age more than 65, anginal episodes and positive troponin. Patient was evaluated by bilingual student tutor and recommended cardiac cath on Saturday. Stress test canceled. 2D echo tomorrow a.m. Amlodipine 5 mg daily, baby aspirin, atorvastatin, Isordil 5 mg twice daily. Heart rate is 64 therefore beta-sharonda not indicated. 10/12: Cardiac cath today. Cardiac cath showed 65% ostial LM, 80% proximal, 90% mid LAD and 90% ostial D1. 70% proximal LCx, 80% distal LCx, OM2 100% proximal filling via bridging collaterals. 100% proximal RCA filling retrogradely via collaterals from the left system. LVEF 35%. LV lateral aneurysm. Emblem Maker advised inpatient transfer for CABG and possible LV aneurysm repair/resection, therefore as per patient's and his wish called [facility] for transfer. They accepted the patient. Patient hemodynamically stable. Can be discharged/transferred to [facility] when the bed is available Echo done shows EF 40?45%, LV mid to lateral aneurysm. Mild MR. No pericardial effusion. #2. Elevated BP without hypertensive diagnosis probably undiagnosed hypertension: Patient in the ED with elevated BP above goal, possibly related with acute presentation #1, will continue to closely monitor and add oral regimen if clinically appropriate, as needed IV hydralazine in the interim. #3. Possible Chronic Kidney Disease Stage II : Admission BUN/Cr 25/1.01, GFR 79, baseline renal function unknown #4. DVT prophylaxis: Lovenox. Total time of the visit including total time spent in counseling or coordination of care, (more than 50% of the total time, spent in obtaining medical information from nurses and other ancillary care providers ,explaining to the patient about labs, imaging, diagnosis and management of active complex medical conditions), discussion with the epic application coordinator of [facility] for transfer, explanation to [facility] cardiology, review of labs and imaging is 35 minutes. Laboratory Results 10/10/24 19:30: Troponin T High Sens 19, NT pro BNP II 296 10/10/24 21:35: Magnesium 1.9, Troponin T Hi Sens 2 Hr 28 H 10/11/24 00:09: Troponin T Hi Sens 4Hr 27 H 10/12/24 05:13: WBC 7.8, RBC 4.94, Hgb 14.3, Hct 42.0, MCV 85.0, MCH 28.9, MCHC 34.0, RDW Std Deviation 41.7, RDW Coeff of Anila 13.4, Plt Count 162, MPV 10.2, Immature Gran % (Auto) 0.400, Neut % (Auto) 62.4, Lymph % (Auto) 24.0, [place] % (Auto) 9.0, Eos % (Auto) 3.6, Baso % (Auto) 0.6, Absolute Neuts (auto) 4.8, Absolute Lymphs (auto) 1.86, Nucleated RBC % 0, Sodium 140, Potassium 4.1, Chloride 107, Carbon Dioxide 23.7, Anion Gap 10, BUN 15, Creatinine 0.97, Estim Creat Clear Calc 73.43, Est GFR (MDRD) Non-Af 82, BUN/Creatinine Ratio 15.6, G lucose 108 H, Calcium 9.1, Total Bilirubin 0.76, AST 20, ALT 21, Alkaline Phosphatase 53, Total Protein 5.8 L, Albumin 3.8, Globulin 2.0 L, Albumin/Globulin Ratio 1.9, Triglycerides 152, Cholesterol 182, LDL Cholesterol, Calc 107, VLDL Cholesterol 30, HDL Cholesterol 45, Cholesterol/HDL Ratio 4.05, T SH 4.500 H Charges/Coding Visit Charges Inpatient E&M: 99310 Subs Hosp L3
--- NOTE | 2024-10-12 19:25 | EKG12_ITS ---
Test Reason : CP ADMISSION Blood Pressure : */* mmHG Vent. Rate : 59 BPM Atrial Rate : 59 BPM P-R Int : 186 ms QRS Dur : 96 ms QT Int : 436 ms P-R-T Axes : 35 16 22 degrees QTcB Int : 431 ms Sinus bradycardia Inferior-posterior infarct , age undetermined Anterolateral infarct , age undetermined Abnormal ECG When compared with ECG of 10-Oct-2024 19:24, MANUAL COMPARISON REQUIRED DATA IS UNCONFIRMED Confirmed by KYMBERLY DAVENPORT, MASSIEL ([id number]), state editor SIMEON KIRKLAND ([id number]) on 10/13/2024 6:51:44 AM Referred By: Adnres Weiss Confirmed By: MASSIEL TRAYLOR MD
[2024-10-12] MEDS: 0.9% Saline Lock 10 ML Syringe IV (21:22)
[2024-10-13 04:00] VITALS: BP 143/95; PULSE 66; RESP 16; TEMP 36.6; O2SAT 100
[2024-10-13 05:01] VITALS: BMI 28.4
[2024-10-13 08:19] VITALS: BP 150/81; PULSE 61; RESP 16; TEMP 36.6; O2SAT 96
[2024-10-13] MEDS: Aspirin E.C. 81 MG Tablet PO (08:25)
[2024-10-13] MEDS: Isosorbide DN 10 MG Tablet 5 MG PO (08:25)
--- NOTE | 2024-10-13 09:07 | NURSING ---
Report called at this time to DONN Chao by this RN.
--- NOTE | 2024-10-13 11:16 | PCM.DC.SUM ---
Providers Date of Admission: 10/11/24 Date of Discharge: 10/13/24 Primary Care Physician: Yamileth Sutton, BUILDING CONSTRUCTION INSPECTOR-Prashanth Consultations 10/11/24 08:15 Consult: Cardiology Routine Consulting Provider: Ada Doherty Reason for Consult: unstable angina/NSTEMI EMERGENT Consult: No MD Notified: Yes Date Notified: 10/11/24 Time Notified: 08:15 Method of Notification: Verbal Reason For Visit: CHEST PAIN Diagnosis Discharge Diagnosis (1) Chest pain: Status: Acute Code(s): R07.9 - Chest pain, unspecified Plan The patient is a 74 y/o M is being admitted with chest discomfort ongoing for the last week primarily with exertion with associated dyspnea noted and he normally had been previously active without issue but recently can even walk without becoming winded with increased fatigue and malaise especially for the last couple days per spouse with remote stress testing that at that time had been likely normal but he cannot recall the timeline. #1. Unstable angina/non-STEMI on mild exertion: Patient is being admitted in PCU. Twelve-lead EKG done in the ER shows Q waves in the inferior leads therefore evidence of past inferior wall MN. Patient stated he did not had chest pain severe/MN in the past. CXR w/ no acute cardiopulmonary findings, initial trop 19 with repeat delta mildly elevated at 28. DARLINE risk score 3 with age more than 65, anginal episodes and positive troponin. Patient was evaluated by cst and recommended cardiac cath on Saturday. Stress test canceled. 2D echo tomorrow a.m. Amlodipine 5 mg daily, baby aspirin, atorvastatin, Isordil 5 mg twice daily. Heart rate is 64 therefore beta-sharonda not indicated. #2. Elevated BP without hypertensive diagnosis probably undiagnosed hypertension: Patient in the ED with elevated BP above goal, possibly related with acute presentation #1, will continue to closely monitor and add oral regimen if clinically appropriate, as needed IV hydralazine in the interim. #3. Possible Chronic Kidney Disease Stage II : Admission BUN/Cr 09/05.01, GFR 79, baseline renal function unknown #4. DVT prophylaxis: Lovenox. Laboratory Results 10/10/24 19:30: WBC 7.5, RBC 5.09, Hgb 14.9, Hct 42.7, MCV 83.9, MCH 29.3, MCHC 34.9, RDW Std Deviation 40.6, RDW Coeff of Anila 13.2, Plt Count 184, MPV 10.6, Immature Gran % (Auto) 0.400, Neut % (Auto) 62.4, Lymph % (Auto) 22.7, [place] % (Auto) 10.6 H, Eos % (Auto) 3.5, Baso % (Auto) 0.4, Absolute Neuts (auto) 4.7, Absolute Lymphs (auto) 1.71, Nucleated RBC % 0, Sodium 142, Potassium 3.6, Chloride 108, Carbon Dioxide 21.3, Anion Gap 12, BUN 25 H, Creatinine 1.01, Est GFR (MDRD) Non-Af 79, BUN/Creatinine Ratio 24.3 H, Glucose 109 H, Calcium 9.2, Troponin T High Sens 19, NT pro BNP II 296 10/10/24 21:35: Magnesium 1.9, Troponin T Hi Sens 2 Hr 28 H 10/11/24 00:09: Troponin T Hi Sens 4Hr 27 H 10/11/24 05:30: WBC 6.2, RBC 4.85, Hgb 14.1, Hct 40.7, MCV 83.9, MCH 29.1, MCHC 34.6, RDW Std Deviation 40.6, RDW Coeff of Anila 13.4, Plt Count 159, MPV 10.5, Immature Gran % (Auto) 0.300, Neut % (Auto) 55.4, Lymph % (Auto) 29.2, [place] % (Auto) 10.6 H, Eos % (Auto) 4.0, Baso % (Auto) 0.5, Absolute Neuts (auto) 3.5, Absolute Lymphs (auto) 1.82, Nucleated RBC % 0, Sodium 142, Potassium 3.7, Chloride 108, Carbon Dioxide 24.8, Anion Gap 9, BUN 19, Creatinine 0.95, Estim Creat Clear Calc 75.05, Est GFR (MDRD) Non-Af 84, BUN/Creatinine Ratio 20.2 H, Glucose 96, Calcium 9.0, Total Bilirubin 1.11, AST 21, ALT 25, Alkaline Phosphatase 50, Total Protein 6.0, Albumin 3.8, Globulin 2.2, Albumin/Globulin Ratio 1.7 Medications at Discharge Home Medications multivitamin (Daily Multi-Vitamin tablet) 1 tab PO DAILY supplement 10/10/24 tamsulosin 0.4 mg capsule 0.4 mg PO DAILY urination support 10/10/24 Weight / BMI Weight Weight: 191 lb 12.835 oz Body Mass Index (BMI) 28.4 ABG / Lab / Microbiology Data 10/12/24 05:13 10/12/24 05:13 Laboratory: Laboratory Results - last 24 hr 10/12/24 05:13: Triglycerides 152, Cholesterol 182, LDL Cholesterol, Calc 107, VLDL Cholesterol 30, HDL Cholesterol 45, Cholesterol/HDL Ratio 4.05 Radiography Diagnostic Testing: Radiology Impression Echocardiogram 10/12/24 07:00 Interpretation Summary The estimated ejection fraction is 40-45 %. Mild mitral regurgitation No pericardial effusion No previous echo to compare. Definity/contrast echo used Ordering Physician: Ada Doherty Referring Physician: Andres Weiss Performed By: Jessie Stewart RDCS Meaningful Use Info Ischemic Stroke Statin Dosing Therapy Reference: STATIN DOSE THERAPY REFERENCE: * Patients > 75 years receive moderate or high dose statin therapy. * Patients 75 years or YOUNGER should receive HIGH intensity statin dose unless contraindicated. You will be required to document reason for non-treatment if statin daily dose does not meet guidelines. HIGH DOSE STATIN THERAPY DAILY Atorvastatin > than or = to 40 mg Rosuvastatin > than or = to 20 mg Amlodipine + Atorvastatin > than or = to 2.5/40 mg Ezetimibe + Simvastatin 10/80 mg Simvastatin 80mg Discharge Plan Admission Admit Date/Time: 10/11/24 13:53 Attending Provider: Asaf Gray Primary Care Provider: Yamileth Sutton Consulting Providers: Joelle Truong; Ada Doherty Discharge Orders/Prescriptions Prescriptions: No Action multivitamin [Daily Multi-Vitamin] Tablet 1 tab PO DAILY tamsulosin 0.4 mg capsule 0.4 mg PO DAILY Referrals / Follow Up: Yamileth Sutton, BUILDING CONSTRUCTION INSPECTOR-C [Primary Care Provider] - Disposition Disposition (needs filled in before D/C Order can be placed): Acute [facility]
--- NOTE | 2024-10-13 11:17 | DS.PCM_ITS ---
Providers Date of Admission: 10/11/24 Date of Discharge: 10/13/24 Primary Care Physician: Yamileth Sutton, HODAN Consultations 10/11/24 08:15 Consult: Cardiology Routine Consulting Provider: Ada Doherty Reason for Consult: unstable angina/NSTEMI EMERGENT Consult: No MD Notified: Yes Date Notified: 10/11/24 Time Notified: 08:15 Method of Notification: Verbal Reason For Visit: CHEST PAIN Diagnosis Discharge Diagnosis (1) Chest pain: Status: Acute Code(s): R07.9 - Chest pain, unspecified Plan The patient is a 74 y/o M is being admitted with exertional burning type of chest pain on precordial region for about 1 week mainly on exertion and relieved with the rest with mild shortness of breath on exertion. Denies any radiation to jaw, neck arm or shoulder. No palpitation diaphoresis or presyncope or syncope. No prior history of [place]. Patient is adopted therefore does not know about family history. Patient quit smoking 40 years ago and while smoking a pack per day started at the age of [age]. Therefore 14 pack years of smoking He had remote stress testing and probably had been likely normal but he cannot recall the timeline. #1. Unstable angina/non-STEMI on mild exertion: Patient is being admitted in PCU. Twelve-lead EKG done in the ER shows Q waves in the inferior leads therefore evidence of past inferior wall AZ. Patient stated he did not had chest pain severe/AZ in the past. CXR w/ no acute cardiopulmonary findings, initial trop 19 with repeat delta mildly elevated at 28. DARLINE risk score 3 with age more than 65, anginal episodes and positive troponin. Patient was evaluated by block greaser and recommended cardiac cath on Saturday. Stress test canceled. 2D echo tomorrow a.m. Amlodipine 5 mg daily, baby aspirin, atorvastatin, Isordil 5 mg twice daily. Heart rate is 64 therefore beta-sharonda not indicated. 10/12: Cardiac cath today. Cardiac cath showed 65% ostial LM, 80% proximal, 90% mid LAD and 90% ostial D1. 70% proximal LCx, 80% distal LCx, OM2 100% proximal filling via bridging collaterals. 100% proximal RCA filling retrogradely via collaterals from the left system. LVEF 35%. LV lateral aneurysm. Director Of Donor Relations advised inpatient transfer for CABG and possible LV aneurysm repair/resection, therefore as per patient's and his wish called [facility] for transfer. They accepted the patient. Patient hemodynamically stable. Can be discharged/transferred to [facility] when the bed is available Echo done shows EF 40?45%, LV mid to lateral aneurysm. Mild MR. No pericardial effusion. 10/13: Unfortunately patient did not get bed yesterday but he has been transferred in the morning today. Further care as per cardiology/CTS surgeon in [facility]. #2. Elevated BP without hypertensive diagnosis probably undiagnosed hypertension: Patient in the ED with elevated BP above goal, possibly related with acute presentation #1, will continue to closely monitor and add oral regimen if clinically appropriate, as needed IV hydralazine in the interim. #3. Possible Chronic Kidney Disease Stage II : Admission BUN/Cr 25/.01, GFR 79, baseline renal function unknown #4. DVT prophylaxis: Lovenox. Total time of the visit including total time spent in counseling or coordination of care, (more than 50% of the total time, spent in obtaining medical information from nurses and other ancillary care providers ,explaining to the patient about labs, imaging, diagnosis and management of active complex medical conditions), discussion with the behavioral therapy coordinator of [facility] for transfer, explanation to [facility] cardiology, review of labs and imaging is 35 minutes. Laboratory Results 10/10/24 19:30: Troponin T High Sens 19, NT pro BNP II 296 10/10/24 21:35: Magnesium 1.9, Troponin T Hi Sens 2 Hr 28 H 10/11/24 00:09: Troponin T Hi Sens 4Hr 27 H 10/12/24 05:13: WBC 7.8, RBC 4.94, Hgb 14.3, Hct 42.0, MCV 85.0, MCH 28.9, MCHC 34.0, RDW Std Deviation 41.7, RDW Coeff of Anila 13.4, Plt Count 162, MPV 10.2, Immature Gran % (Auto) 0.400, Neut % (Auto) 62.4, Lymph % (Auto) 24.0, Armstrong % (Auto) 9.0, Eos % (Auto) 3.6, Baso % (Auto) 0.6, Absolute Neuts (auto) 4.8, Absolute Lymphs (auto) 1.86, Nucleated RBC % 0, Sodium 140, Potassium 4.1, Chloride 107, Carbon Dioxide 23.7, Anion Gap 10, BUN 15, Creatinine 0.97, Estim Creat Clear Calc 73.43, Est GFR (MDRD) Non-Af 82, BUN/Creatinine Ratio 15.6, G lucose 108 H, Calcium 9.1, Total Bilirubin 0.76, AST 20, ALT 21, Alkaline Phosphatase 53, Total Protein 5.8 L, Albumin 3.8, Globulin 2.0 L, Albumin/Globulin Ratio 1.9, Triglycerides 152, Cholesterol 182, LDL Cholesterol, Calc 107, VLDL Cholesterol 30, HDL Cholesterol 45, Cholesterol/HDL Ratio 4.05, T SH 4.500 H Medications at Discharge Home Medications multivitamin (Daily Multi-Vitamin tablet) 1 tab PO DAILY supplement 10/10/24 tamsulosin 0.4 mg capsule 0.4 mg PO DAILY urination support 10/10/24 Physical Exam Narrative Seen and examined. No acute issues overnight. Patient got the bed in the morning today. Physical exam General: Alert, Oriented x3, Cooperative HEENT: Atraumatic, PERRLA, EOMI, Normocephalic. Oral: No Gingival or Mucosal Lesions/ Ulcerations Neck: Supple, No JVD, Negative Carotid Bruits Chest wall/Lungs: Air entry equal in bilateral lung bases. No crepitation/rhonchi Cardiovascular: Regular rate and rhythm, Normal S1,S2, No M/G/R Abdomen: Bowel Sounds Present, Soft, Non Tender, Non-Distended : No dysuria. No renal angle tenderness. No suprapubic tenderness. Extremities: No edema, Capillary Refill Less than 3 Seconds Skin: No rashes, No breakdown Musculoskeletal: No Tenderness to Palpation of Joints or Extremities Neurological: Cranial nerves II-XII grossly intact, DTR 2+/4. No acute focal neurological deficit. Psych/Mental Status: Normal Affect, Appropriate. Weight / BMI Weight Weight: 191 lb 12.835 oz Body Mass Index (BMI) 28.4 ABG / Lab / Microbiology Data 10/12/24 05:13 10/12/24 05:13 Laboratory: Laboratory Results - last 24 hr 10/12/24 05:13: Triglycerides 152, Cholesterol 182, LDL Cholesterol, Calc 107, VLDL Cholesterol 30, HDL Cholesterol 45, Cholesterol/HDL Ratio 4.05 Radiography Diagnostic Testing: Radiology Impression Echocardiogram 10/12/24 07:00 Interpretation Summary The estimated ejection fraction is 40-45 %. Mild mitral regurgitation No pericardial effusion No previous echo to compare. Definity/contrast echo used Ordering Physician: Ada Doherty Referring Physician: Andres Weiss Performed By: Jessie Stewart RDCS D/C Instructions DC O2, CPAP, BIPAP Needs Home O2 Discharge instructions: No Meaningful Use Info Meaningful Use Meaningful Use Diagnoses (Choose all that apply): None applicable Ischemic Stroke Statin Dosing Therapy Reference: STATIN DOSE THERAPY REFERENCE: * Patients > 75 years receive moderate or high dose statin therapy. * Patients 75 years or YOUNGER should receive HIGH intensity statin dose unless contraindicated. You will be required to document reason for non-treatment if statin daily dose does not meet guidelines. HIGH DOSE STATIN THERAPY DAILY Atorvastatin > than or = to 40 mg Rosuvastatin > than or = to 20 mg Amlodipine + Atorvastatin > than or = to 2.5/40 mg Ezetimibe + Simvastatin 10/80 mg Simvastatin 80mg Discharge Plan Admission Admit Date/Time: 10/11/24 13:53 Primary Reason for Your Visit: Unstable angina, triple-vessel disease Attending Provider: Asaf Gray Primary Care Provider: Yamileth Sutton Consulting Providers: Joelle Truong; Ada Doherty Discharge Orders/Prescriptions Prescriptions: No Action multivitamin [Daily Multi-Vitamin] Tablet 1 tab PO DAILY tamsulosin 0.4 mg capsule 0.4 mg PO DAILY Referrals / Follow Up: Yamileth Sutton, JB-C [Primary Care Provider] - Disposition Disposition (needs filled in before D/C Order can be placed): Acute Care Hospital Charges/Coding Visit Charges Inpatient E&M: 88311 Disch Hosp >30min
--- NOTE | 2024-11-23 09:45 | CL.D_ITS ---
Patient Name: CALEB VENTURA Study Date: 10/12/2024 Performing: Ada Doherty MD Ht: 69 inches 175.26 cm : 1950 Wt: 188.2 lbs 85.27 kg Age: 74 Gender: male BSA: 2.01 PROCEDURE(S) PERFORMED DC01-([id number])LHC/COR/LV CLINICAL PROFILE AND INDICATIONS Indications: New Onset Angina <= 2 months, Suspected CAD Heart Failure: None Stress/Imaging Stress/Image Study Performed: No Angina Classification Anginal Classification w/in 2 Weeks: CCS III CAD Presentations: Unstable angina. CONCLUSIONS 65% ostial LMCA 80% prox, 90% Mid LAD; 90% ostial D1 70% Prox LCX, 80% distal LCX, OM2 100% Prox, filling via bridging collaterals 100% Prox RCA, filling retrogradely via collataerals from the left system LVEF 35%. Lat aneurysm RECOMMENDATIONS CTS consult for CABG and possible LV aneurysm repair/resection DESCRIPTION OF PROCEDURE The patient arrived to the procedure lab. The risks and benefits of the procedure as well as a full description of our services here and current unavailability of surgical backup were fully explained to the patient and/or their significant other prior to the catheterization. The Timeout was completed, verifying the correct patient and procedure. The patient's procedural site was prepped and draped in the usual fashion. Local anesthetic was given subcutaneously to right radial region with Lidocaine 2%. Using a modified Seldinger technique, arterial access was obtained via the right radial artery, a 6Fr sheath was inserted. Left Coronary Artery selective angiography was performed in multiple views using a 5 Fr. 4.0 [place] catheter. Right Coronary Artery selective angiography was then performed in multiple views using a 5 Fr. JR 4 catheter. Left Ventriculography was performed in ROJAS projection using a 5 Fr. Pig[place] catheter.The arterial sheath was pulled and a TR Band was applied for hemostasis w/ 10ml air CORONARY ANGIOGRAPHY DOMINANCE: Right Dominant LEFT HEART ASSESSMENT Left Ventricular Ejection Fraction: by LV Gram 35 % Lateral Dyskinesis LVEDP: 27 mmHg LEFT MAIN: Tubular 60% Ostial lesion in LMCA LEFT ANTERIOR DESCENDING ARTERY: LAD: Tubular 80% Proximal lesion in LAD Tubular 70% Mid lesion in LAD Tubular 90% Mid lesion in LAD DIAGONAL 2: Tubular 90% Ostial lesion in DIAG2 OM 1: Tubular 100% Proximal lesion in MARG2 OM 2: Tubular 100% Proximal lesion in MARG2 RIGHT CORONARY ARTERY: RCA: Tubular 100% Proximal lesion in RCA COLLATERAL FLOW: Collateral flow from MARG2 to MARG2 Collateral flow from CX to RT LV-BR COMPLICATIONS No Complications PROCEDURE MEDICATIONS Versed 1 mg IV Fentanyl 50 mcg IV Oxygen: 2 L/min via nasal cannula Heparin given IA 10/12/2024 07:29:57 Verapamil 2.5mg, Ntg 200mcgs, 2000 units of Heparin given IA 10/12/2024 07:29:57 SUMMARY OF HEMODYNAMIC DATA Time AIR REST ECG 07:13:37 AO 97/55 (71) SA 07:32:51 AO 101/56 (74) 07:44:25 LV 104/16, 27 07:47:26 LV 104/16, 27 07:47:27 LV 90/25, 28 07:48:34 LV 99/27, 34 07:48:42 LV 109/26, 33 07:50:31 Signed By Ada Doherty MD On 10/12/2024 08:23:16 Ada Doherty MD
== END 2024-10-13 10:45 | disposition short-term general hospital (02) | DRG 281 ==
LOC: ED 22:46 → PCU 23:06
PROVIDERS: Admitting Provider Family Medicine; Emergency Provider Emergency Medicine; PCP Nurse Practitioner Family; Referring Provider Emergency Medicine; Visit Provider Internal Medicine
DX: I21.4 Non-ST elevation (NSTEMI) myocardial infarction (principal); I25.3 Aneurysm of heart; I12.9 Hypertensive chronic kidney disease with stage 1 through stage 4 chronic kidney disease, or unspecified chronic kidney disease; N18.2 Chronic kidney disease, stage 2 (mild); I25.110 Atherosclerotic heart disease of native coronary artery with unstable angina pectoris; I25.2 Old myocardial infarction; Z87.891 Personal history of nicotine dependence
CPT/HCPCS: 36415; 71046; 80048; 80053; 80061; 83735; 83880; 84443; 84484; 85025; 93005; 93306; 93458; 99152; 99153; 99285; Q9957; Q9967; A4216; C1769; C1894; C8929

== ENCOUNTER → 2024-11-24 | Outpatient (CLI) | payer MEDICARE, SELFPAY ==
--- NOTE | 2024-11-24 10:06 | CR.HP_ITS ---
CR - History & Physical General Arrival date:: 11/24/24 Arrival time:: 10:06 Date of Referral:: 11/16/24 Date of CR Evaluation:: 11/24/24 Referring Physician: Dr. Antonia Arnold Primary Diagnosis: CABG History of Present Cardiac Event Onset Date Coronary Artery Bypass Graft:: Yes (onset 10/21/2024) Vessel: GAMEZ-LAD, SVG-OM, SVG-PDA Medications Ambulatory Orders ?Medication ?Instructions ?Recorded multivitamin (Daily Multi-Vitamin 1 tab PO DAILY suppl ement 10/10/24 tablet) tamsulosin 0.4 mg capsule 0.4 mg PO DAILY urination bennett pport 10/10/24 Allergies Allergies No Known Allergies Allergy (Verified 10/10/24 19:09) Sleep Disorder Evaluation Hx of Sleep Apnea: No Do you snore loudly (louder than talking or can be heard through closed doors)?: No Do you often feel tired/ fatigued/ sleepy during daytime?: No Has anyone observed you stop breathing during sleep?: No History of Hypertension (for STOP score): No STOP Results: Negative Advanced Directives Advanced Directives Do you have a Healthcare Power of Crop Roller?: Yes Living Will: Yes Advance Directives Information Provided: No Advance Directives on File: Yes DNR Order?:: No Past Medical History Covid-19 Screening Physicial Symptoms Other Clinical Concerns Exposure Risk Pertinent Comorbidities 65 years or older:: Yes Has a serious heart condition:: Yes Past Medical Illness Past Medical History (Updated 10/21/24 @ 00:01 by Layla Marvin) New-onset angina I20.9 Dyspnea on exertion R06.09 Former tobacco use Z87.891 Cigar CKD (chronic kidney disease), 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 Ruptured patellar tendon S86.810L Past Surgical History Past Surgical History (Updated 10/10/24 @ 23:52 by Phuong Esquivel) Hx of tonsillectomy Z90.89 No history of previous surgery Social History Smoking History Smoking Status: Never smoker Alcohol Use Alcohol Usage: No Occupation Occupation (List type of work in comments):: Employed Hours worked per day:: 3 Social Environment Status Marital Status: Current Living Arrangements Living Environment:: Spouse Children How many children do you have?: 2 Do any of your children live nearby?: No Safety Do you feel safe in your surroundings?: Yes Assistance Do you need any assistance at home?: no Review of Systems Review of Systems Hints Review of Present Symptoms: Reports Shortness of Breath with Exertion, Operative Discomfort, Angina, Fatigue, Heart Arrhythmia/Irregularities, Appetite - Normal and Appetite - Special Diet; Denies Shortness of Breath at Rest, PVD, Wound Healing, Dizziness/Lightheadedness, Sleep - Normal or Sexual Changes Pain Is Patient Pain Free?: Yes Risk Factor Assessment Chief Complaint Chief Complaint: CABG Vital Signs Pulse Ox: 98 Blood Pressure: 132/70 Pulse Pulse Rate: 66 Obesity Height: 5 ft 9 in Weight:: 184 lb Weight in Pounds: 184.0 lbs Body Mass Index (BMI): 27.1 Nutritional Referral for Obesity: No Physical Inactivity Physical Inactivity: Reg Exercise 30 min/day Risk Stratification Risk Guidelines: Lowest Risk: Risk Factor for Smoking, Moderate Risk: Risk Factor for Diabetes, Risk Factor for Obesity, Risk Factor for Hypertension, Risk Factor for Sedentary Lifestyle and Risk Factor for Depression and Highest Risk: Risk Factor for Dyslipidemia For Smoking Smoking Risk Guidelines For Dyslipidemia Dyslipidemia Risk Guidelines For Diabetes Mellitus Diabetes Risk Guidelines For Obesity/Overweight Obesity/Overweight Risk Guidelines For Hypertension Hypertension Risk Guidelines For Sedentary Lifestyle Sedentary Lifestyle Risk Guidelines For Depression Depression Risk Guidelines Motivation Motivation to Participate On a scale of 1 to 10, how prepared are you to commit to attending program?: 9 What do you see as barriers to successfully being able to complete the program?: nothing What do you see as the benefits of succesfully completing the program? In other words, what do you hope to get out of participating in the program?: more energy Are there issues you are dealing with that will interfere with completing the program?: no Do you have a spouse or signficant other, family or friends who will help support you to complete the program?: yes
--- NOTE | 2024-11-24 10:12 | PCM.CR.ITP ---
Diagnosis General Information Admitting Diagnosis: CABG Personal Learning Style:: Audio/Visual Barriers to Learning: No Barriers Stage of change r/t lifestyle modifications:: Contemplation Gave educational material for:: Treating Heart Disease, How The Heart Works, What it means to have Heart Disease, How Coronary Artery Disease is Diagnosed, Heart Procedures, What Heart Medications Do, Risk Factors & Modifications, Living an Active Life, Nutrition, Emotions & Heart Disease, Stress Management & Relaxation and Sleep Disorders & Heart Disease Education/Goals Cardiac Rehabilitation Goals Personal Goals: Initial Assessment: Improve energy level, Participate in home exercise program, Get back to work, or to resume activities faster, Improve knowledge of cardiac disease, Improve muscle strength and endurance, Improve diet and eating habits (eat healthier) and Control risk factors (learn risk factor modification) Scale for measuring improvement of personal goals Diagnosis & Disease Process Outcomes/Goals: Pt IDs own risk factors & lifestyle modifications by Session 10, Verbalizes symptoms of angina & response by session 3., Pt independently manages and Other Additional Outcomes/Goals: Plan/Interventions: Assist Pt to ID & engage in lifestyle modification to reduce CVD risk, Instruct on individual risk factors, Review symptoms of angina & emergency actions, Review secondary diagnosis & identify educational needs. and Other see comment 30 day Reassessments:: Not Met 30 day Reassessments:: Not Met 30 day Reassessments:: Not Met 30 day Reassessments:: Not Met Final Reassessments:: Not Met Safety Referral to Physical Therapy: No Referral to [facility] Case Management: No Fall Risk Assessed:: Yes Assistive Devices:: None Exercise - Initial Assessment Visit Date of Eval: 11/24/24 (initial eval ) Mets: Pre-: >3 METS for 30 minutes by discharge, >5 METS for 30 minutes by discharge, >7 METS for 30 minutes by discharge and Unable to meet goal due to: (see comment below) Physician Prescribed Exercise Modalities: Treadmill, Schwinn Airdyne AD-7, SciFit Stepper, SciFit Pro-II Ergometer and SciFit Lateral [employer] Frequency: 3x/week for 12 weeks [36 sessions] Intensity: 60-80% of age predicted maximum heart rate reserve Duration: 30 - 45 minutes Current METSs:: 3 Target Heart Rate:: 88-110 Resting Blood Pressure: 132/70 EKG Type: SB Outcomes & Goals Goals:: Verbalizes understanding of THR, RPE & goal METS by session 6, Documents in home exercise log/reports 30 min aerobic 5 day/wk by DC, Demonstrates accurate pulse taking by DC and Other additional outcome/goals: see below Intervention & Plan Exercise Program Goals: Instruct on personal THR & RPE, Instruct on MET level & personal MET goal, Show patient to take own pulse /validate performance until accurate, Instruct on home exercise and Other additional plan/int Physical Activity Home Exercise Physical Activity - Home Exercise: Safe Exercise, Warm-up, Self-monitoring, Cool-Down, Home Exercise > 30 min Daily and Sitting Time <3 hours/daily Outcomes & Goals Outcomes/Goals: Demonstrates correct Warm-up/exercise Cool-Down (S3) if = 2.5 METs, Verbalizes symptoms of exercise intolerance by Session 3 (S3), Demonstrate safe equipment use (S3) & follows exercise prescrition (6) and Other: See below Intervention & Plan Plan/Intervention: Instruct warm-up & cool-down if exercising at > 2 METs, Instruct on symptoms of exercise intolerance & actions to take, Instruct & monitor on saf, Assess intial functional capacity & safety risk and Other See below Nutrition - Initial Assessment Program Goals Nutrition Program Goals Patient has diagnosis of Hyperlipidemia (ICD E78)?: Yes Visit Date of Eval: 11/24/24 (initial eval) Cholesterol/Lipids (Other Core Measures) Determine presence & major risk factors that modify LDL goal: Hypertension or hypertensive medication, Low HDL cholesterol <40 mg/dL*, Family history of premature CHD in Male < 55 years: female <65 yearsFa and Age men > 45 years; women >/= 55 years Outcomes/Goals: Pt IDs own risk factors & lifestyle modifications by Session 10, Verbalizes symptoms of angina & response by session 3., Pt independently manages and Other Additional Outcomes/Goals: Intervention/Plan: Advocate for lipid panel cholesterol medication if applicable, Instruct on personal lipid levels & lipid goals/NCEP guidelines, Instruct on cholesterol and Other additional plan/int Referral to dietitian:: No (declines) Diabetes (Other Core Measures) Diabetes Type: Not Applicable Weight Mgt (Other Care) Height: 5 ft 9 in Weight:: 184 lb BMI: 27.1 Diagnosis Overweight/Obesity BMI> 30% ICD-10 E66: No Diagnosis High BMI/Morbid Obesity BMI> 35% ICD-10 Z68: No Outcomes/Goals: Pt sets, maintains & shows weight loss goal & trend during rehab and Other additional outcomes/goals Intervention/Plan: Instruct on ideal BMI & set weight loss goal w/patient, Assist pt to ID & incorporate diet changes for weight loss by S9, Refer to Structured Weight Loss program as appropriate, Encourage goal of using 250-300dcal per session for weight loss and Other additional plan/interventions Healthy Eating Habits Will attend diet classes:: Yes Outcomes/Goals:: Consume diet rich in vegs,fruits,whole grain/high fiber,fish,lean meat, Limit sat/trans fats,cholesterol & added salts & sugars and Other additional outcome/goals: Intervention/Plan:: Assess current eating habits and Other Additional plan/interventions Education Gave educational materials for:: Signs & symptoms of hypoglycemia, Signs & symptoms of hyperglycemia, Relate diabetes to coronary artery disease and Healthy eating Core - Initial Assessment Visit Date of Eval: 11/24/24 (initial eval ) Medication Compliance Preventative Medication(s):: Aspirin and Beta sharonda H/O mental health issues: depression, anxiety, or addiction?: No Doesn?t believe in the benefits of treatment?: No Believes medications are unnecessary or harmful?: No Has a concern about medication side effects?: No Expresses concern over the cost of medications?: No Outcomes/Goals: Verbalizes medications,desired effect & common side effects @ DC, Pt self-reports following medication regimen, Keeps card in wallet w/medications listed by DC and Other additional outcome/goals: Interventions/plans: Instruct on medication effects & side effects, Review medication list w/patient every two weeks, Instruct importance of taking meds as ordered & assist problem solving and Other additional Tobacco Use Tobacco Use: Non-smoker Hypertension Resting Blood Pressure:: 132/70 [place] [employer] Hypertension Guidelines Outcomes/Goals: Able to verbalize/achieve optimal blood pressure <130/80, Incorporates diet changes & exercise for blood pressure control by DC and Other additional outcomes/goals Interventions/plan: Instruct on optimal blood pressure, hypertension & medications, Instruct on effects of sodium, alcohol, stress, exercise &hypertension and Other additional plan/interventions Tobacco Cessation Referral Smoking Cessation Referral:: No Individual Education/Counseling:: No Education Schedule Given:: Yes Psychosocial - Initial Assess VIsit Date of Eval: 11/24/24 (initial eval ) History of previous Mental disease:: No Target Goals Target Goals Psychosocial Test Tool Used:: PHQ-9 Questionnaire phq-9 Severity See PHQ-9 Score: 4 Referral to Behavioral Health PS - Interventions: Yes: Attend Stress Management Classes Outcomes/Goals: See list Psychosocial Outcomes/Goals:: ID's personal stressors & 2 strategies to manage stress by discharge and Other Additional outcome/goals: Intervention/Plan: See List Interventions/Plan:: Assess stressors,coping strategies & signs of derpression on admission, Instruct/assist pt to develop coping & personal stress Mgt strategies, Refer to Behavioral Health if appropriate, Refer to Physician if appropriate, Instruct patient to recognize signs & symptoms of depression, Instruct patient to recog and Other additional plan/intervention Patient Health Questionnaire PHQ-9 Screening Initial Assessment: 1. Little interest or pleasure in doing things: Not at all 2. Feeling down, depressed, or hopeless: Not at all 3. Trouble falling or staying asleep, or sleeping too much: Not at all 4. Feeling tired or having little energy: More than half the days 5. Poor appetite or overeating: Not at all 6. Feeling bad about yourself -- or that you are a failure or have let yourself or your family down: Not at all 7. Trouble concentrating on things, such as reading the newspaper or watching television: More than half the days 8. Moving or speaking so slowly that other people could have noticed. Or the opposite - being so fidgety or restless that you have been moving around a lot more than usual: Not at all 9. Thoughts that you would be better off , or of hurting yourself in some way: Not at all Total Score: 4 LATRICIA-Q SV Test Statements CAD is a disease of the arteries in the heart: True Examples of risk factors for heart disease: True Angina is chest pain or discomfort: True The benefits of resistance training include: True Eating more meat and dairy products: False Anti-platelet medications such as aspirin are important: True The only effective way to manage stress: False An exercise warm-up slowly increases heart rate: True Prepared, processed foods usually have high sodium: True Depression is common after a heart attack: True The statin medications lower cholesterol: True To control blood pressure, lower the amount of sodium: True If someone gets chest discomfort during walking: False Transfats are partially hydrogenated vegetable oils: True Sleep apnea that is not treated increases the risk: False To control cholesterol, one should become a vegetarian: False Someone knows if he/she is exercising at the right level: True Diabetes cannot be prevented with exercise & health eating: False Stress is a large risk for heart attack: True A diet that can help lower blood pressure is rich in: True Total Score Total Correct Responses: 19 Self-Efficacy 6-Item Scale Initial Assessment: We would like to know how confident you are in doing certain activities. Please select your confidence level for: Fatigue Select Number: 9 Physical Discomfort or Pain Select Number: 9 Emotional Distress Select Number: 9 Other Symptoms or Health Problems Select Number: 9 Different Tasks and Activities Select Number: 9 Medication Select Number: 9 Total Score:: 9 Nutrition Survey Nutrition Survey Instructions Scoring Instructions Nutrition Survey Initial: Have you lost >10 lbs over the past 2 months without trying?: No Are you following a special diet at home for diabetes, low fat, or low salt?: Yes Are you interested in meeting with a dietitian for help understanding your diet?: No Do you eat less than 3 meals a day?: No Do you eat fatty meats (gardner, sausage, ribs, etc), fried foods, desserts, large amounts of salad dressings, margarine, butter, or cheese most days?: Yes Do you have food allergies? [Enter types in comment field]: No Do you eat in restaurants more than 3 times a week?: No Do you season food with salt, seasoning salt, or garlic salt?: Yes Do you used canned, boxed, frozen meals, or soups, seasoning packets?: Yes Total Score:: 4 Exercise - 30-day Assessment Physician Prescribed Exercise Modalities: Treadmill, Schwinn Airdyne AD-7, SciFit Stepper, SciFit Pro-II Ergometer and SciFit Lateral [employer] Exercise - 60-day Assessment Physician Prescribed Exercise Modalities: Treadmill, Schwinn Airdyne AD-7, SciFit Stepper, SciFit Pro-II Ergometer and SciFit Lateral [place] Exercise - 90-day Assessment Physician Prescribed Exercise Modalities: Treadmill, Schwinn Airdyne AD-7, SciFit Stepper, SciFit Pro-II Ergometer and SciFit Lateral [employer] Exercise - Final/Discharge Physician Prescribed Exercise Modalities: Treadmill, Schwinn Airdyne AD-7, SciFit Stepper, SciFit Pro-II Ergometer and SciFit Lateral [place] Frequency: 3x/week for 12 weeks [36 sessions] Intensity: 60-80% of age predicted maximum heart rate reserve Current METSs:: 3 Target Heart Rate:: 88-110 Nutrition - 30-Day Assessment Weight Mgt (Other Care) Height: 5 ft 9 in Weight:: 184 lb BMI: 27.1 Nutrition - 60-Day Assessment Weight Mgt (Other Care) Height: 5 ft 9 in Weight:: 184 lb BMI: 27.1 Core - Final Assessment Hypertension Resting Blood Pressure:: 132/70 [place] [employer] Hypertension Guidelines Core - 60-Day Assessment Hypertension Resting Blood Pressure:: 132/70 [place] [employer] Hypertension Guidelines Psychosocial - 30-Day Assess Target Goals Target Goals Referral to Behavioral Health PS - Interventions: Yes: Attend Stress Management Classes Psychosocial - 60-Day Assess Target Goals Target Goals Referral to Behavioral Health PS - Interventions: Yes: Attend Stress Management Classes Psychosocial - 90-Day Assess Target Goals Target Goals Referral to Behavioral Health PS - Interventions: Yes: Attend Stress Management Classes Psychosocial - Final Assessmen Target Goals Target Goals Psychosocial Test phq-9 Severity See PHQ-9 Score: 4 Referral to Behavioral Health PS - Interventions: Yes: Attend Stress Management Classes Nutrition - 90-Day Assessment Weight Mgt (Other Care) Height: 5 ft 9 in Weight:: 184 lb BMI: 27.1 Nutrition - Final Assessment Program Goals Patient has diagnosis of Hyperlipidemia (ICD E78)?: Yes Weight Mgt (Other Care) Height: 5 ft 9 in Weight:: 184 lb BMI: 27.1
[2024-11-24 10:23] VITALS: BP 132/70; PULSE 66; O2SAT 98
[2024-11-24 11:09] VITALS: BP 132/70; BMI 27.1
== END | disposition home or self-care (01) ==
PROVIDERS: PCP Nurse Practitioner Family
DX: Z95.1 Presence of aortocoronary bypass graft (principal)

== ENCOUNTER 2024-12-11 10:15 | Outpatient (RCR) | payer MEDICARE, SELFPAY ==
[2024-11-24 11:09] VITALS: BMI 27.1
== END 2024-12-13 23:59 ==
LOC: CR 10:15
PROVIDERS: PCP Nurse Practitioner Family
DX: Z95.1 Presence of aortocoronary bypass graft (principal)
CPT/HCPCS: 93798

== ENCOUNTER 2025-01-11 10:15 | Outpatient (RCR) | payer MEDICARE, SELFPAY ==
[2024-11-24 11:09] VITALS: BMI 27.1
--- NOTE | 2024-12-22 07:43 | PCM.CR.ITP ---
Exercise - Initial Assessment Visit Session #:: 8 Physician Prescribed Exercise Modalities: SciFit Stepper, SciFit Pro-II Ergometer and SciFit Lateral [employer] Nutrition - Initial Assessment Weight Mgt (Other Care) Height: 5 ft 9 in Weight:: 183 lb BMI: 27.0 Psychosocial - Initial Assess Target Goals Target Goals Referral to Behavioral Health PS - Interventions: Yes: Attend Stress Management Classes Patient Health Questionnaire PHQ-9 Screening 30-Day Re-eval Assessment: 1. Little interest or pleasure in doing things: Not at all 2. Feeling down, depressed, or hopeless: Not at all 3. Trouble falling or staying asleep, or sleeping too much: Not at all 4. Feeling tired or having little energy: More than half the days 5. Poor appetite or overeating: Not at all 6. Feeling bad about yourself -- or that you are a failure or have let yourself or your family down: Not at all 7. Trouble concentrating on things, such as reading the newspaper or watching television: More than half the days 8. Moving or speaking so slowly that other people could have noticed. Or the opposite - being so fidgety or restless that you have been moving around a lot more than usual: Not at all 9. Thoughts that you would be better off , or of hurting yourself in some way: Not at all Total Score: 4 Self-Efficacy 6-Item Scale 30-Day Re-eval Assessment: We would like to know how confident you are in doing certain activities. Please select your confidence level for: Fatigue Select Number: 9 Physical Discomfort or Pain Select Number: 9 Emotional Distress Select Number: 9 Other Symptoms or Health Problems Select Number: 9 Different Tasks and Activities Select Number: 9 Medication Select Number: 9 Total Score:: 9 Nutrition Survey Nutrition Survey Instructions Scoring Instructions Exercise - 30-day Assessment Visit Date of Eval: 12/22/24 Session #:: 8 Physician Prescribed Exercise Modalities: SciFit Stepper, SciFit Pro-II Ergometer and SciFit Lateral [place] Frequency: 3x/week for 12 weeks [36 sessions] Intensity: 60-80% of age predicted maximum heart rate reserve Duration: 30 - 45 minutes Current METSs:: 3.5 Target Heart Rate:: 88-110 Current RPE:: 11-13 Maximum Excercise HR:: 87 Resting Blood Pressure: 136/72 Maximum Exercise Blood Pressure: 122/82 EKG Type: NSR w/ BBB w/ rare PVC Outcomes & Goals Goals:: Verbalizes understanding of THR, RPE & goal METS by session 6, Documents in home exercise log/reports 30 min aerobic 5 day/wk by DC, Demonstrates accurate pulse taking by DC and Other additional outcome/goals: see below Intervention & Plan Exercise Program Goals: Instruct on personal THR & RPE, Instruct on MET level & personal MET goal, Show patient to take own pulse /validate performance until accurate, Instruct on home exercise and Other additional plan/int Physical Activity Home Exercise Physical Activity - Home Exercise: Safe Exercise, Warm-up, Self-monitoring, Cool-Down, Home Exercise > 30 min Daily and Sitting Time <3 hours/daily Outcomes & Goals Outcomes/Goals: Demonstrates correct Warm-up/exercise Cool-Down (S3) if = 2.5 METs, Verbalizes symptoms of exercise intolerance by Session 3 (S3), Demonstrate safe equipment use (S3) & follows exercise prescrition (6) and Other: See below Intervention & Plan Plan/Intervention: Instruct warm-up & cool-down if exercising at > 2 METs, Instruct on symptoms of exercise intolerance & actions to take, Instruct & monitor on saf, Assess intial functional capacity & safety risk and Other See below 30-day Reassessments 30 day Reassessments:: Progressing Reassessment Notes & Comments:: RPE explained to pt. Pt demonstrates understanding in his daily sessions. 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 Nutrition - 30-Day Assessment Program Goals Nutrition Program Goals Patient has diagnosis of Hyperlipidemia (ICD E78)?: Yes Visit Date of Eval: 12/22/24 Session #:: 8 Cholesterol/Lipids (Other Core Measures) Determine presence & major risk factors that modify LDL goal: Hypertension or hypertensive medication, Low HDL cholesterol <40 mg/dL*, Family history of premature CHD in Male < 55 years: female <65 yearsFa and Age men > 45 years; women >/= 55 years Outcomes/Goals: Pt IDs own risk factors & lifestyle modifications by Session 10, Verbalizes symptoms of angina & response by session 3., Pt independently manages and Other Additional Outcomes/Goals: Intervention/Plan: Advocate for lipid panel cholesterol medication if applicable, Instruct on personal lipid levels & lipid goals/NCEP guidelines, Instruct on cholesterol and Other additional plan/int Referral to dietitian:: No (declines Nutrition score of 4) Diabetes (Other Core Measures) Diabetes Type: Not Applicable Weight Mgt (Other Care) Height: 5 ft 9 in Weight:: 183 lb BMI: 27.0 Diagnosis Overweight/Obesity BMI> 30% ICD-10 E66: No Diagnosis High BMI/Morbid Obesity BMI> 35% ICD-10 Z68: No Outcomes/Goals: Pt sets, maintains & shows weight loss goal & trend during rehab and Other additional outcomes/goals Intervention/Plan: Instruct on ideal BMI & set weight loss goal w/patient, Assist pt to ID & incorporate diet changes for weight loss by S9, Refer to Structured Weight Loss program as appropriate, Encourage goal of using 250-300dcal per session for weight loss and Other additional plan/interventions Healthy Eating Habits Will attend diet classes:: Yes Outcomes/Goals:: Consume diet rich in vegs,fruits,whole grain/high fiber,fish,lean meat, Limit sat/trans fats,cholesterol & added salts & sugars and Other additional outcome/goals: Intervention/Plan:: Assess current eating habits and Other Additional plan/interventions 30-day Reassessments:: Progressing Reassessment Notes & Comments:: Pt is scheduled to attend nutrition class. Low sodium heart healthy diet encouraged. Education Gave educational materials for:: Signs & symptoms of hypoglycemia, Signs & symptoms of hyperglycemia, Relate diabetes to coronary artery disease and Healthy eating Nutrition - 60-Day Assessment Weight Mgt (Other Care) Height: 5 ft 9 in Weight:: 183 lb BMI: 27.0 Core - 30-Day Assessment Visit Date of Eval: 12/22/24 Session #:: 8 Medication Compliance Preventative Medication(s):: Aspirin and Beta sharonda H/O mental health issues: depression, anxiety, or addiction?: No Doesn’t believe in the benefits of treatment?: No Believes medications are unnecessary or harmful?: No Has a concern about medication side effects?: No Expresses concern over the cost of medications?: No Outcomes/Goals: Verbalizes medications,desired effect & common side effects @ DC, Pt self-reports following medication regimen, Keeps card in wallet w/medications listed by DC and Other additional outcome/goals: Interventions/plans: Instruct on medication effects & side effects, Review medication list w/patient every two weeks, Instruct importance of taking meds as ordered & assist problem solving and Other additional Tobacco Use Tobacco Use: Non-smoker Hypertension Hypertension Diagnosis:: Hypertension ICD-10 I10 Resting Blood Pressure:: 136/72 [place] [employer] Hypertension Guidelines Peak Exercise Blood Pressure:: 122/82 Outcomes/Goals: Able to verbalize/achieve optimal blood pressure <130/80, Incorporates diet changes & exercise for blood pressure control by DC and Other additional outcomes/goals Interventions/plan: Instruct on optimal blood pressure, hypertension & medications, Instruct on effects of sodium, alcohol, stress, exercise &hypertension and Other additional plan/interventions 30 day Reassessments:: Progressing Reassessment Notes & Comments:: Pt's BP's are within AHA normal limits on some days. Will continue to monitor and report to pt's physician if necessary. Tobacco Cessation Referral Smoking Cessation Referral:: No Individual Education/Counseling:: No Education Schedule Given:: Yes Psychosocial - 30-Day Assess VIsit Date of Eval: 12/22/24 Session #:: 8 History of previous Mental disease:: No Target Goals Target Goals Psychosocial Test Tool Used:: PHQ-9 Questionnaire phq-9 Severity See PHQ-9 Score: 4 Referral to Behavioral Health PS - Interventions: Yes: Attend Stress Management Classes Outcomes/Goals: See list Psychosocial Outcomes/Goals:: ID's personal stressors & 2 strategies to manage stress by discharge and Other Additional outcome/goals: Intervention/Plan: See List Interventions/Plan:: Assess stressors,coping strategies & signs of derpression on admission, Instruct/assist pt to develop coping & personal stress Mgt strategies, Refer to Behavioral Health if appropriate, Refer to Physician if appropriate, Instruct patient to recognize signs & symptoms of depression, Instruct patient to recog and Other additional plan/intervention 30-day Reassessments: 30 day Reassessments:: Progressing Reassessment Notes & Comments:: Pt denies any psychosocial issues at this time. Pt to attend stress management class. Psychosocial - 60-Day Assess Target Goals Target Goals Referral to Behavioral Health PS - Interventions: Yes: Attend Stress Management Classes Outcomes/Goals: See list Psychosocial Outcomes/Goals:: ID's personal stressors & 2 strategies to manage stress by discharge and Other Additional outcome/goals: Psychosocial - 90-Day Assess Target Goals Target Goals Referral to Behavioral Health PS - Interventions: Yes: Attend Stress Management Classes Psychosocial - Final Assessmen Target Goals Target Goals Referral to Behavioral Health PS - Interventions: Yes: Attend Stress Management Classes Nutrition - 90-Day Assessment Weight Mgt (Other Care) Height: 5 ft 9 in Weight:: 183 lb BMI: 27.0 Nutrition - Final Assessment Weight Mgt (Other Care) Height: 5 ft 9 in Weight:: 183 lb BMI: 27.0
[2024-12-22 07:50] VITALS: BP 136/72; BMI 27.0
[2024-12-22 08:00] VITALS: BP 136/72
== END 2025-01-12 23:59 ==
LOC: CR 10:15
PROVIDERS: PCP Nurse Practitioner Family
DX: Z95.1 Presence of aortocoronary bypass graft (principal)
CPT/HCPCS: 93798

== ENCOUNTER 2025-02-05 10:15 | Outpatient (RCR) | payer MEDICARE, SELFPAY ==
[2024-12-22 07:50] VITALS: BMI 27.0
--- NOTE | 2025-01-19 07:36 | CR.ITP_ITS ---
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 Nutrition - Initial Assessment Weight Mgt (Other Care) Height: 5 ft 9 in Weight:: 185 lb BMI: 27.3 Core - Initial Assessment Hypertension Resting Blood Pressure:: 106/66 [place] [employer] Hypertension Guidelines Psychosocial - Initial Assess Referral to Behavioral Health PS - Interventions: Yes: Attend Stress Management Classes Exercise - 30-day Assessment Physician Prescribed Exercise Modalities: SciFit Stepper, SciFit Pro-II Ergometer and SciFit Lateral [place] Exercise - 60-day Assessment Visit Date of Eval: 01/19/25 Session #:: 19 Physician Prescribed Exercise Modalities: SciFit Stepper, SciFit Pro-II Ergometer and SciFit Lateral [place] Frequency: 3x/week for 12 weeks [36 sessions] Intensity: 60-80% of age predicted maximum heart rate reserve Duration: 30 - 45 minutes Current METSs:: 5.9 Target Heart Rate:: 88-110 Current RPE:: 12-13 Maximum Excercise HR:: 81 Resting Blood Pressure: 128/72 Maximum Exercise Blood Pressure: 130/80 EKG Type: NSR w/BBB w/rare PAC/PVC. Outcomes & Goals Goals:: Verbalizes understanding of THR, RPE & goal METS by session 6, Documents in home exercise log/reports 30 min aerobic 5 day/wk by DC, Demonstrates accurate pulse taking by DC and Other additional outcome/goals: see below Intervention & Plan Exercise Program Goals: Instruct on personal THR & RPE, Instruct on MET level & personal MET goal, Show patient to take own pulse /validate performance until accurate, Instruct on home exercise and Other additional plan/int Physical Activity Home Exercise Physical Activity - Home Exercise: Safe Exercise, Warm-up, Self-monitoring, Cool-Down, Home Exercise > 30 min Daily and Sitting Time <3 hours/daily Outcomes & Goals Outcomes/Goals: Demonstrates correct Warm-up/exercise Cool-Down (S3) if = 2.5 METs, Verbalizes symptoms of exercise intolerance by Session 3 (S3), Demonstrate safe equipment use (S3) & follows exercise prescrition (6) and Other: See below Intervention & Plan Plan/Intervention: Instruct warm-up & cool-down if exercising at > 2 METs, Instruct on symptoms of exercise intolerance & actions to take, Instruct & monitor on saf, Assess intial functional capacity & safety risk and Other See below 30-day Reassessments 30 day Reassessments:: Progressing Reassessment Notes & Comments:: Proper warm up and cool down demonstrated and e xplained to pt. Pt is able to return demonstration in their daily sessions. 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 Nutrition - 30-Day Assessment Weight Mgt (Other Care) Height: 5 ft 9 in Weight:: 185 lb BMI: 27.3 Nutrition - 60-Day Assessment Program Goals Nutrition Program Goals Patient has diagnosis of Hyperlipidemia (ICD E78)?: Yes Visit Date of Eval: 01/19/25 Session #:: 19 Cholesterol/Lipids (Other Core Measures) Determine presence & major risk factors that modify LDL goal: Hypertension or hypertensive medication, Low HDL cholesterol <40 mg/dL*, Family history of premature CHD in Male < 55 years: female <65 yearsFa and Age men > 45 years; women >/= 55 years Outcomes/Goals: Pt IDs own risk factors & lifestyle modifications by Session 10, Verbalizes symptoms of angina & response by session 3., Pt independently manages and Other Additional Outcomes/Goals: Intervention/Plan: Advocate for lipid panel cholesterol medication if applicable, Instruct on personal lipid levels & lipid goals/NCEP guidelines, Instruct on cholesterol and Other additional plan/int Referral to dietitian:: No (Nutrition survey score of 4. Pt declines cross country truck driver consult.) Diabetes (Other Core Measures) Diabetes Type: Not Applicable Weight Mgt (Other Care) Height: 5 ft 9 in Weight:: 185 lb BMI: 27.3 Diagnosis Overweight/Obesity BMI> 30% ICD-10 E66: No Diagnosis High BMI/Morbid Obesity BMI> 35% ICD-10 Z68: No Outcomes/Goals: Pt sets, maintains & shows weight loss goal & trend during rehab and Other additional outcomes/goals Intervention/Plan: Instruct on ideal BMI & set weight loss goal w/patient, Assist pt to ID & incorporate diet changes for weight loss by S9, Refer to Structured Weight Loss program as appropriate, Encourage goal of using 250- 300dcal per session for weight loss and Other additional plan/interventions 30 day Reassessments:: Progressing Reassessment Notes & Comments:: Pt is at a healthy weight. Pt is scheduled to attend nutrition classes with our cross country truck driver. Heart healthy low sodium diet encouraged. Healthy Eating Habits Will attend diet classes:: Yes Outcomes/Goals:: Consume diet rich in vegs,fruits,whole grain/high fiber,fish,lean meat, Limit sat/trans fats,cholesterol & added salts & sugars and Other additional outcome/goals: Intervention/Plan:: Assess current eating habits and Other Additional plan/interventions 30-day Reassessments:: Progressing Reassessment Notes & Comments:: Pt is scheduled to attend nutrition classes with our cross country truck driver. Heart healthy low sodium diet encouraged. Pt will have the option of a 1 on 1 consultation with our cross country truck driver. Education Gave educational materials for:: Signs & symptoms of hypoglycemia, Signs & symptoms of hyperglycemia, Relate diabetes to coronary artery disease and Healthy eating Core - Final Assessment Hypertension Resting Blood Pressure:: 106/66 [place] [employer] Hypertension Guidelines Core - 60-Day Assessment Visit Date of Eval: 01/19/25 Session #:: 19 Medication Compliance Preventative Medication(s):: Aspirin and Beta sharonda H/O mental health issues: depression, anxiety, or addiction?: No Doesn’t believe in the benefits of treatment?: No Believes medications are unnecessary or harmful?: No Has a concern about medication side effects?: No Expresses concern over the cost of medications?: No Outcomes/Goals: Verbalizes medications,desired effect & common side effects @ DC, Pt self-reports following medication regimen, Keeps card in wallet w/medications listed by DC and Other additional outcome/goals: Interventions/plans: Instruct on medication effects & side effects, Review medication list w/patient every two weeks, Instruct importance of taking meds as ordered & assist problem solving and Other additional 30-day Reassessments:: Progressing Reassessment Notes & Comments:: Pt is currently taking meds as prescribed. Pt to attend cardiac meds class. Tobacco Use Tobacco Use: Non-smoker Hypertension Hypertension Diagnosis:: Hypertension ICD-10 I10 Resting Blood Pressure:: 128/72 Resting Blood Pressure:: 106/66 [place] [employer] Hypertension Guidelines Peak Exercise Blood Pressure:: 130/80 Outcomes/Goals: Able to verbalize/achieve optimal blood pressure <130/80, Incorporates diet changes & exercise for blood pressure control by DC and Other additional outcomes/goals Interventions/plan: Instruct on optimal blood pressure, hypertension & medications, Instruct on effects of sodium, alcohol, stress, exercise &hypertension and Other additional plan/interventions 30 day Reassessments:: Progressing Reassessment Notes & Comments:: Pt's BP's are within AHA normal limits on most days. Weight loss and a low sodium heart healthy diet encouraged. Will continue to monitor and report to pt's physician if necessary. Tobacco Cessation Referral Smoking Cessation Referral:: No Individual Education/Counseling:: No Education Schedule Given:: Yes Psychosocial - 30-Day Assess Referral to Behavioral Health PS - Interventions: Yes: Attend Stress Management Classes Outcomes/Goals: See list Psychosocial Outcomes/Goals:: ID's personal stressors & 2 strategies to manage stress by discharge and Other Additional outcome/goals: Psychosocial - 60-Day Assess VIsit Date of Eval: 01/19/25 Session #:: 19 History of previous Mental disease:: No Psychosocial Test Tool Used:: PHQ-9 Questionnaire phq-9 Severity See PHQ-9 Score: 4 Referral to Behavioral Health PS - Interventions: Yes: Attend Stress Management Classes Outcomes/Goals: See list Psychosocial Outcomes/Goals:: ID's personal stressors & 2 strategies to manage stress by discharge and Other Additional outcome/goals: Intervention/Plan: See List Interventions/Plan:: Assess stressors,coping strategies & signs of derpression on admission, Instruct/assist pt to develop coping & personal stress Mgt strategies, Refer to Behavioral Health if appropriate, Refer to Physician if appropriate, Instruct patient to recognize signs & symptoms of depression, Instruct patient to recog and Other additional plan/intervention 30-day Reassessments: 30 day Reassessments:: Progressing Reassessment Notes & Comments:: Pt denies any psychosocial issues at this time. Pt to attend stress management class. Will reassess every 30 days. Psychosocial - 90-Day Assess Referral to Behavioral Health PS - Interventions: Yes: Attend Stress Management Classes Psychosocial - Final Assessmen Referral to Behavioral Health PS - Interventions: Yes: Attend Stress Management Classes Nutrition - 90-Day Assessment Weight Mgt (Other Care) Height: 5 ft 9 in Weight:: 185 lb BMI: 27.3 Nutrition - Final Assessment Weight Mgt (Other Care) Height: 5 ft 9 in Weight:: 185 lb BMI: 27.3
[2025-01-19 07:48] VITALS: BP 106/66; BP 128/72; BMI 27.3
--- NOTE | 2025-02-08 10:30 | CR.ITP_ITS ---
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 Little interest or pleasure in doing things: Not at all 2. Feeling down, depressed, or hopeless: Not at all 3. Trouble falling or staying asleep, or sleeping too much: Not at all 4. Feeling tired or having little energy: More than half the days 5. Poor appetite or overeating: Not at all 6. Feeling bad about yourself -- or that you are a failure or have let yourself or your family down: Not at all 7. Trouble concentrating on things, such as reading the newspaper or watching television: More than half the days 8. Moving or speaking so slowly that other people could have noticed. Or the opposite - being so fidgety or restless that you have been moving around a lot more than usual: Not at all 9. Thoughts that you would be better off , or of hurting yourself in some way: Not at all How difficult have these problems made it for you to do your work, take care of things at home, or get along with other people?: Not difficult at all Total Score: 4 Nutrition Survey Nutrition Survey Discharge: Have you lost >10 lbs over the past 2 months without trying?: No Are you following a special diet at home for diabetes, low fat, or low salt?: Yes Are you interested in meeting with a dietitian for help understanding your diet?: No Do you eat less than 3 meals a day?: No Do you eat fatty meats (gardner, sausage, ribs, etc), fried foods, desserts, large amounts of salad dressings, margarine, butter, or cheese most days?: Yes Do you have food allergies? 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 completed 27 sessions. Physician Prescribed Exercise Modalities: SciFit Stepper, SciFit Pro-II Ergometer and SciFit Lateral [place] Frequency: 3x/week for 12 weeks [36 sessions] Intensity: 60-80% of age predicted maximum heart rate reserve Duration: 30 - 45 minutes METs - Progression 0.5-1.0 weekly:: 1 Current METSs:: 5.9 Target Heart Rate:: 88-118 Target RPE 12-16:: 12-16 Current RPE:: 13 Maximum Heart Rate:: 89 Resting Blood Pressure: 128/66 Maximum Exercise Blood Pressure: 140/70 EKG Type: sinus mindy to NSR with rare pac, pvc. Current Physical Activity or Exercising minutes: 30 mins Outcomes & Goals Goals:: Verbalizes understanding of THR, RPE & goal METS by session 6, Documents in home exercise log/reports 30 min aerobic 5 day/wk by DC and Demonstrates accurate pulse taking by DC Intervention & Plan Exercise Program Goals: Instruct on personal THR & RPE, Instruct on MET level & personal MET goal, Show patient to take own pulse /validate performance until accurate and Instruct on home exercise 30-day Reassessments 30 day Reassessments:: Met Physical Activity Home Exercise Physical Activity - Home Exercise: Safe Exercise, Warm-up, Self-monitoring, Cool-Down, Home Exercise > 30 min Daily and Sitting Time <3 hours/daily Outcomes & Goals Outcomes/Goals: Demonstrates correct Warm-up/exercise Cool-Down (S3) if = 2.5 METs, Verbalizes symptoms of exercise intolerance by Session 3 (S3), Demonstrate safe equipment use (S3) & follows exercise prescrition (6) and Other: See below Intervention & Plan Plan/Intervention: Instruct warm-up & cool-down if exercising at > 2 METs, Instruct on symptoms of exercise intolerance & actions to take, Instruct & monitor on saf, Assess intial functional capacity & safety risk and Other See below 30-day Reassessments 30 day Reassessments:: Met Reassessment Notes & Comments:: demonstrates safe exercising while in rehab. plans to continue exercise outside of rehab. encouraged to continue 150 min/week of exercise. Nutrition - 30-Day Assessment Weight Mgt (Other Care) Height: 5 ft 9 in Weight:: 185 lb BMI: 27.3 Nutrition - 60-Day Assessment Weight Mgt (Other Care) Height: 5 ft 9 in Weight:: 185 lb BMI: 27.3 Core - 30-Day Assessment Hypertension [place] [employer] Hypertension Guidelines Reassessment Notes & Comments:: Pt takes BP daily. 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 Core - Final Assessment Visit Date of Eval: 02/08/25 Session #:: 27 Medication Compliance Preventative Medication(s):: Aspirin and Beta sharonda H/O mental health issues: depression, anxiety, or addiction?: No Doesn’t believe in the benefits of treatment?: No Believes medications are unnecessary or harmful?: No Has a concern about medication side effects?: No Expresses concern over the cost of medications?: No Outcomes/Goals: Verbalizes medications,desired effect & common side effects @ DC, Pt self-reports following medication regimen and Keeps card in wallet w/medications listed by DC Interventions/plans: Instruct on medication effects & side effects, Review medication list w/patient every two weeks and Instruct importance of taking meds as ordered & assist problem solving 30-day Reassessments:: Met Reassessment Notes & Comments:: no medication concerns at this time. takes medications as prescribed. Tobacco Use Tobacco Use: Non-smoker Hypertension Hypertension Diagnosis:: Hypertension ICD-10 I10 Resting Blood Pressure:: 128/66 [place] [employer] Hypertension Guidelines Peak Exercise Blood Pressure:: 140/70 Outcomes/Goals: Able to verbalize/achieve optimal blood pressure <130/80, Incorporates diet changes & exercise for blood pressure control by DC and Other additional outcomes/goals Interventions/plan: Instruct on optimal blood pressure, hypertension & medications, Instruct on effects of sodium, alcohol, stress, exercise &hypertension and Other additional plan/interventions 30 day Reassessments:: Progressing Reassessment Notes & Comments:: Pt takes BP daily. 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 Core - 90 Day Assessment Hypertension [place] [employer] Hypertension Guidelines Reassessment Notes & Comments:: Pt takes BP daily. 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 Core - 60-Day Assessment Hypertension Resting Blood Pressure:: 128/66 [place] [employer] Hypertension Guidelines Psychosocial - 30-Day Assess Referral to Behavioral Health PS - Interventions: Yes: Attend Stress Management Classes Psychosocial - 60-Day Assess Referral to Behavioral Health PS - Interventions: Yes: Attend Stress Management Classes Psychosocial - 90-Day Assess Referral to Behavioral Health PS - Interventions: Yes: Attend Stress Management Classes Psychosocial - Final Assessmen VIsit Date of Eval: 02/08/25 Session #:: 27 History of previous Mental disease:: No Psychosocial Test Tool Used:: PHQ-9 Questionnaire phq-9 Severity See PHQ-9 Score: 4 Total Score:: 4 Referral to Behavioral Health PS - Interventions: Yes: Attend Stress Management Classes Outcomes/Goals: See list Psychosocial Outcomes/Goals:: ID's personal stressors & 2 strategies to manage stress by discharge and Other Additional outcome/goals: Intervention/Plan: See List Interventions/Plan:: Assess stressors,coping strategies & signs of derpression on admission, Instruct/assist pt to develop coping & personal stress Mgt strategies, Refer to Behavioral Health if appropriate, Refer to Physician if appropriate, Instruct patient to recognize signs & symptoms of depression and Instruct patient to recog 30-day Reassessments: 30 day Reassessments:: Met Reassessment Notes & Comments:: no psychosocial concerns at time of discharge. Pt wanted to finish rehab early, feels comfortable exercising outside of rehab. Nutrition - 90-Day Assessment Weight Mgt (Other Care) Height: 5 ft 9 in Weight:: 185 lb BMI: 27.3 Nutrition - Final Assessment Program Goals Patient has diagnosis of Hyperlipidemia (ICD E78)?: Yes Visit Date of Assessment:: 02/08/25 Session #:: 27 Cholesterol/Lipids (Other Core Measures) Determine presence & major risk factors that modify LDL goal: Hypertension or hypertensive medication, Low HDL cholesterol <40 mg/dL*, Family history of premature CHD in Male < 55 years: female <65 yearsFa and Age men > 45 years; women >/= 55 years Outcomes/Goals: Pt IDs own risk factors & lifestyle modifications by Session 10, Verbalizes symptoms of angina & response by session 3. and Pt independently manages Intervention/Plan: Advocate for lipid panel cholesterol medication if applicable, Instruct on personal lipid levels & lipid goals/NCEP guidelines, Instruct on cholesterol and Other additional plan/int 30-day Reassessments:: Met Reassessment Notes & Comments:: encouraged to get lipid panel checked yearly or per physician recommendation. Diabetes (Other Core Measures) Diabetes Type: Not Applicable Weight Mgt (Other Care) Height: 5 ft 9 in Weight:: 185 lb BMI: 27.3 Diagnosis Overweight/Obesity BMI> 30% ICD-10 E66: No Outcomes/Goals: Pt sets, maintains & shows weight loss goal & trend during rehab and Other additional outcomes/goals Intervention/Plan: Instruct on ideal BMI & set weight loss goal w/patient, Assist pt to ID & incorporate diet changes for weight loss by S9, Refer to Structured Weight Loss program as appropriate, Encourage goal of using 250- 300dcal per session for weight loss and Other additional plan/interventions 30 day Reassessments:: Met Reassessment Notes & Comments:: Pt maintaining healthy weight. Healthy Eating Habits Will attend diet classes:: Yes Outcomes/Goals:: Consume diet rich in vegs,fruits,whole grain/high fiber,fish,lean meat, Limit sat/trans fats,cholesterol & added salts & sugars and Other additional outcome/goals: Intervention/Plan:: Assess current eating habits and Other Additional plan/interventions 30-day Reassessments:: Met Reassessment Notes & Comments:: encouraged to maintain low sodium/heart healthy diet. he attended nutrition classes available to him. Education Gave educational materials for:: Signs & symptoms of hypoglycemia, Signs & symptoms of hyperglycemia, Relate diabetes to coronary artery disease and Healthy eating
[2025-02-08 10:37] VITALS: BP 128/66
[2025-02-08 10:50] VITALS: BP 128/66; BMI 27.3
== END 2025-02-12 23:59 ==
LOC: CR 10:15
PROVIDERS: PCP Nurse Practitioner Family
DX: Z95.1 Presence of aortocoronary bypass graft (principal)
CPT/HCPCS: 93798